=== PATIENT | male | born 1955 | race Caucasian/White ===

== ENCOUNTER 2017-07-01 03:52 | Inpatient (IN) | payer MEDICARE, MEDICAID ==
[2017-07-01] VITALS (19 sets, daily range): BP systolic 71–139; BP diastolic 43–109
[~2017-07-01] VITALS: Ht 180.3 cm; Wt 79.4 kg
--- NOTE | 2017-07-01 04:01 | Emergency Room Report ---
History of Present Illness General Chief Complaint: Dyspnea/Respdistress Source: Medical Record, EMS Present Illness HPI This is a 62-year-old male who is a [facility] patient. He has a history of encephalopathy, muscle wasting and generalized weakness. He presents with chief agreement shortness of breath. Per [facility] note, his been complaint is shortness breath all day he refuse transport earlier but tonight was transported because symptom got much more severe. He was only 88% on 5 L at the [facility]. He was placed on a nonrebreather and brought here. History is limited in this patient because of his condition. He is very lethargic and not giving much of a history. There is no known fever or chills. No nausea no vomiting. No cough. Allergies: Coded Allergies: No Known Allergies (Unverified , 07/01/17) Patient History Past Medical History: see triage record, old chart reviewed Past Surgical History: other Pertinent Family History: none Social History: Denies: smoking Immunizations: other Reviewed Nursing Documentation: PMH: Agreed, PSxH: Agreed Review of Systems Eye: Denies: eye pain, blurred vision ENT: Denies: ear pain, nose congestion, throat swelling Respiratory: Reports: shortness of breath, Denies: cough Cardiovascular: Denies: chest pain, palpitations Gastrointestinal: Denies: abdominal pain, diarrhea, nausea, vomiting Musculoskeletal: Denies: back pain, joint pain Skin: Denies: rash Neurological: Denies: headache, numbness Endocrine: Denies: increased thirst, increased urine Hematologic/Lymphatic: Denies: easy bruising All Other Systems: negative except mentioned in HPI Physical Exam Vital Signs Date Time Temp Pulse Resp B/P (MAP) Pulse Ox O2 Delivery O2 Flow Rate FiO2 07/01/17 03:49 130 22 139/61 97 Non-Rebreather 15.0 vitals with low-grade fever and tachycardia Sp02 EP Interpretation: abnormal General Appearance: moderate distress, cachetic, Chronically Ill, Stupor Head: normocephalic, atraumatic Eyes: bilateral eye PERRL, bilateral eye EOMI ENT: hearing grossly normal, normal pharynx Neck: full range of motion, supple, no meningismus Respiratory: chest non-tender, respiratory distress, decreased breath sounds, accessory muscle use Cardiovascular #1: regular rate, rhythm, no murmur, tachycardia Gastrointestinal: normal bowel sounds, non tender, no mass, no organomegaly, no bruit, non-distended Musculoskeletal: back normal, normal range of motion Neurologic: grossly normal Psychiatric: depressed affect Skin: warm/dry Procedures Critical Care Time Critical Care Time Critical care is mandated in this patient who presented with respiratory failure from pneumonia. Patient require my urgent intervention to attenuate the risks of metabolic collapse which may lead to cardiovascular collapse and . Critical care time is 35 minutes excluding any reportable procedure. Critical care time included evaluation, multiple reevaluation, looking at old charts, interpreting laboratory and diagnostic data, discussing case with patient and family and consultants, and charting. Medical Decision Making Diagnostic Impression: Primary Impression: Acute respiratory failure with hypoxemia Additional Impressions: Sepsis Qualified Codes: A41.9 - Sepsis, unspecified organism Healthcare-associated pneumonia ARF (acute renal failure) Qualified Codes: N17.9 - Acute kidney failure, unspecified Metabolic acidosis UTI (urinary tract infection) Qualified Codes: N30.00 - Acute cystitis without hematuria Proteinuria Qualified Codes: R80.9 - Proteinuria, unspecified Anemia Qualified Codes: D64.9 - Anemia, unspecified Hyperkalemia ER Course This patient presents with respiratory distress secondary to pneumonia and severe metabolic acidosis. Rectal temperature was 100. He does have a consolidation in the right lower lobe. He is in acute renal failure in nature according to his acidosis. He received IV fluids and is urinating. Antibiotics given. Patient is more alert. Patient may also have CHF. Because of this bedbound status, he is also on the differential. Patient unable to get a CT scan because of his condition. dose of Lovenox given. I contacted Dr Garcia for admission Sepsis reevaluation Time: 5:18 AM Vital signs: Temperature 98, heart rate 125, respiratory rate 32, oxygenation 92 %, blood pressure 118/49 Mental status: More alert Cardiovascular: Tachycardia Lungs: Rhonchi Abdomen: Soft Extremity: No edema Skin: No mottling Laboratory Tests Test 07/01/17 03:54 07/01/17 04:00 Arterial Blood pH 7.174 (7.350-7.450) Arterial Blood Partial Pressure CO2 20.2 mmHg (35.0-45.0) *L Arterial Blood Partial Pressure O2 76.0 mmHg (75.0-100.0) Arterial Blood HCO3 7.3 mmol/L (22.0-26.0) L Arterial Blood Oxygen Saturation 92.0 % (92.0-98.0) Arterial Blood Base Excess -19.3 Ricardo Test Positive White Blood Count 10.1 K/UL (4.8-10.8) Red Blood Count 3.73 M/UL (4.70-6.10) L Hemoglobin 11.8 G/DL (14.2-18.0) L Hematocrit 36.5 % (42.0-52.0) L Mean Corpuscular Volume 98 FL (80-99) Mean Corpuscular Hemoglobin 31.7 PG (27.0-31.0) H Mean Corpuscular Hemoglobin Concent 32.3 G/DL (32.0-36.0) Red Cell Distribution Width 14.3 % (11.6-14.8) Platelet Count 186 K/UL (150-450) Mean Platelet Volume 6.3 FL (6.5-10.1) L Neutrophils (%) (Auto) % (45.0-75.0) Lymphocytes (%) (Auto) % (20.0-45.0) Monocytes (%) (Auto) % (1.0-10.0) Eosinophils (%) (Auto) % (0.0-3.0) Basophils (%) (Auto) % (0.0-2.0) Neutrophils % (Manual) Pending Lymphocytes % (Manual) Pending Platelet Estimate Pending Platelet Morphology Pending Prothrombin Time 10.9 SEC (9.30-11.50) Prothromb Time International Ratio 1.0 (0.9-1.1) Activated Partial Thromboplast Time 39 SEC (23-33) H Urine Color Pale yellow Urine Appearance Slightly cloudy Urine pH 5 (4.5-8.0) Urine Specific [place] 1.020 (1.005-1.035) Urine Protein 4+ (NEGATIVE) H Urine Glucose (UA) 2+ (NEGATIVE) H Urine Ketones 1+ (NEGATIVE) H Urine Occult Blood 2+ (NEGATIVE) H Urine Nitrite Negative (NEGATIVE) Urine Bilirubin Negative (NEGATIVE) Urine Urobilinogen Normal MG/DL (0.0-1.0) Urine Leukocyte Esterase Negative (NEGATIVE) Urine RBC 5-10 /HPF (0 - 0) H Urine WBC 2-4 /HPF (0 - 0) Urine Squamous Epithelial Cells Occasional /LPF Urine Amorphous Sediment Few /LPF (NONE) H Urine Bacteria Moderate /HPF (NONE) H Sodium Level 142 MMOL/L (136-145) Potassium Level 5.4 MMOL/L (3.5-5.1) H Chloride Level 107 MMOL/L (98-107) Carbon Dioxide Level 10 MMOL/L (21-32) L Anion Gap 25 mmol/L (5-15) H Blood Urea Nitrogen 118 mg/dL (7-18) H Creatinine 9.4 MG/DL (0.55-1.30) H Estimat Glomerular Filtration Rate 5.7 mL/min (>60) Glucose Level 209 MG/DL (74-106) H Lactic Acid Level 3.50 mmol/L (0.66-2.22) H Calcium Level 7.2 MG/DL (8.5-10.1) L Total Bilirubin 0.7 MG/DL (0.2-1.0) Aspartate Amino Transf (AST/SGOT) 25 U/L (15-37) Alanine Aminotransferase (ALT/SGPT) 23 U/L (12-78) Alkaline Phosphatase 62 U/L (46-116) Total Creatine Kinase 269 U/L (26-308) Creatine Kinase MB 2.6 NG/ML (0.0-3.6) Creatine Kinase MB Relative Index 0.9 Troponin I 0.016 ng/mL (0.000-0.056) Pro-B-Type Natriuretic Peptide 33558 pg/mL (0-125) H Total Protein 6.5 G/DL (6.4-8.2) Albumin 2.4 G/DL (3.4-5.0) L Globulin 4.1 g/dL Albumin/Globulin Ratio 0.6 (1.0-2.7) L Lab Results Impression labs show severe acidosis and renal failure EKG Diagnostic Results Rate: tachycardiac Rhythm: NSR ST Segments: other - baseline tremors Rhythm Strip Diag. Results Rhythm Strip Time: 04:01 EP Interpretation: yes Rate: 120 Rhythm: NSR, no PVC's, no ectopy Chest X-Ray Diagnostic Results Chest X-Ray Diagnostic Results : Chest X-Ray Ordered: Yes # of Views/Limited/Complete: 1 View Indication: Shortness of Breath EP Interpretation: Yes Interpretation: no pneumothorax, other - right lower lobe infiltrate versus edema Impression: Other - right lower lobe infiltrate versus edema Electronically Signed by: Carlos Manuel Estrada MD Last Vital Signs Date Time Temp Pulse Resp B/P (MAP) Pulse Ox O2 Delivery O2 Flow Rate FiO2 07/01/17 03:49 130 22 139/61 97 Non-Rebreather 15.0 Status: improved Disposition: ADMITTED INPATIENT Condition: Critical CARLOS MANUEL ESTRADA M.D. Jul 01, 2017 04:01
[2017-07-01] MEDS ORDERED: COSOPT EYE DROP10 M1 RIGHT EYE (04:16)
[2017-07-01] MEDS ORDERED: LOVAZA1 GM ORAL (04:16)
[2017-07-01] MEDS ORDERED: REGLAN10 MG ORAL (04:16)
[2017-07-01] MEDS ORDERED: ACETAMINOPHEN325 M1 ORAL (04:16)
[2017-07-01] MEDS ORDERED: BENADRYL25 MG ORAL (04:16)
[2017-07-01] MEDS ORDERED: ASCORBIC ACID500 MG ORAL (04:16)
[2017-07-01] MEDS ORDERED: LEVEMIR100 UNIT/1 SUBQ (04:16)
[2017-07-01] MEDS ORDERED: MIRTAZAPINE7.5 MG ORAL (04:16)
[2017-07-01] MEDS ORDERED: FERROUS SULFAT325 MG ORAL (04:16)
[2017-07-01] MEDS ORDERED: NORCO 5-325 TA1 EAC1 ORAL (04:16)
[2017-07-01] MEDS ORDERED: ASPIRIN81 MG ORAL (04:16)
[2017-07-01] MEDS ORDERED: NOVOLOG100 UNIT/3 SUBQ (04:16)
[2017-07-01] MEDS ORDERED: ATORVASTATIN CA10 MG ORAL (04:16)
[2017-07-01] MEDS ORDERED: BACLOFEN10 MG ORAL (04:16)
[2017-07-01] MEDS ORDERED: AZITHROMYCIN250 MG ORAL (04:16)
[2017-07-01] MEDS ORDERED: XALATAN2.5 ML RIGHT EYE (04:16)
[2017-07-01] MEDS ORDERED: BRIMONIDINE TART5 ML RIGHT EYE (04:16)
[2017-07-01] MEDS ORDERED: PROCRIT2000 UNIT/ SUBQ (04:16)
[2017-07-01] MEDS ORDERED: VITAMIN D1000 UNI1 ORAL (04:16)
[2017-07-01 04:18] LABS: HEMATOCRIT 36.5 % (42.0-52.0); HEMOGLOBIN 11.8 G/DL (14.2-18.0); MEAN CORPUSCULAR VOLUME 98 FL (80-99); PLATELET COUNT 186 K/UL (150-450); RED BLOOD COUNT 3.73 M/UL (4.70-6.10); RED CELL DISTRIBUTION WIDTH 14.3 % (11.6-14.8); WHITE BLOOD COUNT 10.1 K/UL (4.8-10.8)
[2017-07-01] MEDS ORDERED: Cefepime HCl 1 GM in D5W 55 ML IVPB ONE (04:30)
[2017-07-01] MEDS ORDERED: Cefepime 1gm vial ONE (04:32)
[2017-07-01 04:38] LABS: APPEARANCE,URINE SLIGHTLY CLOUDY; BILIRUBIN, URINE NEGATIVE (NEGATIVE); COLOR,URINE PALE YELLOW; GLUCOSE, URINE (UA) 2+ (NEGATIVE); KETONES,URINE 1+ (NEGATIVE); LEUKOCYTE ESTERASE ,URINE NEGATIVE (NEGATIVE); NITRITE,URINE NEGATIVE (NEGATIVE); PH,URINE 5 (4.5-8.0); PROTEIN,URINE 4+ (NEGATIVE); UROBILINOGEN,URINE NORMAL MG/DL (0.0-1.0)
[2017-07-01 04:51] LABS: ALANINE AMINOTRANSFERASE 23 U/L (12-78); ALBUMIN 2.4 G/DL (3.4-5.0); ALBUMIN/GLOBULIN RATIO 0.6 (1.0-2.7); ALKALINE PHOSPHATASE 62 U/L (46-116); ANION GAP 25 mmol/L (5-15); ASPARTATE AMINO TRANSFERASE 25 U/L (15-37); BILIRUBIN,TOTAL 0.7 MG/DL (0.2-1.0); BLOOD UREA NITROGEN 118 mg/dL (7-18); CALCIUM 7.2 MG/DL (8.5-10.1); CARBON DIOXIDE 10 MMOL/L (21-32); CHLORIDE 107 MMOL/L (98-107); CKMB 2.6 NG/ML (0.0-3.6); CREATINE KINASE 269 U/L (26-308); CREATININE 9.4 MG/DL (0.55-1.30); POTASSIUM 5.4 MMOL/L (3.5-5.1); SODIUM 142 MMOL/L (136-145)
[2017-07-01] MEDS ORDERED: Enoxaparin 60mg Inj SUBQ ONE (05:30)
[2017-07-01] MEDS ORDERED: Norco 5mg/325mg tab ORAL PRN (07:30)
[2017-07-01] MEDS ORDERED: Morphine Sulfate 2mg/ml Inj IVP PRN ×2 (07:30→15:30)
[2017-07-01] MEDS ORDERED: Promethazine/Codeine 5ml UD ORAL PRN ×2 (07:30→19:30)
[2017-07-01] MEDS ORDERED: Albuterol/Ipratropium 3ml neb HHN PRN ×2 (07:30→16:00)
[2017-07-01] MEDS ORDERED: LORazepam Inj 2mg/ml 1ml IV PRN ×3 (07:30→16:00)
[2017-07-01] MEDS ORDERED: Nitroglycerin Subl 0.4mg tab SL PRN ×2 (07:30→16:00)
[2017-07-01] MEDS ORDERED: Heparin 5000 units/ml inj SUBQ SCH (10:00)
[2017-07-01] MEDS ORDERED: Cosopt Opth Soln 10 mL Btl RIGHT EYE SCH (10:00)
[2017-07-01] MEDS ORDERED: Theophylline ER 100mg ORAL SCH (10:00)
--- NOTE | 2017-07-01 11:03 | Diagnostic Imaging Report ---
Indication: Reason For Exam: SOB Technique: One view of the chest Comparison: none Findings: Fairly extensive opacities are seen at both lung bases, with air bronchograms present at the right lung base. There is also evidence of pleural thickening versus fluid at the right lung base. The remainder of the lungs appear hyperinflated. Impression: Bilateral basilar opacities, likely reflect infiltrates. However, it could also be a chronic fibrotic component. Correlate with clinical findings Probable right pleural effusion Hyperinflation, suspect COPD
[2017-07-01] MEDS ORDERED: NovoLOG Insulin Flexpen SUBQ SCH (11:30)
[2017-07-01] MEDS ORDERED: Solu-MEDROL 125mg Inj IV SCH (12:00)
--- NOTE | 2017-07-01 15:09 | Consultation ---
History of Present Illness General Date patient seen: Jul 01, 2017 Chief Complaint: Dyspnea/Respdistress Reason for Consultation: shock Present Illness HPI 62-year-old male with hx of DM, depression, cachecia, [facility] resident muscle wasting and generalized weakness presented to ER by paramedics with CC of shortness of breath all day. Apparently he refused transport to hospital earlier but then he was transported because his symptoms got much more severe. He [facility] only 88% on 5 L at the [facility]. He was placed on a nonrebreather and brought to [facility]. He was initially was put on bipap and transferred to [facility]. His BP started to drop and he is being transferred to ICU for intubation and to start IV pressors. Allergies: Coded Allergies: No Known Allergies (Unverified , 07/01/17) Medication History Scheduled Ascorbic Acid* (Ascorbic Acid*), 500 MG ORAL TWICE A DAY, (Reported) Aspirin* (Aspirin*), 81 MG ORAL DAILY, (Reported) Atorvastatin Calcium* (Lipitor*), 10 MG ORAL BEDTIME, (Reported) Azithromycin* (Zithromax*), 250 MG ORAL DAILY, (Reported) Brimonidine Tartrate* (Alphagan*), 1 DROP RIGHT EYE FOUR TIMES A DAY, (Reported) Cholecalciferol (Vitamin D3)* (Vitamin D*), 1,000 UNIT ORAL DAILY, (Reported) Dorzolamide Hcl/Timolol Maleat (Cosopt Eye Drops), 1 DRP RIGHT EYE BID, ( Reported) Epoetin Kobe (Procrit), 2,000 UNIT SUBQ --, (Reported) Ferrous Sulfate* (Ferrous Sulfate*), 325 MG ORAL TWICE A DAY, (Reported) Insulin Detemir (Levemir), 10 SUBQ EVERY 12 HOURS, (Reported) Latanoprost* (Xalatan*), 1 DROP RIGHT EYE BEDTIME, (Reported) Mirtazapine* (Mirtazapine*), 7.5 MG ORAL BEDTIME, (Reported) [place]-3 Acid Ethyl Esters (Lovaza), 1 GM ORAL DAILY, (Reported) Scheduled PRN Acetaminophen* (Acetaminophen 325MG Tablet*), 650 MG ORAL Q4H PRN for TEMP>101, MILD PAIN, (Reported) Baclofen* (Baclofen*), 10 MG ORAL THREE TIMES A DAY PRN for For Pain, (Reported) Diphenhydramine Hcl* (Benadryl*), 25 MG ORAL THREE TIMES A DAY PRN for Itching, (Reported) Hydrocodone Bit/Acetaminophen 5-325* ([place] 5-325 Tablet*), 2 TAB ORAL EVERY 8 HOURS PRN for For Pain, (Reported) Metoclopramide Hcl* (Reglan*), 10 MG ORAL THREE TIMES A DAY PRN for Nausea & Vomiting, (Reported) Miscellaneous Medications Insulin Aspart* (Novolog*), 0 SUBQ, (Reported) Patient History Healthcare decision maker Resuscitation status Full Code Advanced Directive on File Past Medical/Surgical History Past Medical/Surgical History: (1) Depression (2) Cachexia Review of Systems All Other Systems: negative except mentioned in HPI Physical Exam General Appearance: cachetic Lines, tubes and drains: peripheral HEENT: normocephalic, atraumatic Neck: non-tender, normal alignment Respiratory/Chest: chest wall non-tender, rhonchi - left, rhonchi - right Cardiovascular/Chest: normal peripheral pulses, normal rate Abdomen: normal bowel sounds Genitourinary/Rectal: normal genital exam Extremities: normal range of motion Last 24 Hour Vital Signs Date Time Temp Pulse Resp B/P (MAP) Pulse Ox O2 Delivery O2 Flow Rate FiO2 07/01/17 12:40 97.1 111 26 93/52 99 Bi-pap 15.0 100 97.1 07/01/17 12:00 100 07/01/17 12:00 107 07/01/17 11:59 97.1 111 26 93/52 99 Bi-pap 100 97.1 07/01/17 10:43 97.1 112 27 85/52 100 Bi-pap 100 97.1 07/01/17 10:30 114 28 98 Full Face 100 07/01/17 10:24 114 28 96 Bi-pap 100 07/01/17 10:11 114 27 98 Bi-pap 100 07/01/17 09:22 115 26 98 Full Face 100 07/01/17 08:58 210.9 115 26 101/55 98 Bi-pap 100 210.9 07/01/17 08:46 97.1 07/01/17 08:16 99.4 07/01/17 07:10 92 26 97 Facial 100 07/01/17 06:00 99.4 121 28 98/55 96 Non-Rebreather 15.0 100 99.4 07/01/17 05:31 100 07/01/17 05:00 99.9 122 24 126/59 97 Non-Rebreather 15.0 99.9 07/01/17 04:00 118 26 Non-Rebreather 15.0 07/01/17 04:00 99.9 118 26 139/61 98 Non-Rebreather 15.0 99.9 07/01/17 03:49 99.5 130 22 139/61 97 Non-Rebreather 15.0 99.5 Intake and Output 06/30/17 07/01/17 19:00 07:00 Intake Total 205 ml Output Total 60 ml Balance 145 ml Intake IV Total 205 ml Output Urine Total 60 ml Laboratory Tests Test 07/01/17 03:54 07/01/17 04:00 07/01/17 05:18 07/01/17 14:30 Arterial Blood pH 7.174 (7.350-7.450) 7.620 (7.350-7.450) Arterial Blood Partial Pressure CO2 20.2 mmHg (35.0-45.0) *L 21.6 mmHg (35.0-45.0) *L Arterial Blood Partial Pressure O2 76.0 mmHg (75.0-100.0) 218.7 mmHg (75.0-100.0) H Arterial Blood HCO3 7.3 mmol/L (22.0-26.0) L 6.0 mmol/L (22.0-26.0) L Arterial Blood Oxygen Saturation 92.0 % (92.0-98.0) 98.8 % (92.0-98.0) H Arterial Blood Base Excess -19.3 -22.6 Ricardo Test Positive Positive White Blood Count 10.1 K/UL (4.8-10.8) Red Blood Count 3.73 M/UL (4.70-6.10) L Hemoglobin 11.8 G/DL (14.2-18.0) L Hematocrit 36.5 % (42.0-52.0) L Mean Corpuscular Volume 98 FL (80-99) Mean Corpuscular Hemoglobin 31.7 PG (27.0-31.0) H Mean Corpuscular Hemoglobin Concent 32.3 G/DL (32.0-36.0) Red Cell Distribution Width 14.3 % (11.6-14.8) Platelet Count 186 K/UL (150-450) Mean Platelet Volume 6.3 FL (6.5-10.1) L Neutrophils (%) (Auto) % (45.0-75.0) Lymphocytes (%) (Auto) % (20.0-45.0) Monocytes (%) (Auto) % (1.0-10.0) Eosinophils (%) (Auto) % (0.0-3.0) Basophils (%) (Auto) % (0.0-2.0) Differential Total Cells Counted 100 Neutrophils % (Manual) 71 % (45-75) Lymphocytes % (Manual) 4 % (20-45) L Monocytes % (Manual) 7 % (1-10) Eosinophils % (Manual) 0 % (0-3) Basophils % (Manual) 0 % (0-2) Band Neutrophils 18 % (0-8) H Platelet Estimate Adequate Platelet Morphology Normal Anisocytosis 1+ Prothrombin Time 10.9 SEC (9.30-11.50) Prothromb Time International Ratio 1.0 (0.9-1.1) Activated Partial Thromboplast Time 39 SEC (23-33) H Urine Color Pale yellow Urine Appearance Slightly cloudy Urine pH 5 (4.5-8.0) Urine Specific [place] 1.020 (1.005-1.035) Urine Protein 4+ (NEGATIVE) H Urine Glucose (UA) 2+ (NEGATIVE) H Urine Ketones 1+ (NEGATIVE) H Urine Occult Blood 2+ (NEGATIVE) H Urine Nitrite Negative (NEGATIVE) Urine Bilirubin Negative (NEGATIVE) Urine Urobilinogen Normal MG/DL (0.0-1.0) Urine Leukocyte Esterase Negative (NEGATIVE) Urine RBC 5-10 /HPF (0 - 0) H Urine WBC 2-4 /HPF (0 - 0) Urine Squamous Epithelial Cells Occasional /LPF Urine Amorphous Sediment Few /LPF (NONE) H Urine Bacteria Moderate /HPF (NONE) H Sodium Level 142 MMOL/L (136-145) Potassium Level 5.4 MMOL/L (3.5-5.1) H Chloride Level 107 MMOL/L (98-107) Carbon Dioxide Level 10 MMOL/L (21-32) L Anion Gap 25 mmol/L (5-15) H Blood Urea Nitrogen 118 mg/dL (7-18) H Creatinine 9.4 MG/DL (0.55-1.30) H Estimat Glomerular Filtration Rate 5.7 mL/min (>60) Glucose Level 209 MG/DL (74-106) H Lactic Acid Level 3.50 mmol/L (0.66-2.22) H 3.00 mmol/L (0.66-2.22) H Calcium Level 7.2 MG/DL (8.5-10.1) L Total Bilirubin 0.7 MG/DL (0.2-1.0) Aspartate Amino Transf (AST/SGOT) 25 U/L (15-37) Alanine Aminotransferase (ALT/SGPT) 23 U/L (12-78) Alkaline Phosphatase 62 U/L (46-116) Total Creatine Kinase 269 U/L (26-308) Creatine Kinase MB 2.6 NG/ML (0.0-3.6) Creatine Kinase MB Relative Index 0.9 Troponin I 0.016 ng/mL (0.000-0.056) Pro-B-Type Natriuretic Peptide 48779 pg/mL (0-125) H Total Protein 6.5 G/DL (6.4-8.2) Albumin 2.4 G/DL (3.4-5.0) L Globulin 4.1 g/dL Albumin/Globulin Ratio 0.6 (1.0-2.7) L Microbiology Date/Time Source Procedure Growth Status 07/01/17 04:00 Nasal Nares Influenza Types A,B Antigen (SRI) - Final Complete Height (Feet): 5 Height (Inches): 11.00 Weight (Pounds): 150 Medications Current Medications Medications (Trade) Dose Ordered Sig/Sameera Route PRN Reason Start Time Stop Time Status Last Admin Dose Admin Acetaminophen (Tylenol) 650 mg Q4H PRN ORAL fever (temp>100.5F) 07/01/17 07:30 07/31/17 07:29 Albuterol/ Ipratropium (Albuterol/ Ipratropium) 3 ml Q4H PRN HHN dyspnea 07/01/17 07:30 07/06/17 07:29 07/01/17 10:11 Clonidine HCl (Catapres Tab) 0.1 mg Q4H PRN ORAL sbp more than 160 07/01/17 07:30 07/31/17 07:29 Dextrose (Dextrose 50%) STAT PRN IV Hypoglycemia 07/01/17 07:30 07/31/17 07:29 Dorzolamide/ Timolol (Cosopt) 1 drop BID RIGHT EYE 07/01/17 10:00 07/31/17 09:59 07/01/17 11:02 Heparin Sodium (Porcine) (Heparin 5000 units/ml) 5,000 units EVERY 12 HOURS SUBQ 07/01/17 10:00 07/31/17 09:59 07/01/17 10:15 Insulin Aspart (NovoLOG) BEFORE MEALS AND HS SUBQ 07/01/17 11:30 07/31/17 11:29 07/01/17 13:44 Lorazepam (Ativan 2mg/ml 1ml) 0.5 mg Q4H PRN IV For Anxiety 07/01/17 07:30 07/08/17 07:29 07/01/17 10:16 Methylprednisolone Sodium Succinate (Solu-MEDROL) 60 mg EVERY 6 HOURS IV 07/01/17 12:00 07/31/17 11:59 07/01/17 12:23 Morphine Sulfate (Morphine Sulfate) 2 mg Q4H PRN IVP severe pain 7-10 07/01/17 07:30 07/08/17 07:29 07/01/17 08:16 Nitroglycerin (Ntg) 0.4 mg Q5M X 3 DOSES PRN SL Prn Chest Pain 07/01/17 07:30 07/31/17 07:29 Ondansetron HCl (Zofran) 4 mg Q6H PRN IVP Nausea & Vomiting 07/01/17 07:30 07/31/17 07:29 Promethazine HCl/ Codeine (Phenergan with Codeine) 5 ml Q6H PRN ORAL cough 07/01/17 07:30 07/31/17 07:29 Temazepam (Restoril) 15 mg HSPRN PRN ORAL Insomnia 07/01/17 07:30 07/08/17 07:29 Theophylline (Jame-Dur) 100 mg EVERY 12 HOURS ORAL 07/01/17 10:00 07/31/17 09:59 07/01/17 10:14 Assessment/Plan Problem List: (1) Acute respiratory failure with hypoxemia ICD Codes: J96.01 - Acute respiratory failure with hypoxia SNOMED: 285604872 (2) ATN (acute tubular necrosis) ICD Codes: N17.0 - Acute kidney failure with tubular necrosis SNOMED: 02676950 (3) Healthcare-associated pneumonia ICD Codes: J18.9 - Pneumonia, unspecified organism SNOMED: 506660242 (4) Hyperkalemia ICD Codes: E87.5 - Hyperkalemia SNOMED: 58980882 (5) Depression ICD Codes: F32.9 - Major depressive disorder, single episode, unspecified SNOMED: 35787115 (6) Cachexia ICD Codes: R64 - Cachexia SNOMED: 069558213 Respiratory: monitor respiratory rate, adjust FIO2, CXR Cardiac: continue to monitor HR/BP Infectious Disease: check cultures Gastrointestinal: hold feedings Endocrine: monitor blood sugar, check HgA1C, continue sliding scale insulin Hematologic: transfuse if hgb<8.5 Neurologic: keep patient comfortable Affect: PRN ativan Prophylaxis: Protonix Disposition: keep in ICU Notes Reviewed: cardio, renal Discussed with: nurses, consultants, manager of case management Radha Haney MD Jul 01, 2017 15:09
[2017-07-01] MEDS ORDERED: Heparin 2000 units/Ns 1000ml INJ PRN (15:15)
[2017-07-01] MEDS ORDERED: Morphine Sulfate 4mg/ml Inj IVP PRN (15:15)
[2017-07-01] MEDS ORDERED: Lidocaine 1% Plain 30 ml INJ ONE (15:45)
--- NOTE | 2017-07-01 15:57 | Emergency Room Report ---
History of Present Illness General Chief Complaint: Dyspnea/Respdistress Source: Medical Record Present Illness Allergies: Coded Allergies: No Known Allergies (Unverified , 07/01/17) Nursing Documentation-PMH Hx COPD: Yes Hx Diabetes: Yes Hx Gastrointestinal Problems: Yes - BPH ,CHRONIC KIDNEY DISEASE, GERD Hx Neurological Problems: No Physical Exam Vital Signs Date Time Temp Pulse Resp B/P (MAP) Pulse Ox O2 Delivery O2 Flow Rate FiO2 07/01/17 03:49 99.5 130 22 139/61 97 Non-Rebreather 15.0 99.5 07/01/17 05:31 100 Procedures Intubation Intubation : Consent: Emergent Time of Intubation: 15:55 Intubation Method: orotracheal Tube Size (cm): 8.0 Medications: Etomidate, Rocuronium Breath Sounds after Intubation: equal Intubation Complications: no complications Post Intubation Xray: Yes Attempts: One Patient Tolerated: Well Complications: None Medical Decision Making Diagnostic Impression: Primary Impression: Acute respiratory failure with hypoxemia Additional Impressions: ARF (acute renal failure) Qualified Codes: N17.9 - Acute kidney failure, unspecified Anemia Qualified Codes: D64.9 - Anemia, unspecified Healthcare-associated pneumonia Proteinuria Qualified Codes: R80.9 - Proteinuria, unspecified Sepsis Qualified Codes: A41.9 - Sepsis, unspecified organism UTI (urinary tract infection) Qualified Codes: N30.00 - Acute cystitis without hematuria Metabolic acidosis Hyperkalemia ER Course Patient needs an emergency PICC line placed, no family is available to consent for PICC line and patient is unable to sign for himself. Last Vital Signs Date Time Temp Pulse Resp B/P (MAP) Pulse Ox O2 Delivery O2 Flow Rate FiO2 07/01/17 15:27 115 16 100 07/01/17 12:40 97.1 93/52 99 Bi-pap 15.0 97.1 Status: unchanged Disposition: ADMITTED INPATIENT Condition: Critical Referrals: PATTI TINAJERO (PCP) Gabe Andrade Jul 01, 2017 15:56
[2017-07-01] MEDS ORDERED: Lidocaine 1% Plain 30 ml INJ PRN (16:00)
--- NOTE | 2017-07-01 16:29 | Consultation ---
Consult Note Consult Note This is a 62-year-old male who is a halfway patient. He has a history of encephalopathy, muscle wasting and generalized weakness. He presents with chief agreement shortness of breath. Per halfway note, his been complaint is shortness breath all day he refuse transport earlier but tonight was transported because symptom got much more severe. He was only 88% on 5 L at the halfway. He was placed on a nonrebreather and brought here. History is limited in this patient because of his condition. He is very lethargic and not giving much of a history. There is no known fever or chills. No nausea no vomiting. No cough. in icu intubate Assessment/Plan Acute renal failure- High K ? CKD Acute respiratory failure, Pneumonia Hypotension- Shock, Sepsis Cachexia Hydrate pressors pulm support JUSTIN Perea Jul 01, 2017 16:29
[2017-07-01] MEDS ORDERED: Sodium Polystyrene Sulfonate 15gm Powder NG ONE (17:00)
--- NOTE | 2017-07-01 17:08 | Diagnostic Imaging Report ---
Indications: Needs long-term IV access Technique: Procedure performed at bedside. Procedural timeout performed. Ultrasound confirms patent compressible right basilic vein. Total sterile technique, including sterile probe cover and sterile gel, sterile gloves, hand hygiene, hat, mask,, sterile gown, large sterile drape, and preparation with 2% chlorhexidine utilized. Local anesthesia with 1% lidocaine. Under real-time ultrasound guidance, puncture basilic vein using 21-gauge needle, passage 0.018 guidewire, exchange for 5 Brazilian peel-away sheath. 5 Brazilian Bard dual-lumen power PICC cut to 34 cm. It was inserted through the peel-away sheath. Peel-away sheath and guidewire removed. Catheter fixed to the skin. Both catheter ports aspirated and flushed. Patient tolerated procedure well, without immediate complication. Followup chest x-ray obtained, documents catheter tip position at the mid superior vena cava Impression: Successful bedside placement of right arm PICC under sonographic guidance, as described above.
--- NOTE | 2017-07-01 17:16 | Diagnostic Imaging Report ---
Indication: Shortness of breath Technique: One view of the chest Comparison: 11 hours earlier Findings: Interim endotracheal intubation, endotracheal tube tip in good position approximately 7 cm above the robyn. There are extensive bilateral basilar infiltrates again demonstrated, mostly stable but slightly increased in the left suprahilar region. There is probably bilateral pleural fluid as well. Heart size is upper limits of normal. Impression: Satisfactory endotracheal intubation Extensive bilateral infiltrates and pleural effusions, slightly increased on the left over 11 hours
--- NOTE | 2017-07-01 17:53 | Diagnostic Imaging Report ---
Indication: Acute renal failure Technique: Grayscale and duplex images of the kidneys, retroperitoneum, and bladder were obtained. Comparison: none Findings: Right kidney measures 9.1 cm in length. Left kidney measures 9.5 cm in length. Both kidneys demonstrate increased echogenicity. No hydronephrosis. No focal abnormality. Normal inferior vena cava. Bladder is nearly empty, contains a Eric catheter, and trace retained urine despite the Eric catheter. Impression: Bilateral echogenic kidneys, consistent with medical renal disease Negative prior process Nearly empty bladder containing a Eric catheter.
[2017-07-01] MEDS: Cosopt Opth Soln 10 mL Btl RIGHT EYE SCH (18:00)
[2017-07-01] MEDS: Solu-MEDROL 125mg Inj IV SCH ×2 (18:30→23:33)
[2017-07-01] MEDS: Pantoprazole Inj IVP SCH ×2 (18:30→21:23)
[2017-07-01] MEDS: NovoLOG Insulin Flexpen SUBQ SCH ×2 (18:33→21:27)
[2017-07-01] MEDS ORDERED: Dyna-Hex 2% Top Sol 2oz TOPIC SCH (20:00)
[2017-07-01] MEDS: Dyna-Hex 2% Top Sol 2oz TOPIC SCH (20:28)
[2017-07-01] MEDS: Theophylline ER 100mg ORAL SCH (21:23)
[2017-07-01] MEDS: Heparin 5000 units/ml inj SUBQ SCH (21:25)
[2017-07-01] MEDS ORDERED: Levophed 4mg/4mL Inj IV ONE (22:22)
[2017-07-02] VITALS (54 sets, daily range): BP systolic 69–165; BP diastolic 33–94
[2017-07-02 05:26] LABS: HEMOGLOBIN 9.7 G/DL (14.2-18.0); MEAN CORPUSCULAR VOLUME 100 FL (80-99); PLATELET COUNT 141 K/UL (150-450); RED CELL DISTRIBUTION WIDTH 14.3 % (11.6-14.8); WHITE BLOOD COUNT 21.5 K/UL (4.8-10.8)
[2017-07-02 05:46] LABS: PHOSPHORUS 8.3 MG/DL (2.5-4.9)
[2017-07-02] MEDS: Solu-MEDROL 125mg Inj IV SCH ×4 (06:05→23:39)
[2017-07-02] MEDS: NovoLOG Insulin Flexpen SUBQ SCH ×4 (06:07→21:05)
[2017-07-02 06:18] LABS: CREATINE KINASE 980 U/L (26-308); FERRITIN 1364 NG/ML (8-388); GAMMA GLUTAMYL TRANSPEPTIDASE 18 U/L (5-85)
[2017-07-02 06:31] LABS: % IRON SATURATION 15 % (15-50); IRON 12 ug/dL (50-175); TOTAL IRON BINDING CAPACITY 80 ug/dL (250-450)
[2017-07-02 07:05] LABS: ALANINE AMINOTRANSFERASE 26 U/L (12-78); ALBUMIN 2.2 G/DL (3.4-5.0); ALBUMIN/GLOBULIN RATIO 0.7 (1.0-2.7); ALKALINE PHOSPHATASE 48 U/L (46-116); ANION GAP 24 mmol/L (5-15); ASPARTATE AMINO TRANSFERASE 64 U/L (15-37); BILIRUBIN,TOTAL 0.7 MG/DL (0.2-1.0); BLOOD UREA NITROGEN 128 mg/dL (7-18); CHLORIDE 116 MMOL/L (98-107); CREATININE 9.2 MG/DL (0.55-1.30); SODIUM 147 MMOL/L (136-145)
[2017-07-02 07:06] LABS: CARBON DIOXIDE 7 MMOL/L (21-32); POTASSIUM 6.7 MMOL/L (3.5-5.1)
[2017-07-02] MEDS ORDERED: Sodium Bicarbonate 50ml Carp IV ONE (08:30)
[2017-07-02] MEDS: Heparin 5000 units/ml inj SUBQ SCH ×2 (08:50→20:57)
[2017-07-02] MEDS ORDERED: Pantoprazole Inj IV SCH ×2 (09:00)
[2017-07-02] MEDS: Pantoprazole Inj IVP SCH ×2 (09:10→20:55)
[2017-07-02] MEDS: Theophylline ER 100mg ORAL SCH (09:10)
[2017-07-02] MEDS: Cosopt Opth Soln 10 mL Btl RIGHT EYE SCH ×2 (09:11→17:27)
--- NOTE | 2017-07-02 10:24 | Diagnostic Imaging Report ---
Indication: Status post nasogastric tube placement Technique: Supine view of the upper abdomen Comparison: none Findings: There is a nasogastric tube in place, tip projected at the level of the gastric body, proximal port beyond the gastroesophageal junction. Extensive bilateral pulmonary parenchymal infiltrates are noted. Bilateral pleural effusions are also noted. Impression: Satisfactory nasogastric intubation Other findings as noted This agrees with the preliminary interpretation provided overnight by [facility] teleradiology service.
--- NOTE | 2017-07-02 10:31 | Pulmonolgy Critical Care Note ---
Critical Care - Asmt/Plan Problems: (1) Acute respiratory failure with hypoxemia (2) ATN (acute tubular necrosis) (3) Sepsis (4) Healthcare-associated pneumonia (5) Cachexia Respiratory: monitor respiratory rate, adjust FIO2, CXR Cardiac: continue to monitor HR/BP Renal: F/U I&O, keep IV fluid, other - change iv fluid to d5w and bicarbonate Endocrine: monitor blood sugar, start insulin drip, continue sliding scale insulin Hematologic: monitor H/H Neurologic: PRN Ativan, PRN Morphine, keep patient comfortable Affect: PRN ativan Prophylaxis: Heparin Disposition: keep in ICU Notes Reviewed: boiler tester, cardio, renal Discussed with: nurses, consultants, housing case manager, family member Critical Care - Objective Last 24 Hour Vital Signs Date Time Temp Pulse Resp B/P (MAP) Pulse Ox O2 Delivery O2 Flow Rate FiO2 07/02/17 08:58 118 25 100 07/02/17 08:00 100 07/02/17 08:00 114 07/02/17 07:00 103 24 112/45 Mechanical Ventilator 100 07/02/17 06:58 107 24 100 07/02/17 06:30 105 24 92/42 Mechanical Ventilator 100 07/02/17 06:00 103 24 93/37 100 Mechanical Ventilator 100 07/02/17 05:30 104 26 99/50 100 Mechanical Ventilator 100 07/02/17 05:28 10 26 100 07/02/17 05:00 105 26 106/33 100 Mechanical Ventilator 100 07/02/17 04:30 107 25 102/50 100 Mechanical Ventilator 100 07/02/17 04:10 105/48 07/02/17 04:00 98.2 109 25 105/48 100 Mechanical Ventilator 100 98.2 07/02/17 04:00 100 07/02/17 04:00 113 07/02/17 03:30 114 22 120/42 100 Mechanical Ventilator 100 07/02/17 03:29 109 28 100 07/02/17 03:00 115 19 130/60 100 Mechanical Ventilator 07/02/17 02:30 116 22 120/52 100 07/02/17 02:30 117 23 118/47 100 Mechanical Ventilator 100 07/02/17 02:00 117 23 120/47 100 Mechanical Ventilator 100 07/02/17 02:00 117 23 120/47 100 07/02/17 01:30 117 24 100 3/20/18 01:30 117 24 118/60 100 Mechanical Ventilator 100 20/18 01:04 110 29 100 20/18 01:00 118 22 126/54 100 20/18 01:00 118 22 126/54 100 Mechanical Ventilator 100 20/18 00:30 114 18 100 20/18 00:30 114 18 120/68 100 Mechanical Ventilator 100 20/18 00:00 98.0 114 19 128/66 99 Mechanical Ventilator 100 98.0 20/18 00:00 114 20/18 00:00 100 20/18 00:00 114 19 128/66 99 19/18 23:30 120 21 116/70 100 Mechanical Ventilator 100 07/01/18 23:15 111 24 100 07/01/18 23:00 115 21 118/61 100 Mechanical Ventilator 100 07/01/18 22:30 112 24 114/60 100 Mechanical Ventilator 100 07/01/18 22:27 71/43 07/01/18 22:00 107 24 71/43 100 Mechanical Ventilator 100 07/01/18 21:30 107 24 131/109 100 Mechanical Ventilator 100 07/01/18 21:17 114 26 100 19/18 21:00 113 24 121/75 100 Mechanical Ventilator 100 07/01/18 20:30 112 24 123/75 100 Mechanical Ventilator 100 07/01/18 20:00 98.3 110 24 133/57 100 Mechanical Ventilator 100 98.3 19/18 19:36 100 19/18 19:21 111 24 100 19/18 19:00 115 16 114/55 100 Mechanical Ventilator 100 07/01/18 18:00 98.2 119 17 134/46 100 Mechanical Ventilator 100 98.2 19/18 17:00 115 16 125/58 100 Mechanical Ventilator 100 19/18 16:52 108 16 100 19/18 16:45 77/51 19/18 16:00 111 19/18 16:00 100 19/18 16:00 111 16 88/51 100 Mechanical Ventilator 100 19/18 15:27 115 16 100 19/18 15:00 114 16 84/51 100 Mechanical Ventilator 100 19/18 13:28 103 20 98 Full Face 100 19/18 13:00 100 07/01/17 12:40 97.1 111 26 93/52 99 Bi-pap 15.0 100 97.1 07/01/17 12:00 100 07/01/17 12:00 107 07/01/17 11:59 97.1 111 26 93/52 99 Bi-pap 100 97.1 07/01/17 10:43 97.1 112 27 85/52 100 Bi-pap 100 97.1 07/01/17 10:30 114 28 98 Full Face 100 Status: obtunded Condition: critical HEENT: atraumatic Neck: full ROM Lungs: clear Heart: HR/BP stable, regular Extremities: edema Decubiti: location Micro: Microbiology Date/Time Source Procedure Growth Status 07/01/17 04:00 Nasal Nares MRSA Culture - Final Staphylococcus Aureus - Mrsa Complete 07/01/17 04:00 Nasal Nares Influenza Types A,B Antigen (SRI) - Final Complete Accucheck: 157 Critical Care - Subjective ROS Limited/Unobtainable: Yes ICU Day: 2 Intubation Day: 2 Condition: critical EKG Rhythm: Sinus Rhythm FI02: 100 Vent Support Breath Rate: 24 Vent Support Mode: AC Vent Tidal Volume: 700 Sputum Amount: Scant PEEP: 6.0 PIP: 20 Secretions: none, Fluids: NS 150 cc/hour Tube Feeding Amount: 30 I&O: Intake and Output 07/01/17 07/02/17 19:00 07:00 Intake Total 30 ml 2535.00 ml Output Total 75 ml 230 ml Balance -45 ml 2305.00 ml Intake Oral 0 ml Free Water 60 ml IV Total 2115.00 ml Tube Feeding 30 ml 360 ml Output Urine Total 75 ml 230 ml Stool Total 0 ml CXR: ET in good position, RLL atelectasis, infiltrate ET-Tube: 8.0 ET Position: 24 Labs: Laboratory Tests Test 07/01/17 14:30 07/01/17 16:55 07/02/17 04:20 07/02/17 04:25 Arterial Blood pH 7.620 (7.350-7.450) 6.997 (7.350-7.450) Arterial Blood Partial Pressure CO2 21.6 mmHg (35.0-45.0) *L 33.3 mmHg (35.0-45.0) L Arterial Blood Partial Pressure O2 218.7 mmHg (75.0-100.0) H 192.3 mmHg (75.0-100.0) H Arterial Blood HCO3 6.0 mmol/L (22.0-26.0) L 8.0 mmol/L (22.0-26.0) L Arterial Blood Oxygen Saturation 98.8 % (92.0-98.0) H 97.9 % (92.0-98.0) Arterial Blood Base Excess -22.6 -22.1 Ricardo Test Positive Positive Urine Eosinophils None seen White Blood Count 21.5 K/UL (4.8-10.8) #H Red Blood Count 3.00 M/UL (4.70-6.10) L Hemoglobin 9.7 G/DL (14.2-18.0) L Hematocrit 30.0 % (42.0-52.0) L Mean Corpuscular Volume 100 FL (80-99) H Mean Corpuscular Hemoglobin 32.3 PG (27.0-31.0) H Mean Corpuscular Hemoglobin Concent 32.4 G/DL (32.0-36.0) Red Cell Distribution Width 14.3 % (11.6-14.8) Platelet Count 141 K/UL (150-450) L Mean Platelet Volume 7.5 FL (6.5-10.1) Neutrophils (%) (Auto) % (45.0-75.0) Lymphocytes (%) (Auto) % (20.0-45.0) Monocytes (%) (Auto) % (1.0-10.0) Eosinophils (%) (Auto) % (0.0-3.0) Basophils (%) (Auto) % (0.0-2.0) Differential Total Cells Counted 100 Neutrophils % (Manual) 79 % (45-75) H Lymphocytes % (Manual) 1 % (20-45) L Monocytes % (Manual) 3 % (1-10) Eosinophils % (Manual) 0 % (0-3) Basophils % (Manual) 0 % (0-2) Band Neutrophils 17 % (0-8) H Platelet Estimate Adequate Platelet Morphology Normal Macrocytosis 1+ Sodium Level 147 MMOL/L (136-145) H Potassium Level 6.7 MMOL/L (3.5-5.1) *H Chloride Level 116 MMOL/L (98-107) H Carbon Dioxide Level 7 MMOL/L (21-32) *L Anion Gap 24 mmol/L (5-15) H Blood Urea Nitrogen 128 mg/dL (7-18) H Creatinine 9.2 MG/DL (0.55-1.30) H Estimat Glomerular Filtration Rate 5.9 mL/min (>60) Glucose Level 158 MG/DL (74-106) H Hemoglobin A1c 6.8 % (4.3-6.0) H Lactic Acid Level 2.20 mmol/L (0.66-2.22) Uric Acid 7.8 MG/DL (2.6-7.2) H Calcium Level 6.0 MG/DL (8.5-10.1) L Phosphorus Level 8.3 MG/DL (2.5-4.9) H Magnesium Level 1.3 MG/DL (1.8-2.4) L Iron Level 12 ug/dL (50-175) L Total Iron Binding Capacity 80 ug/dL (250-450) L Percent Iron Saturation 15 % (15-50) Unsaturated Iron Binding 68 ug/dL (112-346) L Ferritin 1364 NG/ML (8-388) H Total Bilirubin 0.7 MG/DL (0.2-1.0) Gamma Glutamyl Transpeptidase 18 U/L (5-85) Aspartate Amino Transf (AST/SGOT) 64 U/L (15-37) H Alanine Aminotransferase (ALT/SGPT) 26 U/L (12-78) Alkaline Phosphatase 48 U/L (46-116) Total Creatine Kinase 980 U/L (26-308) H Pro-B-Type Natriuretic Peptide 51598 pg/mL (0-125) H Total Protein 5.4 G/DL (6.4-8.2) L Albumin 2.2 G/DL (3.4-5.0) L Globulin 3.2 g/dL Albumin/Globulin Ratio 0.7 (1.0-2.7) L Vitamin B12 Level 1544 PG/ML (193-986) H Folate 13.6 NG/ML (8.6-58.9) Thyroid Stimulating Hormone (TSH) 0.807 uiU/mL (0.358-3.740) Test 07/02/17 04:30 07/02/17 08:50 Urine Random Sodium 43 mmol/L (20-110) Arterial Blood pH 7.019 (7.350-7.450) Arterial Blood Partial Pressure CO2 24.4 mmHg (35.0-45.0) *L Arterial Blood Partial Pressure O2 140.8 mmHg (75.0-100.0) H Arterial Blood HCO3 6.1 mmol/L (22.0-26.0) L Arterial Blood Oxygen Saturation 97.3 % (92.0-98.0) Arterial Blood Base Excess -23.2 Ricrado Test Positive Radha Haney MD Jul 02, 2017 10:31
--- NOTE | 2017-07-02 10:53 | Nephrology Progress Note ---
Assessment/Plan Problem List: (1) ARF (acute renal failure) (2) Acute respiratory failure with hypoxemia (3) Hyperkalemia (4) Cachexia Assessment Acute renal failure- High K ? CKD Acute respiratory failure, Pneumonia Hypotension- Shock, Sepsis Cachexia Plan HD dominik- ordered pressors pulm support benavides echo 55% EjFx costa Bilateral echogenic kidneys, consistent with medical renal disease discussed with RN in dept cxr Extensive bilateral infiltrates and pleural effusions, slightly increased on the left Subjective ROS Limited/Unobtainable: Yes Objective Objective Last 24 Hour Vital Signs Date Time Temp Pulse Resp B/P (MAP) Pulse Ox O2 Delivery O2 Flow Rate FiO2 07/02/17 08:58 118 25 100 07/02/17 08:00 100 07/02/17 08:00 114 07/02/17 07:00 103 24 112/45 Mechanical Ventilator 100 07/02/17 06:58 107 24 100 07/02/17 06:30 105 24 92/42 Mechanical Ventilator 100 07/02/17 06:00 103 24 93/37 100 Mechanical Ventilator 100 07/02/17 05:30 104 26 99/50 100 Mechanical Ventilator 100 07/02/17 05:28 10 26 100 07/02/17 05:00 105 26 106/33 100 Mechanical Ventilator 100 07/02/17 04:30 107 25 102/50 100 Mechanical Ventilator 100 07/02/17 04:10 105/48 07/02/17 04:00 98.2 109 25 105/48 100 Mechanical Ventilator 100 98.2 07/02/17 04:00 100 07/02/17 04:00 113 07/02/17 03:30 114 22 120/42 100 Mechanical Ventilator 100 07/02/17 03:29 109 28 100 07/02/17 03:00 115 19 130/60 100 Mechanical Ventilator 07/02/17 02:30 116 22 120/52 100 07/02/17 02:30 117 23 118/47 100 Mechanical Ventilator 100 07/02/17 02:00 117 23 120/47 100 Mechanical Ventilator 100 07/02/17 02:00 117 23 120/47 100 07/02/17 01:30 117 24 100 07/02/17 01:30 117 24 118/60 100 Mechanical Ventilator 100 07/02/17 01:04 110 29 100 07/02/17 01:00 118 22 126/54 100 3/20/18 01:00 118 22 126/54 100 Mechanical Ventilator 100 20/18 00:30 114 18 100 20/18 00:30 114 18 120/68 100 Mechanical Ventilator 100 20/18 00:00 98.0 114 19 128/66 99 Mechanical Ventilator 100 98.0 20/18 00:00 114 20/18 00:00 100 2018 00:00 114 19 128/66 99 19/18 23:30 120 21 116/70 100 Mechanical Ventilator 100 19/18 23:15 111 24 100 19/18 23:00 115 21 118/61 100 Mechanical Ventilator 100 07/01/18 22:30 112 24 114/60 100 Mechanical Ventilator 100 07/01/18 22:27 71/43 07/01/18 22:00 107 24 71/43 100 Mechanical Ventilator 100 07/01/18 21:30 107 24 131/109 100 Mechanical Ventilator 100 07/01/18 21:17 114 26 100 07/01/18 21:00 113 24 121/75 100 Mechanical Ventilator 100 07/01/18 20:30 112 24 123/75 100 Mechanical Ventilator 100 07/01/18 20:00 98.3 110 24 133/57 100 Mechanical Ventilator 100 98.3 19/18 19:36 100 07/01/18 19:21 111 24 100 07/01/18 19:00 115 16 114/55 100 Mechanical Ventilator 100 07/01/18 18:00 98.2 119 17 134/46 100 Mechanical Ventilator 100 98.2 07/01/18 17:00 115 16 125/58 100 Mechanical Ventilator 100 18 16:52 108 16 100 19/18 16:45 77/51 19/18 16:00 111 19/18 16:00 100 19/18 16:00 111 16 88/51 100 Mechanical Ventilator 100 07/01/18 15:27 115 16 100 07/01/18 15:00 114 16 84/51 100 Mechanical Ventilator 100 07/01/18 13:28 103 20 98 Full Face 100 18 13:00 100 19/18 12:40 97.1 111 26 93/52 99 Bi-pap 15.0 100 97.1 19/18 12:00 100 3/19/18 12:00 107 07/01/17 11:59 97.1 111 26 93/52 99 Bi-pap 100 97.1 Intake and Output 07/01/17 07/02/17 19:00 07:00 Intake Total 30 ml 2535.00 ml Output Total 75 ml 230 ml Balance -45 ml 2305.00 ml Intake Oral 0 ml Free Water 60 ml IV Total 2115.00 ml Tube Feeding 30 ml 360 ml Output Urine Total 75 ml 230 ml Stool Total 0 ml Laboratory Tests 07/01/17 14:30: Arterial Blood pH 7.620*H, Arterial Blood Partial Pressure CO2 21.6*L, Arterial Blood Partial Pressure O2 218.7H, Arterial Blood HCO3 6.0L, Arterial Blood Oxygen Saturation 98.8H, Arterial Blood Base Excess -22.6, Ricardo Test Positive 07/01/17 16:55: Arterial Blood pH 6.997*L, Arterial Blood Partial Pressure CO2 33.3L, Arterial Blood Partial Pressure O2 192.3H, Arterial Blood HCO3 8.0L, Arterial Blood Oxygen Saturation 97.9, Arterial Blood Base Excess -22.1, Ricardo Test Positive 07/02/17 04:20: Urine Eosinophils None seen 07/02/17 04:25: White Blood Count 21.5#H, Red Blood Count 3.00L, Hemoglobin 9.7L, Hematocrit 30.0L, Mean Corpuscular Volume 100H, Mean Corpuscular Hemoglobin 32.3H, Mean Corpuscular Hemoglobin Concent 32.4, Red Cell Distribution Width 14.3, Platelet Count 141L, Mean Platelet Volume 7.5, Neutrophils (%) (Auto) , Lymphocytes (%) ( Auto) , Monocytes (%) (Auto) , Eosinophils (%) (Auto) , Basophils (%) (Auto) , Differential Total Cells Counted 100, Neutrophils % (Manual) 79H, Lymphocytes % (Manual) 1L, Monocytes % (Manual) 3, Eosinophils % (Manual) 0, Basophils % ( Manual) 0, Band Neutrophils 17H, Platelet Estimate Adequate, Platelet Morphology Normal, Macrocytosis 1+, Sodium Level 147H, Potassium Level 6.7*H, Chloride Level 116H, Carbon Dioxide Level 7*L, Anion Gap 24H, Blood Urea Nitrogen 128H, Creatinine 9.2H, Estimat Glomerular Filtration Rate 5.9, Glucose Level 158H, Hemoglobin A1c 6.8H, Lactic Acid Level 2.20, Uric Acid 7.8H, Calcium Level 6.0L, Phosphorus Level 8.3H, Magnesium Level 1.3L, Iron Level 12L , Total Iron Binding Capacity 80L, Percent Iron Saturation 15, Unsaturated Iron Binding 68L, Ferritin 1364H, Total Bilirubin 0.7, Gamma Glutamyl Transpeptidase 18, Aspartate Amino Transf (AST/SGOT) 64H, Alanine Aminotransferase (ALT/SGPT) 26, Alkaline Phosphatase 48, Total Creatine Kinase 980H, Pro-B-Type Natriuretic Peptide 89454O, Total Protein 5.4L, Albumin 2.2L, Globulin 3.2, Albumin/ Globulin Ratio 0.7L, Vitamin B12 Level 1544H, Folate 13.6, Thyroid Stimulating Hormone (TSH) 0.807 07/02/17 04:30: Urine Random Sodium 43 07/02/17 08:50: Arterial Blood pH 7.019*L, Arterial Blood Partial Pressure CO2 24.4*L, Arterial Blood Partial Pressure O2 140.8H, Arterial Blood HCO3 6.1L, Arterial Blood Oxygen Saturation 97.3, Arterial Blood Base Excess -23.2, Ricardo Test Positive Height (Feet): 5 Height (Inches): 11.00 Weight (Pounds): 150 General Appearance: no apparent distress EENT: other - on vent Cardiovascular: tachycardia Respiratory/Chest: decreased breath sounds Abdomen: distended Genitourinary/Rectal: other - JUSTIN Roberto Jul 02, 2017 10:53
--- NOTE | 2017-07-02 11:28 | Diagnostic Imaging Report ---
Indication: Dyspnea Technique: One view of the chest Comparison: 07/01/2017 Findings: Stable satisfactory position of endotracheal tube. Interim placement of enteric tube. Bilateral basilar infiltrates and pleural effusions are unchanged. Interim placement of right arm PICC. The heart remains borderline enlarged Impression: Interim PICC placement. Otherwise no significant slubber frame changer one day
[2017-07-02] MEDS ORDERED: Heparin 2000 units/Ns 1000ml INJ ONE (11:30)
[2017-07-02] MEDS: Morphine Sulfate 2mg/ml Inj IVP PRN (11:39)
[2017-07-02] MEDS: Renvela 800mg Pkt NG SCH ×3 (12:00→23:39)
--- NOTE | 2017-07-02 12:36 | Diagnostic Imaging Report ---
Indication: Shortness of breath Technique: One view of the chest Comparison: 5 hours earlier Findings: Interim placement of a left subclavian temporary dialysis catheter, tip projecting at the level of the cavoatrial junction. No gross pneumothorax. Bilateral infiltrates and pleural effusions persist. Right arm PICC is again demonstrated. The heart size is normal Impression: Satisfactory position of left subclavian temporary dialysis catheter. No radiographically evident complication Other stable findings as described
--- NOTE | 2017-07-02 13:43 | Operative Note - PDOC ---
Operative Note Operative Note Date of Operation/Procedure: Jul 02, 2017 Pre-op Diagnosis: Sepsis, renal insufficiency requiring urgent dialysis Procedure: left subclavian central venous HD catheter insertion Post-op Diagnosis: same as pre-op Operative Findings: consistent w/pre-op dx studies Surgeon: Kwasi Anesthesia: local Specimen: none Complications: none Condition: stable Estimated Blood Loss: minimal Drains: none Implant(s) used?: Yes - left subclavian short term triple lumen HD catheter Indications for Procedure 62M with acute renal insufficiency requiring urgent dialysis. Patient seen, chart reviewed, procedure indicated and recommend dominik for urgent dialysis. Description of Procedure The patient was made comfortable at bedside. The left chest wall was prepped and draped in the normal sterile fashion. After landmarks were identified, approximately 5 cc of 1% lidocaine was injected into the skin and subcuticular tissues and the left subclavian projected insertion site. Screening Unit Registered Nurse needle was used to correctly cannulate the left subclavian vein. Venous blood return was noted in syringe. A guidewire was placed into finder needle and then the needle was subsequently removed and a #11 blade scalpel was used to patricia the skin. A dilator sheath was placed over the guidewire and subsequently removed. The triple lumen short term HD catheter was then placed over the guidewire and advanced without resistance. All ports aspirated and flushed. Good blood return was noted and all ports were flushed well. The catheter was then secured using # 0 silk suture. A sterile dressing was then applied. A stat portable chest x-ray was ordered to check line placement and satisfactory. The patient tolerated the procedure well and there were no complications. lines were flushed with heparin saline. Evan Villalpando Jul 02, 2017 13:43
[2017-07-02] MEDS: Metoprolol 5mg/5ml Inj IVP SCH ×2 (15:21→15:35)
--- NOTE | 2017-07-02 16:09 | History & Physical ---
History and Physical History & Physicial Dictated for Int Med-dr Garcia no. [id number]. ICU WESLEY CHAMPAGNE Jul 02, 2017 16:09
[2017-07-02] MEDS ORDERED: Piperacillin/Tazobactam 3.375 GM in NS 110 ML IVPB SCH (16:15)
--- NOTE | 2017-07-02 16:46 | Cardiac Electrophysiology PN ---
Subjective Subjective Cardiology consult dictated [id number] Objective Last 24 Hour Vital Signs Date Time Temp Pulse Resp B/P (MAP) Pulse Ox O2 Delivery O2 Flow Rate FiO2 07/02/17 16:00 148 07/02/17 16:00 146 22 96/67 100 Mechanical Ventilator 100 07/02/17 15:35 158 103/66 07/02/17 15:30 142 21 94/66 100 Mechanical Ventilator 100 07/02/17 15:21 186 138/77 07/02/17 15:17 180 26 100 07/02/17 15:00 173 23 138/77 100 Mechanical Ventilator 100 07/02/17 14:00 115 21 116/55 100 Mechanical Ventilator 100 07/02/17 14:00 100 07/02/17 13:30 Endotracheal Tube 100 07/02/17 13:30 98.4 115 42 109/54 Endotracheal Tube 100 98.4 07/02/17 13:30 106 22 102/44 100 Mechanical Ventilator 100 07/02/17 13:21 108 26 70 07/02/17 13:00 108 25 105/55 100 Mechanical Ventilator 100 07/02/17 13:00 100 07/02/17 12:30 109 25 109/46 100 Mechanical Ventilator 100 07/02/17 12:00 98.8 109 24 106/50 100 Mechanical Ventilator 100 98.8 07/02/17 12:00 100 07/02/17 12:00 110 07/02/17 11:48 110 25 80 07/02/17 11:30 110 25 103/45 100 Mechanical Ventilator 100 07/02/17 11:00 115 22 130/60 100 Mechanical Ventilator 100 07/02/17 11:00 100 07/02/17 10:00 100 07/02/17 10:00 115 25 132/57 100 Mechanical Ventilator 100 07/02/17 09:30 115 22 133/57 100 Mechanical Ventilator 100 07/02/17 09:00 117 23 126/66 100 Mechanical Ventilator 100 07/02/17 09:00 100 07/02/17 08:58 118 25 100 07/02/17 08:30 118 25 116/43 100 Mechanical Ventilator 100 07/02/17 08:00 120 26 118/56 100 Mechanical Ventilator 100 07/02/17 08:00 100 07/02/17 08:00 114 07/02/17 07:30 98.6 114 20 130/50 100 Mechanical Ventilator 100 98.6 3/20/18 07:00 103 24 112/45 Mechanical Ventilator 100 18 06:58 107 24 100 07/02/18 06:30 105 24 92/42 Mechanical Ventilator 100 18 06:00 103 24 93/37 100 Mechanical Ventilator 100 07/02/17 05:30 104 26 99/50 100 Mechanical Ventilator 100 18 05:28 10 26 100 07/02/17 05:00 105 26 106/33 100 Mechanical Ventilator 100 07/02/17 04:30 107 25 102/50 100 Mechanical Ventilator 100 07/02/17 04:10 105/48 07/02/17 04:00 98.2 109 25 105/48 100 Mechanical Ventilator 100 98.2 07/02/17 04:00 100 07/02/17 04:00 113 07/02/17 03:30 114 22 120/42 100 Mechanical Ventilator 100 07/02/17 03:29 109 28 100 07/02/17 03:00 115 19 130/60 100 Mechanical Ventilator 07/02/17 02:30 116 22 120/52 100 07/02/17 02:30 117 23 118/47 100 Mechanical Ventilator 100 07/02/17 02:00 117 23 120/47 100 Mechanical Ventilator 100 07/02/17 02:00 117 23 120/47 100 07/02/17 01:30 117 24 100 07/02/17 01:30 117 24 118/60 100 Mechanical Ventilator 100 07/02/17 01:04 110 29 100 07/02/ 01:00 118 22 126/54 100 18 01:00 118 22 126/54 100 Mechanical Ventilator 100 07/02/17 00:30 114 18 100 07/02/18 00:30 114 18 120/68 100 Mechanical Ventilator 100 07/02/17 00:00 98.0 114 19 128/66 99 Mechanical Ventilator 100 98.0 20/18 00:00 114 20/18 00:00 100 07/02/17 00:00 114 19 128/66 99 07/01/18 23:30 120 21 116/70 100 Mechanical Ventilator 100 07/01/18 23:15 111 24 100 07/01/18 23:00 115 21 118/61 100 Mechanical Ventilator 100 07/01/17 22:30 112 24 114/60 100 Mechanical Ventilator 100 07/01/17 22:27 71/43 07/01/17 22:00 107 24 71/43 100 Mechanical Ventilator 100 07/01/17 21:30 107 24 131/109 100 Mechanical Ventilator 100 07/01/17 21:17 114 26 100 07/01/17 21:00 113 24 121/75 100 Mechanical Ventilator 100 07/01/17 20:30 112 24 123/75 100 Mechanical Ventilator 100 07/01/17 20:00 98.3 110 24 133/57 100 Mechanical Ventilator 100 98.3 07/01/17 19:36 100 07/01/17 19:21 111 24 100 07/01/17 19:00 115 16 114/55 100 Mechanical Ventilator 100 07/01/17 18:00 98.2 119 17 134/46 100 Mechanical Ventilator 100 98.2 07/01/17 17:00 115 16 125/58 100 Mechanical Ventilator 100 07/01/17 16:52 108 16 100 Intake and Output 07/01/17 07/02/17 19:00 07:00 Intake Total 30 ml 2535.00 ml Output Total 75 ml 230 ml Balance -45 ml 2305.00 ml Intake Oral 0 ml Free Water 60 ml IV Total 2115.00 ml Tube Feeding 30 ml 360 ml Output Urine Total 75 ml 230 ml Stool Total 0 ml Laboratory Tests Test 07/01/17 16:55 07/02/17 04:20 07/02/17 04:25 07/02/17 04:30 Arterial Blood pH 6.997 (7.350-7.450) Arterial Blood Partial Pressure CO2 33.3 mmHg (35.0-45.0) L Arterial Blood Partial Pressure O2 192.3 mmHg (75.0-100.0) H Arterial Blood HCO3 8.0 mmol/L (22.0-26.0) L Arterial Blood Oxygen Saturation 97.9 % (92.0-98.0) Arterial Blood Base Excess -22.1 Ricardo Test Positive Urine Eosinophils None seen White Blood Count 21.5 K/UL (4.8-10.8) #H Red Blood Count 3.00 M/UL (4.70-6.10) L Hemoglobin 9.7 G/DL (14.2-18.0) L Hematocrit 30.0 % (42.0-52.0) L Mean Corpuscular Volume 100 FL (80-99) H Mean Corpuscular Hemoglobin 32.3 PG (27.0-31.0) H Mean Corpuscular Hemoglobin Concent 32.4 G/DL (32.0-36.0) Red Cell Distribution Width 14.3 % (11.6-14.8) Platelet Count 141 K/UL (150-450) L Mean Platelet Volume 7.5 FL (6.5-10.1) Neutrophils (%) (Auto) % (45.0-75.0) Lymphocytes (%) (Auto) % (20.0-45.0) Monocytes (%) (Auto) % (1.0-10.0) Eosinophils (%) (Auto) % (0.0-3.0) Basophils (%) (Auto) % (0.0-2.0) Differential Total Cells Counted 100 Neutrophils % (Manual) 79 % (45-75) H Lymphocytes % (Manual) 1 % (20-45) L Monocytes % (Manual) 3 % (1-10) Eosinophils % (Manual) 0 % (0-3) Basophils % (Manual) 0 % (0-2) Band Neutrophils 17 % (0-8) H Platelet Estimate Adequate Platelet Morphology Normal Macrocytosis 1+ Sodium Level 147 MMOL/L (136-145) H Potassium Level 6.7 MMOL/L (3.5-5.1) *H Chloride Level 116 MMOL/L (98-107) H Carbon Dioxide Level 7 MMOL/L (21-32) *L Anion Gap 24 mmol/L (5-15) H Blood Urea Nitrogen 128 mg/dL (7-18) H Creatinine 9.2 MG/DL (0.55-1.30) H Estimat Glomerular Filtration Rate 5.9 mL/min (>60) Glucose Level 158 MG/DL (74-106) H Hemoglobin A1c 6.8 % (4.3-6.0) H Lactic Acid Level 2.20 mmol/L (0.66-2.22) Uric Acid 7.8 MG/DL (2.6-7.2) H Calcium Level 6.0 MG/DL (8.5-10.1) L Phosphorus Level 8.3 MG/DL (2.5-4.9) H Magnesium Level 1.3 MG/DL (1.8-2.4) L Iron Level 12 ug/dL (50-175) L Total Iron Binding Capacity 80 ug/dL (250-450) L Percent Iron Saturation 15 % (15-50) Unsaturated Iron Binding 68 ug/dL (112-346) L Ferritin 1364 NG/ML (8-388) H Total Bilirubin 0.7 MG/DL (0.2-1.0) Gamma Glutamyl Transpeptidase 18 U/L (5-85) Aspartate Amino Transf (AST/SGOT) 64 U/L (15-37) H Alanine Aminotransferase (ALT/SGPT) 26 U/L (12-78) Alkaline Phosphatase 48 U/L (46-116) Total Creatine Kinase 980 U/L (26-308) H Pro-B-Type Natriuretic Peptide 77775 pg/mL (0-125) H Total Protein 5.4 G/DL (6.4-8.2) L Albumin 2.2 G/DL (3.4-5.0) L Globulin 3.2 g/dL Albumin/Globulin Ratio 0.7 (1.0-2.7) L Vitamin B12 Level 1544 PG/ML (193-986) H Folate 13.6 NG/ML (8.6-58.9) Thyroid Stimulating Hormone (TSH) 0.807 uiU/mL (0.358-3.740) Urine Random Sodium 43 mmol/L (20-110) Test 07/02/17 08:50 07/02/17 12:55 Arterial Blood pH 7.019 (7.350-7.450) Arterial Blood Partial Pressure CO2 24.4 mmHg (35.0-45.0) *L Arterial Blood Partial Pressure O2 140.8 mmHg (75.0-100.0) H Arterial Blood HCO3 6.1 mmol/L (22.0-26.0) L Arterial Blood Oxygen Saturation 97.3 % (92.0-98.0) Arterial Blood Base Excess -23.2 Ricardo Test Positive Lactic Acid Level 1.60 mmol/L (0.66-2.22) Microbiology Date/Time Source Procedure Growth Status 07/01/17 04:00 Nasal Nares MRSA Culture - Final Staphylococcus Aureus - Mrsa Complete 07/01/17 04:00 Nasal Nares Influenza Types A,B Antigen (SRI) - Final Complete 07/01/17 04:00 Urine,Clean Catch Urine Culture - Preliminary NO GROWTH Resulted TATY BRADY Jul 02, 2017 16:46
--- NOTE | 2017-07-02 16:59 | Consultation ---
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 Initially admitted to [facility] and placed on Bipap but he required to be intubated and transferred to ICU. Also was hypotensive and started on pressors. Found to have FRANCESCO, hyperkalemia and required urgent HD. No fever/chills,. n/v, cough Allergies: Coded Allergies: No Known Allergies (Unverified , 07/01/17) Medication History Scheduled Ascorbic Acid* (Ascorbic Acid*), 500 MG ORAL TWICE A DAY, (Reported) Aspirin* (Aspirin*), 81 MG ORAL DAILY, (Reported) Atorvastatin Calcium* (Lipitor*), 10 MG ORAL BEDTIME, (Reported) Azithromycin* (Zithromax*), 250 MG ORAL DAILY, (Reported) Brimonidine Tartrate* (Alphagan*), 1 DROP RIGHT EYE FOUR TIMES A DAY, (Reported) Cholecalciferol (Vitamin D3)* (Vitamin D*), 1,000 UNIT ORAL DAILY, (Reported) Dorzolamide Hcl/Timolol Maleat (Cosopt Eye Drops), 1 DRP RIGHT EYE BID, ( Reported) Epoetin Kobe (Procrit), 2,000 UNIT SUBQ --, (Reported) Ferrous Sulfate* (Ferrous Sulfate*), 325 MG ORAL TWICE A DAY, (Reported) Insulin Detemir (Levemir), 10 SUBQ EVERY 12 HOURS, (Reported) Latanoprost* (Xalatan*), 1 DROP RIGHT EYE BEDTIME, (Reported) Mirtazapine* (Mirtazapine*), 7.5 MG ORAL BEDTIME, (Reported) Van-3 Acid Ethyl Esters (Lovaza), 1 GM ORAL DAILY, (Reported) Scheduled PRN Acetaminophen* (Acetaminophen 325MG Tablet*), 650 MG ORAL Q4H PRN for TEMP>101, MILD PAIN, (Reported) Baclofen* (Baclofen*), 10 MG ORAL THREE TIMES A DAY PRN for For Pain, (Reported) Diphenhydramine Hcl* (Benadryl*), 25 MG ORAL THREE TIMES A DAY PRN for Itching, (Reported) Hydrocodone Bit/Acetaminophen 5-325* ([place] 5-325 Tablet*), 2 TAB ORAL EVERY 8 HOURS PRN for For Pain, (Reported) Metoclopramide Hcl* (Reglan*), 10 MG ORAL THREE TIMES A DAY PRN for Nausea & Vomiting, (Reported) Miscellaneous Medications Insulin Aspart* (Novolog*), 0 SUBQ, (Reported) Patient History Healthcare decision maker Resuscitation status Full Code Advanced Directive on File Patient History Narrative PMhx; as above Shx: unable to obtain Fhx: non contibutory Review of Systems ROS Narrative unable to obtain Physical Exam Physical Exam Narrative General Appearance: cachetic Lines, tubes and drains: peripheral HEENT: normocephalic, atraumatic Neck: non-tender, normal alignment Respiratory/Chest: chest wall non-tender, rhonchi - left, rhonchi - right Cardiovascular/Chest: normal peripheral pulses, normal rate Abdomen: normal bowel sounds Genitourinary/Rectal: normal genital exam Extremities: normal range of motion Last 24 Hour Vital Signs Date Time Temp Pulse Resp B/P (MAP) Pulse Ox O2 Delivery O2 Flow Rate FiO2 07/02/17 16:30 140 20 130/86 100 Mechanical Ventilator 100 07/02/17 16:00 148 07/02/17 16:00 146 22 96/67 100 Mechanical Ventilator 100 07/02/17 15:35 158 103/66 07/02/17 15:30 142 21 94/66 100 Mechanical Ventilator 100 07/02/17 15:21 186 138/77 07/02/17 15:17 180 26 100 07/02/17 15:00 173 23 138/77 100 Mechanical Ventilator 100 07/02/17 14:00 115 21 116/55 100 Mechanical Ventilator 100 07/02/17 14:00 100 07/02/17 13:30 Endotracheal Tube 100 07/02/17 13:30 98.4 115 42 109/54 Endotracheal Tube 100 98.4 07/02/17 13:30 106 22 102/44 100 Mechanical Ventilator 100 07/02/17 13:21 108 26 70 07/02/17 13:00 108 25 105/55 100 Mechanical Ventilator 100 07/02/17 13:00 100 3/20/18 12:30 109 25 109/46 100 Mechanical Ventilator 100 320/18 12:00 98.8 109 24 106/50 100 Mechanical Ventilator 100 98.8 3/20/18 12:00 100 3/20/18 12:00 110 3/20/18 11:48 110 25 80 3/20/18 11:30 110 25 103/45 100 Mechanical Ventilator 100 20/18 11:00 115 22 130/60 100 Mechanical Ventilator 100 320/18 11:00 100 3/20/18 10:00 100 3/20/18 10:00 115 25 132/57 100 Mechanical Ventilator 100 20/18 09:30 115 22 133/57 100 Mechanical Ventilator 100 20/18 09:00 117 23 126/66 100 Mechanical Ventilator 100 20/18 09:00 100 20/18 08:58 118 25 100 320/18 08:30 118 25 116/43 100 Mechanical Ventilator 100 18 08:00 120 26 118/56 100 Mechanical Ventilator 100 07/02/17 08:00 100 07/02/17 08:00 114 3/20/18 07:30 98.6 114 20 130/50 100 Mechanical Ventilator 100 98.6 20/18 07:00 103 24 112/45 Mechanical Ventilator 100 07/02/18 06:58 107 24 100 320/18 06:30 105 24 92/42 Mechanical Ventilator 100 07/02/18 06:00 103 24 93/37 100 Mechanical Ventilator 100 20/18 05:30 104 26 99/50 100 Mechanical Ventilator 100 07/02/18 05:28 10 26 100 3/18 05:00 105 26 106/33 100 Mechanical Ventilator 100 320/18 04:30 107 25 102/50 100 Mechanical Ventilator 100 20/18 04:10 105/48 320/18 04:00 98.2 109 25 105/48 100 Mechanical Ventilator 100 98.2 20/18 04:00 100 20/18 04:00 113 3/20/18 03:30 114 22 120/42 100 Mechanical Ventilator 100 20/18 03:29 109 28 100 320/18 03:00 115 19 130/60 100 Mechanical Ventilator 07/02/18 02:30 116 22 120/52 100 320/18 02:30 117 23 118/47 100 Mechanical Ventilator 100 07/02/17 02:00 117 23 120/47 100 Mechanical Ventilator 100 07/02/17 02:00 117 23 120/47 100 18 01:30 117 24 100 18 01:30 117 24 118/60 100 Mechanical Ventilator 100 07/02/17 01:04 110 29 100 07/02/17 01:00 118 22 126/54 100 07/02/17 01:00 118 22 126/54 100 Mechanical Ventilator 100 07/02/17 00:30 114 18 100 07/02/17 00:30 114 18 120/68 100 Mechanical Ventilator 100 07/02/17 00:00 98.0 114 19 128/66 99 Mechanical Ventilator 100 98.0 07/02/17 00:00 114 07/02/17 00:00 100 07/02/17 00:00 114 19 128/66 99 07/01/17 23:30 120 21 116/70 100 Mechanical Ventilator 100 18 23:15 111 24 100 18 23:00 115 21 118/61 100 Mechanical Ventilator 100 18 22:30 112 24 114/60 100 Mechanical Ventilator 100 18 22:27 71/43 07/01/18 22:00 107 24 71/43 100 Mechanical Ventilator 100 18 21:30 107 24 131/109 100 Mechanical Ventilator 100 18 21:17 114 26 100 07/01/18 21:00 113 24 121/75 100 Mechanical Ventilator 100 18 20:30 112 24 123/75 100 Mechanical Ventilator 100 18 20:00 98.3 110 24 133/57 100 Mechanical Ventilator 100 98.3 19/18 19:36 100 19/18 19:21 111 24 100 07/01/18 19:00 115 16 114/55 100 Mechanical Ventilator 100 07/01/18 18:00 98.2 119 17 134/46 100 Mechanical Ventilator 100 98.2 19/18 17:00 115 16 125/58 100 Mechanical Ventilator 100 18 16:52 108 16 100 07/01/18 16:45 77/51 Intake and Output 07/01/18 07/02/17 19:00 07:00 Intake Total 30 ml 2535.00 ml Output Total 75 ml 230 ml Balance -45 ml 2305.00 ml Intake Oral 0 ml Free Water 60 ml IV Total 2115.00 ml Tube Feeding 30 ml 360 ml Output Urine Total 75 ml 230 ml Stool Total 0 ml Laboratory Tests Test 07/01/17 16:55 07/02/17 04:20 07/02/17 04:25 07/02/17 04:30 Arterial Blood pH 6.997 (7.350-7.450) Arterial Blood Partial Pressure CO2 33.3 mmHg (35.0-45.0) L Arterial Blood Partial Pressure O2 192.3 mmHg (75.0-100.0) H Arterial Blood HCO3 8.0 mmol/L (22.0-26.0) L Arterial Blood Oxygen Saturation 97.9 % (92.0-98.0) Arterial Blood Base Excess -22.1 Ricardo Test Positive Urine Eosinophils None seen White Blood Count 21.5 K/UL (4.8-10.8) #H Red Blood Count 3.00 M/UL (4.70-6.10) L Hemoglobin 9.7 G/DL (14.2-18.0) L Hematocrit 30.0 % (42.0-52.0) L Mean Corpuscular Volume 100 FL (80-99) H Mean Corpuscular Hemoglobin 32.3 PG (27.0-31.0) H Mean Corpuscular Hemoglobin Concent 32.4 G/DL (32.0-36.0) Red Cell Distribution Width 14.3 % (11.6-14.8) Platelet Count 141 K/UL (150-450) L Mean Platelet Volume 7.5 FL (6.5-10.1) Neutrophils (%) (Auto) % (45.0-75.0) Lymphocytes (%) (Auto) % (20.0-45.0) Monocytes (%) (Auto) % (1.0-10.0) Eosinophils (%) (Auto) % (0.0-3.0) Basophils (%) (Auto) % (0.0-2.0) Differential Total Cells Counted 100 Neutrophils % (Manual) 79 % (45-75) H Lymphocytes % (Manual) 1 % (20-45) L Monocytes % (Manual) 3 % (1-10) Eosinophils % (Manual) 0 % (0-3) Basophils % (Manual) 0 % (0-2) Band Neutrophils 17 % (0-8) H Platelet Estimate Adequate Platelet Morphology Normal Macrocytosis 1+ Sodium Level 147 MMOL/L (136-145) H Potassium Level 6.7 MMOL/L (3.5-5.1) *H Chloride Level 116 MMOL/L (98-107) H Carbon Dioxide Level 7 MMOL/L (21-32) *L Anion Gap 24 mmol/L (5-15) H Blood Urea Nitrogen 128 mg/dL (7-18) H Creatinine 9.2 MG/DL (0.55-1.30) H Estimat Glomerular Filtration Rate 5.9 mL/min (>60) Glucose Level 158 MG/DL (74-106) H Hemoglobin A1c 6.8 % (4.3-6.0) H Lactic Acid Level 2.20 mmol/L (0.66-2.22) Uric Acid 7.8 MG/DL (2.6-7.2) H Calcium Level 6.0 MG/DL (8.5-10.1) L Phosphorus Level 8.3 MG/DL (2.5-4.9) H Magnesium Level 1.3 MG/DL (1.8-2.4) L Iron Level 12 ug/dL (50-175) L Total Iron Binding Capacity 80 ug/dL (250-450) L Percent Iron Saturation 15 % (15-50) Unsaturated Iron Binding 68 ug/dL (112-346) L Ferritin 1364 NG/ML (8-388) H Total Bilirubin 0.7 MG/DL (0.2-1.0) Gamma Glutamyl Transpeptidase 18 U/L (5-85) Aspartate Amino Transf (AST/SGOT) 64 U/L (15-37) H Alanine Aminotransferase (ALT/SGPT) 26 U/L (12-78) Alkaline Phosphatase 48 U/L (46-116) Total Creatine Kinase 980 U/L (26-308) H Pro-B-Type Natriuretic Peptide 68877 pg/mL (0-125) H Total Protein 5.4 G/DL (6.4-8.2) L Albumin 2.2 G/DL (3.4-5.0) L Globulin 3.2 g/dL Albumin/Globulin Ratio 0.7 (1.0-2.7) L Vitamin B12 Level 1544 PG/ML (193-986) H Folate 13.6 NG/ML (8.6-58.9) Thyroid Stimulating Hormone (TSH) 0.807 uiU/mL (0.358-3.740) Urine Random Sodium 43 mmol/L (20-110) Test 07/02/17 08:50 07/02/17 12:55 Arterial Blood pH 7.019 (7.350-7.450) Arterial Blood Partial Pressure CO2 24.4 mmHg (35.0-45.0) *L Arterial Blood Partial Pressure O2 140.8 mmHg (75.0-100.0) H Arterial Blood HCO3 6.1 mmol/L (22.0-26.0) L Arterial Blood Oxygen Saturation 97.3 % (92.0-98.0) Arterial Blood Base Excess -23.2 Ricardo Test Positive Lactic Acid Level 1.60 mmol/L (0.66-2.22) Height (Feet): 5 Height (Inches): 11.00 Weight (Pounds): 150 Medications Current Medications Medications (Trade) Dose Ordered Sig/Sameera Route PRN Reason Start Time Stop Time Status Last Admin Dose Admin Acetaminophen (Tylenol) 650 mg Q4H PRN ORAL fever (temp>100.5F) 07/01/17 16:00 07/31/17 15:59 Albuterol/ Ipratropium (Albuterol/ Ipratropium) 3 ml Q4H PRN HHN dyspnea 07/01/17 16:00 07/06/17 15:59 Chlorhexidine Gluconate (Sindy-Hex 2%) 1 applic DAILY@2000 TOPIC 07/01/17 20:00 07/31/17 19:59 07/01/17 20:28 Dextrose (Dextrose 50%) STAT PRN IV Hypoglycemia 07/01/17 16:00 07/31/17 15:59 Dorzolamide/ Timolol (Cosopt) 1 drop BID RIGHT EYE 07/01/17 18:00 07/31/17 09:59 07/02/17 09:11 Heparin Sodium (Porcine) (Heparin 5000 units/ml) 5,000 units EVERY 12 HOURS SUBQ 07/01/17 21:00 07/31/17 09:59 07/01/17 21:25 Heparin Sodium/ Sodium Chloride (Heparin 2000 units/Ns 1000ml premix) 2,000 unit ONCE PRN INJ PICC PLACEMENT 07/01/17 15:15 07/02/17 23:59 Insulin Aspart (NovoLOG) BEFORE MEALS AND HS SUBQ 07/01/17 17:00 07/31/17 16:59 07/02/17 14:18 Lidocaine HCl (Xylocaine 1% 30ml) 30 ml ONCE PRN INJ PICC PLACEMENT 07/01/17 16:00 07/02/17 23:59 Lorazepam (Ativan 2mg/ml 1ml) 2 mg Q4H PRN IV For Anxiety 07/01/17 16:00 07/08/17 15:59 Methylprednisolone Sodium Succinate (Solu-MEDROL) 60 mg EVERY 6 HOURS IV 07/01/17 18:00 07/31/17 17:59 07/02/17 12:00 Metoprolol Tartrate (Lopressor) 5 mg Q10MIN X 3 IVP 07/02/17 15:15 07/02/17 23:59 07/02/17 15:35 Morphine Sulfate (Morphine Sulfate) 2 mg Q4H PRN IVP Moderate Pain (Pain Scale 4-6) 07/01/17 16:00 07/08/17 15:59 07/02/17 11:39 Morphine Sulfate (Morphine Sulfate) 4 mg Q4H PRN IVP Severe Pain (Pain Scale 7-10) 07/01/17 16:00 07/08/17 15:59 Nitroglycerin (Ntg) 0.4 mg Q5M X 3 DOSES PRN SL Prn Chest Pain 07/01/17 16:00 07/31/17 15:59 Norepinephrine Bitartrate 4 mg/ Dextrose 250 ml @ 0 mls/hr Q24H IV 07/01/17 16:45 07/31/17 16:44 07/02/17 04:10 Ondansetron HCl (Zofran) 4 mg Q6H PRN IVP Nausea & Vomiting 07/01/17 16:00 07/31/17 15:59 Pantoprazole (Protonix) 40 mg EVERY 12 HOURS IVP 07/01/17 16:45 07/31/17 16:44 07/02/17 09:10 Piperacillin Sod/ Tazobactam Sod 3.375 gm/Sodium Chloride 110 ml @ 27.5 mls/hr EVERY 8 HOURS IVPB 3/20/18 16:15 07/07/17 16:14 UNV Promethazine HCl/ Codeine (Phenergan with Codeine) 5 ml Q6H PRN ORAL cough 07/01/17 19:30 07/31/17 07:29 Sevelamer Carbonate (Renvela) 800 mg Q6HR NG 07/02/17 12:00 08/01/17 11:59 07/02/17 12:00 Sodium Chloride 1,000 ml @ 75 mls/hr [id number] IV 07/02/17 12:00 08/01/17 11:59 07/02/17 11:40 Temazepam (Restoril) 15 mg HSPRN PRN ORAL Insomnia 07/01/17 21:00 07/08/17 20:59 Vancomycin HCl (Vanco rx to dose) 1 ea DAILY PRN MISC Per rx protocol 07/02/17 16:15 08/01/17 16:14 UNV Assessment/Plan Assessment/Plan Abx: Zosyn 07/02- IV Vancomycin 07/02 Cefepime x1 07/01 Levaquin x1 07/01 Assessment: Septic Shock- likely 2ry to PNA, r/o bacteremia -influenza sc neg -sp cx p -u/a no pyuria -Bcx p COPD exacerbation Afebrile Leukocytosis- multifactorial- reactive component, infection and steroids Acute renal failure Hyperkalemia Anion gap acidosis DM depression cachexia fpc resident muscle wasting/generalized weakness encephalopathy Plan: -Continue empiric IV Vancomycin and Zosyn pending cultures -if decompensation, switch Zosyn to Meropenem and given one time dose of Amikacin -f/u cx -Monitor CBC/BMP, temperatures -ETT/central line care -Aspiration precautions Thank you for this consultation. Will continue to follow along with you. Discussed with Page Morgan M.D. Jul 02, 2017 16:59
[2017-07-02] MEDS ORDERED: Digoxin 0.5mg/2ml Inj IVP ONE (17:00)
[2017-07-02] MEDS ORDERED: Vancomycin 1250mg/D5W 250ml IVPB ONE ×2 (18:00→21:00)
[2017-07-02] MEDS ORDERED: Piperacillin/Tazobactam 2.25 GM in NS 55 ML IV SCH (18:00)
[2017-07-02] MEDS: Dyna-Hex 2% Top Sol 2oz TOPIC SCH (20:36)
[2017-07-02] MEDS: Piperacillin/Tazobactam 2.25 GM in NS 55 ML IV SCH (20:50)
--- NOTE | 2017-07-02 21:00 | History and Physical Report ---
DATE OF ADMISSION: 07/01/2017 CHIEF COMPLAINT: The patient is a 62-year-old white male, who presents with a chief complaint of shortness of breath. HISTORY OF PRESENT ILLNESS: The patient is a resident of [facility]. The patient himself is intubated in the intensive care unit. The history and physical is taken from the patient's chart. According to staff at [facility], the patient began to experience shortness of breath yesterday, 07/01/2017. The patient's oxygen saturation was 80% on 5 liters of oxygen. The patient was transported to [place] emergency room. The patient was emergently intubated in the emergency room. The patient is admitted for respiratory failure to rule out pneumonia. PAST MEDICAL HISTORY: Significant for, 1. History of respiratory failure in the past. 2. Renal failure. 3. Iron deficiency anemia. 4. Hypercholesterolemia. 5. Glaucoma. 6. Gastroesophageal reflux disease. PAST SURGICAL HISTORY: Unknown. CURRENT MEDICATIONS: From [facility], 1. Tylenol 650 mg p.o. q.4 h p.r.n. 2. Vitamin C 500 mg p.o. twice daily. 3. Aspirin 81 mg p.o. daily. 4. Lipitor 10 mg p.o. at bedtime. 5. Baclofen 10 mg p.o. 3 times daily. 6. Alphagan 1 drop in the right eye 4 times daily. 7. Vitamin D 1000 units p.o. daily. 8. Cosopt eyedrops 1 drop in the right eye twice daily. 9. Epogen 2000 units subcutaneously every Saturday, Saturday, and Saturday. 10. Iron sulfate 325 mg p.o. twice daily. 11. Peshtigo 5/325 two tablets p.o. q.8 hours p.r.n. 12. NovoLog sliding scale. 13. Levemir 10 units subcutaneously twice daily. 14. Xalatan one drop in the right eye at bedtime. 15. Reglan 10 mg p.o. 3 times daily. 16. Mirtazapine 7.5 mg p.o. at bedtime. 17. Catlett-3 fatty acid. 18. Lovaza 1 g p.o. twice daily. ALLERGIES: No known drug allergies. SOCIAL HISTORY: The patient is a resident of [facility]. The patient denies tobacco or alcohol use. REVIEW OF SYSTEMS: Unable to assess secondary to the patient's mental status. PHYSICAL EXAMINATION: VITAL SIGNS: Temperature 98.8, respirations 24, pulse 109 to 110, and blood pressure 106/50. GENERALLY: The patient is a well-developed and well-nourished male, who is intubated and sedated. HEENT: Eyes, pupils equal and responsive to light and accommodation. Extraocular movements are intact. NECK: Supple without lymphadenopathy. CHEST: Lungs are clear to auscultation. Diffuse wheezes in bilateral bases with coarse upper airway sounds. Otherwise, clear to auscultation without wheezes or rales. CARDIOVASCULAR: Tachycardic. Regular rhythm. S1 and S2 are normal without murmurs, rubs, or gallops. ABDOMEN: Soft, nontender, and nondistended. Positive bowel sounds. No evidence of hepatosplenomegaly. Currently, no rebound or guarding noted. EXTREMITIES: Negative for clubbing, cyanosis, or edema. RECTAL/GENITAL: Deferred. NEUROLOGICALLY: The patient is sedated and intubated. LABORATORY AND DIAGNOSTIC STUDIES: A chest x-ray revealed bilateral basilar opacities consistent with pneumonia. WBC 10.1, hemoglobin 9.8, hematocrit 36.5, and platelets 186,000. Sodium 142, potassium 5.4, chloride 107, CO2 10, BUN 118, creatinine 9.4, and glucose 209. BNP elevated at 33,817. ABGs, pH 7.174, pCO2 30.2, pO2 76.0, bicarb 7.3, oxygen saturation 92%, and base excess -19.3. ASSESSMENT: This is a 62-year-old white male. 1. Bibasilar pneumonia. 2. Congestive heart failure. 3. Shortness of breath. 4. Respiratory failure. 5. Renal failure. 6. Diabetes type 2. 7. Iron deficiency anemia. 8. Hypercholesteremia. 9. Glaucoma. 10. Gastroesophageal reflux disease. TREATMENT: 1. Bilateral basal pneumonia. The patient has been started empirically on antibiotics per Infectious Disease. 2. Diabetes type 2. Continue NovoLog sliding scale. 3. Renal failure. A Nephrology consultation has been obtained with Dr. Garza. We will follow recommendations of Nephrology. 4. Iron deficiency anemia. Continue iron sulfate as above. 5. Hypercholesterolemia. Continue Lipitor as above. 6. Glaucoma. Continue eye drops as above. 7. Gastroesophageal reflux disease. The patient is continued on Protonix. Huang Love M.D. DR: KYLIE JOB#: [id number] CC:
--- NOTE | 2017-07-02 22:15 | Consultation ---
DATE OF CONSULTATION: 07/02/2017 CARDIOLOGY CONSULTATION CONSULTING PHYSICIAN: Luke Charles M.D. REFERRING PHYSICIAN: Jonathan Garcia M.D. REASON FOR CONSULTATION: Atrial fibrillation with rapid ventricular response. HISTORY OF PRESENT ILLNESS: The patient is a 62-year-old gentleman who is a assisted patient with history of chronic encephalopathy and muscle wasting, who was brought to the emergency room for increasing shortness of breath. The patient initially was placed on non-rebreather and subsequently was intubated and was transferred to intensive care unit. The patient also had renal failure and was started on hemodialysis today. While he was on hemodialysis, the patient developed atrial fibrillation with rapid ventricular response, heart rate up to 190s. The patient already was on Levophed 8 mcg and Levophed was increased to 12 mcg and the patient received IV Cardizem to improve the heart rate. At the time of my evaluation, the heart rate has come down to 140s to 150s, but still in atrial fibrillation and still getting hemodialysis. PAST MEDICAL HISTORY: As mentioned above. FAMILY HISTORY: Noncontributory. SOCIAL HISTORY: retirement resident. Does not smoke or drink alcohol. REVIEW OF SYSTEMS: Cannot be obtained as the patient is intubated on the ventilator. PHYSICAL EXAMINATION: VITAL SIGNS: Blood pressure is 130/86 on 12 mcg of Levophed, pulse is 140, and respirations are 20. HEAD AND NECK: No JVD. He is orally intubated with NG tube. LUNGS: Coarse rhonchi. CARDIOVASCULAR: Irregular and tachycardic. S1 and S2 with no gallop or murmur. ABDOMEN: Soft. EXTREMITIES: No pitting edema. LABORATORY AND DIAGNOSTIC DATA: His echocardiogram showed ejection fraction of 55% with aortic valve sclerosis. Initial EKG showed sinus tachycardia at rate of 129 on 07/01/2017. His labs show white count of 21,000, hemoglobin 9.7, hematocrit of 30, and platelet count of 141. Sodium is 147, potassium was 6.7, and BUN of 120, creatinine 9.2, and glucose of 158. Lactic acid 3.5. Troponin is 0.016. BNP is 33,000. ASSESSMENT AND PLAN: 1. Atrial fibrillation with rapid ventricular response. I gave the patient a single dose of 0.5 mg IV digoxin. We will check a digoxin level in the morning. In view of the patient's hypotension, avoid giving the patient beta-tyrone or calcium channel tyrone. Combination of sepsis and hemodialysis probably precipitated atrial fibrillation. We will completely rule out myocardial infarction protocol as well and check a thyroid function test. 2. Elevated BNP of more than 33,000 due to volume overload. The patient is on hemodialysis. 3. Hyperkalemia due to renal failure. The patient getting hemodialysis. 4. Septic shock, on IV antibiotic per ID. 5. Anemia due to renal failure. Thank you very much, Dr. Garcia, for allowing me to participate in the care of this patient. Please do not hesitate to contact me for any questions regarding my evaluation. Luke Charles M.D. DR: CUCA JOB#: [id number] CC:
[2017-07-03] VITALS (36 sets, daily range): BP systolic 109–158; BP diastolic 67–114
[2017-07-03] MEDS: Piperacillin/Tazobactam 2.25 GM in NS 55 ML IV SCH ×3 (02:25→17:14)
[2017-07-03] MEDS: Renvela 800mg Pkt NG SCH ×4 (06:20→23:37)
[2017-07-03] MEDS: Solu-MEDROL 125mg Inj IV SCH (06:20)
[2017-07-03] MEDS: NovoLOG Insulin Flexpen SUBQ SCH ×4 (06:27→21:09)
[2017-07-03 07:47] LABS: HEMATOCRIT 23.2 % (42.0-52.0); HEMOGLOBIN 7.8 G/DL (14.2-18.0); MEAN CORPUSCULAR VOLUME 96 FL (80-99); PLATELET COUNT 88 K/UL (150-450); RED BLOOD COUNT 2.43 M/UL (4.70-6.10); RED CELL DISTRIBUTION WIDTH 13.6 % (11.6-14.8); WHITE BLOOD COUNT 16.2 K/UL (4.8-10.8)
[2017-07-03 08:02] LABS: ALANINE AMINOTRANSFERASE 25 U/L (12-78); ALBUMIN 1.7 G/DL (3.4-5.0); ALBUMIN/GLOBULIN RATIO 0.5 (1.0-2.7); ALKALINE PHOSPHATASE 87 U/L (46-116); ANION GAP 27 mmol/L (5-15); ASPARTATE AMINO TRANSFERASE 53 U/L (15-37); BLOOD UREA NITROGEN 82 mg/dL (7-18); CARBON DIOXIDE 17 MMOL/L (21-32); CHLORIDE 99 MMOL/L (98-107); CREATININE 6.2 MG/DL (0.55-1.30); PHOSPHORUS 7.1 MG/DL (2.5-4.9); SODIUM 143 MMOL/L (136-145)
[2017-07-03 08:13] LABS: ANION GAP 26 mmol/L (5-15); BLOOD UREA NITROGEN 88 mg/dL (7-18); CALCIUM 6.2 MG/DL (8.5-10.1); CARBON DIOXIDE 18 MMOL/L (21-32); CHLORIDE 99 MMOL/L (98-107); POTASSIUM 2.9 MMOL/L (3.5-5.1); SODIUM 143 MMOL/L (136-145)
[2017-07-03] MEDS: Cosopt Opth Soln 10 mL Btl RIGHT EYE SCH ×2 (08:24→17:14)
[2017-07-03] MEDS: Heparin 5000 units/ml inj SUBQ SCH ×2 (08:24→21:00)
[2017-07-03] MEDS: Pantoprazole Inj IVP SCH ×2 (08:24→21:05)
--- NOTE | 2017-07-03 10:57 | Pulmonolgy Critical Care Note ---
Critical Care - Asmt/Plan Problems: (1) Acute respiratory failure with hypoxemia (2) ATN (acute tubular necrosis) (3) Sepsis (4) Healthcare-associated pneumonia (5) Cachexia Assessment/Plan: dialyzed yesterday and going to be dialyzed today Respiratory: monitor respiratory rate - decrease rate to 18, adjust FIO2, CXR, ABG Cardiac: continue to monitor HR/BP Renal: F/U I&O, check electrolytes Infectious Disease: check cultures, continue antibiotics Gastrointestinal: continue feedings/current rate Endocrine: monitor blood sugar, check TSH Hematologic: monitor H/H Neurologic: PRN Ativan, PRN Morphine Prophylaxis: Protonix, Heparin Disposition: keep in ICU Notes Reviewed: housekeeper and laundry assistant Discussed with: nurses, consultants, case management directormarket research manager - Objective Last 24 Hour Vital Signs Date Time Temp Pulse Resp B/P (MAP) Pulse Ox O2 Delivery O2 Flow Rate FiO2 07/03/17 10:07 60 07/03/17 10:00 104 25 137/82 100 Mechanical Ventilator 70 07/03/17 09:25 105 24 70 07/03/17 09:00 98.9 107 24 131/80 99 Mechanical Ventilator 70 98.9 07/03/17 08:00 105 07/03/17 08:00 99.6 105 25 138/81 99 Mechanical Ventilator 70 99.6 07/03/17 07:29 114 24 70 07/03/17 07:00 110 32 124/68 100 Mechanical Ventilator 70 07/03/17 06:30 106 23 127/75 100 Mechanical Ventilator 70 07/03/17 06:00 106 23 109/67 100 Mechanical Ventilator 70 07/03/17 05:30 106 22 111/72 100 Mechanical Ventilator 70 07/03/17 05:00 107 23 111/69 99 Mechanical Ventilator 70 07/03/17 04:59 107 24 70 07/03/17 04:30 108 24 112/70 99 Mechanical Ventilator 70 07/03/17 04:00 70 07/03/17 04:00 110 07/03/17 04:00 98.3 110 24 130/76 99 Mechanical Ventilator 70 98.3 07/03/17 03:30 111 24 130/79 98 Mechanical Ventilator 70 07/03/17 03:16 112 24 70 07/03/17 03:00 114 24 138/82 99 Mechanical Ventilator 70 07/03/17 02:30 107 24 137/81 100 Mechanical Ventilator 70 3/18 02:00 156/88 3//18 02:00 106 24 117/71 100 Mechanical Ventilator 70 3/18 01:30 105 24 144/87 100 Mechanical Ventilator 70 07/03/18 01:00 107 24 154/95 100 Mechanical Ventilator 70 3/18 00:52 110 25 70 3/18 00:30 108 24 155/96 100 Mechanical Ventilator 70 07/03/18 00:17 100/70 3/18 00:00 106 07/03/18 00:00 80 3/18 00:00 98.6 109 24 158/90 100 Mechanical Ventilator 70 98.6 20/18 23:30 109 24 165/85 100 Mechanical Ventilator 80 07/02/18 23:00 105 24 154/86 100 Mechanical Ventilator 80 320/18 22:47 110 24 70 320/18 22:20 107 24 138/82 100 3/20/18 22:20 107 24 138/82 100 3/20/18 22:10 112 21 155/94 100 3/20/18 22:10 112 21 155/94 100 3/20/18 22:00 105 24 149/81 100 3/20/18 22:00 105 24 149/81 100 3/20/18 21:50 103 24 139/88 100 3/20/18 21:50 103 24 139/88 100 3/20/18 21:40 105 24 139/76 3/20/18 21:40 105 24 139/76 3/20/18 21:30 101 24 145/86 100 3/20/18 21:30 101 24 145/86 100 3/20/18 21:20 106 24 150/88 100 3/20/18 21:20 106 24 150/88 100 3/20/18 21:17 108 24 80 3/20/18 21:10 106 24 152/78 100 3/20/18 21:10 106 24 152/78 100 3/20/18 21:00 112 25 150/83 100 3/20/18 21:00 112 25 150/83 100 3/20/18 20:50 121 17 158/82 100 3/20/18 20:50 121 17 158/82 100 3/20/18 20:40 126 24 92/63 100 3/20/18 20:40 126 24 92/63 100 3/20/18 20:30 124 22 113/69 100 3/20/18 20:30 124 22 113/69 100 320/18 20:20 121 24 96/57 100 320/18 20:20 121 24 96/57 100 320/18 20:10 123 23 97/62 100 3/20/18 20:10 123 23 97/62 100 320/18 20:00 128 22 101/56 100 320/18 20:00 124 320/18 20:00 80 320/18 20:00 98.3 128 22 101/56 100 Mechanical Ventilator 98.3 128 20/18 19:04 116 30 90 20/18 18:30 115 20 98/56 94 Mechanical Ventilator 100 115 20/18 18:00 110 20 113/58 94 Mechanical Ventilator 100 111 20/18 17:30 126 20 115/70 94 Mechanical Ventilator 100 126 20/18 17:28 155 07/02/18 17:18 Mechanical Ventilator 100 18 17:17 143 30 100 20/18 17:17 98.0 126 40 69/45 Mechanical Ventilator 100 98.0 126 20/18 17:00 130 20 104/74 100 Mechanical Ventilator 100 2018 16:30 140 20 130/86 100 Mechanical Ventilator 100 20/18 16:00 148 20/18 16:00 146 22 96/67 100 Mechanical Ventilator 100 2018 15:35 158 103/66 20/18 15:30 142 21 94/66 100 Mechanical Ventilator 100 20/18 15:21 186 138/77 20/18 15:17 180 26 100 20/18 15:00 173 23 138/77 100 Mechanical Ventilator 100 20/18 14:00 115 21 116/55 100 Mechanical Ventilator 100 07/02/18 14:00 100 20/18 13:30 Endotracheal Tube 100 18 13:30 98.4 115 42 109/54 Endotracheal Tube 100 98.4 20/18 13:30 106 22 102/44 100 Mechanical Ventilator 100 20/18 13:21 108 26 70 20/18 13:00 108 25 105/55 100 Mechanical Ventilator 100 3/20/18 13:00 100 07/02/17 12:30 109 25 109/46 100 Mechanical Ventilator 100 07/02/17 12:00 98.8 109 24 106/50 100 Mechanical Ventilator 100 98.8 07/02/17 12:00 100 07/02/17 12:00 110 07/02/17 11:48 110 25 80 07/02/17 11:30 110 25 103/45 100 Mechanical Ventilator 100 07/02/17 11:00 115 22 130/60 100 Mechanical Ventilator 100 07/02/17 11:00 100 Status: sedated Condition: critical HEENT: atraumatic Neck: full ROM Heart: HR/BP unstable Abdomen: non-tender, active bowel sounds Extremities: no C/C/E, edema Decubiti: stage Micro: Microbiology Date/Time Source Procedure Growth Status 07/01/17 04:05 Blood Blood Culture - Preliminary NO GROWTH AFTER 24 HOURS Resulted 07/01/17 04:00 Blood Blood Culture - Preliminary NO GROWTH AFTER 24 HOURS Resulted 07/01/17 04:00 Nasal Nares MRSA Culture - Final Staphylococcus Aureus - Mrsa Complete 07/01/17 04:00 Nasal Nares Influenza Types A,B Antigen (SRI) - Final Complete 07/01/17 04:00 Urine,Clean Catch Urine Culture - Preliminary NO GROWTH Resulted 07/01/17 04:00 Rectum VRE Culture - Final NO VANCOMYCIN RESISTANT ENTEROCOCCUS ... Complete Accucheck: 444 Critical Care - Subjective ROS Limited/Unobtainable: Yes ICU Day: 3 Intubation Day: 3 Condition: critical EKG Rhythm: Sinus Rhythm FI02: 60 Vent Support Breath Rate: 24 Vent Support Mode: AC Vent Tidal Volume: 700 Sputum Amount: Scant PEEP: 6.0 PIP: 21 Tube Feeding Amount: 30 I&O: Intake and Output 07/02/17 07/03/17 19:00 07:00 Intake Total 520 ml 1223.75 ml Output Total 2145 ml 81 ml Balance -1625 ml 1142.75 ml Free Water 90 ml IV Total 160 ml 773.75 ml Tube Feeding 360 ml 360 ml Output Urine Total 145 ml 80 ml Stool Total 1 ml Hemodialysis UF 2000 ml # Bowel Movements 1 CXR: better aeration of RLL infiltrate ET-Tube: 8.0 ET Position: 24 Labs: Laboratory Tests Test 07/02/17 12:55 07/03/17 05:05 07/03/17 07:30 07/03/17 08:00 Lactic Acid Level 1.60 mmol/L (0.66-2.22) White Blood Count 16.2 K/UL (4.8-10.8) H Red Blood Count 2.43 M/UL (4.70-6.10) L Hemoglobin 7.8 G/DL (14.2-18.0) L Hematocrit 23.2 % (42.0-52.0) L Mean Corpuscular Volume 96 FL (80-99) Mean Corpuscular Hemoglobin 32.2 PG (27.0-31.0) H Mean Corpuscular Hemoglobin Concent 33.7 G/DL (32.0-36.0) Red Cell Distribution Width 13.6 % (11.6-14.8) Platelet Count 88 K/UL (150-450) L Mean Platelet Volume 7.4 FL (6.5-10.1) Neutrophils (%) (Auto) % (45.0-75.0) Lymphocytes (%) (Auto) % (20.0-45.0) Monocytes (%) (Auto) % (1.0-10.0) Eosinophils (%) (Auto) % (0.0-3.0) Basophils (%) (Auto) % (0.0-2.0) Differential Total Cells Counted 100 Neutrophils % (Manual) 82 % (45-75) H Lymphocytes % (Manual) 3 % (20-45) L Monocytes % (Manual) 2 % (1-10) Eosinophils % (Manual) 0 % (0-3) Basophils % (Manual) 0 % (0-2) Band Neutrophils 13 % (0-8) H Platelet Estimate Decreased L Platelet Morphology Normal Hypochromasia 1+ Schistocytes Occasional Sodium Level 143 MMOL/L (136-145) 143 MMOL/L (136-145) Potassium Level 3.0 MMOL/L (3.5-5.1) #L 2.9 MMOL/L (3.5-5.1) L Chloride Level 99 MMOL/L (98-107) 99 MMOL/L (98-107) Carbon Dioxide Level 17 MMOL/L (21-32) L 18 MMOL/L (21-32) L Anion Gap 27 mmol/L (5-15) H 26 mmol/L (5-15) H Blood Urea Nitrogen 82 mg/dL (7-18) H 88 mg/dL (7-18) H Creatinine 6.2 MG/DL (0.55-1.30) H 6.0 MG/DL (0.55-1.30) H Estimat Glomerular Filtration Rate 9.3 mL/min (>60) 9.6 mL/min (>60) Glucose Level 396 MG/DL (74-106) #H 417 MG/DL (74-106) H Calcium Level 6.0 MG/DL (8.5-10.1) L 6.2 MG/DL (8.5-10.1) L Phosphorus Level 7.1 MG/DL (2.5-4.9) H Magnesium Level 1.7 MG/DL (1.8-2.4) L Total Bilirubin 1.0 MG/DL (0.2-1.0) Aspartate Amino Transf (AST/SGOT) 53 U/L (15-37) H Alanine Aminotransferase (ALT/SGPT) 25 U/L (12-78) Alkaline Phosphatase 87 U/L (46-116) Troponin I 3.369 ng/mL (0.000-0.056) Total Protein 4.8 G/DL (6.4-8.2) L Albumin 1.7 G/DL (3.4-5.0) L Globulin 3.1 g/dL Albumin/Globulin Ratio 0.5 (1.0-2.7) L Thyroid Stimulating Hormone (TSH) 0.572 uiU/mL (0.358-3.740) Random Vancomycin Level 18.4 ug/mL Digoxin Level 0.8 NG/ML (0.5-2.0) Urine Eosinophils None seen Pro-B-Type Natriuretic Peptide > 54337 pg/mL (0-125) H Free Thyroxine 0.94 NG/DL (0.76-1.46) Test 07/03/17 09:40 Arterial Blood pH 7.480 (7.350-7.450) Arterial Blood Partial Pressure CO2 22.3 mmHg (35.0-45.0) *L Arterial Blood Partial Pressure O2 245.2 mmHg (75.0-100.0) H Arterial Blood HCO3 16.4 mmol/L (22.0-26.0) L Arterial Blood Oxygen Saturation 99.1 % (92.0-98.0) H Arterial Blood Base Excess -6.0 Ricardo Test Positive Radha Haney MD Jul 03, 2017 10:57
--- NOTE | 2017-07-03 11:27 | Nephrology Progress Note ---
Assessment/Plan Problem List: (1) ARF (acute renal failure) (2) Acute respiratory failure with hypoxemia (3) Hyperkalemia (4) Cachexia Assessment Acute renal failure- High K ? CKD Acute respiratory failure, Pneumonia Hypotension- Shock, Sepsis Cachexia Plan Need transfusion- unable to consent HD again today pressors pulm support benavides echo 55% EjFx costa Bilateral echogenic kidneys, consistent with medical renal disease discussed with RN in dept cxr Extensive bilateral infiltrates and pleural effusions, slightly increased on the left Subjective ROS Limited/Unobtainable: Yes Objective Objective Last 24 Hour Vital Signs Date Time Temp Pulse Resp B/P (MAP) Pulse Ox O2 Delivery O2 Flow Rate FiO2 07/03/17 11:00 105 24 147/89 99 Mechanical Ventilator 70 07/03/17 10:07 60 07/03/17 10:00 104 25 137/82 100 Mechanical Ventilator 70 07/03/17 09:25 105 24 70 07/03/17 09:00 98.9 107 24 131/80 99 Mechanical Ventilator 70 98.9 07/03/17 08:00 105 07/03/17 08:00 99.6 105 25 138/81 99 Mechanical Ventilator 70 99.6 07/03/17 07:29 114 24 70 07/03/17 07:00 110 32 124/68 100 Mechanical Ventilator 70 07/03/17 06:30 106 23 127/75 100 Mechanical Ventilator 70 07/03/17 06:00 106 23 109/67 100 Mechanical Ventilator 70 07/03/17 05:30 106 22 111/72 100 Mechanical Ventilator 70 07/03/17 05:00 107 23 111/69 99 Mechanical Ventilator 70 07/03/17 04:59 107 24 70 07/03/17 04:30 108 24 112/70 99 Mechanical Ventilator 70 07/03/17 04:00 70 07/03/17 04:00 110 07/03/17 04:00 98.3 110 24 130/76 99 Mechanical Ventilator 70 98.3 07/03/17 03:30 111 24 130/79 98 Mechanical Ventilator 70 07/03/17 03:16 112 24 70 07/03/17 03:00 114 24 138/82 99 Mechanical Ventilator 70 07/03/17 02:30 107 24 137/81 100 Mechanical Ventilator 70 07/03/17 02:00 156/88 07/03/17 02:00 106 24 117/71 100 Mechanical Ventilator 70 3/18 01:30 105 24 144/87 100 Mechanical Ventilator 70 3/18 01:00 107 24 154/95 100 Mechanical Ventilator 70 3/18 00:52 110 25 70 3/18 00:30 108 24 155/96 100 Mechanical Ventilator 70 3/18 00:17 100/70 3/21/18 00:00 106 3//18 00:00 80 18 00:00 98.6 109 24 158/90 100 Mechanical Ventilator 70 98.6 320/18 23:30 109 24 165/85 100 Mechanical Ventilator 80 320/18 23:00 105 24 154/86 100 Mechanical Ventilator 80 320/18 22:47 110 24 70 320/18 22:20 107 24 138/82 100 3/20/18 22:20 107 24 138/82 100 3/20/18 22:10 112 21 155/94 100 3/20/18 22:10 112 21 155/94 100 3/20/18 22:00 105 24 149/81 100 3/20/18 22:00 105 24 149/81 100 3/20/18 21:50 103 24 139/88 100 3/20/18 21:50 103 24 139/88 100 3/20/18 21:40 105 24 139/76 3/20/18 21:40 105 24 139/76 3/20/18 21:30 101 24 145/86 100 3/20/18 21:30 101 24 145/86 100 3/20/18 21:20 106 24 150/88 100 3/20/18 21:20 106 24 150/88 100 3/20/18 21:17 108 24 80 3/20/18 21:10 106 24 152/78 100 3/20/18 21:10 106 24 152/78 100 3/20/18 21:00 112 25 150/83 100 3/20/18 21:00 112 25 150/83 100 3/20/18 20:50 121 17 158/82 100 3/20/18 20:50 121 17 158/82 100 3/20/18 20:40 126 24 92/63 100 3/20/18 20:40 126 24 92/63 100 3/20/18 20:30 124 22 113/69 100 3/20/18 20:30 124 22 113/69 100 3/20/18 20:20 121 24 96/57 100 3/20/18 20:20 121 24 96/57 100 320/18 20:10 123 23 97/62 100 3/20/18 20:10 123 23 97/62 100 3/20/18 20:00 128 22 101/56 100 320/18 20:00 124 320/18 20:00 80 320/18 20:00 98.3 128 22 101/56 100 Mechanical Ventilator 98.3 128 320/18 19:04 116 30 90 320/18 18:30 115 20 98/56 94 Mechanical Ventilator 100 115 20/18 18:00 110 20 113/58 94 Mechanical Ventilator 100 111 20/18 17:30 126 20 115/70 94 Mechanical Ventilator 100 126 20/18 17:28 155 20/18 17:18 Mechanical Ventilator 100 20/18 17:17 143 30 100 20/18 17:17 98.0 126 40 69/45 Mechanical Ventilator 100 98.0 126 20/18 17:00 130 20 104/74 100 Mechanical Ventilator 100 20/18 16:30 140 20 130/86 100 Mechanical Ventilator 100 20/18 16:00 148 20/18 16:00 146 22 96/67 100 Mechanical Ventilator 100 20/18 15:35 158 103/66 320/18 15:30 142 21 94/66 100 Mechanical Ventilator 100 20/18 15:21 186 138/77 320/18 15:17 180 26 100 20/18 15:00 173 23 138/77 100 Mechanical Ventilator 100 20/18 14:00 115 21 116/55 100 Mechanical Ventilator 100 20/18 14:00 100 20/18 13:30 Endotracheal Tube 100 20/18 13:30 98.4 115 42 109/54 Endotracheal Tube 100 98.4 20/18 13:30 106 22 102/44 100 Mechanical Ventilator 100 20/18 13:21 108 26 70 3/20/18 13:00 108 25 105/55 100 Mechanical Ventilator 100 20/18 13:00 100 20/18 12:30 109 25 109/46 100 Mechanical Ventilator 100 3/20/18 12:00 98.8 109 24 106/50 100 Mechanical Ventilator 100 98.8 07/02/17 12:00 100 07/02/17 12:00 110 07/02/17 11:48 110 25 80 07/02/17 11:30 110 25 103/45 100 Mechanical Ventilator 100 Intake and Output 07/02/17 07/03/17 19:00 07:00 Intake Total 520 ml 1223.75 ml Output Total 2145 ml 81 ml Balance -1625 ml 1142.75 ml Free Water 90 ml IV Total 160 ml 773.75 ml Tube Feeding 360 ml 360 ml Output Urine Total 145 ml 80 ml Stool Total 1 ml Hemodialysis UF 2000 ml # Bowel Movements 1 Laboratory Tests 07/02/17 12:55: Lactic Acid Level 1.60 07/03/17 05:05: White Blood Count 16.2H, Red Blood Count 2.43L, Hemoglobin 7.8L, Hematocrit 23.2L, Mean Corpuscular Volume 96, Mean Corpuscular Hemoglobin 32.2H, Mean Corpuscular Hemoglobin Concent 33.7, Red Cell Distribution Width 13.6, Platelet Count 88L, Mean Platelet Volume 7.4, Neutrophils (%) (Auto) , Lymphocytes (%) ( Auto) , Monocytes (%) (Auto) , Eosinophils (%) (Auto) , Basophils (%) (Auto) , Differential Total Cells Counted 100, Neutrophils % (Manual) 82H, Lymphocytes % (Manual) 3L, Monocytes % (Manual) 2, Eosinophils % (Manual) 0, Basophils % ( Manual) 0, Band Neutrophils 13H, Platelet Estimate DecreasedL, Platelet Morphology Normal, Hypochromasia 1+, Schistocytes Occasional, Sodium Level 143, Potassium Level 3.0#L, Chloride Level 99, Carbon Dioxide Level 17L, Anion Gap 27H, Blood Urea Nitrogen 82H, Creatinine 6.2H, Estimat Glomerular Filtration Rate 9.3, Glucose Level 396#H, Calcium Level 6.0L, Phosphorus Level 7.1H, Magnesium Level 1.7L, Total Bilirubin 1.0, Aspartate Amino Transf (AST/SGOT) 53H , Alanine Aminotransferase (ALT/SGPT) 25, Alkaline Phosphatase 87, Troponin I 3.369H, Total Protein 4.8L, Albumin 1.7L, Globulin 3.1, Albumin/Globulin Ratio 0.5L, Thyroid Stimulating Hormone (TSH) 0.572, Random Vancomycin Level 18.4, Digoxin Level 0.8 07/03/17 07:30: Urine Eosinophils None seen 07/03/17 08:00: Sodium Level 143, Potassium Level 2.9L, Chloride Level 99, Carbon Dioxide Level 18L, Anion Gap 26H, Blood Urea Nitrogen 88H, Creatinine 6.0H, Estimat Glomerular Filtration Rate 9.6, Glucose Level 417H, Calcium Level 6.2L, Pro-B- Type Natriuretic Peptide > [id number], Free Thyroxine 0.94 07/03/17 09:40: Arterial Blood pH 7.480H, Arterial Blood Partial Pressure CO2 22.3*L, Arterial Blood Partial Pressure O2 245.2H, Arterial Blood HCO3 16.4L, Arterial Blood Oxygen Saturation 99.1H, Arterial Blood Base Excess -6.0, Ricardo Test Positive Height (Feet): 5 Height (Inches): 11.00 Weight (Pounds): 150 General Appearance: no apparent distress Cardiovascular: tachycardia Respiratory/Chest: decreased breath sounds Abdomen: distended JUSTIN HERNANDEZ Jul 03, 2017 11:27
--- NOTE | 2017-07-03 12:12 | Infectious Diseases Prog Note ---
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 muscle wasting/generalized weakness encephalopathy Plan: -Continue empiric IV Vancomycin and Zosyn #2 pending cultures (improving on current regimen) -07/01 SP Cefepime, Levaquin x1 -if decompensation, switch Zosyn to Meropenem and given one time dose of Amikacin -f/u cx -Monitor CBC/BMP, temperatures -ETT/central line care -Aspiration precautions Subjective Allergies: Coded Allergies: No Known Allergies (Unverified , 07/01/17) Subjective Tm 99.6 leukocytosis improving off pressors now Bcx NTD sp cx p Objective Vital Signs Last 24 Hour Vital Signs Date Time Temp Pulse Resp B/P (MAP) Pulse Ox O2 Delivery O2 Flow Rate FiO2 07/03/17 11:38 104 18 60 07/03/17 11:00 105 24 147/89 99 Mechanical Ventilator 70 07/03/17 10:07 60 07/03/17 10:00 104 25 137/82 100 Mechanical Ventilator 70 07/03/17 09:25 105 24 70 07/03/17 09:00 98.9 107 24 131/80 99 Mechanical Ventilator 70 98.9 07/03/17 08:00 105 07/03/17 08:00 99.6 105 25 138/81 99 Mechanical Ventilator 70 99.6 07/03/17 07:29 114 24 70 07/03/17 07:00 110 32 124/68 100 Mechanical Ventilator 70 07/03/17 06:30 106 23 127/75 100 Mechanical Ventilator 70 07/03/17 06:00 106 23 109/67 100 Mechanical Ventilator 70 07/03/17 05:30 106 22 111/72 100 Mechanical Ventilator 70 07/03/17 05:00 107 23 111/69 99 Mechanical Ventilator 70 07/03/17 04:59 107 24 70 07/03/17 04:30 108 24 112/70 99 Mechanical Ventilator 70 07/03/17 04:00 70 07/03/17 04:00 110 07/03/17 04:00 98.3 110 24 130/76 99 Mechanical Ventilator 70 98.3 07/03/17 03:30 111 24 130/79 98 Mechanical Ventilator 70 07/03/17 03:16 112 24 70 07/03/17 03:00 114 24 138/82 99 Mechanical Ventilator 70 07/03/17 02:30 107 24 137/81 100 Mechanical Ventilator 70 07/03/17 02:00 156/88 07/03/17 02:00 106 24 117/71 100 Mechanical Ventilator 70 07/03/17 01:30 105 24 144/87 100 Mechanical Ventilator 70 07/03/17 01:00 107 24 154/95 100 Mechanical Ventilator 70 07/03/17 00:52 110 25 70 07/03/17 00:30 108 24 155/96 100 Mechanical Ventilator 70 07/03/17 00:17 100/70 07/03/17 00:00 106 07/03/17 00:00 80 07/03/17 00:00 98.6 109 24 158/90 100 Mechanical Ventilator 70 98.6 07/02/17 23:30 109 24 165/85 100 Mechanical Ventilator 80 07/02/17 23:00 105 24 154/86 100 Mechanical Ventilator 80 07/02/17 22:47 110 24 70 18 22:20 107 24 138/82 100 18 22:20 107 24 138/82 100 18 22:10 112 21 155/94 100 2018 22:10 112 21 155/94 100 2018 22:00 105 24 149/81 100 320/18 22:00 105 24 149/81 100 20/18 21:50 103 24 139/88 100 20/18 21:50 103 24 139/88 100 320/18 21:40 105 24 139/76 320/18 21:40 105 24 139/76 20/18 21:30 101 24 145/86 100 20/18 21:30 101 24 145/86 100 20/18 21:20 106 24 150/88 100 20/18 21:20 106 24 150/88 100 3/20/18 21:17 108 24 80 3/20/18 21:10 106 24 152/78 100 3/20/18 21:10 106 24 152/78 100 3/20/18 21:00 112 25 150/83 100 3/20/18 21:00 112 25 150/83 100 3/20/18 20:50 121 17 158/82 100 3/20/18 20:50 121 17 158/82 100 3/20/18 20:40 126 24 92/63 100 3/20/18 20:40 126 24 92/63 100 3/20/18 20:30 124 22 113/69 100 3/20/18 20:30 124 22 113/69 100 3/20/18 20:20 121 24 96/57 100 3/20/18 20:20 121 24 96/57 100 3/20/18 20:10 123 23 97/62 100 3/20/18 20:10 123 23 97/62 100 3/20/18 20:00 128 22 101/56 100 320/18 20:00 124 3/20/18 20:00 80 3/20/18 20:00 98.3 128 22 101/56 100 Mechanical Ventilator 98.3 128 3/20/18 19:04 116 30 90 3/20/18 18:30 115 20 98/56 94 Mechanical Ventilator 100 115 320/18 18:00 110 20 113/58 94 Mechanical Ventilator 100 111 320/18 17:30 126 20 115/70 94 Mechanical Ventilator 100 126 3/20/18 17:28 155 3/20/18 17:18 Mechanical Ventilator 100 20/18 17:17 143 30 100 3/20/18 17:17 98.0 126 40 69/45 Mechanical Ventilator 100 98.0 126 3/20/18 17:00 130 20 104/74 100 Mechanical Ventilator 100 320/18 16:30 140 20 130/86 100 Mechanical Ventilator 100 20/18 16:00 148 3/20/18 16:00 146 22 96/67 100 Mechanical Ventilator 100 320/18 15:35 158 103/66 3/20/18 15:30 142 21 94/66 100 Mechanical Ventilator 100 20/18 15:21 186 138/77 320/18 15:17 180 26 100 320/18 15:00 173 23 138/77 100 Mechanical Ventilator 100 07/02/17 14:00 115 21 116/55 100 Mechanical Ventilator 100 07/02/17 14:00 100 07/02/17 13:30 Endotracheal Tube 100 07/02/17 13:30 98.4 115 42 109/54 Endotracheal Tube 100 98.4 07/02/17 13:30 106 22 102/44 100 Mechanical Ventilator 100 07/02/17 13:21 108 26 70 07/02/17 13:00 108 25 105/55 100 Mechanical Ventilator 100 07/02/17 13:00 100 07/02/17 12:30 109 25 109/46 100 Mechanical Ventilator 100 Height (Feet): 5 Height (Inches): 11.00 Weight (Pounds): 150 Objective General Appearance: cachetic Lines, tubes and drains: peripheral HEENT: normocephalic, atraumatic Neck: non-tender, normal alignment Respiratory/Chest: chest wall non-tender, rhonchi - left, rhonchi - right Cardiovascular/Chest: normal peripheral pulses, normal rate Abdomen: normal bowel sounds Genitourinary/Rectal: normal genital exam Extremities: normal range of motion Microbiology Date/Time Source Procedure Growth Status 07/01/17 04:05 Blood Blood Culture - Preliminary NO GROWTH AFTER 24 HOURS Resulted 07/01/17 04:00 Blood Blood Culture - Preliminary NO GROWTH AFTER 24 HOURS Resulted 07/01/17 04:00 Nasal Nares MRSA Culture - Final Staphylococcus Aureus - Mrsa Complete 07/01/17 04:00 Nasal Nares Influenza Types A,B Antigen (SRI) - Final Complete 07/01/17 04:00 Urine,Clean Catch Urine Culture - Preliminary NO GROWTH AFTER 24 HOURS Resulted 07/01/17 04:00 Rectum VRE Culture - Final NO VANCOMYCIN RESISTANT ENTEROCOCCUS ... Complete Laboratory Tests Test 07/02/17 12:55 07/03/17 05:05 07/03/17 07:30 07/03/17 08:00 Lactic Acid Level 1.60 mmol/L (0.66-2.22) White Blood Count 16.2 K/UL (4.8-10.8) H Red Blood Count 2.43 M/UL (4.70-6.10) L Hemoglobin 7.8 G/DL (14.2-18.0) L Hematocrit 23.2 % (42.0-52.0) L Mean Corpuscular Volume 96 FL (80-99) Mean Corpuscular Hemoglobin 32.2 PG (27.0-31.0) H Mean Corpuscular Hemoglobin Concent 33.7 G/DL (32.0-36.0) Red Cell Distribution Width 13.6 % (11.6-14.8) Platelet Count 88 K/UL (150-450) L Mean Platelet Volume 7.4 FL (6.5-10.1) Neutrophils (%) (Auto) % (45.0-75.0) Lymphocytes (%) (Auto) % (20.0-45.0) Monocytes (%) (Auto) % (1.0-10.0) Eosinophils (%) (Auto) % (0.0-3.0) Basophils (%) (Auto) % (0.0-2.0) Differential Total Cells Counted 100 Neutrophils % (Manual) 82 % (45-75) H Lymphocytes % (Manual) 3 % (20-45) L Monocytes % (Manual) 2 % (1-10) Eosinophils % (Manual) 0 % (0-3) Basophils % (Manual) 0 % (0-2) Band Neutrophils 13 % (0-8) H Platelet Estimate Decreased L Platelet Morphology Normal Hypochromasia 1+ Schistocytes Occasional Sodium Level 143 MMOL/L (136-145) 143 MMOL/L (136-145) Potassium Level 3.0 MMOL/L (3.5-5.1) #L 2.9 MMOL/L (3.5-5.1) L Chloride Level 99 MMOL/L (98-107) 99 MMOL/L (98-107) Carbon Dioxide Level 17 MMOL/L (21-32) L 18 MMOL/L (21-32) L Anion Gap 27 mmol/L (5-15) H 26 mmol/L (5-15) H Blood Urea Nitrogen 82 mg/dL (7-18) H 88 mg/dL (7-18) H Creatinine 6.2 MG/DL (0.55-1.30) H 6.0 MG/DL (0.55-1.30) H Estimat Glomerular Filtration Rate 9.3 mL/min (>60) 9.6 mL/min (>60) Glucose Level 396 MG/DL (74-106) #H 417 MG/DL (74-106) H Calcium Level 6.0 MG/DL (8.5-10.1) L 6.2 MG/DL (8.5-10.1) L Phosphorus Level 7.1 MG/DL (2.5-4.9) H Magnesium Level 1.7 MG/DL (1.8-2.4) L Total Bilirubin 1.0 MG/DL (0.2-1.0) Aspartate Amino Transf (AST/SGOT) 53 U/L (15-37) H Alanine Aminotransferase (ALT/SGPT) 25 U/L (12-78) Alkaline Phosphatase 87 U/L (46-116) Troponin I 3.369 ng/mL (0.000-0.056) Total Protein 4.8 G/DL (6.4-8.2) L Albumin 1.7 G/DL (3.4-5.0) L Globulin 3.1 g/dL Albumin/Globulin Ratio 0.5 (1.0-2.7) L Thyroid Stimulating Hormone (TSH) 0.572 uiU/mL (0.358-3.740) Random Vancomycin Level 18.4 ug/mL Digoxin Level 0.8 NG/ML (0.5-2.0) Urine Eosinophils None seen Pro-B-Type Natriuretic Peptide > 88653 pg/mL (0-125) H Free Thyroxine 0.94 NG/DL (0.76-1.46) Test 07/03/17 09:40 07/03/17 11:30 Arterial Blood pH 7.480 (7.350-7.450) Arterial Blood Partial Pressure CO2 22.3 mmHg (35.0-45.0) *L Arterial Blood Partial Pressure O2 245.2 mmHg (75.0-100.0) H Arterial Blood HCO3 16.4 mmol/L (22.0-26.0) L Arterial Blood Oxygen Saturation 99.1 % (92.0-98.0) H Arterial Blood Base Excess -6.0 Ricardo Test Positive Stool Occult Blood Pending Current Medications Medications (Trade) Dose Ordered Sig/Sameera Route PRN Reason Start Time Stop Time Status Last Admin Dose Admin Acetaminophen (Tylenol) 650 mg Q4H PRN ORAL fever (temp>100.5F) 07/01/17 16:00 07/31/17 15:59 Albuterol/ Ipratropium (Albuterol/ Ipratropium) 3 ml Q4H PRN HHN dyspnea 07/01/17 16:00 07/06/17 15:59 Chlorhexidine Gluconate (Sindy-Hex 2%) 1 applic DAILY@2000 TOPIC 07/01/17 20:00 07/31/17 19:59 07/02/17 20:36 Dextrose (Dextrose 50%) STAT PRN IV Hypoglycemia 07/01/17 16:00 07/31/17 15:59 Dextrose (Dextrose 50%) STAT PRN IV Hypoglycemia 07/03/17 11:45 08/02/17 11:44 UNV Dorzolamide/ Timolol (Cosopt) 1 drop BID RIGHT EYE 07/01/17 18:00 07/31/17 09:59 07/03/17 08:24 Epoetin Kobe (Procrit (for non ESRD use)) 10,000 units SAT-SAT-SAT SUBQ 07/03/17 21:00 08/02/17 20:59 Heparin Sodium (Porcine) (Heparin 5000 units/ml) 5,000 units EVERY 12 HOURS SUBQ 07/01/17 21:00 07/31/17 09:59 07/02/17 20:57 Insulin Aspart (NovoLOG) EVERY 4 HOURS SUBQ 07/03/17 17:00 08/02/17 16:59 UNV Lorazepam (Ativan 2mg/ml 1ml) 2 mg Q4H PRN IV For Anxiety 07/01/17 16:00 07/08/17 15:59 07/02/17 17:31 Methylprednisolone Sodium Succinate (Solu-MEDROL) 60 mg DAILY IV 07/04/17 09:00 07/31/17 17:59 Morphine Sulfate (Morphine Sulfate) 2 mg Q4H PRN IVP Moderate Pain (Pain Scale 4-6) 07/01/17 16:00 07/08/17 15:59 07/02/17 11:39 Morphine Sulfate (Morphine Sulfate) 4 mg Q4H PRN IVP Severe Pain (Pain Scale 7-10) 07/01/17 16:00 07/08/17 15:59 Nitroglycerin (Ntg) 0.4 mg Q5M X 3 DOSES PRN SL Prn Chest Pain 07/01/17 16:00 07/31/17 15:59 Norepinephrine Bitartrate 4 mg/ Dextrose 250 ml @ 0 mls/hr Q24H IV 07/01/17 16:45 07/31/17 16:44 07/03/17 00:17 Ondansetron HCl (Zofran) 4 mg Q6H PRN IVP Nausea & Vomiting 07/01/17 16:00 07/31/17 15:59 Pantoprazole (Protonix) 40 mg EVERY 12 HOURS IVP 07/01/17 16:45 07/31/17 16:44 07/03/17 08:24 Piperacillin Sod/ Tazobactam Sod 2.25 gm/Sodium Chloride 55 ml @ 110 mls/hr Q8HR@0200,1000,1800 IV 07/02/17 20:30 07/09/17 20:29 07/03/17 09:49 Promethazine HCl/ Codeine (Phenergan with Codeine) 5 ml Q6H PRN ORAL cough 07/01/17 19:30 07/31/17 07:29 Sevelamer Carbonate (Renvela) 1,600 mg Q6HR NG 07/03/17 12:00 08/02/17 11:59 07/03/17 11:35 Sodium Chloride 1,000 ml @ 50 mls/hr Q20H IV 07/03/17 12:00 08/02/17 11:59 07/03/17 11:34 Temazepam (Restoril) 15 mg HSPRN PRN ORAL Insomnia 07/01/17 21:00 07/08/17 20:59 Vancomycin HCl (Vanco rx to dose) 1 ea DAILYPRN PRN MISC Per rx protocol 07/02/17 16:15 08/01/17 16:14 Vancomycin HCl 1 gm/Dextrose 275 ml @ 183.708 mls/hr ONCE ONCE IVPB 07/03/17 20:00 07/03/17 21:29 Page West M.D. Jul 03, 2017 12:11
--- NOTE | 2017-07-03 12:17 | Internal Med Progress Note ---
Subjective Date of Service: Jul 03, 2017 Physician Name Wesley Champagne Attending Physician Jonathan Garcia MD Current Medications Medications (Trade) Dose Ordered Sig/Sameera Route PRN Reason Start Time Stop Time Status Last Admin Dose Admin Acetaminophen (Tylenol) 650 mg Q4H PRN ORAL fever (temp>100.5F) 07/01/17 16:00 07/31/17 15:59 Albuterol/ Ipratropium (Albuterol/ Ipratropium) 3 ml Q4H PRN HHN dyspnea 07/01/17 16:00 07/06/17 15:59 Chlorhexidine Gluconate (Sindy-Hex 2%) 1 applic DAILY@2000 TOPIC 07/01/17 20:00 07/31/17 19:59 07/02/17 20:36 Dextrose (Dextrose 50%) STAT PRN IV Hypoglycemia 07/01/17 16:00 07/31/17 15:59 Dextrose (Dextrose 50%) STAT PRN IV Hypoglycemia 07/03/17 11:45 08/02/17 11:44 UNV Dorzolamide/ Timolol (Cosopt) 1 drop BID RIGHT EYE 07/01/17 18:00 07/31/17 09:59 07/03/17 08:24 Epoetin Kobe (Procrit (for non ESRD use)) 10,000 units SAT-SAT-SAT SUBQ 07/03/17 21:00 08/02/17 20:59 Heparin Sodium (Porcine) (Heparin 5000 units/ml) 5,000 units EVERY 12 HOURS SUBQ 07/01/17 21:00 07/31/17 09:59 07/02/17 20:57 Insulin Aspart (NovoLOG) EVERY 4 HOURS SUBQ 07/03/17 17:00 08/02/17 16:59 UNV Lorazepam (Ativan 2mg/ml 1ml) 2 mg Q4H PRN IV For Anxiety 07/01/17 16:00 07/08/17 15:59 07/02/17 17:31 Methylprednisolone Sodium Succinate (Solu-MEDROL) 60 mg DAILY IV 07/04/17 09:00 07/31/17 17:59 Morphine Sulfate (Morphine Sulfate) 2 mg Q4H PRN IVP Moderate Pain (Pain Scale 4-6) 07/01/17 16:00 07/08/17 15:59 07/02/17 11:39 Morphine Sulfate (Morphine Sulfate) 4 mg Q4H PRN IVP Severe Pain (Pain Scale 7-10) 07/01/17 16:00 07/08/17 15:59 Nitroglycerin (Ntg) 0.4 mg Q5M X 3 DOSES PRN SL Prn Chest Pain 07/01/17 16:00 07/31/17 15:59 Norepinephrine Bitartrate 4 mg/ Dextrose 250 ml @ 0 mls/hr Q24H IV 07/01/17 16:45 07/31/17 16:44 07/03/17 00:17 Ondansetron HCl (Zofran) 4 mg Q6H PRN IVP Nausea & Vomiting 07/01/17 16:00 07/31/17 15:59 Pantoprazole (Protonix) 40 mg EVERY 12 HOURS IVP 07/01/17 16:45 07/31/17 16:44 07/03/17 08:24 Piperacillin Sod/ Tazobactam Sod 2.25 gm/Sodium Chloride 55 ml @ 110 mls/hr Q8HR@0200,1000,1800 IV 07/02/17 20:30 07/09/17 20:29 07/03/17 09:49 Promethazine HCl/ Codeine (Phenergan with Codeine) 5 ml Q6H PRN ORAL cough 07/01/17 19:30 07/31/17 07:29 Sevelamer Carbonate (Renvela) 1,600 mg Q6HR NG 07/03/17 12:00 08/02/17 11:59 07/03/17 11:35 Sodium Chloride 1,000 ml @ 50 mls/hr Q20H IV 07/03/17 12:00 08/02/17 11:59 07/03/17 11:34 Temazepam (Restoril) 15 mg HSPRN PRN ORAL Insomnia 07/01/17 21:00 07/08/17 20:59 Vancomycin HCl (Vanco rx to dose) 1 ea DAILYPRN PRN MISC Per rx protocol 07/02/17 16:15 08/01/17 16:14 Vancomycin HCl 1 gm/Dextrose 275 ml @ 183.708 mls/hr ONCE ONCE IVPB 07/03/17 20:00 07/03/17 21:29 Allergies: Coded Allergies: No Known Allergies (Unverified , 07/01/17) ROS Limited/Unobtainable: Yes Subjective 62 YO M admitted with respiratory failure now pneumona. Cover for Int Med-Dr Garcia. Intubated and sedated. ICU Objective Last Vital Signs Date Time Temp Pulse Resp B/P (MAP) Pulse Ox O2 Delivery O2 Flow Rate FiO2 07/03/17 11:38 104 18 60 07/03/17 11:00 147/89 99 Mechanical Ventilator 07/03/17 09:00 98.9 98.9 07/01/17 12:40 15.0 General Appearance: lethargic, thin EENT: PERRL/EOMI, normal ENT inspection Neck: non-tender, normal alignment, supple Cardiovascular: normal peripheral pulses, normal rate, regular rhythm, no gallop/murmur, no JVD Respiratory/Chest: chest wall non-tender, lungs clear, normal breath sounds, no respiratory distress, no accessory muscle use Abdomen: normal bowel sounds, non tender, soft, no organomegaly, no mass Extremities: normal range of motion, non-tender 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 Skin: normal pigmentation, warm/dry Laboratory Tests Test 07/02/17 12:55 07/03/17 05:05 07/03/17 07:30 07/03/17 08:00 Lactic Acid Level 1.60 mmol/L (0.66-2.22) White Blood Count 16.2 K/UL (4.8-10.8) H Red Blood Count 2.43 M/UL (4.70-6.10) L Hemoglobin 7.8 G/DL (14.2-18.0) L Hematocrit 23.2 % (42.0-52.0) L Mean Corpuscular Volume 96 FL (80-99) Mean Corpuscular Hemoglobin 32.2 PG (27.0-31.0) H Mean Corpuscular Hemoglobin Concent 33.7 G/DL (32.0-36.0) Red Cell Distribution Width 13.6 % (11.6-14.8) Platelet Count 88 K/UL (150-450) L Mean Platelet Volume 7.4 FL (6.5-10.1) Neutrophils (%) (Auto) % (45.0-75.0) Lymphocytes (%) (Auto) % (20.0-45.0) Monocytes (%) (Auto) % (1.0-10.0) Eosinophils (%) (Auto) % (0.0-3.0) Basophils (%) (Auto) % (0.0-2.0) Differential Total Cells Counted 100 Neutrophils % (Manual) 82 % (45-75) H Lymphocytes % (Manual) 3 % (20-45) L Monocytes % (Manual) 2 % (1-10) Eosinophils % (Manual) 0 % (0-3) Basophils % (Manual) 0 % (0-2) Band Neutrophils 13 % (0-8) H Platelet Estimate Decreased L Platelet Morphology Normal Hypochromasia 1+ Schistocytes Occasional Sodium Level 143 MMOL/L (136-145) 143 MMOL/L (136-145) Potassium Level 3.0 MMOL/L (3.5-5.1) #L 2.9 MMOL/L (3.5-5.1) L Chloride Level 99 MMOL/L (98-107) 99 MMOL/L (98-107) Carbon Dioxide Level 17 MMOL/L (21-32) L 18 MMOL/L (21-32) L Anion Gap 27 mmol/L (5-15) H 26 mmol/L (5-15) H Blood Urea Nitrogen 82 mg/dL (7-18) H 88 mg/dL (7-18) H Creatinine 6.2 MG/DL (0.55-1.30) H 6.0 MG/DL (0.55-1.30) H Estimat Glomerular Filtration Rate 9.3 mL/min (>60) 9.6 mL/min (>60) Glucose Level 396 MG/DL (74-106) #H 417 MG/DL (74-106) H Calcium Level 6.0 MG/DL (8.5-10.1) L 6.2 MG/DL (8.5-10.1) L Phosphorus Level 7.1 MG/DL (2.5-4.9) H Magnesium Level 1.7 MG/DL (1.8-2.4) L Total Bilirubin 1.0 MG/DL (0.2-1.0) Aspartate Amino Transf (AST/SGOT) 53 U/L (15-37) H Alanine Aminotransferase (ALT/SGPT) 25 U/L (12-78) Alkaline Phosphatase 87 U/L (46-116) Troponin I 3.369 ng/mL (0.000-0.056) Total Protein 4.8 G/DL (6.4-8.2) L Albumin 1.7 G/DL (3.4-5.0) L Globulin 3.1 g/dL Albumin/Globulin Ratio 0.5 (1.0-2.7) L Thyroid Stimulating Hormone (TSH) 0.572 uiU/mL (0.358-3.740) Random Vancomycin Level 18.4 ug/mL Digoxin Level 0.8 NG/ML (0.5-2.0) Urine Eosinophils None seen Pro-B-Type Natriuretic Peptide > 64861 pg/mL (0-125) H Free Thyroxine 0.94 NG/DL (0.76-1.46) Test 07/03/17 09:40 Arterial Blood pH 7.480 (7.350-7.450) Arterial Blood Partial Pressure CO2 22.3 mmHg (35.0-45.0) *L Arterial Blood Partial Pressure O2 245.2 mmHg (75.0-100.0) H Arterial Blood HCO3 16.4 mmol/L (22.0-26.0) L Arterial Blood Oxygen Saturation 99.1 % (92.0-98.0) H Arterial Blood Base Excess -6.0 Ricardo Test Positive Microbiology Date/Time Source Procedure Growth Status 07/01/17 04:05 Blood Blood Culture - Preliminary NO GROWTH AFTER 24 HOURS Resulted 07/01/17 04:00 Blood Blood Culture - Preliminary NO GROWTH AFTER 24 HOURS Resulted 07/01/17 04:00 Nasal Nares MRSA Culture - Final Staphylococcus Aureus - Mrsa Complete 07/01/17 04:00 Nasal Nares Influenza Types A,B Antigen (SRI) - Final Complete 07/01/17 04:00 Urine,Clean Catch Urine Culture - Preliminary NO GROWTH AFTER 24 HOURS Resulted 07/01/17 04:00 Rectum VRE Culture - Final NO VANCOMYCIN RESISTANT ENTEROCOCCUS ... Complete Intake and Output 07/02/17 07/03/17 19:00 07:00 Intake Total 520 ml 1223.75 ml Output Total 2145 ml 81 ml Balance -1625 ml 1142.75 ml Free Water 90 ml IV Total 160 ml 773.75 ml Tube Feeding 360 ml 360 ml Output Urine Total 145 ml 80 ml Stool Total 1 ml Hemodialysis UF 2000 ml # Bowel Movements 1 Assessment/Plan Problem List: (1) GERD (gastroesophageal reflux disease) (2) Hypercholesteremia (3) Diabetes mellitus type II, uncontrolled (4) CHF (congestive heart failure) Assessment & Plan: See cardiology note. (5) Acute respiratory failure with hypoxemia Assessment & Plan: Continue vent per pulmonary (6) ARF (acute renal failure) (7) Anemia Assessment & Plan: Worsening. Transfuse 1 unit packed red blood cells today (8) Healthcare-associated pneumonia Assessment & Plan: Continue zosyn and vanco-see ID note. (9) Atrial fibrillation with rapid ventricular response Assessment & Plan: S/P digoxin. See cardiology note. (10) Septic shock Assessment & Plan: continue levophed. Status: not improved WESLEY CHAMPAGNE Jul 03, 2017 12:17
--- NOTE | 2017-07-03 12:24 | Diagnostic Imaging Report ---
Indication: Dyspnea Technique: One view of the chest Comparison: 07/02/2017 Findings: Stable satisfactory positions of endotracheal and nasogastric tubes, left subclavian temporary dialysis catheter, right arm PICC. There is interim slight decrease in the density or consolidation of both lung bases, although considerable disease persists. There is suggestion of decreased pleural fluid on the right as well. Impression: Decreased but still persistent and extensive bilateral basilar infiltrates, over one day. Decreased right pleural fluid Stable tube and line positions as described
--- NOTE | 2017-07-03 17:35 | Cardiac Electrophysiology PN ---
Assessment/Plan Assessment/Plan 1. Atrial fibrillation with rapid ventricular response. Got 0.5 mg IV digoxin. Digoxin level 0.8. Avoid giving the patient beta-tyrone or calcium channel tyrone for hypotension. Combination of sepsis and hemodialysis probably precipitated atrial fibrillation. 2. NSTEMI troponin 3.36. Due to sepsis and fib with RVR 3. Elevated BNP of more than 33,000 due to volume overload. The patient is on hemodialysis. 4. Respiratory failure. On the vent 5. Septic shock, on IV antibiotic per ID.Off Levophed today 6. Anemia due to renal failure. 7. Hyperkalemia due to renal failure. The patient getting hemodialysis. FELY RN Subjective Subjective In ICU in vent. Off Levophed since this am. Objective Last 24 Hour Vital Signs Date Time Temp Pulse Resp B/P (MAP) Pulse Ox O2 Delivery O2 Flow Rate FiO2 07/03/17 17:01 107 22 60 07/03/17 17:00 112 24 143/94 100 Mechanical Ventilator 60 07/03/17 16:24 Mechanical Ventilator 60 07/03/17 16:22 98.8 109 24 131/90 Mechanical Ventilator 60 98.8 07/03/17 16:00 98.8 111 18 142/91 100 Mechanical Ventilator 60 98.8 07/03/17 16:00 60 07/03/17 16:00 115 07/03/17 15:00 115 21 143/108 100 Mechanical Ventilator 60 07/03/17 14:55 113 21 60 07/03/17 14:00 110 20 136/98 100 Mechanical Ventilator 60 07/03/17 13:08 102 22 60 07/03/17 13:00 98.2 100 24 138/91 Mechanical Ventilator 60 98.2 07/03/17 13:00 106 20 133/87 100 Mechanical Ventilator 60 07/03/17 13:00 Mechanical Ventilator 60.0 07/03/17 12:00 60 07/03/17 12:00 98.8 105 19 142/83 100 Mechanical Ventilator 60 98.8 07/03/17 12:00 104 07/03/17 11:38 104 18 60 07/03/17 11:00 105 24 147/89 99 Mechanical Ventilator 70 07/03/17 10:07 60 07/03/17 10:00 104 25 137/82 100 Mechanical Ventilator 70 07/03/17 09:25 105 24 70 07/03/17 09:00 98.9 107 24 131/80 99 Mechanical Ventilator 70 98.9 07/03/17 08:00 70 07/03/17 08:00 105 07/03/17 08:00 99.6 105 25 138/81 99 Mechanical Ventilator 70 99.6 07/03/17 07:29 114 24 70 07/03/17 07:00 110 32 124/68 100 Mechanical Ventilator 70 07/03/17 06:30 106 23 127/75 100 Mechanical Ventilator 70 07/03/17 06:00 106 23 109/67 100 Mechanical Ventilator 70 07/03/17 05:30 106 22 111/72 100 Mechanical Ventilator 70 07/03/17 05:00 107 23 111/69 99 Mechanical Ventilator 70 07/03/17 04:59 107 24 70 07/03/17 04:30 108 24 112/70 99 Mechanical Ventilator 70 07/03/17 04:00 70 07/03/17 04:00 110 07/03/17 04:00 98.3 110 24 130/76 99 Mechanical Ventilator 70 98.3 07/03/17 03:30 111 24 130/79 98 Mechanical Ventilator 70 07/03/17 03:16 112 24 70 07/03/17 03:00 114 24 138/82 99 Mechanical Ventilator 70 07/03/17 02:30 107 24 137/81 100 Mechanical Ventilator 70 07/03/17 02:00 156/88 07/03/17 02:00 106 24 117/71 100 Mechanical Ventilator 70 07/03/17 01:30 105 24 144/87 100 Mechanical Ventilator 70 07/03/17 01:00 107 24 154/95 100 Mechanical Ventilator 70 07/03/17 00:52 110 25 70 07/03/17 00:30 108 24 155/96 100 Mechanical Ventilator 70 07/03/17 00:17 100/70 07/03/17 00:00 106 07/03/17 00:00 80 07/03/17 00:00 98.6 109 24 158/90 100 Mechanical Ventilator 70 98.6 07/02/17 23:30 109 24 165/85 100 Mechanical Ventilator 80 07/02/17 23:00 105 24 154/86 100 Mechanical Ventilator 80 07/02/17 22:47 110 24 70 07/02/17 22:20 107 24 138/82 100 07/02/17 22:20 107 24 138/82 100 3/20/18 22:10 112 21 155/94 100 3/20/18 22:10 112 21 155/94 100 3/20/18 22:00 105 24 149/81 100 3/20/18 22:00 105 24 149/81 100 3/20/18 21:50 103 24 139/88 100 3/20/18 21:50 103 24 139/88 100 3/20/18 21:40 105 24 139/76 3/20/18 21:40 105 24 139/76 3/20/18 21:30 101 24 145/86 100 3/20/18 21:30 101 24 145/86 100 3/20/18 21:20 106 24 150/88 100 3/20/18 21:20 106 24 150/88 100 3/20/18 21:17 108 24 80 3/20/18 21:10 106 24 152/78 100 3/20/18 21:10 106 24 152/78 100 3/20/18 21:00 112 25 150/83 100 3/20/18 21:00 112 25 150/83 100 3/20/18 20:50 121 17 158/82 100 3/20/18 20:50 121 17 158/82 100 3/20/18 20:40 126 24 92/63 100 3/20/18 20:40 126 24 92/63 100 3/20/18 20:30 124 22 113/69 100 3/20/18 20:30 124 22 113/69 100 3/20/18 20:20 121 24 96/57 100 3/20/18 20:20 121 24 96/57 100 3/20/18 20:10 123 23 97/62 100 3/20/18 20:10 123 23 97/62 100 3/20/18 20:00 128 22 101/56 100 3/20/18 20:00 124 3/20/18 20:00 80 3/20/18 20:00 98.3 128 22 101/56 100 Mechanical Ventilator 98.3 128 3/20/18 19:04 116 30 90 3/20/18 18:30 115 20 98/56 94 Mechanical Ventilator 100 115 3/20/18 18:00 110 20 113/58 94 Mechanical Ventilator 100 111 320/18 17:30 126 20 115/70 94 Mechanical Ventilator 100 126 Intake and Output 3/20/18 3/21/18 19:00 07:00 Intake Total 520 ml 1223.75 ml Output Total 2145 ml 81 ml Balance -1625 ml 1142.75 ml Free Water 90 ml IV Total 160 ml 773.75 ml Tube Feeding 360 ml 360 ml Output Urine Total 145 ml 80 ml Stool Total 1 ml Hemodialysis UF 2000 ml # Bowel Movements 1 Laboratory Tests Test 07/03/17 05:05 07/03/17 07:30 07/03/17 08:00 07/03/17 09:40 White Blood Count 16.2 K/UL (4.8-10.8) H Red Blood Count 2.43 M/UL (4.70-6.10) L Hemoglobin 7.8 G/DL (14.2-18.0) L Hematocrit 23.2 % (42.0-52.0) L Mean Corpuscular Volume 96 FL (80-99) Mean Corpuscular Hemoglobin 32.2 PG (27.0-31.0) H Mean Corpuscular Hemoglobin Concent 33.7 G/DL (32.0-36.0) Red Cell Distribution Width 13.6 % (11.6-14.8) Platelet Count 88 K/UL (150-450) L Mean Platelet Volume 7.4 FL (6.5-10.1) Neutrophils (%) (Auto) % (45.0-75.0) Lymphocytes (%) (Auto) % (20.0-45.0) Monocytes (%) (Auto) % (1.0-10.0) Eosinophils (%) (Auto) % (0.0-3.0) Basophils (%) (Auto) % (0.0-2.0) Differential Total Cells Counted 100 Neutrophils % (Manual) 82 % (45-75) H Lymphocytes % (Manual) 3 % (20-45) L Monocytes % (Manual) 2 % (1-10) Eosinophils % (Manual) 0 % (0-3) Basophils % (Manual) 0 % (0-2) Band Neutrophils 13 % (0-8) H Platelet Estimate Decreased L Platelet Morphology Normal Hypochromasia 1+ Schistocytes Occasional Sodium Level 143 MMOL/L (136-145) 143 MMOL/L (136-145) Potassium Level 3.0 MMOL/L (3.5-5.1) #L 2.9 MMOL/L (3.5-5.1) L Chloride Level 99 MMOL/L (98-107) 99 MMOL/L (98-107) Carbon Dioxide Level 17 MMOL/L (21-32) L 18 MMOL/L (21-32) L Anion Gap 27 mmol/L (5-15) H 26 mmol/L (5-15) H Blood Urea Nitrogen 82 mg/dL (7-18) H 88 mg/dL (7-18) H Creatinine 6.2 MG/DL (0.55-1.30) H 6.0 MG/DL (0.55-1.30) H Estimat Glomerular Filtration Rate 9.3 mL/min (>60) 9.6 mL/min (>60) Glucose Level 396 MG/DL (74-106) #H 417 MG/DL (74-106) H Calcium Level 6.0 MG/DL (8.5-10.1) L 6.2 MG/DL (8.5-10.1) L Phosphorus Level 7.1 MG/DL (2.5-4.9) H Magnesium Level 1.7 MG/DL (1.8-2.4) L Total Bilirubin 1.0 MG/DL (0.2-1.0) Aspartate Amino Transf (AST/SGOT) 53 U/L (15-37) H Alanine Aminotransferase (ALT/SGPT) 25 U/L (12-78) Alkaline Phosphatase 87 U/L (46-116) Troponin I 3.369 ng/mL (0.000-0.056) Total Protein 4.8 G/DL (6.4-8.2) L Albumin 1.7 G/DL (3.4-5.0) L Globulin 3.1 g/dL Albumin/Globulin Ratio 0.5 (1.0-2.7) L Thyroid Stimulating Hormone (TSH) 0.572 uiU/mL (0.358-3.740) Random Vancomycin Level 18.4 ug/mL Digoxin Level 0.8 NG/ML (0.5-2.0) Urine Eosinophils None seen Pro-B-Type Natriuretic Peptide > 39929 pg/mL (0-125) H Free Thyroxine 0.94 NG/DL (0.76-1.46) Arterial Blood pH 7.480 (7.350-7.450) Arterial Blood Partial Pressure CO2 22.3 mmHg (35.0-45.0) *L Arterial Blood Partial Pressure O2 245.2 mmHg (75.0-100.0) H Arterial Blood HCO3 16.4 mmol/L (22.0-26.0) L Arterial Blood Oxygen Saturation 99.1 % (92.0-98.0) H Arterial Blood Base Excess -6.0 Ricardo Test Positive Test 07/03/17 11:30 Stool Occult Blood Positive (NEGATIVE) Microbiology Date/Time Source Procedure Growth Status 07/01/17 04:05 Blood Blood Culture - Preliminary NO GROWTH AFTER 24 HOURS Resulted 07/01/17 04:00 Blood Blood Culture - Preliminary NO GROWTH AFTER 24 HOURS Resulted 07/01/17 04:00 Nasal Nares MRSA Culture - Final Staphylococcus Aureus - Mrsa Complete 07/01/17 04:00 Nasal Nares Influenza Types A,B Antigen (SRI) - Final Complete 07/01/17 04:00 Urine,Clean Catch Urine Culture - Preliminary NO GROWTH AFTER 24 HOURS Resulted 07/01/17 04:00 Rectum VRE Culture - Final NO VANCOMYCIN RESISTANT ENTEROCOCCUS ... Complete Objective HEAD AND NECK: No JVD. He is orally intubated with NG tube. LUNGS: Coarse rhonchi. CARDIOVASCULAR: Irregular and tachycardic. S1 and S2 with no gallop or murmur. ABDOMEN: Soft. EXTREMITIES: No pitting edema. TATY BRADY Jul 03, 2017 17:35
[2017-07-03] MEDS: Dyna-Hex 2% Top Sol 2oz TOPIC SCH (19:55)
[2017-07-03] MEDS ORDERED: Vancomycin 1gm in D5W 275ml IVPB ONE (20:00)
--- NOTE | 2017-07-03 20:03 | Cardiology Report ---
APPROVED REPORT EXAM: Two-dimensional and M-mode echocardiogram with Doppler and color Doppler. INDICATION Congestive Heart Failure M-Mode DIMENSIONS IVSd1.3 (0.7-1.1cm)Left Atrium (MM)3.2 (1.6-4.0cm) LVDd5.1 (3.5-5.6cm)Aortic Root3.6 (2.0-3.7cm) PWd1.5 (0.7-1.1cm)Aortic Cusp Exc.2.4 (1.5-2.0cm) LVDs3.9 (2.5-4.0cm) PWs1.9 cm Technically difficult study due to pts position. Pt was on PAP. Left ventricular chamber underfilled. Normal systolic function and wall motion to extent visualized. Left ventricular ejection fraction estimated to be 55 %. Study quality precludes accurate assessment of regional wall motion. Mild left ventricular hypertrophy. No evidence of pericardial effusion. All other cardiac chamber sizes appear to be within normal limits. Focal aortic valve sclerosis with adequate cusp excursion. Thickened mitral valve leaflets with normal excursion. Mitral annulus and aortic root calcification. Pulmonic valve not well visualized. Normal tricuspid valve structure. IVC at normal size with physiologic collapse. A color flow and spectral Doppler study was performed and revealed: Mild to moderate mitral regurgitation. Mitral inflow indicate normal left ventricular diastolic function. Mild tricuspid regurgitation. Tricuspid systolic velocities suggests peak right ventricular systolic pressure of 42 mmHg, consistent with mild pulmonary hypertension.
--- NOTE | 2017-07-03 20:14 | Cardiology Report ---
APPROVED REPORT EKG Measurement Heart [id number] Sinus tachycardia Otherwise normal ECG
[2017-07-03] MEDS: Epogen (for non ESRD use) SUBQ SCH (21:05)
[2017-07-03] MEDS: Morphine Sulfate 2mg/ml Inj IVP PRN (22:11)
[2017-07-04] VITALS (26 sets, daily range): BP systolic 106–161; BP diastolic 72–110
[2017-07-04] MEDS: NovoLOG Insulin Flexpen SUBQ SCH ×6 (00:50→20:55)
[2017-07-04] MEDS: Piperacillin/Tazobactam 2.25 GM in NS 55 ML IV SCH ×3 (01:50→22:02)
[2017-07-04] MEDS: Renvela 800mg Pkt NG SCH ×4 (05:42→23:41)
[2017-07-04 05:43] LABS: HEMATOCRIT 25.6 % (42.0-52.0); HEMOGLOBIN 8.8 G/DL (14.2-18.0); MEAN CORPUSCULAR VOLUME 92 FL (80-99); PLATELET COUNT 59 K/UL (150-450); RED BLOOD COUNT 2.77 M/UL (4.70-6.10); RED CELL DISTRIBUTION WIDTH 14.5 % (11.6-14.8); WHITE BLOOD COUNT 15.3 K/UL (4.8-10.8)
[2017-07-04 05:51] LABS: ALANINE AMINOTRANSFERASE 26 U/L (12-78); ALBUMIN 1.6 G/DL (3.4-5.0); ALBUMIN/GLOBULIN RATIO 0.5 (1.0-2.7); ALKALINE PHOSPHATASE 92 U/L (46-116); ANION GAP 16 mmol/L (5-15); ASPARTATE AMINO TRANSFERASE 36 U/L (15-37); BILIRUBIN,TOTAL 0.8 MG/DL (0.2-1.0); BLOOD UREA NITROGEN 76 mg/dL (7-18); CALCIUM 6.4 MG/DL (8.5-10.1); CARBON DIOXIDE 27 MMOL/L (21-32); CHLORIDE 96 MMOL/L (98-107); CREATININE 5.2 MG/DL (0.55-1.30); PHOSPHORUS 5.9 MG/DL (2.5-4.9); SODIUM 139 MMOL/L (136-145)
[2017-07-04 06:02] LABS: POTASSIUM 2.7 MMOL/L (3.5-5.1)
[2017-07-04] MEDS: Solu-MEDROL 125mg Inj IV SCH (08:12)
[2017-07-04] MEDS: Pantoprazole Inj IVP SCH ×2 (08:12→21:50)
[2017-07-04] MEDS: Cosopt Opth Soln 10 mL Btl RIGHT EYE SCH ×2 (08:13→17:37)
[2017-07-04] MEDS: Heparin 5000 units/ml inj SUBQ SCH ×2 (08:13→21:00)
[2017-07-04] MEDS ORDERED: Zemuron 50mg/5ml Inj IV ONE (08:14)
--- NOTE | 2017-07-04 10:04 | Diagnostic Imaging Report ---
Indication: Dyspnea Technique: One view of the chest Comparison: 07/03/2017 Findings: Very high position of endotracheal tube, above the thoracic inlet stable position of nasogastric tube, PICC, temporary dialysis catheter. Interim slight improvement of infiltrates in the left lung base. Right basilar infiltrates are unchanged Impression: High position of endotracheal tube. Advancement recommended. This was discussed by phone with patient's nurse, Batsheva, at the time of interpretation Slightly improved left basilar infiltrate. Persistent extensive right basilar infiltrate, over one day
[2017-07-04] MEDS ORDERED: Potassium Chloride 40 MEQ in Sodium Chloride 500ML 550 ML IVPB ONE (11:00)
--- NOTE | 2017-07-04 11:24 | Nephrology Progress Note ---
Assessment/Plan Problem List: (1) ARF (acute renal failure) (2) Acute respiratory failure with hypoxemia (3) Hyperkalemia (4) Cachexia Assessment Acute renal failure- High K ? CKD Acute respiratory failure, Pneumonia Hypotension- Shock, Sepsis Cachexia Plan Need transfusion- unable to consent HD done 2 days in row 07/02-and 07/03 off pressors pulm support benavides echo 55% EjFx K supplement HD in am again costa Bilateral echogenic kidneys, consistent with medical renal disease discussed with RN in dept cxr Extensive bilateral infiltrates and pleural effusions, slightly increased on the left Subjective ROS Limited/Unobtainable: Yes Objective Objective Last 24 Hour Vital Signs Date Time Temp Pulse Resp B/P (MAP) Pulse Ox O2 Delivery O2 Flow Rate FiO2 07/04/17 11:00 87 18 106/72 97 Mechanical Ventilator 50 07/04/17 10:34 94 18 35 07/04/17 10:00 90 18 120/78 100 Mechanical Ventilator 50 07/04/17 09:00 88 18 128/86 100 Mechanical Ventilator 50 07/04/17 08:34 88 18 50 07/04/17 08:00 50 07/04/17 08:00 87 07/04/17 08:00 98.0 91 19 136/89 99 Mechanical Ventilator 50 98.0 07/04/17 07:15 96 18 50 07/04/17 07:00 95 19 136/89 100 Mechanical Ventilator 50 07/04/17 06:00 103 26 154/110 100 Mechanical Ventilator 50 07/04/17 05:25 104 22 50 07/04/17 05:00 95 18 139/94 100 Mechanical Ventilator 50 07/04/17 04:00 50 07/04/17 04:00 98.4 100 18 129/86 100 Mechanical Ventilator 50 98.4 07/04/17 03:00 101 07/04/17 03:00 101 19 152/105 100 Mechanical Ventilator 50 07/04/17 02:20 100 23 50 07/04/17 02:00 103 19 149/101 100 Mechanical Ventilator 50 07/04/17 01:02 102 22 50 07/04/17 01:00 103 18 161/103 100 Mechanical Ventilator 50 07/04/17 00:00 99.0 103 18 152/96 100 Mechanical Ventilator 50 99.0 07/04/17 00:00 50 07/03/17 23:30 107 18 155/114 100 Mechanical Ventilator 50 07/03/17 23:12 102 20 50 07/03/17 23:01 104 07/03/17 23:00 105 18 151/105 100 Mechanical Ventilator 50 07/03/17 22:15 110 19 148/100 100 Mechanical Ventilator 50 07/03/17 22:10 111 20 150/98 100 Mechanical Ventilator 50 07/03/17 22:00 108 20 148/100 100 Mechanical Ventilator 50 07/03/17 21:00 50 07/03/17 21:00 104 19 145/92 100 Mechanical Ventilator 50 07/03/17 20:56 105 20 50 07/03/17 20:30 105 20 139/94 100 Mechanical Ventilator 60 07/03/17 20:00 60 07/03/17 20:00 98.7 106 20 149/97 100 Mechanical Ventilator 60 98.7 07/03/17 19:10 113 22 60 07/03/17 19:06 110 07/03/17 19:00 108 20 146/97 100 Mechanical Ventilator 60 07/03/17 18:00 110 21 139/100 99 Mechanical Ventilator 60 07/03/17 17:01 107 22 60 07/03/17 17:00 112 24 143/94 100 Mechanical Ventilator 60 07/03/17 16:24 Mechanical Ventilator 60 07/03/17 16:22 98.8 109 24 131/90 Mechanical Ventilator 60 98.8 07/03/17 16:00 98.8 111 18 142/91 100 Mechanical Ventilator 60 98.8 07/03/17 16:00 60 07/03/17 16:00 115 07/03/17 15:00 115 21 143/108 100 Mechanical Ventilator 60 07/03/17 14:55 113 21 60 07/03/17 14:00 110 20 136/98 100 Mechanical Ventilator 60 07/03/17 13:08 102 22 60 07/03/17 13:00 98.2 100 24 138/91 Mechanical Ventilator 60 98.2 07/03/17 13:00 106 20 133/87 100 Mechanical Ventilator 60 07/03/17 13:00 Mechanical Ventilator 60.0 07/03/17 12:00 60 07/03/17 12:00 98.8 105 19 142/83 100 Mechanical Ventilator 60 98.8 07/03/17 12:00 104 07/03/17 11:38 104 18 60 Intake and Output 07/03/17 07/04/17 19:00 07:00 Intake Total 1010 ml 1475.000 ml Output Total 1045 ml 45 ml Balance -35 ml 1430.000 ml Free Water 30 ml IV Total 560 ml 785.000 ml Tube Feeding 360 ml 360 ml Blood Product 250 ml Other 60 ml 80 ml Output Urine Total 45 ml 45 ml Hemodialysis UF 1000 ml # Bowel Movements 4 4 Laboratory Tests 07/03/17 11:30: Stool Occult Blood Positive 07/04/17 04:40: White Blood Count 15.3H, Red Blood Count 2.77L, Hemoglobin 8.8L, Hematocrit 25.6L, Mean Corpuscular Volume 92, Mean Corpuscular Hemoglobin 31.8H, Mean Corpuscular Hemoglobin Concent 34.4, Red Cell Distribution Width 14.5, Platelet Count 59L, Mean Platelet Volume 8.4, Neutrophils (%) (Auto) , Lymphocytes (%) ( Auto) , Monocytes (%) (Auto) , Eosinophils (%) (Auto) , Basophils (%) (Auto) , Differential Total Cells Counted 100, Neutrophils % (Manual) 82H, Lymphocytes % (Manual) 4L, Monocytes % (Manual) 5, Eosinophils % (Manual) 0, Basophils % ( Manual) 0, Band Neutrophils 9H, Platelet Estimate DecreasedL, Platelet Morphology Normal, Hypochromasia 1+, Anisocytosis 1+, Sodium Level 139, Potassium Level 2.7*L, Chloride Level 96L, Carbon Dioxide Level 27, Anion Gap 16H, Blood Urea Nitrogen 76H, Creatinine 5.2H, Estimat Glomerular Filtration Rate 11.4, Glucose Level 319H, Uric Acid 5.6, Calcium Level 6.4L, Phosphorus Level 5.9H, Magnesium Level 1.7L, Total Bilirubin 0.8, Aspartate Amino Transf ( AST/SGOT) 36, Alanine Aminotransferase (ALT/SGPT) 26, Alkaline Phosphatase 92, Troponin I 1.283H, C-Reactive Protein, Quantitative 23.6H, Pro-B-Type Natriuretic Peptide > 06237V, Total Protein 4.9L, Albumin 1.6L, Globulin 3.3, Albumin/Globulin Ratio 0.5L 07/04/17 04:45: Urine Eosinophils None seen 07/04/17 08:40: Arterial Blood pH 7.514H, Arterial Blood Partial Pressure CO2 31.5L, Arterial Blood Partial Pressure O2 176.2H, Arterial Blood HCO3 24.8, Arterial Blood Oxygen Saturation 97.6, Arterial Blood Base Excess 2.6, Ricardo Test Positive Height (Feet): 5 Height (Inches): 11.00 Weight (Pounds): 138 General Appearance: no apparent distress EENT: other - intubated Abdomen: soft JUSTIN HERNANDEZ Jul 04, 2017 11:24
--- NOTE | 2017-07-04 11:56 | Pulmonolgy Critical Care Note ---
Critical Care - Asmt/Plan Problems: (1) Acute respiratory failure with hypoxemia (2) ATN (acute tubular necrosis) (3) Sepsis (4) Healthcare-associated pneumonia (5) Cachexia Respiratory: monitor respiratory rate, adjust FIO2, CXR Cardiac: continue to monitor HR/BP Renal: F/U I&O, keep IV fluid Infectious Disease: continue antibiotics Gastrointestinal: continue feedings/current rate Endocrine: monitor blood sugar, check HgA1C, continue sliding scale insulin Hematologic: monitor H/H, transfuse if hgb<8.5 Neurologic: PRN Ativan, keep patient comfortable Affect: PRN ativan Time Spent (Minutes): 30 Notes Reviewed: tea blender Discussed with: nurses, consultants, 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 - Objective Last 24 Hour Vital Signs Date Time Temp Pulse Resp B/P (MAP) Pulse Ox O2 Delivery O2 Flow Rate FiO2 07/04/17 11:00 87 18 106/72 97 Mechanical Ventilator 50 07/04/17 10:34 94 18 35 07/04/17 10:00 90 18 120/78 100 Mechanical Ventilator 50 07/04/17 09:00 88 18 128/86 100 Mechanical Ventilator 50 07/04/17 08:34 88 18 50 07/04/17 08:00 50 07/04/17 08:00 87 07/04/17 08:00 98.0 91 19 136/89 99 Mechanical Ventilator 50 98.0 07/04/17 07:15 96 18 50 07/04/17 07:00 95 19 136/89 100 Mechanical Ventilator 50 07/04/17 06:00 103 26 154/110 100 Mechanical Ventilator 50 07/04/17 05:25 104 22 50 07/04/17 05:00 95 18 139/94 100 Mechanical Ventilator 50 07/04/17 04:00 50 07/04/17 04:00 98.4 100 18 129/86 100 Mechanical Ventilator 50 98.4 07/04/17 03:00 101 07/04/17 03:00 101 19 152/105 100 Mechanical Ventilator 50 07/04/17 02:20 100 23 50 07/04/17 02:00 103 19 149/101 100 Mechanical Ventilator 50 07/04/17 01:02 102 22 50 07/04/17 01:00 103 18 161/103 100 Mechanical Ventilator 50 07/04/17 00:00 99.0 103 18 152/96 100 Mechanical Ventilator 50 99.0 07/04/17 00:00 50 07/03/17 23:30 107 18 155/114 100 Mechanical Ventilator 50 07/03/17 23:12 102 20 50 07/03/17 23:01 104 07/03/17 23:00 105 18 151/105 100 Mechanical Ventilator 50 07/03/17 22:15 110 19 148/100 100 Mechanical Ventilator 50 07/03/17 22:10 111 20 150/98 100 Mechanical Ventilator 50 07/03/17 22:00 108 20 148/100 100 Mechanical Ventilator 50 07/03/17 21:00 50 07/03/17 21:00 104 19 145/92 100 Mechanical Ventilator 50 07/03/17 20:56 105 20 50 07/03/17 20:30 105 20 139/94 100 Mechanical Ventilator 60 07/03/17 20:00 60 07/03/17 20:00 98.7 106 20 149/97 100 Mechanical Ventilator 60 98.7 07/03/17 19:10 113 22 60 07/03/17 19:06 110 07/03/17 19:00 108 20 146/97 100 Mechanical Ventilator 60 07/03/17 18:00 110 21 139/100 99 Mechanical Ventilator 60 07/03/17 17:01 107 22 60 07/03/17 17:00 112 24 143/94 100 Mechanical Ventilator 60 07/03/17 16:24 Mechanical Ventilator 60 07/03/17 16:22 98.8 109 24 131/90 Mechanical Ventilator 60 98.8 07/03/17 16:00 98.8 111 18 142/91 100 Mechanical Ventilator 60 98.8 07/03/17 16:00 60 07/03/17 16:00 115 07/03/17 15:00 115 21 143/108 100 Mechanical Ventilator 60 07/03/17 14:55 113 21 60 07/03/17 14:00 110 20 136/98 100 Mechanical Ventilator 60 07/03/17 13:08 102 22 60 07/03/17 13:00 98.2 100 24 138/91 Mechanical Ventilator 60 98.2 07/03/17 13:00 106 20 133/87 100 Mechanical Ventilator 60 07/03/17 13:00 Mechanical Ventilator 60.0 07/03/17 12:00 60 07/03/17 12:00 98.8 105 19 142/83 100 Mechanical Ventilator 60 98.8 07/03/17 12:00 104 Status: awake Condition: critical HEENT: atraumatic Lungs: clear Heart: HR/BP unstable Abdomen: non-tender Extremities: no C/C/E, edema Decubiti: location, stage Accucheck: 222 Critical Care - Subjective ROS Limited/Unobtainable: Yes ICU Day: 3 Intubation Day: 3 Condition: critical EKG Rhythm: Sinus Rhythm FI02: 50 Vent Support Breath Rate: 18 Vent Support Mode: AC Vent Tidal Volume: 700 Sputum Amount: Small PEEP: 6.0 PIP: 29 Tube Feeding Amount: 30 I&O: Intake and Output 07/03/17 07/04/17 19:00 07:00 Intake Total 1010 ml 1475.000 ml Output Total 1045 ml 45 ml Balance -35 ml 1430.000 ml Free Water 30 ml IV Total 560 ml 785.000 ml Tube Feeding 360 ml 360 ml Blood Product 250 ml Other 60 ml 80 ml Output Urine Total 45 ml 45 ml Hemodialysis UF 1000 ml # Bowel Movements 4 4 CXR: ET in good position dense RLL infiltrate unchanged ET-Tube: 8.0 ET Position: 28 Labs: Laboratory Tests Test 07/04/17 04:40 07/04/17 04:45 07/04/17 08:40 White Blood Count 15.3 K/UL (4.8-10.8) H Red Blood Count 2.77 M/UL (4.70-6.10) L Hemoglobin 8.8 G/DL (14.2-18.0) L Hematocrit 25.6 % (42.0-52.0) L Mean Corpuscular Volume 92 FL (80-99) Mean Corpuscular Hemoglobin 31.8 PG (27.0-31.0) H Mean Corpuscular Hemoglobin Concent 34.4 G/DL (32.0-36.0) Red Cell Distribution Width 14.5 % (11.6-14.8) Platelet Count 59 K/UL (150-450) L Mean Platelet Volume 8.4 FL (6.5-10.1) Neutrophils (%) (Auto) % (45.0-75.0) Lymphocytes (%) (Auto) % (20.0-45.0) Monocytes (%) (Auto) % (1.0-10.0) Eosinophils (%) (Auto) % (0.0-3.0) Basophils (%) (Auto) % (0.0-2.0) Differential Total Cells Counted 100 Neutrophils % (Manual) 82 % (45-75) H Lymphocytes % (Manual) 4 % (20-45) L Monocytes % (Manual) 5 % (1-10) Eosinophils % (Manual) 0 % (0-3) Basophils % (Manual) 0 % (0-2) Band Neutrophils 9 % (0-8) H Platelet Estimate Decreased L Platelet Morphology Normal Hypochromasia 1+ Anisocytosis 1+ Sodium Level 139 MMOL/L (136-145) Potassium Level 2.7 MMOL/L (3.5-5.1) *L Chloride Level 96 MMOL/L (98-107) L Carbon Dioxide Level 27 MMOL/L (21-32) Anion Gap 16 mmol/L (5-15) H Blood Urea Nitrogen 76 mg/dL (7-18) H Creatinine 5.2 MG/DL (0.55-1.30) H Estimat Glomerular Filtration Rate 11.4 mL/min (>60) Glucose Level 319 MG/DL (74-106) H Uric Acid 5.6 MG/DL (2.6-7.2) Calcium Level 6.4 MG/DL (8.5-10.1) L Phosphorus Level 5.9 MG/DL (2.5-4.9) H Magnesium Level 1.7 MG/DL (1.8-2.4) L Total Bilirubin 0.8 MG/DL (0.2-1.0) Aspartate Amino Transf (AST/SGOT) 36 U/L (15-37) Alanine Aminotransferase (ALT/SGPT) 26 U/L (12-78) Alkaline Phosphatase 92 U/L (46-116) Troponin I 1.283 ng/mL (0.000-0.056) C-Reactive Protein, Quantitative 23.6 mg/dL (0.00-0.90) H Pro-B-Type Natriuretic Peptide > 70051 pg/mL (0-125) H Total Protein 4.9 G/DL (6.4-8.2) L Albumin 1.6 G/DL (3.4-5.0) L Globulin 3.3 g/dL Albumin/Globulin Ratio 0.5 (1.0-2.7) L Urine Eosinophils None seen Arterial Blood pH 7.514 (7.350-7.450) Arterial Blood Partial Pressure CO2 31.5 mmHg (35.0-45.0) L Arterial Blood Partial Pressure O2 176.2 mmHg (75.0-100.0) H Arterial Blood HCO3 24.8 mmol/L (22.0-26.0) Arterial Blood Oxygen Saturation 97.6 % (92.0-98.0) Arterial Blood Base Excess 2.6 Ricardo Test Positive Radha Haney MD Jul 04, 2017 11:56
--- NOTE | 2017-07-04 12:04 | Diagnostic Imaging Report ---
Indication: Status post endotracheal tube readjustment Technique: One view of the chest Comparison: 2 hours earlier Findings: Interval advancement of endotracheal tube, tip position now satisfactory, approximately 7 cm above the robyn and 7 cm below the larynx. Bilateral right greater than left infiltrates are unchanged. Other tube and line positions are unchanged Impression: Improved and now satisfactory position of previously malpositioned endotracheal tube Nurse Batsheva in the ICU notified at the time of interpretation
--- NOTE | 2017-07-04 13:26 | Infectious Diseases Prog Note ---
Assessment/Plan Assessment/Plan Abx: Zosyn 07/02- IV Vancomycin 07/02 Cefepime x1 07/01 Levaquin x1 07/01 Assessment: Septic Shock- likely 2ry to PNA, r/o bacteremia -influenza sc neg -sp cx not collected; re-ordered 07/04 -u/a no pyuria; ucx N TD -Bcx NTD COPD exacerbation Afebrile Leukocytosis- multifactorial- reactive component, infection and steroids; improving Seizure episode 07/02 Acute renal failure, HD started 07/02 Hyperkalemia Anion gap acidosis DM depression cachexia custodial resident muscle wasting/generalized weakness encephalopathy Plan: -Continue empiric IV Vancomycin and Zosyn #3 pending cultures (improving on current regimen) -07/01 SP Cefepime, Levaquin x1 -if decompensation, switch Zosyn to Meropenem and given one time dose of Amikacin -sputum culture reordered -f/u cx -Monitor CBC/BMP, temperatures -ETT/central line care -Aspiration precautions Subjective Allergies: Coded Allergies: No Known Allergies (Unverified , 07/01/17) Subjective afebrile leukocytosis improving off pressors Bcx NTD sp cx seems it was not collected Fio2 down to 30% Objective Vital Signs Last 24 Hour Vital Signs Date Time Temp Pulse Resp B/P (MAP) Pulse Ox O2 Delivery O2 Flow Rate FiO2 07/04/17 13:00 90 16 122/75 98 Mechanical Ventilator 30 07/04/17 12:49 89 16 30 07/04/17 12:00 50 07/04/17 12:00 98.3 91 18 119/77 99 Mechanical Ventilator 30 98.3 07/04/17 12:00 87 07/04/17 11:00 87 18 106/72 97 Mechanical Ventilator 30 07/04/17 10:34 94 18 30 07/04/17 10:00 90 18 120/78 100 Mechanical Ventilator 50 07/04/17 09:00 88 18 128/86 100 Mechanical Ventilator 50 07/04/17 08:34 88 18 50 07/04/17 08:00 50 07/04/17 08:00 87 07/04/17 08:00 98.0 91 19 136/89 99 Mechanical Ventilator 50 98.0 07/04/17 07:15 96 18 50 07/04/17 07:00 95 19 136/89 100 Mechanical Ventilator 50 07/04/17 06:00 103 26 154/110 100 Mechanical Ventilator 50 07/04/17 05:25 104 22 50 07/04/17 05:00 95 18 139/94 100 Mechanical Ventilator 50 07/04/17 04:00 50 07/04/17 04:00 98.4 100 18 129/86 100 Mechanical Ventilator 50 98.4 07/04/17 03:00 101 07/04/17 03:00 101 19 152/105 100 Mechanical Ventilator 50 07/04/17 02:20 100 23 50 07/04/17 02:00 103 19 149/101 100 Mechanical Ventilator 50 07/04/17 01:02 102 22 50 07/04/17 01:00 103 18 161/103 100 Mechanical Ventilator 50 07/04/17 00:00 99.0 103 18 152/96 100 Mechanical Ventilator 50 99.0 07/04/17 00:00 50 07/03/17 23:30 107 18 155/114 100 Mechanical Ventilator 50 07/03/17 23:12 102 20 50 07/03/17 23:01 104 07/03/17 23:00 105 18 151/105 100 Mechanical Ventilator 50 07/03/17 22:15 110 19 148/100 100 Mechanical Ventilator 50 07/03/17 22:10 111 20 150/98 100 Mechanical Ventilator 50 07/03/17 22:00 108 20 148/100 100 Mechanical Ventilator 50 07/03/17 21:00 50 07/03/17 21:00 104 19 145/92 100 Mechanical Ventilator 50 07/03/17 20:56 105 20 50 07/03/17 20:30 105 20 139/94 100 Mechanical Ventilator 60 07/03/17 20:00 60 07/03/17 20:00 98.7 106 20 149/97 100 Mechanical Ventilator 60 98.7 07/03/17 19:10 113 22 60 07/03/17 19:06 110 07/03/17 19:00 108 20 146/97 100 Mechanical Ventilator 60 07/03/17 18:00 110 21 139/100 99 Mechanical Ventilator 60 07/03/17 17:01 107 22 60 07/03/17 17:00 112 24 143/94 100 Mechanical Ventilator 60 07/03/17 16:24 Mechanical Ventilator 60 07/03/17 16:22 98.8 109 24 131/90 Mechanical Ventilator 60 98.8 07/03/17 16:00 98.8 111 18 142/91 100 Mechanical Ventilator 60 98.8 07/03/17 16:00 60 07/03/17 16:00 115 07/03/17 15:00 115 21 143/108 100 Mechanical Ventilator 60 07/03/17 14:55 113 21 60 07/03/17 14:00 110 20 136/98 100 Mechanical Ventilator 60 Height (Feet): 5 Height (Inches): 11.00 Weight (Pounds): 138 Objective General Appearance: cachetic Lines, tubes and drains: peripheral HEENT: normocephalic, atraumatic Neck: non-tender, normal alignment Respiratory/Chest: chest wall non-tender, rhonchi - left, rhonchi - right Cardiovascular/Chest: normal peripheral pulses, normal rate Abdomen: normal bowel sounds Genitourinary/Rectal: normal genital exam Extremities: normal range of motion Laboratory Tests Test 07/04/17 04:40 07/04/17 04:45 07/04/17 08:40 White Blood Count 15.3 K/UL (4.8-10.8) H Red Blood Count 2.77 M/UL (4.70-6.10) L Hemoglobin 8.8 G/DL (14.2-18.0) L Hematocrit 25.6 % (42.0-52.0) L Mean Corpuscular Volume 92 FL (80-99) Mean Corpuscular Hemoglobin 31.8 PG (27.0-31.0) H Mean Corpuscular Hemoglobin Concent 34.4 G/DL (32.0-36.0) Red Cell Distribution Width 14.5 % (11.6-14.8) Platelet Count 59 K/UL (150-450) L Mean Platelet Volume 8.4 FL (6.5-10.1) Neutrophils (%) (Auto) % (45.0-75.0) Lymphocytes (%) (Auto) % (20.0-45.0) Monocytes (%) (Auto) % (1.0-10.0) Eosinophils (%) (Auto) % (0.0-3.0) Basophils (%) (Auto) % (0.0-2.0) Differential Total Cells Counted 100 Neutrophils % (Manual) 82 % (45-75) H Lymphocytes % (Manual) 4 % (20-45) L Monocytes % (Manual) 5 % (1-10) Eosinophils % (Manual) 0 % (0-3) Basophils % (Manual) 0 % (0-2) Band Neutrophils 9 % (0-8) H Platelet Estimate Decreased L Platelet Morphology Normal Hypochromasia 1+ Anisocytosis 1+ Sodium Level 139 MMOL/L (136-145) Potassium Level 2.7 MMOL/L (3.5-5.1) *L Chloride Level 96 MMOL/L (98-107) L Carbon Dioxide Level 27 MMOL/L (21-32) Anion Gap 16 mmol/L (5-15) H Blood Urea Nitrogen 76 mg/dL (7-18) H Creatinine 5.2 MG/DL (0.55-1.30) H Estimat Glomerular Filtration Rate 11.4 mL/min (>60) Glucose Level 319 MG/DL (74-106) H Uric Acid 5.6 MG/DL (2.6-7.2) Calcium Level 6.4 MG/DL (8.5-10.1) L Phosphorus Level 5.9 MG/DL (2.5-4.9) H Magnesium Level 1.7 MG/DL (1.8-2.4) L Total Bilirubin 0.8 MG/DL (0.2-1.0) Aspartate Amino Transf (AST/SGOT) 36 U/L (15-37) Alanine Aminotransferase (ALT/SGPT) 26 U/L (12-78) Alkaline Phosphatase 92 U/L (46-116) Troponin I 1.283 ng/mL (0.000-0.056) C-Reactive Protein, Quantitative 23.6 mg/dL (0.00-0.90) H Pro-B-Type Natriuretic Peptide > 92623 pg/mL (0-125) H Total Protein 4.9 G/DL (6.4-8.2) L Albumin 1.6 G/DL (3.4-5.0) L Globulin 3.3 g/dL Albumin/Globulin Ratio 0.5 (1.0-2.7) L Urine Eosinophils None seen Arterial Blood pH 7.514 (7.350-7.450) Arterial Blood Partial Pressure CO2 31.5 mmHg (35.0-45.0) L Arterial Blood Partial Pressure O2 176.2 mmHg (75.0-100.0) H Arterial Blood HCO3 24.8 mmol/L (22.0-26.0) Arterial Blood Oxygen Saturation 97.6 % (92.0-98.0) Arterial Blood Base Excess 2.6 Ricardo Test Positive Current Medications Medications (Trade) Dose Ordered Sig/Sameera Route PRN Reason Start Time Stop Time Status Last Admin Dose Admin Acetaminophen (Tylenol) 650 mg Q4H PRN ORAL fever (temp>100.5F) 07/01/17 16:00 07/31/17 15:59 Albuterol/ Ipratropium (Albuterol/ Ipratropium) 3 ml Q4H PRN HHN dyspnea 07/01/17 16:00 07/06/17 15:59 Chlorhexidine Gluconate (Sindy-Hex 2%) 1 applic DAILY@1999 TOPIC 07/01/17 20:00 07/31/17 19:59 07/03/17 19:55 Dextrose (Dextrose 50%) STAT PRN IV Hypoglycemia 07/03/17 11:45 08/02/17 11:44 Dorzolamide/ Timolol (Cosopt) 1 drop BID RIGHT EYE 07/01/17 18:00 07/31/17 09:59 07/04/17 08:13 Epoetin Kobe (Procrit (for non ESRD use)) 10,000 units SAT-SAT-SAT SUBQ 07/03/17 21:00 08/02/17 20:59 07/03/17 21:05 Heparin Sodium (Porcine) (Heparin 5000 units/ml) 5,000 units EVERY 12 HOURS SUBQ 07/01/17 21:00 07/31/17 09:59 07/02/17 20:57 Insulin Aspart (NovoLOG) EVERY 4 HOURS SUBQ 07/03/17 17:00 08/02/17 16:59 07/04/17 12:15 Lorazepam (Ativan 2mg/ml 1ml) 2 mg Q4H PRN IV For Anxiety 07/01/17 16:00 07/08/17 15:59 07/02/17 17:31 Methylprednisolone Sodium Succinate (Solu-MEDROL) 60 mg DAILY IV 07/04/17 09:00 07/31/17 17:59 07/04/17 08:12 Morphine Sulfate (Morphine Sulfate) 2 mg Q4H PRN IVP Moderate Pain (Pain Scale 4-6) 07/01/17 16:00 07/08/17 15:59 07/03/17 22:11 Morphine Sulfate (Morphine Sulfate) 4 mg Q4H PRN IVP Severe Pain (Pain Scale 7-10) 07/01/17 16:00 07/08/17 15:59 Nitroglycerin (Ntg) 0.4 mg Q5M X 3 DOSES PRN SL Prn Chest Pain 07/01/17 16:00 07/31/17 15:59 Norepinephrine Bitartrate 4 mg/ Dextrose 250 ml @ 0 mls/hr Q24H IV 07/01/17 16:45 07/31/17 16:44 07/03/17 00:17 Ondansetron HCl (Zofran) 4 mg Q6H PRN IVP Nausea & Vomiting 07/01/17 16:00 07/31/17 15:59 07/03/17 23:37 Pantoprazole (Protonix) 40 mg EVERY 12 HOURS IVP 07/01/17 16:45 07/31/17 16:44 07/04/17 08:12 Piperacillin Sod/ Tazobactam Sod 2.25 gm/Sodium Chloride 55 ml @ 110 mls/hr Q8HR@0200,1000,1800 IV 07/02/17 20:30 07/09/17 20:29 07/04/17 09:41 Potassium Chloride 40 meq/ Sodium Chloride 570 ml @ 142.5 mls/ hr ONCE ONCE IVPB 07/04/17 11:00 07/04/17 14:59 07/04/17 11:32 Promethazine HCl/ Codeine (Phenergan with Codeine) 5 ml Q6H PRN ORAL cough 07/01/17 19:30 07/31/17 07:29 Sevelamer Carbonate (Renvela) 1,600 mg Q6HR NG 07/03/17 12:00 08/02/17 11:59 07/04/17 12:11 Sodium Chloride 1,000 ml @ 50 mls/hr Q20H IV 07/03/17 12:00 08/02/17 11:59 07/04/17 08:20 Temazepam (Restoril) 15 mg HSPRN PRN ORAL Insomnia 07/01/17 21:00 07/08/17 20:59 Vancomycin HCl (Vanco rx to dose) 1 ea DAILYPRN PRN MISC Per rx protocol 07/02/17 16:15 08/01/17 16:14 Page West M.D. Jul 04, 2017 13:26
--- NOTE | 2017-07-04 15:49 | Cardiac Electrophysiology PN ---
Assessment/Plan Assessment/Plan 1. Atrial fibrillation with rapid ventricular response. Converted to SR. No further. Add Lopressor 25 mg NG bid. 2. NSTEMI troponin peak 3.36. Down to 1.28. Due to sepsis and fib with RVR. Add Betablocker 3. Elevated BNP of more than 33,000 due to volume overload. The patient is on hemodialysis. 4. Respiratory failure. On the vent 5. Septic shock, on IV antibiotic per ID.Off Levophed 6. Anemia due to renal failure. 7. Hyperkalemia due to renal failure. Now hypokalemic 8. ARF. getting his 3rd HD today DW RN Subjective Subjective In ICU in vent.No arrhythmias on tele. RN at bedside. Scheduled for his 3rd dialysis today.In SR Objective Last 24 Hour Vital Signs Date Time Temp Pulse Resp B/P (MAP) Pulse Ox O2 Delivery O2 Flow Rate FiO2 07/04/17 15:00 90 17 139/92 99 Mechanical Ventilator 30 07/04/17 14:58 89 21 30 07/04/17 14:00 88 19 127/84 99 Mechanical Ventilator 30 07/04/17 13:00 90 16 122/75 98 Mechanical Ventilator 30 07/04/17 12:49 89 16 30 07/04/17 12:00 50 07/04/17 12:00 98.3 91 18 119/77 99 Mechanical Ventilator 30 98.3 07/04/17 12:00 87 07/04/17 11:00 87 18 106/72 97 Mechanical Ventilator 30 07/04/17 10:34 94 18 30 07/04/17 10:00 90 18 120/78 100 Mechanical Ventilator 50 07/04/17 09:00 88 18 128/86 100 Mechanical Ventilator 50 07/04/17 08:34 88 18 50 07/04/17 08:00 50 07/04/17 08:00 87 07/04/17 08:00 98.0 91 19 136/89 99 Mechanical Ventilator 50 98.0 07/04/17 07:15 96 18 50 07/04/17 07:00 95 19 136/89 100 Mechanical Ventilator 50 07/04/17 06:00 103 26 154/110 100 Mechanical Ventilator 50 07/04/17 05:25 104 22 50 07/04/17 05:00 95 18 139/94 100 Mechanical Ventilator 50 07/04/17 04:00 50 07/04/17 04:00 98.4 100 18 129/86 100 Mechanical Ventilator 50 98.4 07/04/17 03:00 101 07/04/17 03:00 101 19 152/105 100 Mechanical Ventilator 50 07/04/17 02:20 100 23 50 07/04/17 02:00 103 19 149/101 100 Mechanical Ventilator 50 07/04/17 01:02 102 22 50 07/04/17 01:00 103 18 161/103 100 Mechanical Ventilator 50 07/04/17 00:00 99.0 103 18 152/96 100 Mechanical Ventilator 50 99.0 07/04/17 00:00 50 07/03/17 23:30 107 18 155/114 100 Mechanical Ventilator 50 07/03/17 23:12 102 20 50 07/03/17 23:01 104 07/03/17 23:00 105 18 151/105 100 Mechanical Ventilator 50 07/03/17 22:15 110 19 148/100 100 Mechanical Ventilator 50 07/03/17 22:10 111 20 150/98 100 Mechanical Ventilator 50 07/03/17 22:00 108 20 148/100 100 Mechanical Ventilator 50 07/03/17 21:00 50 07/03/17 21:00 104 19 145/92 100 Mechanical Ventilator 50 07/03/17 20:56 105 20 50 07/03/17 20:30 105 20 139/94 100 Mechanical Ventilator 60 07/03/17 20:00 60 07/03/17 20:00 98.7 106 20 149/97 100 Mechanical Ventilator 60 98.7 07/03/17 19:10 113 22 60 07/03/17 19:06 110 07/03/17 19:00 108 20 146/97 100 Mechanical Ventilator 60 07/03/17 18:00 110 21 139/100 99 Mechanical Ventilator 60 07/03/17 17:01 107 22 60 07/03/17 17:00 112 24 143/94 100 Mechanical Ventilator 60 07/03/17 16:24 Mechanical Ventilator 60 07/03/17 16:22 98.8 109 24 131/90 Mechanical Ventilator 60 98.8 07/03/17 16:00 98.8 111 18 142/91 100 Mechanical Ventilator 60 98.8 07/03/17 16:00 60 07/03/17 16:00 115 Intake and Output 07/03/17 07/04/17 19:00 07:00 Intake Total 1010 ml 1475.000 ml Output Total 1045 ml 45 ml Balance -35 ml 1430.000 ml Free Water 30 ml IV Total 560 ml 785.000 ml Tube Feeding 360 ml 360 ml Blood Product 250 ml Other 60 ml 80 ml Output Urine Total 45 ml 45 ml Hemodialysis UF 1000 ml # Bowel Movements 4 4 Laboratory Tests Test 07/04/17 04:40 07/04/17 04:45 07/04/17 08:40 White Blood Count 15.3 K/UL (4.8-10.8) H Red Blood Count 2.77 M/UL (4.70-6.10) L Hemoglobin 8.8 G/DL (14.2-18.0) L Hematocrit 25.6 % (42.0-52.0) L Mean Corpuscular Volume 92 FL (80-99) Mean Corpuscular Hemoglobin 31.8 PG (27.0-31.0) H Mean Corpuscular Hemoglobin Concent 34.4 G/DL (32.0-36.0) Red Cell Distribution Width 14.5 % (11.6-14.8) Platelet Count 59 K/UL (150-450) L Mean Platelet Volume 8.4 FL (6.5-10.1) Neutrophils (%) (Auto) % (45.0-75.0) Lymphocytes (%) (Auto) % (20.0-45.0) Monocytes (%) (Auto) % (1.0-10.0) Eosinophils (%) (Auto) % (0.0-3.0) Basophils (%) (Auto) % (0.0-2.0) Differential Total Cells Counted 100 Neutrophils % (Manual) 82 % (45-75) H Lymphocytes % (Manual) 4 % (20-45) L Monocytes % (Manual) 5 % (1-10) Eosinophils % (Manual) 0 % (0-3) Basophils % (Manual) 0 % (0-2) Band Neutrophils 9 % (0-8) H Platelet Estimate Decreased L Platelet Morphology Normal Hypochromasia 1+ Anisocytosis 1+ Sodium Level 139 MMOL/L (136-145) Potassium Level 2.7 MMOL/L (3.5-5.1) *L Chloride Level 96 MMOL/L (98-107) L Carbon Dioxide Level 27 MMOL/L (21-32) Anion Gap 16 mmol/L (5-15) H Blood Urea Nitrogen 76 mg/dL (7-18) H Creatinine 5.2 MG/DL (0.55-1.30) H Estimat Glomerular Filtration Rate 11.4 mL/min (>60) Glucose Level 319 MG/DL (74-106) H Uric Acid 5.6 MG/DL (2.6-7.2) Calcium Level 6.4 MG/DL (8.5-10.1) L Phosphorus Level 5.9 MG/DL (2.5-4.9) H Magnesium Level 1.7 MG/DL (1.8-2.4) L Total Bilirubin 0.8 MG/DL (0.2-1.0) Aspartate Amino Transf (AST/SGOT) 36 U/L (15-37) Alanine Aminotransferase (ALT/SGPT) 26 U/L (12-78) Alkaline Phosphatase 92 U/L (46-116) Troponin I 1.283 ng/mL (0.000-0.056) C-Reactive Protein, Quantitative 23.6 mg/dL (0.00-0.90) H Pro-B-Type Natriuretic Peptide > 91972 pg/mL (0-125) H Total Protein 4.9 G/DL (6.4-8.2) L Albumin 1.6 G/DL (3.4-5.0) L Globulin 3.3 g/dL Albumin/Globulin Ratio 0.5 (1.0-2.7) L Urine Eosinophils None seen Arterial Blood pH 7.514 (7.350-7.450) Arterial Blood Partial Pressure CO2 31.5 mmHg (35.0-45.0) L Arterial Blood Partial Pressure O2 176.2 mmHg (75.0-100.0) H Arterial Blood HCO3 24.8 mmol/L (22.0-26.0) Arterial Blood Oxygen Saturation 97.6 % (92.0-98.0) Arterial Blood Base Excess 2.6 Ricardo Test Positive Objective HEAD AND NECK: No JVD. He is orally intubated with NG tube. LUNGS: Coarse rhonchi. Jose left subclavian CARDIOVASCULAR: In SR. S1 and S2 with no gallop or murmur. ABDOMEN: Soft. EXTREMITIES: No pitting edema. Luke Charles MD Jul 04, 2017 15:49
--- NOTE | 2017-07-04 18:21 | Internal Med Progress Note ---
Subjective Physician Name Wesley Champagne Attending Physician Jonathan Garcia MD Current Medications Medications (Trade) Dose Ordered Sig/Sameera Route PRN Reason Start Time Stop Time Status Last Admin Dose Admin Acetaminophen (Tylenol) 650 mg Q4H PRN ORAL fever (temp>100.5F) 07/01/17 16:00 07/31/17 15:59 Albuterol/ Ipratropium (Albuterol/ Ipratropium) 3 ml Q4H PRN HHN dyspnea 07/01/17 16:00 07/06/17 15:59 Chlorhexidine Gluconate (Sindy-Hex 2%) 1 applic DAILY@1999 TOPIC 07/01/17 20:00 07/31/17 19:59 07/03/17 19:55 Dextrose (Dextrose 50%) STAT PRN IV Hypoglycemia 07/03/17 11:45 08/02/17 11:44 Dorzolamide/ Timolol (Cosopt) 1 drop BID RIGHT EYE 07/01/17 18:00 07/31/17 09:59 07/04/17 17:37 Epoetin Kobe (Procrit (for non ESRD use)) 10,000 units MON-WED-SAT SUBQ 07/03/17 21:00 08/02/17 20:59 07/03/17 21:05 Heparin Sodium (Porcine) (Heparin 5000 units/ml) 5,000 units EVERY 12 HOURS SUBQ 07/01/17 21:00 07/31/17 09:59 07/02/17 20:57 Insulin Aspart (NovoLOG) EVERY 4 HOURS SUBQ 07/03/17 17:00 08/02/17 16:59 07/04/17 17:35 Lorazepam (Ativan 2mg/ml 1ml) 2 mg Q4H PRN IV For Anxiety 07/01/17 16:00 07/08/17 15:59 07/02/17 17:31 Methylprednisolone Sodium Succinate (Solu-MEDROL) 60 mg DAILY IV 07/04/17 09:00 07/31/17 17:59 07/04/17 08:12 Metoprolol Tartrate (Lopressor) 25 mg Q12HR NG 07/04/17 21:00 08/03/17 20:59 Morphine Sulfate (Morphine Sulfate) 2 mg Q4H PRN IVP Moderate Pain (Pain Scale 4-6) 07/01/17 16:00 07/08/17 15:59 07/03/17 22:11 Morphine Sulfate (Morphine Sulfate) 4 mg Q4H PRN IVP Severe Pain (Pain Scale 7-10) 07/01/17 16:00 07/08/17 15:59 Nitroglycerin (Ntg) 0.4 mg Q5M X 3 DOSES PRN SL Prn Chest Pain 07/01/17 16:00 07/31/17 15:59 Norepinephrine Bitartrate 4 mg/ Dextrose 250 ml @ 0 mls/hr Q24H IV 07/01/17 16:45 07/31/17 16:44 07/03/17 00:17 Ondansetron HCl (Zofran) 4 mg Q6H PRN IVP Nausea & Vomiting 07/01/17 16:00 07/31/17 15:59 07/03/17 23:37 Pantoprazole (Protonix) 40 mg EVERY 12 HOURS IVP 07/01/17 16:45 07/31/17 16:44 07/04/17 08:12 Piperacillin Sod/ Tazobactam Sod 2.25 gm/Sodium Chloride 55 ml @ 110 mls/hr Q8HR@0200,1000,1800 IV 07/02/17 20:30 07/09/17 20:29 07/04/17 09:41 Promethazine HCl/ Codeine (Phenergan with Codeine) 5 ml Q6H PRN ORAL cough 07/01/17 19:30 07/31/17 07:29 Sevelamer Carbonate (Renvela) 1,600 mg Q6HR NG 07/03/17 12:00 08/02/17 11:59 07/04/17 17:33 Sodium Chloride 1,000 ml @ 50 mls/hr Q20H IV 07/03/17 12:00 08/02/17 11:59 07/04/17 08:20 Temazepam (Restoril) 15 mg HSPRN PRN ORAL Insomnia 07/01/17 21:00 07/08/17 20:59 Vancomycin HCl (Vanco rx to dose) 1 ea DAILYPRN PRN MISC Per rx protocol 07/02/17 16:15 08/01/17 16:14 Allergies: Coded Allergies: No Known Allergies (Unverified , 07/01/17) Subjective 62 YO M admitted with respiratory failure now pneumona. Cover for Int Med-Dr Garcia. Intubated and sedated. ICU Objective Last Vital Signs Date Time Temp Pulse Resp B/P (MAP) Pulse Ox O2 Delivery O2 Flow Rate FiO2 07/04/17 18:00 91 18 133/89 98 Mechanical Ventilator 30 07/04/17 16:00 98.3 98.3 07/03/17 13:00 60.0 Laboratory Tests Test 07/04/17 04:40 07/04/17 04:45 07/04/17 08:40 White Blood Count 15.3 K/UL (4.8-10.8) H Red Blood Count 2.77 M/UL (4.70-6.10) L Hemoglobin 8.8 G/DL (14.2-18.0) L Hematocrit 25.6 % (42.0-52.0) L Mean Corpuscular Volume 92 FL (80-99) Mean Corpuscular Hemoglobin 31.8 PG (27.0-31.0) H Mean Corpuscular Hemoglobin Concent 34.4 G/DL (32.0-36.0) Red Cell Distribution Width 14.5 % (11.6-14.8) Platelet Count 59 K/UL (150-450) L Mean Platelet Volume 8.4 FL (6.5-10.1) Neutrophils (%) (Auto) % (45.0-75.0) Lymphocytes (%) (Auto) % (20.0-45.0) Monocytes (%) (Auto) % (1.0-10.0) Eosinophils (%) (Auto) % (0.0-3.0) Basophils (%) (Auto) % (0.0-2.0) Differential Total Cells Counted 100 Neutrophils % (Manual) 82 % (45-75) H Lymphocytes % (Manual) 4 % (20-45) L Monocytes % (Manual) 5 % (1-10) Eosinophils % (Manual) 0 % (0-3) Basophils % (Manual) 0 % (0-2) Band Neutrophils 9 % (0-8) H Platelet Estimate Decreased L Platelet Morphology Normal Hypochromasia 1+ Anisocytosis 1+ Sodium Level 139 MMOL/L (136-145) Potassium Level 2.7 MMOL/L (3.5-5.1) *L Chloride Level 96 MMOL/L (98-107) L Carbon Dioxide Level 27 MMOL/L (21-32) Anion Gap 16 mmol/L (5-15) H Blood Urea Nitrogen 76 mg/dL (7-18) H Creatinine 5.2 MG/DL (0.55-1.30) H Estimat Glomerular Filtration Rate 11.4 mL/min (>60) Glucose Level 319 MG/DL (74-106) H Uric Acid 5.6 MG/DL (2.6-7.2) Calcium Level 6.4 MG/DL (8.5-10.1) L Phosphorus Level 5.9 MG/DL (2.5-4.9) H Magnesium Level 1.7 MG/DL (1.8-2.4) L Total Bilirubin 0.8 MG/DL (0.2-1.0) Aspartate Amino Transf (AST/SGOT) 36 U/L (15-37) Alanine Aminotransferase (ALT/SGPT) 26 U/L (12-78) Alkaline Phosphatase 92 U/L (46-116) Troponin I 1.283 ng/mL (0.000-0.056) C-Reactive Protein, Quantitative 23.6 mg/dL (0.00-0.90) H Pro-B-Type Natriuretic Peptide > 95567 pg/mL (0-125) H Total Protein 4.9 G/DL (6.4-8.2) L Albumin 1.6 G/DL (3.4-5.0) L Globulin 3.3 g/dL Albumin/Globulin Ratio 0.5 (1.0-2.7) L Urine Eosinophils None seen Arterial Blood pH 7.514 (7.350-7.450) Arterial Blood Partial Pressure CO2 31.5 mmHg (35.0-45.0) L Arterial Blood Partial Pressure O2 176.2 mmHg (75.0-100.0) H Arterial Blood HCO3 24.8 mmol/L (22.0-26.0) Arterial Blood Oxygen Saturation 97.6 % (92.0-98.0) Arterial Blood Base Excess 2.6 Ricardo Test Positive Intake and Output 07/03/17 07/04/17 19:00 07:00 Intake Total 1010 ml 1475.000 ml Output Total 1045 ml 45 ml Balance -35 ml 1430.000 ml Free Water 30 ml IV Total 560 ml 785.000 ml Tube Feeding 360 ml 360 ml Blood Product 250 ml Other 60 ml 80 ml Output Urine Total 45 ml 45 ml Hemodialysis UF 1000 ml # Bowel Movements 4 4 Objective General Appearance: lethargic, thin EENT: PERRL/EOMI, normal ENT inspection Neck: non-tender, normal alignment, supple Cardiovascular: normal peripheral pulses, normal rate, regular rhythm, no gallop/murmur, no JVD Respiratory/Chest: Mech vent; chest wall non-tender, lungs coarse breath sounds bilaterally, Wheezes bilaterally, respiratory distress, no accessory muscle use Abdomen: normal bowel sounds, non tender, soft, no organomegaly, no mass Extremities: normal range of motion, non-tender 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 (5) Acute respiratory failure with hypoxemia Assessment & Plan: Continue vent per pulmonary (6) ARF (acute renal failure) (7) Anemia Assessment & Plan: Worsening. Transfuse 1 unit packed red blood cells today (8) Healthcare-associated pneumonia Assessment & Plan: Continue zosyn and vanco-see ID note. (9) Atrial fibrillation with rapid ventricular response Assessment & Plan: S/P digoxin. See cardiology note. (10) Septic shock Assessment & Plan: continue levophed. Status: not improved WESLEY CHAMPAGNE Jul 04, 2017 18:21
[2017-07-04] MEDS: Morphine Sulfate 2mg/ml Inj IVP PRN ×2 (18:31→22:02)
--- NOTE | 2017-07-04 20:07 | Wound Care Consultation ---
Wound Assessment Wound Assessment #1: Wound Number: 1 Wound Present on Admission: Yes New Wound: No Status Change of Wound: No Wound Location Body Site Modif: mid Wound Location Body Site: other - Sacrococcygeal Wound Type: pressure ulcer Josesito Test: Does not Josesito Pressure Ulcer Stage: Unstageable Wound Thickness: Full Thickness Wound Length: 4.5 Wound Width: 5.5 Wound Depth: utd Percent of Wound Bed Yellow/Wh: 10 Percent of Wound Purple/Maroon: 90 Wound Drainage Description: Serosanguineous Wound Drainage Amount: Scant Wound Drainage Odor: None/Absent Tissue Surrounding Wound: Erythemic Wound General Appearance: Reddened - maroon, purple, Draining Wound Assessment #2: Wound Number: 2 Wound Present on Admission: Yes New Wound: No Status Change of Wound: No Wound Location Body Site Modif: right Wound Location Body Site: heel Wound Type: pressure ulcer Josesito Test: Does not Josesito Pressure Ulcer Stage: Deep Tissue Injury Wound Thickness: Full Thickness Wound Length: 6.0 Wound Width: 6.5 Wound Depth: utd Percent of Wound Purple/Maroon: 100 Wound Drainage Amount: None Wound Drainage Odor: None/Absent Tissue Surrounding Wound: Erythemic Wound General Appearance: Reddened - purple Wound Assessment #3: Wound Number: 3 Wound Present on Admission: Yes New Wound: No Status Change of Wound: No Wound Location Body Site Modif: left Wound Location Body Site: heel Wound Type: pressure ulcer Josesito Test: Does not Josesito Pressure Ulcer Stage: Deep Tissue Injury Wound Thickness: Full Thickness Wound Length: 2.5 Wound Width: 2.5 Wound Depth: utd Percent of Wound Purple/Maroon: 100 Wound Drainage Amount: None Wound Drainage Odor: None/Absent Tissue Surrounding Wound: Erythemic Wound General Appearance: Reddened - purple Wound Assessment #4: Wound Number: 4 Wound Present on Admission: Yes New Wound: No Status Change of Wound: No Wound Location Body Site Modif: right, plantar Wound Location Body Site: metatarsal head - 1st Wound Type: pressure ulcer Josesito Test: Does not Josesito Pressure Ulcer Stage: Deep Tissue Injury - SDTI Wound Thickness: Full Thickness Wound Length: 3.5 Wound Width: 3.5 Wound Depth: utd Percent of Wound Purple/Maroon: 100 Wound Drainage Amount: None Wound Drainage Odor: None/Absent Tissue Surrounding Wound: Erythemic Wound General Appearance: Reddened - purple Wound Assessment #5: Wound Number: 5 Wound Present on Admission: Yes New Wound: No Status Change of Wound: No Wound Location Body Site Modif: left, anterior Wound Location Body Site: toe - 1st Wound Type: pressure ulcer Josesito Test: Does not Josesito Pressure Ulcer Stage: Deep Tissue Injury Wound Thickness: Full Thickness Wound Length: 0.5 Wound Width: 0.5 Wound Depth: utd Percent of Wound Purple/Maroon: 100 Wound Drainage Amount: None Wound Drainage Odor: None/Absent Tissue Surrounding Wound: Erythemic Wound General Appearance: Reddened - purple/maroon Wound Assessment #6: Wound Number: 6 Wound Present on Admission: Yes New Wound: No Status Change of Wound: No Wound Location Body Site Modif: left, anterior Wound Location Body Site: toe - 2nd Wound Thickness: Full Thickness Wound Length: 0.2 Wound Width: 0.2 Wound Depth: utd Percent of Wound Purple/Maroon: 100 Wound Drainage Amount: None Wound Drainage Odor: None/Absent Tissue Surrounding Wound: Erythemic Wound General Appearance: Reddened - purple/maroon Wound Assessment #7: Wound Number: 7 Wound Present on Admission: Yes New Wound: No Status Change of Wound: No Wound Location Body Site Modif: right, plantar Wound Location Body Site: metatarsal head - 2nd, 3rd and 4th Wound Type: blister - intact with fluid filled Josesito Test: Does not Josesito Pressure Ulcer Stage: II Wound Length: 3.5 Wound Width: 4.0 Percent of Wound [place]/Red: 100 Wound Drainage Amount: None Wound Drainage Odor: None/Absent Tissue Surrounding Wound: Erythemic Wound Assessment #8: Wound Number: 8 Wound Present on Admission: Yes New Wound: No Status Change of Wound: No Wound Location Body Site Modif: left, plantar Wound Location Body Site: metatarsal head - 2nd, 3rd and 4th Wound Type: pressure ulcer Josesito Test: Does not Josesito Pressure Ulcer Stage: Deep Tissue Injury - SDTI Wound Thickness: Full Thickness Wound Length: 4.5 Wound Width: 5.0 Wound Depth: utd Percent of Wound Purple/Maroon: 100 Wound Drainage Amount: None Wound Drainage Odor: None/Absent Tissue Surrounding Wound: Erythemic Wound General Appearance: Reddened - Deep red Wound Comment #1 Sacrococcygeal unstageable pressure ulcer #2 Left heel DTI pressure ulcer #3 Right heel DTI pressure ulcer #4 Right plantar 2nd, 3rd and 4th metatarsal head intact fluid filled blister stage II pressure ulcer #5 Left plantar 2nd, 3rd and 4th metatarsal head SDTI pressure ulcer #6 Left anterior big toe DTI pressure ulcer #7 Left anterior 2nd toe DTI pressure ulcer #8 Right 1st metatarsal head SDTI pressure ulcer Recommendation -Local wound care per protocol -Keep clean and dry -Offload both heels -Heel protector on both heels -Low air loss mattress -Optimize nutrition -Turn and reposition -Assess and f/u accordingly for any changes TITO ALVAREZ RN Jul 04, 2017 20:07
[2017-07-04] MEDS: Dyna-Hex 2% Top Sol 2oz TOPIC SCH (20:52)
[2017-07-04] MEDS: Metoprolol 25mg tab NG SCH (21:49)
[2017-07-05] VITALS (24 sets, daily range): BP systolic 105–144; BP diastolic 65–92
[2017-07-05] MEDS: NovoLOG Insulin Flexpen SUBQ SCH ×6 (00:37→21:10)
[2017-07-05] MEDS: Piperacillin/Tazobactam 2.25 GM in NS 55 ML IV SCH ×3 (02:14→18:03)
[2017-07-05] MEDS: Morphine Sulfate 4mg/ml Inj IVP PRN ×2 (02:20→12:41)
[2017-07-05] MEDS: Renvela 800mg Pkt NG SCH ×4 (05:39→23:51)
[2017-07-05 05:45] LABS: HEMATOCRIT 26.1 % (42.0-52.0); HEMOGLOBIN 8.6 G/DL (14.2-18.0); MEAN CORPUSCULAR VOLUME 94 FL (80-99); PLATELET COUNT 47 K/UL (150-450); RED BLOOD COUNT 2.76 M/UL (4.70-6.10); RED CELL DISTRIBUTION WIDTH 15.2 % (11.6-14.8); WHITE BLOOD COUNT 12.6 K/UL (4.8-10.8)
[2017-07-05 05:54] LABS: ALANINE AMINOTRANSFERASE 15 U/L (12-78); ALBUMIN 1.5 G/DL (3.4-5.0); ALBUMIN/GLOBULIN RATIO 0.5 (1.0-2.7); ALKALINE PHOSPHATASE 79 U/L (46-116); ANION GAP 10 mmol/L (5-15); ASPARTATE AMINO TRANSFERASE 23 U/L (15-37); BILIRUBIN,TOTAL 0.9 MG/DL (0.2-1.0); BLOOD UREA NITROGEN 59 mg/dL (7-18); CALCIUM 6.5 MG/DL (8.5-10.1); CARBON DIOXIDE 33 MMOL/L (21-32); CHLORIDE 100 MMOL/L (98-107); POTASSIUM 3.2 MMOL/L (3.5-5.1); SODIUM 142 MMOL/L (136-145)
[2017-07-05] MEDS: Heparin 5000 units/ml inj SUBQ SCH ×2 (09:00→21:00)
[2017-07-05] MEDS ORDERED: Vancomycin 750mg/NS 250ml IVPB ONE (09:00)
[2017-07-05] MEDS: Metoprolol 25mg tab NG SCH ×2 (09:00→21:04)
[2017-07-05] MEDS: Pantoprazole Inj IVP SCH ×2 (09:22→21:03)
[2017-07-05] MEDS: Solu-MEDROL 125mg Inj IV SCH (09:23)
[2017-07-05] MEDS: Cosopt Opth Soln 10 mL Btl RIGHT EYE SCH ×2 (09:23→18:04)
[2017-07-05] MEDS ORDERED: Potassium Chloride 20 MEQ in NS 275 ML IVPB ONE (10:00)
--- NOTE | 2017-07-05 10:03 | Pulmonolgy Critical Care Note ---
Critical Care - Asmt/Plan Problems: (1) Acute respiratory failure with hypoxemia (2) ATN (acute tubular necrosis) (3) Sepsis (4) Healthcare-associated pneumonia (5) Cachexia Respiratory: monitor respiratory rate, adjust FIO2, CXR Cardiac: continue pressors, continue to monitor HR/BP Renal: F/U I&O Gastrointestinal: continue feedings/current rate Endocrine: monitor blood sugar, continue sliding scale insulin Hematologic: monitor H/H, transfuse if hgb<8.5 Neurologic: PRN Ativan, keep patient comfortable Affect: PRN ativan Prophylaxis: Protonix Disposition: keep in ICU Notes Reviewed: cardio, renal Discussed with: nurses, consultants, 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6 07/05/17 04:00 30 07/05/17 03:17 84 07/05/17 03:00 83 16 112/68 96 Mechanical Ventilator 30 07/05/17 02:57 82 16 30 07/05/17 02:00 81 16 120/71 95 Mechanical Ventilator 30 07/05/17 01:00 80 16 127/78 96 Mechanical Ventilator 30 07/05/17 00:54 80 16 30 07/05/17 00:00 98.2 80 16 125/83 96 Mechanical Ventilator 30 98.2 07/04/17 23:15 77 16 30 07/04/17 23:08 78 07/04/17 23:00 82 16 118/77 95 Mechanical Ventilator 30 07/04/17 22:00 87 16 130/81 96 Mechanical Ventilator 30 07/04/17 21:49 89 130/83 07/04/17 21:43 Mechanical Ventilator 30 07/04/17 21:41 98.6 89 20 142/91 Mechanical Ventilator 30 98.6 07/04/17 21:24 86 16 30 07/04/17 21:00 93 17 133/92 96 Mechanical Ventilator 30 07/04/17 20:00 98.5 94 16 133/90 97 Mechanical Ventilator 30 98.5 07/04/17 20:00 30 07/04/17 19:20 92 07/04/17 19:20 92 17 30 07/04/17 19:00 91 15 128/83 97 Mechanical Ventilator 30 07/04/17 18:30 Mechanical Ventilator 30 07/04/17 18:30 98.4 90 20 133/89 Mechanical Ventilator 30 98.4 07/04/17 18:00 91 18 133/89 98 Mechanical Ventilator 30 07/04/17 17:00 90 21 128/85 99 Mechanical Ventilator 30 07/04/17 16:55 89 21 30 07/04/17 16:00 98.3 87 16 124/84 99 Mechanical Ventilator 30 98.3 07/04/17 16:00 30 07/04/17 16:00 84 07/04/17 15:00 90 17 139/92 99 Mechanical Ventilator 30 07/04/17 14:58 89 21 30 07/04/17 14:00 88 19 127/84 99 Mechanical Ventilator 30 07/04/17 13:00 90 16 122/75 98 Mechanical Ventilator 30 07/04/17 12:49 89 16 30 07/04/17 12:00 30 07/04/17 12:00 98.3 91 18 119/77 99 Mechanical Ventilator 30 98.3 07/04/17 12:00 87 07/04/17 11:00 87 18 106/72 97 Mechanical Ventilator 30 07/04/17 10:34 94 18 30 Status: awake Condition: critical HEENT: atraumatic Lungs: chest wall tender Heart: HR/BP unstable, regular Abdomen: non-tender, feeding tube Extremities: edema Accucheck: 346 Critical Care - Subjective ROS Limited/Unobtainable: No ICU Day: 4 Condition: critical FI02: 30 Vent Support Breath Rate: 16 Vent Support Mode: AC Vent Tidal Volume: 650 Sputum Amount: Moderate PEEP: 6.0 PIP: 20 Tube Feeding Amount: 30 I&O: Intake and Output 07/04/17 07/05/17 19:00 07:00 Intake Total 1552.5 ml 1410 ml Output Total 35 ml 2031 ml Balance 1517.5 ml -621 ml Intake Oral 0 ml Free Water 60 ml 30 ml IV Total 1072.5 ml 710 ml Tube Feeding 360 ml 280 ml Blood Product 250 ml Other 60 ml 140 ml Output Urine Total 35 ml 30 ml Stool Total 1 ml Hemodialysis UF 2000 ml # Bowel Movements 1 CXR: RLL infilturate ET-Tube: 8.0 ET Position: 28 Labs: Laboratory Tests Test 07/05/17 03:45 07/05/17 07:55 White Blood Count 12.6 K/UL (4.8-10.8) H Red Blood Count 2.76 M/UL (4.70-6.10) L Hemoglobin 8.6 G/DL (14.2-18.0) L Hematocrit 26.1 % (42.0-52.0) L Mean Corpuscular Volume 94 FL (80-99) Mean Corpuscular Hemoglobin 31.0 PG (27.0-31.0) Mean Corpuscular Hemoglobin Concent 32.8 G/DL (32.0-36.0) Red Cell Distribution Width 15.2 % (11.6-14.8) H Platelet Count 47 K/UL (150-450) L Mean Platelet Volume 10.7 FL (6.5-10.1) H Neutrophils (%) (Auto) % (45.0-75.0) Lymphocytes (%) (Auto) % (20.0-45.0) Monocytes (%) (Auto) % (1.0-10.0) Eosinophils (%) (Auto) % (0.0-3.0) Basophils (%) (Auto) % (0.0-2.0) Differential Total Cells Counted 100 Neutrophils % (Manual) 90 % (45-75) H Lymphocytes % (Manual) 3 % (20-45) L Monocytes % (Manual) 2 % (1-10) Eosinophils % (Manual) 0 % (0-3) Basophils % (Manual) 0 % (0-2) Band Neutrophils 5 % (0-8) Platelet Estimate Decreased L Platelet Morphology Normal Macrocytosis 1+ Schistocytes 1+ Sodium Level 142 MMOL/L (136-145) Potassium Level 3.2 MMOL/L (3.5-5.1) L Chloride Level 100 MMOL/L (98-107) Carbon Dioxide Level 33 MMOL/L (21-32) H Anion Gap 10 mmol/L (5-15) Blood Urea Nitrogen 59 mg/dL (7-18) H Creatinine 4.0 MG/DL (0.55-1.30) H Estimat Glomerular Filtration Rate 15.4 mL/min (>60) Glucose Level 259 MG/DL (74-106) H Calcium Level 6.5 MG/DL (8.5-10.1) L Phosphorus Level 4.0 MG/DL (2.5-4.9) Magnesium Level 1.5 MG/DL (1.8-2.4) L Total Bilirubin 0.9 MG/DL (0.2-1.0) Aspartate Amino Transf (AST/SGOT) 23 U/L (15-37) Alanine Aminotransferase (ALT/SGPT) 15 U/L (12-78) Alkaline Phosphatase 79 U/L (46-116) Total Protein 4.6 G/DL (6.4-8.2) L Albumin 1.5 G/DL (3.4-5.0) L Globulin 3.1 g/dL Albumin/Globulin Ratio 0.5 (1.0-2.7) L Random Vancomycin Level 17.5 ug/mL Arterial Blood pH 7.510 (7.350-7.450) Arterial Blood Partial Pressure CO2 34.9 mmHg (35.0-45.0) L Arterial Blood Partial Pressure O2 92.4 mmHg (75.0-100.0) Arterial Blood HCO3 27.2 mmol/L (22.0-26.0) H Arterial Blood Oxygen Saturation 95.8 % (92.0-98.0) Arterial Blood Base Excess 4.1 Ricardo Test Positive Radha Haney MD Jul 05, 2017 10:03
--- NOTE | 2017-07-05 10:10 | Diagnostic Imaging Report ---
Indication: Shortness of breath Technique: One view of the chest Comparison: 07/04/2017 Findings: Bilateral basilar right greater than left consolidation appears slightly improved. Tube and line positions are stable. Impression: Slight improvement of still extensive bilateral basilar consolidation, over one day
--- NOTE | 2017-07-05 13:46 | Infectious Diseases Prog Note ---
Assessment/Plan Assessment/Plan Abx: Zosyn 07/02- IV Vancomycin 07/02 Cefepime x1 07/01 Levaquin x1 07/01 Assessment: Septic Shock- likely 2ry to PNA, r/o bacteremia -CXR 07/05: Slight improvement of still extensive bilateral basilar consolidation, over one day -influenza sc neg -sp cx not collected; re-ordered 07/04, pending -u/a no pyuria; ucx NTD -Bcx NTD COPD exacerbation Afebrile Leukocytosis- multifactorial- reactive component, infection and steroids; improving Seizure episode 07/02 Acute renal failure, HD started 07/02 Hyperkalemia Anion gap acidosis DM depression cachexia snf resident muscle wasting/generalized weakness encephalopathy Plan: -Continue empiric IV Vancomycin and Zosyn #4 pending sp culture (improving on current regimen) -07/01 SP Cefepime, Levaquin x1 -if decompensation, switch Zosyn to Meropenem and given one time dose of Amikacin -f/u cx -Monitor CBC/BMP, temperatures -ETT/central line care -Aspiration precautions Subjective Allergies: Coded Allergies: No Known Allergies (Unverified , 07/01/17) Subjective afebrile leukocytosis improving off pressors Bcx NTD sp cx p Fio2 30% Objective Vital Signs Last 24 Hour Vital Signs Date Time Temp Pulse Resp B/P (MAP) Pulse Ox O2 Delivery O2 Flow Rate FiO2 07/05/17 13:12 70 16 30 07/05/17 13:00 70 16 127/82 98 Mechanical Ventilator 30 07/05/17 12:00 80 07/05/17 12:00 30 07/05/17 12:00 98.6 75 16 122/77 99 Mechanical Ventilator 30 98.6 07/05/17 11:22 77 16 30 07/05/17 11:00 77 16 108/66 98 Mechanical Ventilator 30 07/05/17 10:00 80 16 105/65 98 Mechanical Ventilator 30 07/05/17 09:03 80 16 30 07/05/17 09:00 81 16 106/66 98 Mechanical Ventilator 30 07/05/17 09:00 83 106/66 07/05/17 08:00 86 07/05/17 08:00 30 07/05/17 08:00 98.8 83 17 108/67 97 Mechanical Ventilator 30 98.8 07/05/17 07:00 88 17 126/79 98 Mechanical Ventilator 30 07/05/17 06:52 90 17 30 07/05/17 06:00 88 16 106/66 97 Mechanical Ventilator 30 07/05/17 05:12 89 17 30 07/05/17 05:00 89 17 118/71 97 Mechanical Ventilator 30 07/05/17 04:00 98.6 94 18 116/73 96 Mechanical Ventilator 30 98.6 07/05/17 04:00 30 07/05/17 03:17 84 07/05/17 03:00 83 16 112/68 96 Mechanical Ventilator 30 07/05/17 02:57 82 16 30 07/05/17 02:00 81 16 120/71 95 Mechanical Ventilator 30 07/05/17 01:00 80 16 127/78 96 Mechanical Ventilator 30 07/05/17 00:54 80 16 30 07/05/17 00:00 98.2 80 16 125/83 96 Mechanical Ventilator 30 98.2 07/04/17 23:15 77 16 30 07/04/17 23:08 78 07/04/17 23:00 82 16 118/77 95 Mechanical Ventilator 30 07/04/17 22:00 87 16 130/81 96 Mechanical Ventilator 30 07/04/17 21:49 89 130/83 07/04/17 21:43 Mechanical Ventilator 30 07/04/17 21:41 98.6 89 20 142/91 Mechanical Ventilator 30 98.6 07/04/17 21:24 86 16 30 07/04/17 21:00 93 17 133/92 96 Mechanical Ventilator 30 07/04/17 20:00 98.5 94 16 133/90 97 Mechanical Ventilator 30 98.5 07/04/17 20:00 30 18 19:20 92 18 19:20 92 17 30 07/04/17 19:00 91 15 128/83 97 Mechanical Ventilator 30 07/04/17 18:30 Mechanical Ventilator 30 07/04/17 18:30 98.4 90 20 133/89 Mechanical Ventilator 30 98.4 07/04/17 18:00 91 18 133/89 98 Mechanical Ventilator 30 07/04/17 17:00 90 21 128/85 99 Mechanical Ventilator 30 07/04/17 16:55 89 21 30 07/04/17 16:00 98.3 87 16 124/84 99 Mechanical Ventilator 30 98.3 07/04/17 16:00 30 07/04/17 16:00 84 07/04/17 15:00 90 17 139/92 99 Mechanical Ventilator 30 07/04/17 14:58 89 21 30 07/04/17 14:00 88 19 127/84 99 Mechanical Ventilator 30 Height (Feet): 5 Height (Inches): 11.00 Weight (Pounds): 134 Objective General Appearance: cachetic Lines, tubes and drains: peripheral HEENT: normocephalic, atraumatic Neck: non-tender, normal alignment Respiratory/Chest: chest wall non-tender, rhonchi - left, rhonchi - right Cardiovascular/Chest: normal peripheral pulses, normal rate Abdomen: normal bowel sounds Genitourinary/Rectal: normal genital exam Extremities: normal range of motion Laboratory Tests Test 07/05/17 03:45 07/05/17 07:55 White Blood Count 12.6 K/UL (4.8-10.8) H Red Blood Count 2.76 M/UL (4.70-6.10) L Hemoglobin 8.6 G/DL (14.2-18.0) L Hematocrit 26.1 % (42.0-52.0) L Mean Corpuscular Volume 94 FL (80-99) Mean Corpuscular Hemoglobin 31.0 PG (27.0-31.0) Mean Corpuscular Hemoglobin Concent 32.8 G/DL (32.0-36.0) Red Cell Distribution Width 15.2 % (11.6-14.8) H Platelet Count 47 K/UL (150-450) L Mean Platelet Volume 10.7 FL (6.5-10.1) H Neutrophils (%) (Auto) % (45.0-75.0) Lymphocytes (%) (Auto) % (20.0-45.0) Monocytes (%) (Auto) % (1.0-10.0) Eosinophils (%) (Auto) % (0.0-3.0) Basophils (%) (Auto) % (0.0-2.0) Differential Total Cells Counted 100 Neutrophils % (Manual) 90 % (45-75) H Lymphocytes % (Manual) 3 % (20-45) L Monocytes % (Manual) 2 % (1-10) Eosinophils % (Manual) 0 % (0-3) Basophils % (Manual) 0 % (0-2) Band Neutrophils 5 % (0-8) Platelet Estimate Decreased L Platelet Morphology Normal Macrocytosis 1+ Schistocytes 1+ Sodium Level 142 MMOL/L (136-145) Potassium Level 3.2 MMOL/L (3.5-5.1) L Chloride Level 100 MMOL/L (98-107) Carbon Dioxide Level 33 MMOL/L (21-32) H Anion Gap 10 mmol/L (5-15) Blood Urea Nitrogen 59 mg/dL (7-18) H Creatinine 4.0 MG/DL (0.55-1.30) H Estimat Glomerular Filtration Rate 15.4 mL/min (>60) Glucose Level 259 MG/DL (74-106) H Calcium Level 6.5 MG/DL (8.5-10.1) L Phosphorus Level 4.0 MG/DL (2.5-4.9) Magnesium Level 1.5 MG/DL (1.8-2.4) L Total Bilirubin 0.9 MG/DL (0.2-1.0) Aspartate Amino Transf (AST/SGOT) 23 U/L (15-37) Alanine Aminotransferase (ALT/SGPT) 15 U/L (12-78) Alkaline Phosphatase 79 U/L (46-116) Total Protein 4.6 G/DL (6.4-8.2) L Albumin 1.5 G/DL (3.4-5.0) L Globulin 3.1 g/dL Albumin/Globulin Ratio 0.5 (1.0-2.7) L Random Vancomycin Level 17.5 ug/mL HIV (1&2) Antibody Rapid Negative (NEGATIVE) Arterial Blood pH 7.510 (7.350-7.450) Arterial Blood Partial Pressure CO2 34.9 mmHg (35.0-45.0) L Arterial Blood Partial Pressure O2 92.4 mmHg (75.0-100.0) Arterial Blood HCO3 27.2 mmol/L (22.0-26.0) H Arterial Blood Oxygen Saturation 95.8 % (92.0-98.0) Arterial Blood Base Excess 4.1 Ricardo Test Positive Current Medications Medications (Trade) Dose Ordered Sig/Sameera Route PRN Reason Start Time Stop Time Status Last Admin Dose Admin Acetaminophen (Tylenol) 650 mg Q4H PRN ORAL fever (temp>100.5F) 07/01/17 16:00 07/31/17 15:59 Albuterol/ Ipratropium (Albuterol/ Ipratropium) 3 ml Q4H PRN HHN dyspnea 07/01/17 16:00 07/06/17 15:59 Chlorhexidine Gluconate (Sindy-Hex 2%) 1 applic DAILY@2000 TOPIC 07/01/17 20:00 07/31/17 19:59 07/04/17 20:52 Dextrose (Dextrose 50%) STAT PRN IV Hypoglycemia 07/03/17 11:45 08/02/17 11:44 Dorzolamide/ Timolol (Cosopt) 1 drop BID RIGHT EYE 07/01/17 18:00 07/31/17 09:59 07/05/17 09:23 Epoetin Kobe (Procrit (for non ESRD use)) 10,000 units SAT-WED-SAT SUBQ 07/03/17 21:00 08/02/17 20:59 07/03/17 21:05 Heparin Sodium (Porcine) (Heparin 5000 units/ml) 5,000 units EVERY 12 HOURS SUBQ 07/01/17 21:00 07/31/17 09:59 07/02/17 20:57 Insulin Aspart (NovoLOG) EVERY 4 HOURS SUBQ 07/03/17 17:00 08/02/17 16:59 07/05/17 12:43 Lorazepam (Ativan 2mg/ml 1ml) 2 mg Q4H PRN IV For Anxiety 07/01/17 16:00 07/08/17 15:59 07/02/17 17:31 Metoprolol Tartrate (Lopressor) 25 mg Q12HR NG 07/04/17 21:00 08/03/17 20:59 07/04/17 21:49 Morphine Sulfate (Morphine Sulfate) 2 mg Q4H PRN IVP Moderate Pain (Pain Scale 4-6) 07/01/17 16:00 07/08/17 15:59 07/04/17 22:02 Morphine Sulfate (Morphine Sulfate) 4 mg Q4H PRN IVP Severe Pain (Pain Scale 7-10) 07/01/17 16:00 07/08/17 15:59 07/05/17 12:41 Nitroglycerin (Ntg) 0.4 mg Q5M X 3 DOSES PRN SL Prn Chest Pain 07/01/17 16:00 07/31/17 15:59 Norepinephrine Bitartrate 4 mg/ Dextrose 250 ml @ 0 mls/hr Q24H IV 07/01/17 16:45 07/31/17 16:44 07/03/17 00:17 Ondansetron HCl (Zofran) 4 mg Q6H PRN IVP Nausea & Vomiting 07/01/17 16:00 07/31/17 15:59 07/03/17 23:37 Pantoprazole (Protonix) 40 mg EVERY 12 HOURS IVP 07/01/17 16:45 07/31/17 16:44 07/05/17 09:22 Piperacillin Sod/ Tazobactam Sod 2.25 gm/Sodium Chloride 55 ml @ 110 mls/hr Q8HR@0200,1000,1800 IV 07/05/17 02:00 07/12/17 01:59 07/05/17 09:23 Promethazine HCl/ Codeine (Phenergan with Codeine) 5 ml Q6H PRN ORAL cough 07/01/17 19:30 07/31/17 07:29 Sevelamer Carbonate (Renvela) 1,600 mg Q6HR NG 07/03/17 12:00 08/02/17 11:59 07/05/17 12:41 Sodium Chloride 1,000 ml @ 50 mls/hr Q20H IV 07/03/17 12:00 08/02/17 11:59 07/05/17 04:43 Temazepam (Restoril) 15 mg HSPRN PRN ORAL Insomnia 07/01/17 21:00 07/08/17 20:59 Vancomycin HCl (Vanco rx to dose) 1 ea DAILYPRN PRN MISC Per rx protocol 07/02/17 16:15 08/01/17 16:14 Page West M.D. Jul 05, 2017 13:46
--- NOTE | 2017-07-05 15:24 | Nephrology Progress Note ---
Assessment/Plan Problem List: (1) ARF (acute renal failure) (2) Acute respiratory failure with hypoxemia (3) Hyperkalemia (4) Cachexia Assessment Acute renal failure- High K ? CKD Acute respiratory failure, Pneumonia Hypotension- Shock, Sepsis Cachexia Plan Need transfusion- unable to consent Next HD 07/06 off pressors pulm support benavides echo 55% EjFx K supplement HD in am again costa Bilateral echogenic kidneys, consistent with medical renal disease discussed with RN in dept cxr Extensive bilateral infiltrates and pleural effusions, slightly increased on the left Subjective ROS Limited/Unobtainable: Yes Objective Objective Last 24 Hour Vital Signs Date Time Temp Pulse Resp B/P (MAP) Pulse Ox O2 Delivery O2 Flow Rate FiO2 07/05/17 15:09 67 16 30 07/05/17 14:30 125/82 07/05/17 14:00 77 16 125/80 99 Mechanical Ventilator 30 07/05/17 13:12 70 16 30 07/05/17 13:00 70 16 127/82 98 Mechanical Ventilator 30 07/05/17 12:00 80 07/05/17 12:00 30 07/05/17 12:00 98.6 75 16 122/77 99 Mechanical Ventilator 30 98.6 07/05/17 11:22 77 16 30 07/05/17 11:00 77 16 108/66 98 Mechanical Ventilator 30 07/05/17 10:00 80 16 105/65 98 Mechanical Ventilator 30 07/05/17 09:03 80 16 30 07/05/17 09:00 81 16 106/66 98 Mechanical Ventilator 30 07/05/17 09:00 83 106/66 07/05/17 08:00 86 07/05/17 08:00 30 07/05/17 08:00 98.8 83 17 108/67 97 Mechanical Ventilator 30 98.8 07/05/17 07:00 88 17 126/79 98 Mechanical Ventilator 30 07/05/17 06:52 90 17 30 07/05/17 06:00 88 16 106/66 97 Mechanical Ventilator 30 07/05/17 05:12 89 17 30 07/05/17 05:00 89 17 118/71 97 Mechanical Ventilator 30 07/05/17 04:00 98.6 94 18 116/73 96 Mechanical Ventilator 30 98.6 07/05/17 04:00 30 07/05/17 03:17 84 07/05/17 03:00 83 16 112/68 96 Mechanical Ventilator 30 07/05/17 02:57 82 16 30 07/05/17 02:00 81 16 120/71 95 Mechanical Ventilator 30 07/05/17 01:00 80 16 127/78 96 Mechanical Ventilator 30 07/05/17 00:54 80 16 30 07/05/17 00:00 98.2 80 16 125/83 96 Mechanical Ventilator 30 98.2 07/04/17 23:15 77 16 30 07/04/17 23:08 78 07/04/17 23:00 82 16 118/77 95 Mechanical Ventilator 30 07/04/17 22:00 87 16 130/81 96 Mechanical Ventilator 30 07/04/17 21:49 89 130/83 07/04/17 21:43 Mechanical Ventilator 30 07/04/17 21:41 98.6 89 20 142/91 Mechanical Ventilator 30 98.6 07/04/17 21:24 86 16 30 07/04/17 21:00 93 17 133/92 96 Mechanical Ventilator 30 07/04/17 20:00 98.5 94 16 133/90 97 Mechanical Ventilator 30 98.5 07/04/17 20:00 30 07/04/17 19:20 92 07/04/17 19:20 92 17 30 07/04/17 19:00 91 15 128/83 97 Mechanical Ventilator 30 07/04/17 18:30 Mechanical Ventilator 30 07/04/17 18:30 98.4 90 20 133/89 Mechanical Ventilator 30 98.4 07/04/17 18:00 91 18 133/89 98 Mechanical Ventilator 30 07/04/17 17:00 90 21 128/85 99 Mechanical Ventilator 30 07/04/17 16:55 89 21 30 07/04/17 16:00 98.3 87 16 124/84 99 Mechanical Ventilator 30 98.3 07/04/17 16:00 30 07/04/17 16:00 84 Intake and Output 07/04/17 07/05/17 19:00 07:00 Intake Total 1552.5 ml 1410 ml Output Total 35 ml 2031 ml Balance 1517.5 ml -621 ml Intake Oral 0 ml Free Water 60 ml 30 ml IV Total 1072.5 ml 710 ml Tube Feeding 360 ml 280 ml Blood Product 250 ml Other 60 ml 140 ml Output Urine Total 35 ml 30 ml Stool Total 1 ml Hemodialysis UF 2000 ml # Bowel Movements 1 Laboratory Tests 07/05/17 03:45: White Blood Count 12.6H, Red Blood Count 2.76L, Hemoglobin 8.6L, Hematocrit 26.1L, Mean Corpuscular Volume 94, Mean Corpuscular Hemoglobin 31.0, Mean Corpuscular Hemoglobin Concent 32.8, Red Cell Distribution Width 15.2H, Platelet Count 47L, Mean Platelet Volume 10.7H, Neutrophils (%) (Auto) , Lymphocytes (%) (Auto) , Monocytes (%) (Auto) , Eosinophils (%) (Auto) , Basophils (%) (Auto) , Differential Total Cells Counted 100, Neutrophils % ( Manual) 90H, Lymphocytes % (Manual) 3L, Monocytes % (Manual) 2, Eosinophils % ( Manual) 0, Basophils % (Manual) 0, Band Neutrophils 5, Platelet Estimate DecreasedL, Platelet Morphology Normal, Macrocytosis 1+, Schistocytes 1+, Sodium Level 142, Potassium Level 3.2L, Chloride Level 100, Carbon Dioxide Level 33H, Anion Gap 10, Blood Urea Nitrogen 59H, Creatinine 4.0H, Estimat Glomerular Filtration Rate 15.4, Glucose Level 259H, Calcium Level 6.5L, Phosphorus Level 4.0, Magnesium Level 1.5L, Total Bilirubin 0.9, Aspartate Amino Transf (AST/SGOT) 23, Alanine Aminotransferase (ALT/SGPT) 15, Alkaline Phosphatase 79, Total Protein 4.6L, Albumin 1.5L, Globulin 3.1, Albumin/ Globulin Ratio 0.5L, Random Vancomycin Level 17.5, HIV (1&2) Antibody Rapid Negative 07/05/17 07:55: Arterial Blood pH 7.510H, Arterial Blood Partial Pressure CO2 34.9L, Arterial Blood Partial Pressure O2 92.4, Arterial Blood HCO3 27.2H, Arterial Blood Oxygen Saturation 95.8, Arterial Blood Base Excess 4.1, Ricardo Test Positive Height (Feet): 5 Height (Inches): 11.00 Weight (Pounds): 134 General Appearance: no apparent distress Cardiovascular: normal rate Respiratory/Chest: decreased breath sounds Abdomen: distended JUSTIN HERNANDEZ Jul 05, 2017 15:24
--- NOTE | 2017-07-05 16:21 | Cardiac Electrophysiology PN ---
Assessment/Plan Assessment/Plan 1. Atrial fibrillation with rapid ventricular response. Converted to SR. No further. On Lopressor 25 mg NG bid. 2. NSTEMI troponin peak 3.36. Down to 1.28. Due to sepsis and fib with RVR. On Betablocker 3. Elevated BNP of more than 33,000 due to volume overload. Now on hemodialysis. 4. Respiratory failure. On the vent 5. Septic shock, on IV antibiotic per ID.Off Levophed 6. Anemia due to renal failure. 7. Hyperkalemia due to renal failure. Now hypokalemic 8. ARF. Had his 3rd HD yesterday DW RN Subjective Subjective In ICU orally intubated on vent.No arrhythmias on tele. RN at bedside. Had 3rd dialysis yesterday.In SR Objective Last 24 Hour Vital Signs Date Time Temp Pulse Resp B/P (MAP) Pulse Ox O2 Delivery O2 Flow Rate FiO2 07/05/17 16:00 88 07/05/17 16:00 30 07/05/17 15:09 67 16 30 07/05/17 14:30 125/82 07/05/17 14:00 77 16 125/80 99 Mechanical Ventilator 30 07/05/17 13:12 70 16 30 07/05/17 13:00 70 16 127/82 98 Mechanical Ventilator 30 07/05/17 12:00 80 07/05/17 12:00 30 07/05/17 12:00 98.6 75 16 122/77 99 Mechanical Ventilator 30 98.6 07/05/17 11:22 77 16 30 07/05/17 11:00 77 16 108/66 98 Mechanical Ventilator 30 07/05/17 10:00 80 16 105/65 98 Mechanical Ventilator 30 07/05/17 09:03 80 16 30 07/05/17 09:00 81 16 106/66 98 Mechanical Ventilator 30 07/05/17 09:00 83 106/66 07/05/17 08:00 86 07/05/17 08:00 30 07/05/17 08:00 98.8 83 17 108/67 97 Mechanical Ventilator 30 98.8 07/05/17 07:00 88 17 126/79 98 Mechanical Ventilator 30 07/05/17 06:52 90 17 30 07/05/17 06:00 88 16 106/66 97 Mechanical Ventilator 30 07/05/17 05:12 89 17 30 07/05/17 05:00 89 17 118/71 97 Mechanical Ventilator 30 07/05/17 04:00 98.6 94 18 116/73 96 Mechanical Ventilator 30 98.6 07/05/17 04:00 30 07/05/17 03:17 84 07/05/17 03:00 83 16 112/68 96 Mechanical Ventilator 30 07/05/17 02:57 82 16 30 07/05/17 02:00 81 16 120/71 95 Mechanical Ventilator 30 07/05/17 01:00 80 16 127/78 96 Mechanical Ventilator 30 07/05/17 00:54 80 16 30 07/05/17 00:00 98.2 80 16 125/83 96 Mechanical Ventilator 30 98.2 07/04/17 23:15 77 16 30 07/04/17 23:08 78 07/04/17 23:00 82 16 118/77 95 Mechanical Ventilator 30 07/04/17 22:00 87 16 130/81 96 Mechanical Ventilator 30 07/04/17 21:49 89 130/83 07/04/17 21:43 Mechanical Ventilator 30 07/04/17 21:41 98.6 89 20 142/91 Mechanical Ventilator 30 98.6 07/04/17 21:24 86 16 30 07/04/17 21:00 93 17 133/92 96 Mechanical Ventilator 30 07/04/17 20:00 98.5 94 16 133/90 97 Mechanical Ventilator 30 98.5 07/04/17 20:00 30 07/04/17 19:20 92 07/04/17 19:20 92 17 30 07/04/17 19:00 91 15 128/83 97 Mechanical Ventilator 30 07/04/17 18:30 Mechanical Ventilator 30 07/04/17 18:30 98.4 90 20 133/89 Mechanical Ventilator 30 98.4 07/04/17 18:00 91 18 133/89 98 Mechanical Ventilator 30 07/04/17 17:00 90 21 128/85 99 Mechanical Ventilator 30 07/04/17 16:55 89 21 30 Intake and Output 07/04/17 07/05/17 19:00 07:00 Intake Total 1552.5 ml 1410 ml Output Total 35 ml 2031 ml Balance 1517.5 ml -621 ml Intake Oral 0 ml Free Water 60 ml 30 ml IV Total 1072.5 ml 710 ml Tube Feeding 360 ml 280 ml Blood Product 250 ml Other 60 ml 140 ml Output Urine Total 35 ml 30 ml Stool Total 1 ml Hemodialysis UF 2000 ml # Bowel Movements 1 Laboratory Tests Test 07/05/17 03:45 07/05/17 04:35 07/05/17 07:55 White Blood Count 12.6 K/UL (4.8-10.8) H Red Blood Count 2.76 M/UL (4.70-6.10) L Hemoglobin 8.6 G/DL (14.2-18.0) L Hematocrit 26.1 % (42.0-52.0) L Mean Corpuscular Volume 94 FL (80-99) Mean Corpuscular Hemoglobin 31.0 PG (27.0-31.0) Mean Corpuscular Hemoglobin Concent 32.8 G/DL (32.0-36.0) Red Cell Distribution Width 15.2 % (11.6-14.8) H Platelet Count 47 K/UL (150-450) L Mean Platelet Volume 10.7 FL (6.5-10.1) H Neutrophils (%) (Auto) % (45.0-75.0) Lymphocytes (%) (Auto) % (20.0-45.0) Monocytes (%) (Auto) % (1.0-10.0) Eosinophils (%) (Auto) % (0.0-3.0) Basophils (%) (Auto) % (0.0-2.0) Differential Total Cells Counted 100 Neutrophils % (Manual) 90 % (45-75) H Lymphocytes % (Manual) 3 % (20-45) L Monocytes % (Manual) 2 % (1-10) Eosinophils % (Manual) 0 % (0-3) Basophils % (Manual) 0 % (0-2) Band Neutrophils 5 % (0-8) Platelet Estimate Decreased L Platelet Morphology Normal Macrocytosis 1+ Schistocytes 1+ Sodium Level 142 MMOL/L (136-145) Potassium Level 3.2 MMOL/L (3.5-5.1) L Chloride Level 100 MMOL/L (98-107) Carbon Dioxide Level 33 MMOL/L (21-32) H Anion Gap 10 mmol/L (5-15) Blood Urea Nitrogen 59 mg/dL (7-18) H Creatinine 4.0 MG/DL (0.55-1.30) H Estimat Glomerular Filtration Rate 15.4 mL/min (>60) Glucose Level 259 MG/DL (74-106) H Calcium Level 6.5 MG/DL (8.5-10.1) L Phosphorus Level 4.0 MG/DL (2.5-4.9) Magnesium Level 1.5 MG/DL (1.8-2.4) L Total Bilirubin 0.9 MG/DL (0.2-1.0) Aspartate Amino Transf (AST/SGOT) 23 U/L (15-37) Alanine Aminotransferase (ALT/SGPT) 15 U/L (12-78) Alkaline Phosphatase 79 U/L (46-116) Total Protein 4.6 G/DL (6.4-8.2) L Albumin 1.5 G/DL (3.4-5.0) L Globulin 3.1 g/dL Albumin/Globulin Ratio 0.5 (1.0-2.7) L Random Vancomycin Level 17.5 ug/mL HIV (1&2) Antibody Rapid Negative (NEGATIVE) C-Reactive Protein, Quantitative 14.4 mg/dL (0.00-0.90) H Arterial Blood pH 7.510 (7.350-7.450) Arterial Blood Partial Pressure CO2 34.9 mmHg (35.0-45.0) L Arterial Blood Partial Pressure O2 92.4 mmHg (75.0-100.0) Arterial Blood HCO3 27.2 mmol/L (22.0-26.0) H Arterial Blood Oxygen Saturation 95.8 % (92.0-98.0) Arterial Blood Base Excess 4.1 Ricardo Test Positive Objective HEAD AND NECK: No JVD. Orally intubated with NG tube. LUNGS: Coarse rhonchi. Jose left subclavian CARDIOVASCULAR: In SR. S1 and S2 with no gallop or murmur. ABDOMEN: Soft. EXTREMITIES: No pitting edema. Luke Charles MD Jul 05, 2017 16:21
--- NOTE | 2017-07-05 17:18 | Internal Med Progress Note ---
Subjective Date of Service: Jul 05, 2017 Physician Name Wesley Champagne Attending Physician Jonathan Garcia MD Current Medications Medications (Trade) Dose Ordered Sig/Sameera Route PRN Reason Start Time Stop Time Status Last Admin Dose Admin Acetaminophen (Tylenol) 650 mg Q4H PRN ORAL fever (temp>100.5F) 07/01/17 16:00 07/31/17 15:59 Albuterol/ Ipratropium (Albuterol/ Ipratropium) 3 ml Q4H PRN HHN dyspnea 07/01/17 16:00 07/06/17 15:59 Chlorhexidine Gluconate (Sindy-Hex 2%) 1 applic DAILY@2000 TOPIC 07/01/17 20:00 07/31/17 19:59 07/04/17 20:52 Dextrose (Dextrose 50%) STAT PRN IV Hypoglycemia 07/03/17 11:45 08/02/17 11:44 Dorzolamide/ Timolol (Cosopt) 1 drop BID RIGHT EYE 07/01/17 18:00 07/31/17 09:59 07/05/17 09:23 Epoetin Kobe (Procrit (for non ESRD use)) 10,000 units MON-WED-FRI SUBQ 07/03/17 21:00 08/02/17 20:59 07/03/17 21:05 Heparin Sodium (Porcine) (Heparin 5000 units/ml) 5,000 units EVERY 12 HOURS SUBQ 07/01/17 21:00 07/31/17 09:59 07/02/17 20:57 Insulin Aspart (NovoLOG) EVERY 4 HOURS SUBQ 07/03/17 17:00 08/02/17 16:59 07/05/17 12:43 Lorazepam (Ativan 2mg/ml 1ml) 2 mg Q4H PRN IV For Anxiety 07/01/17 16:00 07/08/17 15:59 07/02/17 17:31 Metoprolol Tartrate (Lopressor) 25 mg Q12HR NG 07/04/17 21:00 08/03/17 20:59 07/04/17 21:49 Morphine Sulfate (Morphine Sulfate) 2 mg Q4H PRN IVP Moderate Pain (Pain Scale 4-6) 07/01/17 16:00 07/08/17 15:59 07/04/17 22:02 Morphine Sulfate (Morphine Sulfate) 4 mg Q4H PRN IVP Severe Pain (Pain Scale 7-10) 07/01/17 16:00 07/08/17 15:59 07/05/17 12:41 Nitroglycerin (Ntg) 0.4 mg Q5M X 3 DOSES PRN SL Prn Chest Pain 07/01/17 16:00 07/31/17 15:59 Norepinephrine Bitartrate 4 mg/ Dextrose 250 ml @ 0 mls/hr Q24H IV 07/01/17 16:45 07/31/17 16:44 07/03/17 00:17 Ondansetron HCl (Zofran) 4 mg Q6H PRN IVP Nausea & Vomiting 07/01/17 16:00 07/31/17 15:59 07/03/17 23:37 Pantoprazole (Protonix) 40 mg EVERY 12 HOURS IVP 07/01/17 16:45 07/31/17 16:44 07/05/17 09:22 Piperacillin Sod/ Tazobactam Sod 2.25 gm/Sodium Chloride 55 ml @ 110 mls/hr Q8HR@0200,1000,1800 IV 07/05/17 02:00 07/12/17 01:59 07/05/17 09:23 Promethazine HCl/ Codeine (Phenergan with Codeine) 5 ml Q6H PRN ORAL cough 07/01/17 19:30 07/31/17 07:29 Sevelamer Carbonate (Renvela) 1,600 mg Q6HR NG 07/03/17 12:00 08/02/17 11:59 07/05/17 12:41 Sodium Chloride 1,000 ml @ 50 mls/hr Q20H IV 07/03/17 12:00 08/02/17 11:59 07/05/17 04:43 Temazepam (Restoril) 15 mg HSPRN PRN ORAL Insomnia 07/01/17 21:00 07/08/17 20:59 Vancomycin HCl (Vanco rx to dose) 1 ea DAILYPRN PRN MISC Per rx protocol 07/02/17 16:15 08/01/17 16:14 Allergies: Coded Allergies: No Known Allergies (Unverified , 07/01/17) ROS Limited/Unobtainable: Yes Subjective 62 YO M admitted with respiratory failure now pneumona. Cover for Int Med-Dr Garcia. Intubated and sedated. ICU Objective Last Vital Signs Date Time Temp Pulse Resp B/P (MAP) Pulse Ox O2 Delivery O2 Flow Rate FiO2 07/05/17 16:00 98.7 73 16 122/80 99 Mechanical Ventilator 30 98.7 07/03/17 13:00 60.0 Laboratory Tests Test 07/05/17 03:45 07/05/17 04:35 07/05/17 07:55 White Blood Count 12.6 K/UL (4.8-10.8) H Red Blood Count 2.76 M/UL (4.70-6.10) L Hemoglobin 8.6 G/DL (14.2-18.0) L Hematocrit 26.1 % (42.0-52.0) L Mean Corpuscular Volume 94 FL (80-99) Mean Corpuscular Hemoglobin 31.0 PG (27.0-31.0) Mean Corpuscular Hemoglobin Concent 32.8 G/DL (32.0-36.0) Red Cell Distribution Width 15.2 % (11.6-14.8) H Platelet Count 47 K/UL (150-450) L Mean Platelet Volume 10.7 FL (6.5-10.1) H Neutrophils (%) (Auto) % (45.0-75.0) Lymphocytes (%) (Auto) % (20.0-45.0) Monocytes (%) (Auto) % (1.0-10.0) Eosinophils (%) (Auto) % (0.0-3.0) Basophils (%) (Auto) % (0.0-2.0) Differential Total Cells Counted 100 Neutrophils % (Manual) 90 % (45-75) H Lymphocytes % (Manual) 3 % (20-45) L Monocytes % (Manual) 2 % (1-10) Eosinophils % (Manual) 0 % (0-3) Basophils % (Manual) 0 % (0-2) Band Neutrophils 5 % (0-8) Platelet Estimate Decreased L Platelet Morphology Normal Macrocytosis 1+ Schistocytes 1+ Sodium Level 142 MMOL/L (136-145) Potassium Level 3.2 MMOL/L (3.5-5.1) L Chloride Level 100 MMOL/L (98-107) Carbon Dioxide Level 33 MMOL/L (21-32) H Anion Gap 10 mmol/L (5-15) Blood Urea Nitrogen 59 mg/dL (7-18) H Creatinine 4.0 MG/DL (0.55-1.30) H Estimat Glomerular Filtration Rate 15.4 mL/min (>60) Glucose Level 259 MG/DL (74-106) H Calcium Level 6.5 MG/DL (8.5-10.1) L Phosphorus Level 4.0 MG/DL (2.5-4.9) Magnesium Level 1.5 MG/DL (1.8-2.4) L Total Bilirubin 0.9 MG/DL (0.2-1.0) Aspartate Amino Transf (AST/SGOT) 23 U/L (15-37) Alanine Aminotransferase (ALT/SGPT) 15 U/L (12-78) Alkaline Phosphatase 79 U/L (46-116) Total Protein 4.6 G/DL (6.4-8.2) L Albumin 1.5 G/DL (3.4-5.0) L Globulin 3.1 g/dL Albumin/Globulin Ratio 0.5 (1.0-2.7) L Random Vancomycin Level 17.5 ug/mL HIV (1&2) Antibody Rapid Negative (NEGATIVE) C-Reactive Protein, Quantitative 14.4 mg/dL (0.00-0.90) H Arterial Blood pH 7.510 (7.350-7.450) Arterial Blood Partial Pressure CO2 34.9 mmHg (35.0-45.0) L Arterial Blood Partial Pressure O2 92.4 mmHg (75.0-100.0) Arterial Blood HCO3 27.2 mmol/L (22.0-26.0) H Arterial Blood Oxygen Saturation 95.8 % (92.0-98.0) Arterial Blood Base Excess 4.1 Ricardo Test Positive Intake and Output 07/04/17 07/05/17 19:00 07:00 Intake Total 1552.5 ml 1410 ml Output Total 35 ml 2031 ml Balance 1517.5 ml -621 ml Intake Oral 0 ml Free Water 60 ml 30 ml IV Total 1072.5 ml 710 ml Tube Feeding 360 ml 280 ml Blood Product 250 ml Other 60 ml 140 ml Output Urine Total 35 ml 30 ml Stool Total 1 ml Hemodialysis UF 2000 ml # Bowel Movements 1 Objective General Appearance: lethargic, thin EENT: PERRL/EOMI, normal ENT inspection Neck: non-tender, normal alignment, supple Cardiovascular: normal peripheral pulses, normal rate, regular rhythm, no gallop/murmur, no JVD Respiratory/Chest: Mech vent; chest wall non-tender, lungs coarse breath sounds bilaterally, Wheezes bilaterally, respiratory distress, no accessory muscle use Abdomen: normal bowel sounds, non tender, soft, no organomegaly, no mass Extremities: normal range of motion, non-tender Neurologic: storm door maker II-XII grossly normal Skin: normal pigmentation, warm/dry Assessment/Plan Problem List: (1) GERD (gastroesophageal reflux disease) (2) Hypercholesteremia (3) Diabetes mellitus type II, uncontrolled (4) CHF (congestive heart failure) Assessment & Plan: See cardiology note. (5) Acute respiratory failure with hypoxemia Assessment & Plan: Continue vent per pulmonary (6) ARF (acute renal failure) Assessment & Plan: S/P hemodialysis 07/04/17. Next 07/06/17. See nephrology note. (7) Anemia Assessment & Plan: Worsening. Transfuse 1 unit packed red blood cells today (8) Healthcare-associated pneumonia Assessment & Plan: Continue zosyn and vanco-see ID note. (9) Atrial fibrillation with rapid ventricular response Assessment & Plan: S/P digoxin. See cardiology note. (10) Septic shock Assessment & Plan: continue levophed. Status: not improved WESLEY CHAMPAGNE Jul 05, 2017 17:18
--- NOTE | 2017-07-05 17:49 | Diagnostic Imaging Report ---
Clinical Indication: Shortness of breath Technique: Spiral acquisitions obtained through the chest. No IV contrast utilized, reason not stated. Multiplanar reconstructions generated. Total dose length product 1054.4 mGycm. CTDIvol(s) 24.46 mGy. Dose reduction achieved using automated exposure control Comparison: none Findings: There is extensive consolidation of most of the right lower lobe. Less extensive nodular and groundglass opacities are seen in the right middle lobe and to a slight extent in the inferior right upper lobe. Fairly extensive nodular and and patchy airspace opacities are seen throughout the left lower lobe. Similar opacities are seen in the left lower lobe, predominately inferiorly. There is a small right pleural effusion. There is trace left pleural fluid. No definite interstitial edema. The lung apices are equivocally slightly hyperinflated. There is an endotracheal tube and good position, tip projecting approximately 6 cm above the robyn. There is also a nasogastric tube in place, tip at the level of the gastric fundus body junction. The heart is upper limits of normal in size. A pericardial effusion. No mediastinal or hilar mass or adenopathy. There is a left subclavian temporary dialysis catheter and a right arm PICC in place. The included thyroid is unremarkable. No axillary or chest wall mass or adenopathy. The bones are unremarkable seventh for mild thoracal lumbar scoliotic deformity. The included upper abdomen demonstrates a small amount of ascites fluid. Impression: Bilateral patchy and nodular infiltrates, slightly greater on the right than on the left, as described. Nonspecific as regards etiology but most likely on the basis of pneumonia. Small right and trace left pleural effusions Tube and lines as described above and on prior radiographs Small amount of ascites fluid is noted The CT scanner at [facility] is accredited by the [employer] and the scans are performed using protocols designed to limit radiation exposure to as low as reasonably achievable to attain images of sufficient resolution adequate for diagnostic evaluation.
[2017-07-05] MEDS: Dyna-Hex 2% Top Sol 2oz TOPIC SCH (19:56)
[2017-07-05] MEDS: Epogen (for non ESRD use) SUBQ SCH (21:04)
[2017-07-06] VITALS (24 sets, daily range): BP systolic 109–154; BP diastolic 67–90
[2017-07-06] MEDS: NovoLOG Insulin Flexpen SUBQ SCH ×6 (00:34→21:04)
[2017-07-06] MEDS: Piperacillin/Tazobactam 2.25 GM in NS 55 ML IV SCH ×2 (01:37→10:26)
[2017-07-06] MEDS: Morphine Sulfate 4mg/ml Inj IVP PRN (03:10)
[2017-07-06 04:33] LABS: HEMATOCRIT 28.1 % (42.0-52.0); HEMOGLOBIN 9.4 G/DL (14.2-18.0); MEAN CORPUSCULAR VOLUME 95 FL (80-99); PLATELET COUNT 63 K/UL (150-450); RED BLOOD COUNT 2.96 M/UL (4.70-6.10); RED CELL DISTRIBUTION WIDTH 14.8 % (11.6-14.8); WHITE BLOOD COUNT 13.4 K/UL (4.8-10.8)
[2017-07-06 05:15] LABS: ALANINE AMINOTRANSFERASE 20 U/L (12-78); ALBUMIN 1.7 G/DL (3.4-5.0); ALBUMIN/GLOBULIN RATIO 0.5 (1.0-2.7); ALKALINE PHOSPHATASE 87 U/L (46-116); ANION GAP 14 mmol/L (5-15); ASPARTATE AMINO TRANSFERASE 15 U/L (15-37); BILIRUBIN,TOTAL 0.8 MG/DL (0.2-1.0); BLOOD UREA NITROGEN 98 mg/dL (7-18); CALCIUM 6.7 MG/DL (8.5-10.1); CARBON DIOXIDE 28 MMOL/L (21-32); CHLORIDE 101 MMOL/L (98-107); CREATININE 5.5 MG/DL (0.55-1.30); PHOSPHORUS 4.6 MG/DL (2.5-4.9); POTASSIUM 3.2 MMOL/L (3.5-5.1); SODIUM 143 MMOL/L (136-145)
[2017-07-06] MEDS: Renvela 800mg Pkt NG SCH ×3 (05:50→18:12)
--- NOTE | 2017-07-06 07:32 | Pulmonolgy Critical Care Note ---
Critical Care - Asmt/Plan Assessment/Plan: ASSESSMENT Acute hypoxemic RF requiring intubation Sepsis with shock HCAP UTI ARF on CKD, started on HD/ new start A fib with RVR NSTEMI COPD exacerbation DM anemia of chronic kidney disease lactic acidosis Cachexia with severe protein calorie malnutrition Mild pulmonary HTN mild to moderate MR Encephalopathy Sacrococcyx un-stageable pressure ulcer POA Multiple DTI POA PLAN OF CARE ICU Off pressors vent support pulmonary toilet daily CXR and ABG start weaning protocol as tolerated converted to SR cardio follows per cardio NSTEMI 2 to A fib with RVR and sepsis ECHO with EF 55% and RVSP of 42 c/w mild pulmonary HTN, as well as evidence of mild to moderate MR abx ID follows blood cx negative , urine cx negative, influenza screen negative sputum cx negative CT chest with bilateral patchy and nodular infiltrates R>L, most likely 2 to PNA HD catheter inserted by surgeon on 07/02 and patient was started on HD nephro follows monitor volumes, renal parameters, correct lytes as needed ,ccreat down to 5.5 Renal US with evidence of medical renal disease, no hydro monitor HH, transfuse to keep Hgb above 7 On EPO BS management with SS insulin nutritional support and dietary recs Wound care as per wound nurse recs case discussed and evaluated by supervising physician Critical Care - Objective Last 24 Hour Vital Signs Date Time Temp Pulse Resp B/P (MAP) Pulse Ox O2 Delivery O2 Flow Rate FiO2 07/06/17 07:00 73 16 130/77 98 Mechanical Ventilator 30 07/06/17 06:00 72 16 125/73 98 Mechanical Ventilator 30 07/06/17 05:14 75 16 30 07/06/17 05:00 76 16 119/70 97 Mechanical Ventilator 30 07/06/17 04:00 98.6 86 17 154/87 95 Mechanical Ventilator 30 98.6 07/06/17 04:00 30 07/06/17 03:53 80 07/06/17 03:30 89 16 30 07/06/17 03:00 92 16 153/80 94 Mechanical Ventilator 30 07/06/17 02:00 73 16 109/67 97 Mechanical Ventilator 30 07/06/17 01:25 73 16 30 07/06/17 01:00 73 16 123/74 98 Mechanical Ventilator 30 07/06/17 00:00 98.4 69 16 130/77 97 Mechanical Ventilator 30 98.4 07/06/17 00:00 30 07/05/17 23:36 68 07/05/17 23:00 69 16 130/79 98 Mechanical Ventilator 30 07/05/17 22:38 126 16 30 07/05/17 22:00 69 16 118/75 97 Mechanical Ventilator 30 07/05/17 21:39 72 16 30 07/05/17 21:04 68 124/77 07/05/17 21:00 70 16 123/74 97 Mechanical Ventilator 30 07/05/17 20:00 98.6 72 16 126/77 97 Mechanical Ventilator 30 98.6 07/05/17 20:00 30 07/05/17 19:53 72 07/05/17 19:22 74 17 30 07/05/17 19:00 76 17 140/92 99 Mechanical Ventilator 30 07/05/17 18:00 73 17 144/92 99 Mechanical Ventilator 30 07/05/17 17:18 73 19 30 07/05/17 17:00 77 17 125/86 99 Mechanical Ventilator 30 07/05/17 16:00 98.7 73 16 122/80 99 Mechanical Ventilator 30 98.7 07/05/17 16:00 88 07/05/17 16:00 30 07/05/17 15:09 67 16 30 07/05/17 15:00 73 17 126/82 99 Mechanical Ventilator 30 07/05/17 14:30 125/82 07/05/17 14:00 77 16 125/80 99 Mechanical Ventilator 30 07/05/17 13:12 70 16 30 07/05/17 13:00 70 16 127/82 98 Mechanical Ventilator 30 07/05/17 12:00 80 07/05/17 12:00 30 07/05/17 12:00 98.6 75 16 122/77 99 Mechanical Ventilator 30 98.6 07/05/17 11:22 77 16 30 07/05/17 11:00 77 16 108/66 98 Mechanical Ventilator 30 07/05/17 10:00 80 16 105/65 98 Mechanical Ventilator 30 07/05/17 09:03 80 16 30 07/05/17 09:00 81 16 106/66 98 Mechanical Ventilator 30 07/05/17 09:00 83 106/66 07/05/17 08:00 86 07/05/17 08:00 30 07/05/17 08:00 98.8 83 17 108/67 97 Mechanical Ventilator 30 98.8 Status: awake, other - on vent Condition: critical HEENT: atraumatic, normocephalic, other - OP with ET in place intact, OP tube Neck: other - L subclavian temporary HD catheter, intact Lungs: clear Heart: HR/BP stable, murmur systolic - R PICC intact , other Abdomen: active bowel sounds, other - Eric Extremities: no C/C/E Micro: Microbiology Date/Time Source Procedure Growth Status 07/04/17 15:20 Sputum Gram Stain - Final Resulted 07/04/17 15:20 Sputum Sputum Culture - Preliminary NORMAL UPPER RESPIRATORY SAL AT 24 ... Resulted Accucheck: 304 Critical Care - Subjective ROS Limited/Unobtainable: Yes Interval Events: persistent leukocytosis, afebrile awake, denies chest pain ABG stable on current settings IV Access: PICC - RUE intact EKG Rhythm: Sinus Rhythm FI02: 30 Vent Support Breath Rate: 16 Vent Support Mode: AC Vent Tidal Volume: 650 Sputum Amount: Scant PEEP: 6.0 PIP: 20 Fluids: NS at 50 Tube Feeding Amount: 30 I&O: Intake and Output 07/05/17 07/06/17 19:00 07:00 Intake Total 1070 ml 1125 ml Output Total 20 ml 55 ml Balance 1050 ml 1070 ml IV Total 710 ml 655 ml Tube Feeding 360 ml 360 ml Other 110 ml Output Urine Total 20 ml 55 ml CXR: 07/05 Bilateral patchy and nodular infiltrates, slightly greater on the right than on the left, as described. Nonspecific as regards etiology but most likely on the basis of pneumonia. Small right and trace left pleural effusions CT chest 07/05 Bilateral patchy and nodular infiltrates, slightly greater on the right than on the left, as described. Nonspecific as regards etiology but most likely on the basis of pneumonia. ET-Tube: 8.0 ET Position: 28 Rubio ([facility]Fel[facility] Nava NP Jul 06, 2017 07:32
[2017-07-06] MEDS: Heparin 5000 units/ml inj SUBQ SCH ×2 (09:00→21:02)
[2017-07-06] MEDS: Metoprolol 25mg tab NG SCH ×2 (09:19→21:01)
[2017-07-06] MEDS: Pantoprazole Inj IVP SCH ×2 (09:19→21:01)
[2017-07-06] MEDS: Cosopt Opth Soln 10 mL Btl RIGHT EYE SCH ×2 (09:20→18:12)
--- NOTE | 2017-07-06 09:48 | Cardiac Electrophysiology PN ---
Assessment/Plan Assessment/Plan 1. Atrial fibrillation with rapid ventricular response. Converted to SR. On Lopressor 25 mg NG bid. 2. NSTEMI troponin peak 3.36. Down to 1.28. Due to sepsis and fib with RVR. On Betablocker 3. Elevated BNP of more than 150,000 due to volume overload. Now on hemodialysis. 4. Respiratory failure. On the vent. Weaning? 5. Septic shock, on IV antibiotic per ID.Off Levophed 6. Anemia due to renal failure. 7. Hyperkalemia due to renal failure. Now hypokalemic 8. ARF. Now on HD DW RN Subjective Subjective In ICU orally intubated on vent only 30% Fio2.No arrhythmias on tele. RN at bedside. Objective Last 24 Hour Vital Signs Date Time Temp Pulse Resp B/P (MAP) Pulse Ox O2 Delivery O2 Flow Rate FiO2 07/06/17 09:19 77 127/75 07/06/17 09:00 77 16 127/75 97 Mechanical Ventilator 30 07/06/17 08:00 98.5 74 16 132/77 97 Mechanical Ventilator 30 98.5 07/06/17 08:00 71 07/06/17 08:00 30 07/06/17 07:00 73 16 130/77 98 Mechanical Ventilator 30 07/06/17 06:36 72 16 30 07/06/17 06:00 72 16 125/73 98 Mechanical Ventilator 30 07/06/17 05:14 75 16 30 07/06/17 05:00 76 16 119/70 97 Mechanical Ventilator 30 07/06/17 04:00 98.6 86 17 154/87 95 Mechanical Ventilator 30 98.6 07/06/17 04:00 30 07/06/17 03:53 80 07/06/17 03:30 89 16 30 07/06/17 03:00 92 16 153/80 94 Mechanical Ventilator 30 07/06/17 02:00 73 16 109/67 97 Mechanical Ventilator 30 07/06/17 01:25 73 16 30 07/06/17 01:00 73 16 123/74 98 Mechanical Ventilator 30 07/06/17 00:00 98.4 69 16 130/77 97 Mechanical Ventilator 30 98.4 07/06/17 00:00 30 07/05/17 23:36 68 07/05/17 23:00 69 16 130/79 98 Mechanical Ventilator 30 07/05/17 22:38 126 16 30 07/05/17 22:00 69 16 118/75 97 Mechanical Ventilator 30 07/05/17 21:39 72 16 30 07/05/17 21:04 68 124/77 07/05/17 21:00 70 16 123/74 97 Mechanical Ventilator 30 07/05/17 20:00 98.6 72 16 126/77 97 Mechanical Ventilator 30 98.6 07/05/17 20:00 30 07/05/17 19:53 72 07/05/17 19:22 74 17 30 07/05/17 19:00 76 17 140/92 99 Mechanical Ventilator 30 07/05/17 18:00 73 17 144/92 99 Mechanical Ventilator 30 07/05/17 17:18 73 19 30 07/05/17 17:00 77 17 125/86 99 Mechanical Ventilator 30 07/05/17 16:00 98.7 73 16 122/80 99 Mechanical Ventilator 30 98.7 07/05/17 16:00 88 07/05/17 16:00 30 07/05/17 15:09 67 16 30 07/05/17 15:00 73 17 126/82 99 Mechanical Ventilator 30 07/05/17 14:30 125/82 07/05/17 14:00 77 16 125/80 99 Mechanical Ventilator 30 07/05/17 13:12 70 16 30 07/05/17 13:00 70 16 127/82 98 Mechanical Ventilator 30 07/05/17 12:00 80 07/05/17 12:00 30 07/05/17 12:00 98.6 75 16 122/77 99 Mechanical Ventilator 30 98.6 07/05/17 11:22 77 16 30 07/05/17 11:00 77 16 108/66 98 Mechanical Ventilator 30 07/05/17 10:00 80 16 105/65 98 Mechanical Ventilator 30 Intake and Output 07/05/17 07/06/17 19:00 07:00 Intake Total 1070 ml 1125 ml Output Total 20 ml 55 ml Balance 1050 ml 1070 ml IV Total 710 ml 655 ml Tube Feeding 360 ml 360 ml Other 110 ml Output Urine Total 20 ml 55 ml Laboratory Tests Test 07/06/17 04:00 07/06/17 07:49 White Blood Count 13.4 K/UL (4.8-10.8) H Red Blood Count 2.96 M/UL (4.70-6.10) L Hemoglobin 9.4 G/DL (14.2-18.0) L Hematocrit 28.1 % (42.0-52.0) L Mean Corpuscular Volume 95 FL (80-99) Mean Corpuscular Hemoglobin 31.7 PG (27.0-31.0) H Mean Corpuscular Hemoglobin Concent 33.4 G/DL (32.0-36.0) Red Cell Distribution Width 14.8 % (11.6-14.8) Platelet Count 63 K/UL (150-450) L Mean Platelet Volume 10.4 FL (6.5-10.1) H Neutrophils (%) (Auto) % (45.0-75.0) Lymphocytes (%) (Auto) % (20.0-45.0) Monocytes (%) (Auto) % (1.0-10.0) Eosinophils (%) (Auto) % (0.0-3.0) Basophils (%) (Auto) % (0.0-2.0) Neutrophils % (Manual) Pending Lymphocytes % (Manual) Pending Platelet Estimate Pending Platelet Morphology Pending Sodium Level 143 MMOL/L (136-145) Potassium Level 3.2 MMOL/L (3.5-5.1) L Chloride Level 101 MMOL/L (98-107) Carbon Dioxide Level 28 MMOL/L (21-32) Anion Gap 14 mmol/L (5-15) Blood Urea Nitrogen 98 mg/dL (7-18) H Creatinine 5.5 MG/DL (0.55-1.30) H Estimat Glomerular Filtration Rate 10.7 mL/min (>60) Glucose Level 274 MG/DL (74-106) H Uric Acid 6.7 MG/DL (2.6-7.2) Calcium Level 6.7 MG/DL (8.5-10.1) L Phosphorus Level 4.6 MG/DL (2.5-4.9) Magnesium Level 2.2 MG/DL (1.8-2.4) Total Bilirubin 0.8 MG/DL (0.2-1.0) Aspartate Amino Transf (AST/SGOT) 15 U/L (15-37) Alanine Aminotransferase (ALT/SGPT) 20 U/L (12-78) Alkaline Phosphatase 87 U/L (46-116) Pro-B-Type Natriuretic Peptide 130505 pg/mL (0-125) H Total Protein 5.0 G/DL (6.4-8.2) L Albumin 1.7 G/DL (3.4-5.0) L Globulin 3.3 g/dL Albumin/Globulin Ratio 0.5 (1.0-2.7) L Arterial Blood pH 7.490 (7.350-7.450) Arterial Blood Partial Pressure CO2 30.2 mmHg (35.0-45.0) L Arterial Blood Partial Pressure O2 96.8 mmHg (75.0-100.0) Arterial Blood HCO3 22.9 mmol/L (22.0-26.0) Arterial Blood Oxygen Saturation 96.6 % (92.0-98.0) Arterial Blood Base Excess 0 Ricardo Test Positive Microbiology Date/Time Source Procedure Growth Status 07/04/17 15:20 Sputum Gram Stain - Final Resulted 07/04/17 15:20 Sputum Sputum Culture - Preliminary NORMAL UPPER RESPIRATORY SAL AT 24 ... Resulted Objective HEAD AND NECK: No JVD. Orally intubated with NG tube. LUNGS: Coarse rhonchi. Jose left subclavian CARDIOVASCULAR: In SR. S1 and S2 with no gallop or murmur. ABDOMEN: Soft. EXTREMITIES: No pitting edema. Luke Charles MD Jul 06, 2017 09:48
--- NOTE | 2017-07-06 09:52 | Diagnostic Imaging Report ---
Indication: Nasogastric tube placement Technique: XRAY Abdomen 1v Comparison: 07/01/2017 Findings: Nasogastric tube is within the stomach. Basilar airspace disease is noted, right greater than left. Bowel gas pattern is nonspecific. Degenerative changes of the spine are seen. Impression: Nasogastric tube within the gastric body.
--- NOTE | 2017-07-06 10:21 | Diagnostic Imaging Report ---
Indication: Dyspnea Technique: XRAY Chest 1v Comparison: 07/05/2017 Findings: Right PICC line, endotracheal tube and nasogastric tube are unchanged. Perihilar and basilar airspace opacities are again noted, right greater than left. Impression: No significant change from 07/05/2017.
--- NOTE | 2017-07-06 10:29 | Infectious Diseases Prog Note ---
Assessment/Plan Assessment/Plan Abx: Zosyn 07/02- IV Vancomycin 07/02 Cefepime x1 07/01 Levaquin x1 07/01 Assessment: Septic Shock, SP- likely 2ry to PNA, r/o bacteremia -CT chest 07/05: There is extensive consolidation of most of the right lower lobe. Less extensive nodular and groundglass opacities are seen in the right middle lobe and to a slight extent in the inferior right upper lobe. Fairly extensive nodular and and patchy airspace opacities are seen throughout the left lower lobe. Similar opacities are seen in the left lower lobe, predominately inferiorly. There is a small right pleural effusion. There is trace left pleural fluid. No definite interstitial edema. -CXR 07/05: Slight improvement of still extensive bilateral basilar consolidation, over one day -influenza sc neg -sp cx not collected; re-ordered 07/04: normal inna to date -u/a no pyuria; ucx NTD -Bcx NTD COPD exacerbation Afebrile Leukocytosis- multifactorial- reactive component, infection and steroids; improving Seizure episode 07/02 Acute renal failure, HD started 07/02 Hyperkalemia Anion gap acidosis DM depression cachexia correction resident muscle wasting/generalized weakness encephalopathy Plan: -D/c empiric IV Vancomycin #5 -Continue empiric Zosyn #5 pending sp culture (improving on current regimen) -07/01 SP Cefepime, Levaquin x1 -if decompensation, switch Zosyn to Meropenem and given one time dose of Amikacin -f/u cx -fungal serologies -Monitor CBC/BMP, temperatures -ETT/central line care -Aspiration precautions Subjective Allergies: Coded Allergies: No Known Allergies (Unverified , 07/01/17) Subjective afebrile leukocytosis overall improved off pressors Bcx NTD sp cx normal flroa to date Fio2 30% Objective Vital Signs Last 24 Hour Vital Signs Date Time Temp Pulse Resp B/P (MAP) Pulse Ox O2 Delivery O2 Flow Rate FiO2 07/06/17 10:00 74 16 146/87 97 Mechanical Ventilator 30 07/06/17 09:20 83 17 30 07/06/17 09:19 77 127/75 07/06/17 09:00 77 16 127/75 97 Mechanical Ventilator 30 07/06/17 08:00 98.5 74 16 132/77 97 Mechanical Ventilator 30 98.5 07/06/17 08:00 71 07/06/17 08:00 30 07/06/17 07:00 73 16 130/77 98 Mechanical Ventilator 30 07/06/17 06:36 72 16 30 07/06/17 06:00 72 16 125/73 98 Mechanical Ventilator 30 07/06/17 05:14 75 16 30 07/06/17 05:00 76 16 119/70 97 Mechanical Ventilator 30 07/06/17 04:00 98.6 86 17 154/87 95 Mechanical Ventilator 30 98.6 07/06/17 04:00 30 07/06/17 03:53 80 07/06/17 03:30 89 16 30 07/06/17 03:00 92 16 153/80 94 Mechanical Ventilator 30 07/06/17 02:00 73 16 109/67 97 Mechanical Ventilator 30 07/06/17 01:25 73 16 30 07/06/17 01:00 73 16 123/74 98 Mechanical Ventilator 30 07/06/17 00:00 98.4 69 16 130/77 97 Mechanical Ventilator 30 98.4 07/06/17 00:00 30 07/05/17 23:36 68 07/05/17 23:00 69 16 130/79 98 Mechanical Ventilator 30 07/05/17 22:38 126 16 30 07/05/17 22:00 69 16 118/75 97 Mechanical Ventilator 30 07/05/17 21:39 72 16 30 07/05/17 21:04 68 124/77 07/05/17 21:00 70 16 123/74 97 Mechanical Ventilator 30 07/05/17 20:00 98.6 72 16 126/77 97 Mechanical Ventilator 30 98.6 07/05/17 20:00 30 07/05/17 19:53 72 07/05/17 19:22 74 17 30 07/05/17 19:00 76 17 140/92 99 Mechanical Ventilator 30 07/05/17 18:00 73 17 144/92 99 Mechanical Ventilator 30 07/05/17 17:18 73 19 30 07/05/17 17:00 77 17 125/86 99 Mechanical Ventilator 30 07/05/17 16:00 98.7 73 16 122/80 99 Mechanical Ventilator 30 98.7 07/05/17 16:00 88 07/05/17 16:00 30 07/05/17 15:09 67 16 30 07/05/17 15:00 73 17 126/82 99 Mechanical Ventilator 30 07/05/17 14:30 125/82 07/05/17 14:00 77 16 125/80 99 Mechanical Ventilator 30 07/05/17 13:12 70 16 30 07/05/17 13:00 70 16 127/82 98 Mechanical Ventilator 30 07/05/17 12:00 80 07/05/17 12:00 30 07/05/17 12:00 98.6 75 16 122/77 99 Mechanical Ventilator 30 98.6 07/05/17 11:22 77 16 30 07/05/17 11:00 77 16 108/66 98 Mechanical Ventilator 30 Height (Feet): 5 Height (Inches): 11.00 Weight (Pounds): 139 Objective General Appearance: cachetic Lines, tubes and drains: peripheral HEENT: normocephalic, atraumatic Neck: non-tender, normal alignment Respiratory/Chest: chest wall non-tender, rhonchi - left, rhonchi - right Cardiovascular/Chest: normal peripheral pulses, normal rate Abdomen: normal bowel sounds Genitourinary/Rectal: normal genital exam Extremities: normal range of motion Microbiology Date/Time Source Procedure Growth Status 07/04/17 15:20 Sputum Gram Stain - Final Resulted 07/04/17 15:20 Sputum Sputum Culture - Preliminary NORMAL UPPER RESPIRATORY INNA AT 24 ... Resulted Laboratory Tests Test 07/06/17 04:00 07/06/17 07:49 White Blood Count 13.4 K/UL (4.8-10.8) H Red Blood Count 2.96 M/UL (4.70-6.10) L Hemoglobin 9.4 G/DL (14.2-18.0) L Hematocrit 28.1 % (42.0-52.0) L Mean Corpuscular Volume 95 FL (80-99) Mean Corpuscular Hemoglobin 31.7 PG (27.0-31.0) H Mean Corpuscular Hemoglobin Concent 33.4 G/DL (32.0-36.0) Red Cell Distribution Width 14.8 % (11.6-14.8) Platelet Count 63 K/UL (150-450) L Mean Platelet Volume 10.4 FL (6.5-10.1) H Neutrophils (%) (Auto) % (45.0-75.0) Lymphocytes (%) (Auto) % (20.0-45.0) Monocytes (%) (Auto) % (1.0-10.0) Eosinophils (%) (Auto) % (0.0-3.0) Basophils (%) (Auto) % (0.0-2.0) Neutrophils % (Manual) Pending Lymphocytes % (Manual) Pending Platelet Estimate Pending Platelet Morphology Pending Sodium Level 143 MMOL/L (136-145) Potassium Level 3.2 MMOL/L (3.5-5.1) L Chloride Level 101 MMOL/L (98-107) Carbon Dioxide Level 28 MMOL/L (21-32) Anion Gap 14 mmol/L (5-15) Blood Urea Nitrogen 98 mg/dL (7-18) H Creatinine 5.5 MG/DL (0.55-1.30) H Estimat Glomerular Filtration Rate 10.7 mL/min (>60) Glucose Level 274 MG/DL (74-106) H Uric Acid 6.7 MG/DL (2.6-7.2) Calcium Level 6.7 MG/DL (8.5-10.1) L Phosphorus Level 4.6 MG/DL (2.5-4.9) Magnesium Level 2.2 MG/DL (1.8-2.4) Total Bilirubin 0.8 MG/DL (0.2-1.0) Aspartate Amino Transf (AST/SGOT) 15 U/L (15-37) Alanine Aminotransferase (ALT/SGPT) 20 U/L (12-78) Alkaline Phosphatase 87 U/L (46-116) Pro-B-Type Natriuretic Peptide 078108 pg/mL (0-125) H Total Protein 5.0 G/DL (6.4-8.2) L Albumin 1.7 G/DL (3.4-5.0) L Globulin 3.3 g/dL Albumin/Globulin Ratio 0.5 (1.0-2.7) L Arterial Blood pH 7.490 (7.350-7.450) Arterial Blood Partial Pressure CO2 30.2 mmHg (35.0-45.0) L Arterial Blood Partial Pressure O2 96.8 mmHg (75.0-100.0) Arterial Blood HCO3 22.9 mmol/L (22.0-26.0) Arterial Blood Oxygen Saturation 96.6 % (92.0-98.0) Arterial Blood Base Excess 0 Ricardo Test Positive Current Medications Medications (Trade) Dose Ordered Sig/Sameera Route PRN Reason Start Time Stop Time Status Last Admin Dose Admin Acetaminophen (Tylenol) 650 mg Q4H PRN ORAL fever (temp>100.5F) 07/01/17 16:00 07/31/17 15:59 Albuterol/ Ipratropium (Albuterol/ Ipratropium) 3 ml Q4H PRN HHN dyspnea 07/06/17 10:30 07/11/17 10:29 Chlorhexidine Gluconate (Sindy-Hex 2%) 1 applic DAILY@2000 TOPIC 07/01/17 20:00 07/31/17 19:59 07/05/17 19:56 Dextrose (Dextrose 50%) STAT PRN IV Hypoglycemia 07/03/17 11:45 08/02/17 11:44 Dorzolamide/ Timolol (Cosopt) 1 drop BID RIGHT EYE 07/01/17 18:00 07/31/17 09:59 07/06/17 09:20 Epoetin Kobe (Procrit (for non ESRD use)) 10,000 units MON-WED-FRI SUBQ 07/03/17 21:00 08/02/17 20:59 07/05/17 21:04 Heparin Sodium (Porcine) (Heparin 5000 units/ml) 5,000 units EVERY 12 HOURS SUBQ 07/01/17 21:00 07/31/17 09:59 07/02/17 20:57 Insulin Aspart (NovoLOG) EVERY 4 HOURS SUBQ 07/03/17 17:00 08/02/17 16:59 07/06/17 09:32 Lorazepam (Ativan 2mg/ml 1ml) 2 mg Q4H PRN IV For Anxiety 07/06/17 10:30 07/13/17 10:29 Metoprolol Tartrate (Lopressor) 25 mg Q12HR NG 07/04/17 21:00 08/03/17 20:59 07/06/17 09:19 Morphine Sulfate (Morphine Sulfate) 2 mg Q4H PRN IVP Moderate Pain (Pain Scale 4-6) 07/06/17 10:30 07/13/17 10:29 Morphine Sulfate (Morphine Sulfate) 4 mg Q4H PRN IVP Severe Pain (Pain Scale 7-10) 07/06/17 10:30 07/13/17 10:29 Nitroglycerin (Ntg) 0.4 mg Q5M X 3 DOSES PRN SL Prn Chest Pain 07/01/17 16:00 07/31/17 15:59 Norepinephrine Bitartrate 4 mg/ Dextrose 250 ml @ 0 mls/hr Q24H IV 07/01/17 16:45 07/31/17 16:44 07/03/17 00:17 Ondansetron HCl (Zofran) 4 mg Q6H PRN IVP Nausea & Vomiting 07/01/17 16:00 07/31/17 15:59 07/03/17 23:37 Pantoprazole (Protonix) 40 mg EVERY 12 HOURS IVP 07/01/17 16:45 07/31/17 16:44 07/06/17 09:19 Piperacillin Sod/ Tazobactam Sod 2.25 gm/Sodium Chloride 55 ml @ 110 mls/hr Q8HR@0200,1000,1800 IV 07/05/17 02:00 07/12/17 01:59 07/06/17 01:37 Promethazine HCl/ Codeine (Phenergan with Codeine) 5 ml Q6H PRN ORAL cough 07/01/17 19:30 07/31/17 07:29 Sevelamer Carbonate (Renvela) 1,600 mg Q6HR NG 07/03/17 12:00 08/02/17 11:59 07/06/17 05:50 Sodium Chloride 1,000 ml @ 50 mls/hr Q20H IV 07/03/17 12:00 08/02/17 11:59 07/05/17 23:51 Temazepam (Restoril) 15 mg HSPRN PRN ORAL Insomnia 07/01/17 21:00 07/08/17 20:59 Vancomycin HCl (Vanco rx to dose) 1 ea DAILYPRN PRN MISC Per rx protocol 07/02/17 16:15 08/01/17 16:14 Page West M.D. Jul 06, 2017 10:29
[2017-07-06] MEDS ORDERED: LORazepam Inj 2mg/ml 1ml IV PRN (10:30)
[2017-07-06] MEDS ORDERED: Morphine Sulfate 4mg/ml Inj IVP PRN (10:30)
[2017-07-06] MEDS ORDERED: Albuterol/Ipratropium 3ml neb HHN PRN (10:30)
--- NOTE | 2017-07-06 13:28 | Nephrology Progress Note ---
Assessment/Plan Problem List: (1) ARF (acute renal failure) (2) Acute respiratory failure with hypoxemia (3) Hyperkalemia (4) Cachexia Assessment Acute renal failure- High K ? CKD Acute respiratory failure, Pneumonia Hypotension- Shock, Sepsis Cachexia Plan Need transfusion- unable to consent Next HD 07/06 today off pressors pulm support benavides echo 55% EjFx K supplement HD in am again costa Bilateral echogenic kidneys, consistent with medical renal disease discussed with RN in dept cxr Extensive bilateral infiltrates and pleural effusions, slightly increased on the left Subjective ROS Limited/Unobtainable: Yes Objective Objective Last 24 Hour Vital Signs Date Time Temp Pulse Resp B/P (MAP) Pulse Ox O2 Delivery O2 Flow Rate FiO2 07/06/17 12:00 72 07/06/17 11:20 30 07/06/17 11:00 73 17 136/84 98 Mechanical Ventilator 30 07/06/17 10:30 30 07/06/17 10:30 72 11 30 07/06/17 10:23 97 07/06/17 10:00 74 16 146/87 97 Mechanical Ventilator 30 07/06/17 09:20 83 17 30 07/06/17 09:19 77 127/75 07/06/17 09:00 77 16 127/75 97 Mechanical Ventilator 30 07/06/17 08:00 98.5 74 16 132/77 97 Mechanical Ventilator 30 98.5 07/06/17 08:00 71 07/06/17 08:00 30 07/06/17 07:00 73 16 130/77 98 Mechanical Ventilator 30 07/06/17 06:36 72 16 30 07/06/17 06:00 72 16 125/73 98 Mechanical Ventilator 30 07/06/17 05:14 75 16 30 07/06/17 05:00 76 16 119/70 97 Mechanical Ventilator 30 07/06/17 04:00 98.6 86 17 154/87 95 Mechanical Ventilator 30 98.6 07/06/17 04:00 30 07/06/17 03:53 80 07/06/17 03:30 89 16 30 07/06/17 03:00 92 16 153/80 94 Mechanical Ventilator 30 07/06/17 02:00 73 16 109/67 97 Mechanical Ventilator 30 07/06/17 01:25 73 16 30 07/06/17 01:00 73 16 123/74 98 Mechanical Ventilator 30 07/06/17 00:00 98.4 69 16 130/77 97 Mechanical Ventilator 30 98.4 07/06/17 00:00 30 07/05/17 23:36 68 07/05/17 23:00 69 16 130/79 98 Mechanical Ventilator 30 07/05/17 22:38 126 16 30 07/05/17 22:00 69 16 118/75 97 Mechanical Ventilator 30 07/05/17 21:39 72 16 30 07/05/17 21:04 68 124/77 07/05/17 21:00 70 16 123/74 97 Mechanical Ventilator 30 07/05/17 20:00 98.6 72 16 126/77 97 Mechanical Ventilator 30 98.6 07/05/17 20:00 30 07/05/17 19:53 72 07/05/17 19:22 74 17 30 07/05/17 19:00 76 17 140/92 99 Mechanical Ventilator 30 07/05/17 18:00 73 17 144/92 99 Mechanical Ventilator 30 07/05/17 17:18 73 19 30 07/05/17 17:00 77 17 125/86 99 Mechanical Ventilator 30 07/05/17 16:00 98.7 73 16 122/80 99 Mechanical Ventilator 30 98.7 07/05/17 16:00 88 07/05/17 16:00 30 07/05/17 15:09 67 16 30 07/05/17 15:00 73 17 126/82 99 Mechanical Ventilator 30 07/05/17 14:30 125/82 07/05/17 14:00 77 16 125/80 99 Mechanical Ventilator 30 Intake and Output 07/05/17 07/06/17 19:00 07:00 Intake Total 1070 ml 1125 ml Output Total 20 ml 55 ml Balance 1050 ml 1070 ml IV Total 710 ml 655 ml Tube Feeding 360 ml 360 ml Other 110 ml Output Urine Total 20 ml 55 ml Laboratory Tests 07/06/17 04:00: White Blood Count 13.4H, Red Blood Count 2.96L, Hemoglobin 9.4L, Hematocrit 28.1L, Mean Corpuscular Volume 95, Mean Corpuscular Hemoglobin 31.7H, Mean Corpuscular Hemoglobin Concent 33.4, Red Cell Distribution Width 14.8, Platelet Count 63L, Mean Platelet Volume 10.4H, Neutrophils (%) (Auto) , Lymphocytes (%) (Auto) , Monocytes (%) (Auto) , Eosinophils (%) (Auto) , Basophils (%) (Auto) , Differential Total Cells Counted 100, Neutrophils % (Manual) 90H, Lymphocytes % (Manual) 4L, Monocytes % (Manual) 4, Eosinophils % (Manual) 0, Basophils % ( Manual) 0, Band Neutrophils 2, Platelet Estimate DecreasedL, Platelet Morphology Normal, Hypochromasia Occasional, Sodium Level 143, Potassium Level 3.2L, Chloride Level 101, Carbon Dioxide Level 28, Anion Gap 14, Blood Urea Nitrogen 98H, Creatinine 5.5H, Estimat Glomerular Filtration Rate 10.7, Glucose Level 274H, Uric Acid 6.7, Calcium Level 6.7L, Phosphorus Level 4.6, Magnesium Level 2.2, Total Bilirubin 0.8, Aspartate Amino Transf (AST/SGOT) 15, Alanine Aminotransferase (ALT/SGPT) 20, Alkaline Phosphatase 87, Pro-B-Type Natriuretic Peptide 179316O, Total Protein 5.0L, Albumin 1.7L, Globulin 3.3, Albumin/ Globulin Ratio 0.5L 07/06/17 07:49: Arterial Blood pH 7.490H, Arterial Blood Partial Pressure CO2 30.2L, Arterial Blood Partial Pressure O2 96.8, Arterial Blood HCO3 22.9, Arterial Blood Oxygen Saturation 96.6, Arterial Blood Base Excess 0, Ricardo Test Positive 07/06/17 12:35: Arterial Blood pH 7.470H, Arterial Blood Partial Pressure CO2 32.6L, Arterial Blood Partial Pressure O2 100.6H, Arterial Blood HCO3 23.5, Arterial Blood Oxygen Saturation 96.5, Arterial Blood Base Excess 0.3, Ricardo Test Positive Height (Feet): 5 Height (Inches): 11.00 Weight (Pounds): 139 General Appearance: no apparent distress Respiratory/Chest: decreased breath sounds Abdomen: distended Objective no change JUSTIN HERNANDEZ Jul 06, 2017 13:28
[2017-07-06] MEDS: Morphine Sulfate 2mg/ml Inj IVP PRN (13:50)
--- NOTE | 2017-07-06 15:36 | Internal Med Progress Note ---
Subjective Date of Service: Jul 06, 2017 Physician Name Wesley Champagne Attending Physician Jonathan Garcia MD Current Medications Medications (Trade) Dose Ordered Sig/Sameera Route PRN Reason Start Time Stop Time Status Last Admin Dose Admin Acetaminophen (Tylenol) 650 mg Q4H PRN ORAL fever (temp>100.5F) 07/01/17 16:00 07/31/17 15:59 Albuterol/ Ipratropium (Albuterol/ Ipratropium) 3 ml Q4H PRN HHN dyspnea 07/06/17 10:30 07/11/17 10:29 Chlorhexidine Gluconate (Sindy-Hex 2%) 1 applic DAILY@2000 TOPIC 07/01/17 20:00 07/31/17 19:59 07/05/17 19:56 Dextrose (Dextrose 50%) STAT PRN IV Hypoglycemia 07/03/17 11:45 08/02/17 11:44 Dorzolamide/ Timolol (Cosopt) 1 drop BID RIGHT EYE 07/01/17 18:00 07/31/17 09:59 07/06/17 09:20 Epoetin Kobe (Procrit (for non ESRD use)) 10,000 units MON-WED-FRI SUBQ 07/03/17 21:00 08/02/17 20:59 07/05/17 21:04 Heparin Sodium (Porcine) (Heparin 5000 units/ml) 5,000 units EVERY 12 HOURS SUBQ 07/01/17 21:00 07/31/17 09:59 07/02/17 20:57 Insulin Aspart (NovoLOG) EVERY 4 HOURS SUBQ 07/03/17 17:00 08/02/17 16:59 07/06/17 13:42 Lorazepam (Ativan 2mg/ml 1ml) 2 mg Q4H PRN IV For Anxiety 07/06/17 10:30 07/13/17 10:29 Metoprolol Tartrate (Lopressor) 25 mg Q12HR NG 07/04/17 21:00 08/03/17 20:59 07/06/17 09:19 Morphine Sulfate (Morphine Sulfate) 2 mg Q4H PRN IVP Moderate Pain (Pain Scale 4-6) 07/06/17 10:30 07/13/17 10:29 07/06/17 13:50 Morphine Sulfate (Morphine Sulfate) 4 mg Q4H PRN IVP Severe Pain (Pain Scale 7-10) 07/06/17 10:30 07/13/17 10:29 Nitroglycerin (Ntg) 0.4 mg Q5M X 3 DOSES PRN SL Prn Chest Pain 07/01/17 16:00 07/31/17 15:59 Norepinephrine Bitartrate 4 mg/ Dextrose 250 ml @ 0 mls/hr Q24H IV 07/01/17 16:45 07/31/17 16:44 07/03/17 00:17 Ondansetron HCl (Zofran) 4 mg Q6H PRN IVP Nausea & Vomiting 07/01/17 16:00 07/31/17 15:59 07/03/17 23:37 Pantoprazole (Protonix) 40 mg EVERY 12 HOURS IVP 07/01/17 16:45 07/31/17 16:44 07/06/17 09:19 Piperacillin Sod/ Tazobactam Sod 2.25 gm/Sodium Chloride 110 ml @ 220 mls/hr Q8HR@0200,1000,1800 IV 07/06/17 18:00 07/13/17 17:59 Promethazine HCl/ Codeine (Phenergan with Codeine) 5 ml Q6H PRN ORAL cough 07/01/17 19:30 07/31/17 07:29 Sevelamer Carbonate (Renvela) 1,600 mg Q6HR NG 07/03/17 12:00 08/02/17 11:59 07/06/17 13:39 Sodium Chloride 1,000 ml @ 50 mls/hr Q20H IV 07/03/17 12:00 08/02/17 11:59 07/05/17 23:51 Temazepam (Restoril) 15 mg HSPRN PRN ORAL Insomnia 07/01/17 21:00 07/08/17 20:59 Vancomycin HCl (Vanco rx to dose) 1 ea DAILYPRN PRN MISC Per rx protocol 07/02/17 16:15 08/01/17 16:14 Allergies: Coded Allergies: No Known Allergies (Unverified , 07/01/17) ROS Limited/Unobtainable: Yes Subjective 62 YO M admitted with respiratory failure now pneumona. Cover for Int Med-Dr Garcia. Intubated and sedated. ICU Objective Last Vital Signs Date Time Temp Pulse Resp B/P (MAP) Pulse Ox O2 Delivery O2 Flow Rate FiO2 07/06/17 14:00 76 17 126/76 98 Mechanical Ventilator 30 07/06/17 12:00 98.4 98.4 07/03/17 13:00 60.0 Laboratory Tests Test 07/06/17 04:00 07/06/17 07:49 07/06/17 12:35 White Blood Count 13.4 K/UL (4.8-10.8) H Red Blood Count 2.96 M/UL (4.70-6.10) L Hemoglobin 9.4 G/DL (14.2-18.0) L Hematocrit 28.1 % (42.0-52.0) L Mean Corpuscular Volume 95 FL (80-99) Mean Corpuscular Hemoglobin 31.7 PG (27.0-31.0) H Mean Corpuscular Hemoglobin Concent 33.4 G/DL (32.0-36.0) Red Cell Distribution Width 14.8 % (11.6-14.8) Platelet Count 63 K/UL (150-450) L Mean Platelet Volume 10.4 FL (6.5-10.1) H Neutrophils (%) (Auto) % (45.0-75.0) Lymphocytes (%) (Auto) % (20.0-45.0) Monocytes (%) (Auto) % (1.0-10.0) Eosinophils (%) (Auto) % (0.0-3.0) Basophils (%) (Auto) % (0.0-2.0) Differential Total Cells Counted 100 Neutrophils % (Manual) 90 % (45-75) H Lymphocytes % (Manual) 4 % (20-45) L Monocytes % (Manual) 4 % (1-10) Eosinophils % (Manual) 0 % (0-3) Basophils % (Manual) 0 % (0-2) Band Neutrophils 2 % (0-8) Platelet Estimate Decreased L Platelet Morphology Normal Hypochromasia Occasional Sodium Level 143 MMOL/L (136-145) Potassium Level 3.2 MMOL/L (3.5-5.1) L Chloride Level 101 MMOL/L (98-107) Carbon Dioxide Level 28 MMOL/L (21-32) Anion Gap 14 mmol/L (5-15) Blood Urea Nitrogen 98 mg/dL (7-18) H Creatinine 5.5 MG/DL (0.55-1.30) H Estimat Glomerular Filtration Rate 10.7 mL/min (>60) Glucose Level 274 MG/DL (74-106) H Uric Acid 6.7 MG/DL (2.6-7.2) Calcium Level 6.7 MG/DL (8.5-10.1) L Phosphorus Level 4.6 MG/DL (2.5-4.9) Magnesium Level 2.2 MG/DL (1.8-2.4) Total Bilirubin 0.8 MG/DL (0.2-1.0) Aspartate Amino Transf (AST/SGOT) 15 U/L (15-37) Alanine Aminotransferase (ALT/SGPT) 20 U/L (12-78) Alkaline Phosphatase 87 U/L (46-116) Pro-B-Type Natriuretic Peptide 100424 pg/mL (0-125) H Total Protein 5.0 G/DL (6.4-8.2) L Albumin 1.7 G/DL (3.4-5.0) L Globulin 3.3 g/dL Albumin/Globulin Ratio 0.5 (1.0-2.7) L Arterial Blood pH 7.490 (7.350-7.450) 7.470 (7.350-7.450) Arterial Blood Partial Pressure CO2 30.2 mmHg (35.0-45.0) L 32.6 mmHg (35.0-45.0) L Arterial Blood Partial Pressure O2 96.8 mmHg (75.0-100.0) 100.6 mmHg (75.0-100.0) H Arterial Blood HCO3 22.9 mmol/L (22.0-26.0) 23.5 mmol/L (22.0-26.0) Arterial Blood Oxygen Saturation 96.6 % (92.0-98.0) 96.5 % (92.0-98.0) Arterial Blood Base Excess 0 0.3 Ricardo Test Positive Positive Microbiology Date/Time Source Procedure Growth Status 07/04/17 15:20 Sputum Gram Stain - Final Resulted 07/04/17 15:20 Sputum Sputum Culture - Preliminary NORMAL UPPER RESPIRATORY SAL AT 24 ... Resulted Intake and Output 07/05/17 07/06/17 19:00 07:00 Intake Total 1070 ml 1125 ml Output Total 20 ml 55 ml Balance 1050 ml 1070 ml IV Total 710 ml 655 ml Tube Feeding 360 ml 360 ml Other 110 ml Output Urine Total 20 ml 55 ml Objective General Appearance: lethargic, thin EENT: PERRL/EOMI, normal ENT inspection Neck: non-tender, normal alignment, supple Cardiovascular: normal peripheral pulses, normal rate, regular rhythm, no gallop/murmur, no JVD Respiratory/Chest: Mech vent; chest wall non-tender, lungs coarse breath sounds bilaterally, Wheezes bilaterally, respiratory distress, no accessory muscle use Abdomen: normal bowel sounds, non tender, soft, no organomegaly, no mass Extremities: normal range of motion, non-tender 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 (5) Acute respiratory failure with hypoxemia Assessment & Plan: Continue vent per pulmonary (6) ARF (acute renal failure) Assessment & Plan: S/P hemodialysis 07/04/17. Next 07/06/17. See nephrology note. (7) Anemia Assessment & Plan: Worsening. Transfuse 1 unit packed red blood cells today (8) Healthcare-associated pneumonia Assessment & Plan: Continue zosyn and vanco-see ID note. (9) Atrial fibrillation with rapid ventricular response Assessment & Plan: S/P digoxin. See cardiology note. (10) Septic shock Assessment & Plan: continue levophed. Status: not improved WESLEY CHAMPAGNE Jul 06, 2017 15:36
[2017-07-06] MEDS: Piperacillin/Tazobactam 2.25 GM in NS 110 ML IV SCH (18:12)
[2017-07-06] MEDS: Dyna-Hex 2% Top Sol 2oz TOPIC SCH (20:08)
[2017-07-07] VITALS (24 sets, daily range): BP systolic 130–159; BP diastolic 75–98
[2017-07-07] MEDS: Renvela 800mg Pkt NG SCH ×5 (00:08→22:11)
[2017-07-07] MEDS: NovoLOG Insulin Flexpen SUBQ SCH ×6 (00:53→22:08)
[2017-07-07] MEDS: Piperacillin/Tazobactam 2.25 GM in NS 110 ML IV SCH ×3 (03:43→17:13)
[2017-07-07 05:19] LABS: HEMATOCRIT 27.3 % (42.0-52.0); HEMOGLOBIN 9.2 G/DL (14.2-18.0); MEAN CORPUSCULAR VOLUME 95 FL (80-99); PLATELET COUNT 73 K/UL (150-450); RED BLOOD COUNT 2.88 M/UL (4.70-6.10); RED CELL DISTRIBUTION WIDTH 14.7 % (11.6-14.8)
[2017-07-07 05:43] LABS: ALANINE AMINOTRANSFERASE 16 U/L (12-78); ALBUMIN 1.5 G/DL (3.4-5.0); ALBUMIN/GLOBULIN RATIO 0.5 (1.0-2.7); ALKALINE PHOSPHATASE 75 U/L (46-116); ANION GAP 12 mmol/L (5-15); ASPARTATE AMINO TRANSFERASE 17 U/L (15-37); BILIRUBIN,TOTAL 0.8 MG/DL (0.2-1.0); BLOOD UREA NITROGEN 80 mg/dL (7-18); CALCIUM 6.8 MG/DL (8.5-10.1); CARBON DIOXIDE 27 MMOL/L (21-32); CHLORIDE 101 MMOL/L (98-107); CREATININE 4.8 MG/DL (0.55-1.30); POTASSIUM 2.9 MMOL/L (3.5-5.1); SODIUM 140 MMOL/L (136-145)
[2017-07-07 06:38] LABS: PHOSPHORUS 3.3 MG/DL (2.5-4.9)
--- NOTE | 2017-07-07 07:43 | Pulmonolgy Critical Care Note ---
Critical Care - Asmt/Plan Assessment/Plan: ASSESSMENT Acute hypoxemic RF requiring intubation s/p self-extubation 07/07 Sepsis with shock HCAP UTI ARF on CKD, started on HD/ new start A fib with RVR NSTEMI COPD exacerbation DM anemia of chronic kidney disease lactic acidosis Cachexia with severe protein calorie malnutrition Mild pulmonary HTN mild to moderate MR Encephalopathy Sacrococcyx un-stageable pressure ulcer POA Multiple DTI POA PLAN OF CARE ICU status Off pressors titrate O2 to keep pulse ox above 92% pulmonary toilet fup with CXR and ABG in am converted to SR cardio follows per cardio NSTEMI 2 to A fib with RVR and sepsis ECHO with EF 55% and RVSP of 42 c/w mild pulmonary HTN, as well as evidence of mild to moderate MR abx ID follows blood cx negative , urine cx negative, influenza screen negative sputum cx negative , repeated GNB CT chest with bilateral patchy and nodular infiltrates R>L, most likely 2 to PNA HD catheter inserted by surgeon on 07/02 and patient was started on HD nephro follows monitor volumes, renal parameters, correct lytes as needed ,creat down to 4.8 Renal US with evidence of medical renal disease, no hydro gentle IVF - per nephro monitor HH, transfuse to keep Hgb above 7 On EPO BS management with SS insulin nutritional support and dietary recs Wound care as per wound nurse recs swallow eval in am and then if pass start diet as per ST recs closely monitor resp status will keep in ICU till am if stable on VM will transfer to [facility] case discussed and evaluated by supervising physician Critical Care - Objective Last 24 Hour Vital Signs Date Time Temp Pulse Resp B/P (MAP) Pulse Ox O2 Delivery O2 Flow Rate FiO2 07/07/17 07:00 104 19 150/98 96 Mechanical Ventilator 30 07/07/17 06:49 89 21 35 07/07/17 06:00 83 16 133/75 97 Mechanical Ventilator 30 07/07/17 05:26 87 17 30 07/07/17 05:00 85 16 130/75 97 Mechanical Ventilator 30 07/07/17 04:00 30 07/07/17 04:00 98.9 78 16 140/82 97 Mechanical Ventilator 30 98.9 07/07/17 04:00 75 07/07/17 03:41 78 16 30 07/07/17 03:00 78 16 140/82 97 Mechanical Ventilator 30 07/07/17 02:00 75 16 149/88 97 Mechanical Ventilator 30 07/07/17 01:07 72 16 30 07/07/17 01:00 72 16 141/81 97 Mechanical Ventilator 30 07/07/17 00:00 30 07/07/17 00:00 99.3 78 16 145/85 94 Mechanical Ventilator 30 99.3 07/07/17 00:00 78 07/06/17 23:24 81 17 30 07/06/17 23:00 80 16 145/85 95 Mechanical Ventilator 30 07/06/17 22:00 77 16 140/85 95 Mechanical Ventilator 30 07/06/17 21:23 79 17 30 07/06/17 21:01 81 152/90 07/06/17 21:00 76 16 128/79 95 Mechanical Ventilator 30 07/06/17 20:00 77 07/06/17 20:00 30 07/06/17 20:00 98.6 83 17 147/89 96 Mechanical Ventilator 30 98.6 07/06/17 19:38 Mechanical Ventilator 60.0 30 07/06/17 19:28 86 17 30 07/06/17 19:00 87 16 140/90 98 Mechanical Ventilator 30 07/06/17 18:00 82 16 134/89 98 Mechanical Ventilator 30 07/06/17 17:15 73 16 30 07/06/17 17:00 74 16 115/74 97 Mechanical Ventilator 30 07/06/17 16:45 123/80 07/06/17 16:30 Mechanical Ventilator 60.0 30 07/06/17 16:00 71 07/06/17 16:00 98.3 67 16 123/80 98 Mechanical Ventilator 30 98.3 07/06/17 16:00 30 07/06/17 16:00 Mechanical Ventilator 60.0 30 07/06/17 15:03 72 16 30 07/06/17 15:00 72 16 120/74 97 Mechanical Ventilator 30 07/06/17 14:00 76 17 126/76 98 Mechanical Ventilator 30 07/06/17 13:00 73 16 131/79 98 Mechanical Ventilator 30 07/06/17 12:45 76 15 30 07/06/17 12:00 72 07/06/17 12:00 98.4 76 17 131/81 98 Mechanical Ventilator 30 98.4 07/06/17 11:20 30 07/06/17 11:00 73 17 136/84 98 Mechanical Ventilator 30 07/06/17 10:30 30 07/06/17 10:30 72 11 30 07/06/17 10:23 97 07/06/17 10:00 74 16 146/87 97 Mechanical Ventilator 30 07/06/17 09:20 83 17 30 07/06/17 09:19 77 127/75 07/06/17 09:00 77 16 127/75 97 Mechanical Ventilator 30 07/06/17 08:00 98.5 74 16 132/77 97 Mechanical Ventilator 30 98.5 07/06/17 08:00 71 07/06/17 08:00 30 Objective: Status: awake, Condition: critical HEENT: atraumatic, normocephalic, VM 55% on Neck: L subclavian temporary HD catheter, intact Lungs: clear Heart: HR/BP stable, R PICC intact , Abdomen: active bowel sounds, Eric Extremities: no C/C/E Micro: Microbiology Date/Time Source Procedure Growth Status 07/06/17 06:00 Sputum Gram Stain - Final Resulted 07/06/17 06:00 Sputum Culture - Preliminary Gram Negative Bacillus 1 Resulted 07/04/17 15:20 Sputum Gram Stain - Final Complete 07/04/17 15:20 Sputum Sputum Culture - Final NORMAL UPPER RESPIRATORY SAL PRESENT Complete Accucheck: 156 Critical Care - Subjective ROS Limited/Unobtainable: Yes Interval Events: leukocytosis trending down, afebrile self extubated this am along with OP tube removal initially on 100% NRM ABG stable no signs of resp distress downgraded to VM Condition: critical IV Access: PICC - RUE intact EKG Rhythm: Sinus Rhythm FI02: 55 Vent Support Mode: CPAP Fluids: NS at 50 I&O: Intake and Output 07/06/17 07/07/17 19:00 07:00 Intake Total 1210 ml 1380 ml Output Total 115 ml 1190 ml Balance 1095 ml 190 ml Free Water 80 ml IV Total 710 ml 820 ml Tube Feeding 420 ml 480 ml Other 80 ml Output Urine Total 115 ml 90 ml Hemodialysis UF 1100 ml CXR: 07/06 Right PICC line, endotracheal tube and nasogastric tube are unchanged. Perihilar and basilar airspace opacities are again noted, right greater than left. ET-Tube: 8.0 ET Position: 28 [place] ([facility]),Felisha AQUINO Jul 07, 2017 07:43
[2017-07-07] MEDS ORDERED: Vancomycin 750mg/NS 250ml IVPB ONE (08:00)
[2017-07-07] MEDS: Morphine Sulfate 2mg/ml Inj IVP PRN ×2 (08:14→19:01)
[2017-07-07] MEDS: Cosopt Opth Soln 10 mL Btl RIGHT EYE SCH ×2 (08:14→18:07)
[2017-07-07] MEDS: Pantoprazole Inj IVP SCH ×2 (08:29→21:51)
[2017-07-07] MEDS: Heparin 5000 units/ml inj SUBQ SCH ×2 (09:00→21:56)
[2017-07-07] MEDS ORDERED: Potassium Chloride 40 MEQ in Sodium Chloride 500ML 550 ML IVPB ONE (09:00)
[2017-07-07] MEDS: Metoprolol 25mg tab NG SCH ×2 (09:52→21:52)
--- NOTE | 2017-07-07 09:54 | Nephrology Progress Note ---
Assessment/Plan Problem List: (1) ARF (acute renal failure) (2) Acute respiratory failure with hypoxemia (3) Hyperkalemia (4) Cachexia Assessment Acute renal failure- on dialysis ? CKD Acute respiratory failure, Pneumonia Hypotension- Shock, Sepsis Cachexia Plan self extubated 07/07 last HD 07/06 watch renal parameters off pressors pulm support benavides echo 55% EjFx K supplement HD in am again costa Bilateral echogenic kidneys, consistent with medical renal disease discussed with RN in dept cxr Extensive bilateral infiltrates and pleural effusions, slightly increased on the left Subjective ROS Limited/Unobtainable: No Objective Objective Last 24 Hour Vital Signs Date Time Temp Pulse Resp B/P (MAP) Pulse Ox O2 Delivery O2 Flow Rate FiO2 07/07/17 09:15 96 Venturi Mask 14.0 55 07/07/17 07:25 100 Non-Rebreather 15.0 100 07/07/17 07:20 Non-Rebreather 15.0 100 07/07/17 07:20 Non-Rebreather 15.0 100 07/07/17 07:00 104 19 150/98 96 Mechanical Ventilator 30 07/07/17 06:49 89 21 35 07/07/17 06:00 83 16 133/75 97 Mechanical Ventilator 30 07/07/17 05:26 87 17 30 07/07/17 05:00 85 16 130/75 97 Mechanical Ventilator 30 07/07/17 04:00 30 07/07/17 04:00 98.9 78 16 140/82 97 Mechanical Ventilator 30 98.9 07/07/17 04:00 75 07/07/17 03:41 78 16 30 07/07/17 03:00 78 16 140/82 97 Mechanical Ventilator 30 07/07/17 02:00 75 16 149/88 97 Mechanical Ventilator 30 07/07/17 01:07 72 16 30 07/07/17 01:00 72 16 141/81 97 Mechanical Ventilator 30 07/07/17 00:00 30 07/07/17 00:00 99.3 78 16 145/85 94 Mechanical Ventilator 30 99.3 07/07/17 00:00 78 07/06/17 23:24 81 17 30 07/06/17 23:00 80 16 145/85 95 Mechanical Ventilator 30 07/06/17 22:00 77 16 140/85 95 Mechanical Ventilator 30 07/06/17 21:23 79 17 30 07/06/17 21:01 81 152/90 07/06/17 21:00 76 16 128/79 95 Mechanical Ventilator 30 07/06/17 20:00 77 07/06/17 20:00 30 07/06/17 20:00 98.6 83 17 147/89 96 Mechanical Ventilator 30 98.6 07/06/17 19:38 Mechanical Ventilator 60.0 30 07/06/17 19:28 86 17 30 07/06/17 19:00 87 16 140/90 98 Mechanical Ventilator 30 07/06/17 18:00 82 16 134/89 98 Mechanical Ventilator 30 07/06/17 17:15 73 16 30 07/06/17 17:00 74 16 115/74 97 Mechanical Ventilator 30 07/06/17 16:45 123/80 07/06/17 16:30 Mechanical Ventilator 60.0 30 07/06/17 16:00 71 07/06/17 16:00 98.3 67 16 123/80 98 Mechanical Ventilator 30 98.3 07/06/17 16:00 30 07/06/17 16:00 Mechanical Ventilator 60.0 30 07/06/17 15:03 72 16 30 07/06/17 15:00 72 16 120/74 97 Mechanical Ventilator 30 07/06/17 14:00 76 17 126/76 98 Mechanical Ventilator 30 07/06/17 13:00 73 16 131/79 98 Mechanical Ventilator 30 07/06/17 12:45 76 15 30 07/06/17 12:00 72 07/06/17 12:00 98.4 76 17 131/81 98 Mechanical Ventilator 30 98.4 07/06/17 11:20 30 07/06/17 11:00 73 17 136/84 98 Mechanical Ventilator 30 07/06/17 10:30 30 07/06/17 10:30 72 11 30 07/06/17 10:23 97 07/06/17 10:00 74 16 146/87 97 Mechanical Ventilator 30 Intake and Output 07/06/17 07/07/17 19:00 07:00 Intake Total 1210 ml 1380 ml Output Total 115 ml 1190 ml Balance 1095 ml 190 ml Free Water 80 ml IV Total 710 ml 820 ml Tube Feeding 420 ml 480 ml Other 80 ml Output Urine Total 115 ml 90 ml Hemodialysis UF 1100 ml Laboratory Tests 07/06/17 12:35: Arterial Blood pH 7.470H, Arterial Blood Partial Pressure CO2 32.6L, Arterial Blood Partial Pressure O2 100.6H, Arterial Blood HCO3 23.5, Arterial Blood Oxygen Saturation 96.5, Arterial Blood Base Excess 0.3, Ricardo Test Positive 07/07/17 05:00: White Blood Count 11.0H, Red Blood Count 2.88L, Hemoglobin 9.2L, Hematocrit 27.3L, Mean Corpuscular Volume 95, Mean Corpuscular Hemoglobin 31.8H, Mean Corpuscular Hemoglobin Concent 33.6, Red Cell Distribution Width 14.7, Platelet Count 73L, Mean Platelet Volume 9.0, Neutrophils (%) (Auto) , Lymphocytes (%) ( Auto) , Monocytes (%) (Auto) , Eosinophils (%) (Auto) , Basophils (%) (Auto) , Differential Total Cells Counted 100, Neutrophils % (Manual) 87H, Lymphocytes % (Manual) 8L, Monocytes % (Manual) 5, Eosinophils % (Manual) 0, Basophils % ( Manual) 0, Band Neutrophils 0, Platelet Estimate DecreasedL, Platelet Morphology Normal, Hypochromasia 1+, Anisocytosis 1+, Sodium Level 140, Potassium Level 2.9L, Chloride Level 101, Carbon Dioxide Level 27, Anion Gap 12 , Blood Urea Nitrogen 80H, Creatinine 4.8H, Estimat Glomerular Filtration Rate 12.5, Glucose Level 156#H, Uric Acid 4.8, Calcium Level 6.8L, Phosphorus Level 3.3, Magnesium Level 1.6L, Total Bilirubin 0.8, Aspartate Amino Transf (AST/SGOT ) 17, Alanine Aminotransferase (ALT/SGPT) 16, Alkaline Phosphatase 75, Pro-B- Type Natriuretic Peptide > 86391M, Total Protein 4.5L, Albumin 1.5L, Globulin 3.0, Albumin/Globulin Ratio 0.5L, Random Vancomycin Level 19.8, Coccidioides Antibody (Comp Fix) [Pending], Cryptococcus Antigen [Pending] 07/07/17 08:00: Arterial Blood pH 7.428, Arterial Blood Partial Pressure CO2 32.8L, Arterial Blood Partial Pressure O2 110.1H, Arterial Blood HCO3 20.8L, Arterial Blood Oxygen Saturation 97.5, Arterial Blood Base Excess -3.0, Ricardo Test Positive Height (Feet): 5 Height (Inches): 11.00 Weight (Pounds): 159 General Appearance: no apparent distress EENT: other - self extubated Respiratory/Chest: decreased breath sounds Abdomen: distended Objective no change JUSTIN HERNANDEZ Jul 07, 2017 09:54
--- NOTE | 2017-07-07 10:29 | Diagnostic Imaging Report ---
Indication: Shortness of breath Technique: XRAY Chest 1v Comparison: 07/06/2017 Findings: Right PICC line is present. Endotracheal and nasogastric tubes are longer seen. A left subclavian dialysis catheter is again noted. Cardiomediastinal silhouette is stable. Bibasilar airspace infiltrates are again seen, right greater than left. Impression: Interval extubation and nasogastric tube removal. Otherwise stable chest.
[2017-07-07] MEDS ORDERED: NS 275ml ONE ×2 (10:39→10:57)
[2017-07-07] MEDS ORDERED: Sterile Water Irrig 1000ml IRRIG ONE (10:57)
[2017-07-07] MEDS ORDERED: Tubing IV Secondary IV ONE (10:58)
--- NOTE | 2017-07-07 13:26 | Internal Med Progress Note ---
Subjective Date of Service: Jul 07, 2017 Physician Name Wesley Champagne Attending Physician Jonathan Garcia MD Current Medications Medications (Trade) Dose Ordered Sig/Sameera Route PRN Reason Start Time Stop Time Status Last Admin Dose Admin Acetaminophen (Tylenol) 650 mg Q4H PRN ORAL fever (temp>100.5F) 07/01/17 16:00 07/31/17 15:59 Albuterol/ Ipratropium (Albuterol/ Ipratropium) 3 ml Q4H PRN HHN dyspnea 07/06/17 10:30 07/11/17 10:29 Chlorhexidine Gluconate (Sindy-Hex 2%) 1 applic DAILY@2000 TOPIC 07/01/17 20:00 07/31/17 19:59 07/06/17 20:08 Dextrose (Dextrose 50%) STAT PRN IV Hypoglycemia 07/03/17 11:45 08/02/17 11:44 Dorzolamide/ Timolol (Cosopt) 1 drop BID RIGHT EYE 07/01/17 18:00 07/31/17 09:59 07/07/17 08:14 Epoetin Kobe (Procrit (for non ESRD use)) 10,000 units MON-WED-FRI SUBQ 07/03/17 21:00 08/02/17 20:59 07/05/17 21:04 Heparin Sodium (Porcine) (Heparin 5000 units/ml) 5,000 units EVERY 12 HOURS SUBQ 07/01/17 21:00 07/31/17 09:59 07/06/17 21:02 Insulin Aspart (NovoLOG) EVERY 4 HOURS SUBQ 07/03/17 17:00 08/02/17 16:59 07/07/17 12:58 Lorazepam (Ativan 2mg/ml 1ml) 2 mg Q4H PRN IV For Anxiety 07/06/17 10:30 07/13/17 10:29 Metoprolol Tartrate (Lopressor) 25 mg Q12HR NG 07/04/17 21:00 08/03/17 20:59 07/07/17 09:52 Morphine Sulfate (Morphine Sulfate) 2 mg Q4H PRN IVP Moderate Pain (Pain Scale 4-6) 07/06/17 10:30 07/13/17 10:29 07/07/17 08:14 Morphine Sulfate (Morphine Sulfate) 4 mg Q4H PRN IVP Severe Pain (Pain Scale 7-10) 07/06/17 10:30 07/13/17 10:29 Nitroglycerin (Ntg) 0.4 mg Q5M X 3 DOSES PRN SL Prn Chest Pain 07/01/17 16:00 07/31/17 15:59 Ondansetron HCl (Zofran) 4 mg Q6H PRN IVP Nausea & Vomiting 07/01/17 16:00 07/31/17 15:59 07/03/17 23:37 Pantoprazole (Protonix) 40 mg EVERY 12 HOURS IVP 07/01/17 16:45 07/31/17 16:44 07/07/17 08:29 Piperacillin Sod/ Tazobactam Sod 2.25 gm/Sodium Chloride 110 ml @ 220 mls/hr Q8HR@0200,1000,1800 IV 07/06/17 18:00 07/13/17 17:59 07/07/17 10:00 Promethazine HCl/ Codeine (Phenergan with Codeine) 5 ml Q6H PRN ORAL cough 07/01/17 19:30 07/31/17 07:29 Sevelamer Carbonate (Renvela) 1,600 mg Q6HR NG 07/03/17 12:00 08/02/17 11:59 07/07/17 12:55 Sodium Chloride 1,000 ml @ 50 mls/hr Q20H IV 07/03/17 12:00 08/02/17 11:59 07/06/17 20:08 Temazepam (Restoril) 15 mg HSPRN PRN ORAL Insomnia 07/07/17 10:15 07/14/17 10:15 Vancomycin HCl (Vanco rx to dose) 1 ea DAILYPRN PRN MISC Per rx protocol 07/02/17 16:15 08/01/17 16:14 Allergies: Coded Allergies: No Known Allergies (Unverified , 07/01/17) ROS Limited/Unobtainable: Yes Subjective 62 YO M admitted with respiratory failure now pneumona. Cover for Int Greg-Dr Garcia. Extubated earlier today; tolerating venturi mask. ICU Objective Last Vital Signs Date Time Temp Pulse Resp B/P (MAP) Pulse Ox O2 Delivery O2 Flow Rate FiO2 07/07/17 12:00 81 15 148/87 98 Venturi Mask 55 07/07/17 09:15 14.0 07/07/17 08:00 98.6 98.6 Laboratory Tests Test 07/07/17 05:00 07/07/17 08:00 White Blood Count 11.0 K/UL (4.8-10.8) H Red Blood Count 2.88 M/UL (4.70-6.10) L Hemoglobin 9.2 G/DL (14.2-18.0) L Hematocrit 27.3 % (42.0-52.0) L Mean Corpuscular Volume 95 FL (80-99) Mean Corpuscular Hemoglobin 31.8 PG (27.0-31.0) H Mean Corpuscular Hemoglobin Concent 33.6 G/DL (32.0-36.0) Red Cell Distribution Width 14.7 % (11.6-14.8) Platelet Count 73 K/UL (150-450) L Mean Platelet Volume 9.0 FL (6.5-10.1) Neutrophils (%) (Auto) % (45.0-75.0) Lymphocytes (%) (Auto) % (20.0-45.0) Monocytes (%) (Auto) % (1.0-10.0) Eosinophils (%) (Auto) % (0.0-3.0) Basophils (%) (Auto) % (0.0-2.0) Differential Total Cells Counted 100 Neutrophils % (Manual) 87 % (45-75) H Lymphocytes % (Manual) 8 % (20-45) L Monocytes % (Manual) 5 % (1-10) Eosinophils % (Manual) 0 % (0-3) Basophils % (Manual) 0 % (0-2) Band Neutrophils 0 % (0-8) Platelet Estimate Decreased L Platelet Morphology Normal Hypochromasia 1+ Anisocytosis 1+ Sodium Level 140 MMOL/L (136-145) Potassium Level 2.9 MMOL/L (3.5-5.1) L Chloride Level 101 MMOL/L (98-107) Carbon Dioxide Level 27 MMOL/L (21-32) Anion Gap 12 mmol/L (5-15) Blood Urea Nitrogen 80 mg/dL (7-18) H Creatinine 4.8 MG/DL (0.55-1.30) H Estimat Glomerular Filtration Rate 12.5 mL/min (>60) Glucose Level 156 MG/DL (74-106) #H Uric Acid 4.8 MG/DL (2.6-7.2) Calcium Level 6.8 MG/DL (8.5-10.1) L Phosphorus Level 3.3 MG/DL (2.5-4.9) Magnesium Level 1.6 MG/DL (1.8-2.4) L Total Bilirubin 0.8 MG/DL (0.2-1.0) Aspartate Amino Transf (AST/SGOT) 17 U/L (15-37) Alanine Aminotransferase (ALT/SGPT) 16 U/L (12-78) Alkaline Phosphatase 75 U/L (46-116) Pro-B-Type Natriuretic Peptide > 01634 pg/mL (0-125) H Total Protein 4.5 G/DL (6.4-8.2) L Albumin 1.5 G/DL (3.4-5.0) L Globulin 3.0 g/dL Albumin/Globulin Ratio 0.5 (1.0-2.7) L Random Vancomycin Level 19.8 ug/mL Coccidioides Antibody (Comp Fix) Pending Cryptococcus Antigen Pending Arterial Blood pH 7.428 (7.350-7.450) Arterial Blood Partial Pressure CO2 32.8 mmHg (35.0-45.0) L Arterial Blood Partial Pressure O2 110.1 mmHg (75.0-100.0) H Arterial Blood HCO3 20.8 mmol/L (22.0-26.0) L Arterial Blood Oxygen Saturation 97.5 % (92.0-98.0) Arterial Blood Base Excess -3.0 Ricardo Test Positive Microbiology Date/Time Source Procedure Growth Status 07/06/17 06:00 Sputum Gram Stain - Final Resulted 07/06/17 06:00 Sputum Culture - Preliminary Gram Negative Bacillus 1 Resulted 07/04/17 15:20 Sputum Gram Stain - Final Complete 07/04/17 15:20 Sputum Sputum Culture - Final NORMAL UPPER RESPIRATORY SAL PRESENT Complete Intake and Output 07/06/17 07/07/17 19:00 07:00 Intake Total 1210 ml 1380 ml Output Total 115 ml 1190 ml Balance 1095 ml 190 ml Free Water 80 ml IV Total 710 ml 820 ml Tube Feeding 420 ml 480 ml Other 80 ml Output Urine Total 115 ml 90 ml Hemodialysis UF 1100 ml Objective General Appearance: lethargic, thin EENT: PERRL/EOMI, normal ENT inspection Neck: non-tender, normal alignment, supple Cardiovascular: normal peripheral pulses, normal rate, regular rhythm, no gallop/murmur, no JVD Respiratory/Chest: Venturi mask; chest wall non-tender, lungs coarse breath sounds bilaterally, Wheezes bilaterally, respiratory distress, no accessory muscle use Abdomen: normal bowel sounds, non tender, soft, no organomegaly, no mass Extremities: normal range of motion, non-tender 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 (5) Acute respiratory failure with hypoxemia Assessment & Plan: Extubated 07/07/17-see pulmonary note (6) ARF (acute renal failure) Assessment & Plan: S/P hemodialysis 07/04/17. Next 07/06/17. See nephrology note. (7) Anemia Assessment & Plan: S/P Transfusion 1 unit packed red blood cells 07/03/17 (8) Healthcare-associated pneumonia Assessment & Plan: Continue zosyn and vanco-see ID note. (9) Atrial fibrillation with rapid ventricular response Assessment & Plan: S/P digoxin. See cardiology note. (10) Septic shock Assessment & Plan: continue levophed. Status: progressing WESLEY CHAMPAGNE Jul 07, 2017 13:26
[2017-07-07] MEDS: Dyna-Hex 2% Top Sol 2oz TOPIC SCH (21:50)
[2017-07-08] VITALS (14 sets, daily range): BP systolic 132–158; BP diastolic 48–88
[2017-07-08] MEDS: NovoLOG Insulin Flexpen SUBQ SCH ×6 (01:00→21:00)
[2017-07-08] MEDS: Piperacillin/Tazobactam 2.25 GM in NS 110 ML IV SCH ×2 (02:03→09:58)
[2017-07-08] MEDS: Renvela 800mg Pkt NG SCH ×4 (04:42→23:47)
[2017-07-08] MEDS: Morphine Sulfate 2mg/ml Inj IVP PRN ×3 (05:36→17:02)
[2017-07-08 05:55] LABS: HEMATOCRIT 29.1 % (42.0-52.0); HEMOGLOBIN 9.7 G/DL (14.2-18.0); MEAN CORPUSCULAR VOLUME 95 FL (80-99); PLATELET COUNT 89 K/UL (150-450); RED BLOOD COUNT 3.06 M/UL (4.70-6.10); RED CELL DISTRIBUTION WIDTH 14.8 % (11.6-14.8); WHITE BLOOD COUNT 12.9 K/UL (4.8-10.8)
[2017-07-08 06:17] LABS: ALANINE AMINOTRANSFERASE 12 U/L (12-78); ALBUMIN 1.5 G/DL (3.4-5.0); ALBUMIN/GLOBULIN RATIO 0.5 (1.0-2.7); ALKALINE PHOSPHATASE 71 U/L (46-116); ANION GAP 14 mmol/L (5-15); ASPARTATE AMINO TRANSFERASE 14 U/L (15-37); BILIRUBIN,TOTAL 0.8 MG/DL (0.2-1.0); BLOOD UREA NITROGEN 98 mg/dL (7-18); CALCIUM 6.6 MG/DL (8.5-10.1); CARBON DIOXIDE 25 MMOL/L (21-32); CHLORIDE 105 MMOL/L (98-107); CREATININE 6.1 MG/DL (0.55-1.30); PHOSPHORUS 5.1 MG/DL (2.5-4.9); POTASSIUM 3.4 MMOL/L (3.5-5.1); SODIUM 144 MMOL/L (136-145)
--- NOTE | 2017-07-08 07:42 | Pulmonolgy Critical Care Note ---
Critical Care - Asmt/Plan Problems: (1) Healthcare-associated pneumonia (2) Acute respiratory failure with hypoxemia (3) ARF (acute renal failure) (4) CHF (congestive heart failure) (5) Pneumonia (6) Diabetes mellitus type II, uncontrolled (7) Sepsis (8) Septic shock Respiratory: adjust FIO2 - Titrate down FiO2 to keep SaO2 > 90@, CXR, ABG, other - Add DUOnebs q6WA and CPT, frequent suctioning, optimize pulmonary hygiene/mobilize as tolerated Cardiac: continue to monitor HR/BP Renal: F/U I&O, check electrolytes, other - F/U renal recs Infectious Disease: continue antibiotics - per ID Gastrointestinal: other - [employer] eval, then advance diet Endocrine: monitor blood sugar Hematologic: monitor H/H Neurologic: keep patient comfortable Prophylaxis: Heparin - SQ held for low platelts, will continue to monitor, check duplex then place SCD's Time Spent (Minutes): 30 Notes Reviewed: ship 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, renal, ID Discussed with: nurses, consultants Critical Care - Objective Last 24 Hour Vital Signs Date Time Temp Pulse Resp B/P (MAP) Pulse Ox O2 Delivery O2 Flow Rate FiO2 07/08/17 07:00 83 18 149/85 97 Venturi Mask 55 07/08/17 06:10 98.8 07/08/17 06:00 84 14 158/48 97 Venturi Mask 55 07/08/17 05:00 75 12 132/81 97 Venturi Mask 55 07/08/17 04:00 76 12 135/84 98 Venturi Mask 55 07/08/17 04:00 76 07/08/17 03:00 75 12 132/81 97 Venturi Mask 55 07/08/17 02:00 74 14 141/86 97 Venturi Mask 55 07/08/17 01:00 73 13 157/73 98 Venturi Mask 55 07/08/17 00:00 73 07/08/17 00:00 73 13 139/81 98 Venturi Mask 55 07/07/17 23:00 73 13 139/80 99 Venturi Mask 55 07/07/17 22:41 97.7 07/07/17 22:41 97.7 07/07/17 22:00 83 17 149/81 99 Venturi Mask 55 07/07/17 21:52 77 143/81 07/07/17 21:00 76 17 143/81 99 Venturi Mask 55 07/07/17 20:00 97.9 74 17 132/75 98 Venturi Mask 55 97.9 07/07/17 20:00 97 Venturi Mask 14.0 55 07/07/17 20:00 74 07/07/17 20:00 Venturi Mask 14.0 55 07/07/17 19:00 75 17 132/75 95 Venturi Mask 55 07/07/17 18:00 78 17 144/77 96 Venturi Mask 55 07/07/17 17:00 77 17 137/77 96 Venturi Mask 55 07/07/17 16:00 76 07/07/17 16:00 99.1 76 16 143/76 99 Venturi Mask 55 99.1 07/07/17 15:00 76 15 144/81 96 Venturi Mask 55 07/07/17 14:00 81 15 155/79 98 Venturi Mask 55 07/07/17 13:00 98.8 79 15 135/80 97 Venturi Mask 55 98.8 07/07/17 12:00 81 15 148/87 98 Venturi Mask 55 07/07/17 12:00 81 07/07/17 11:00 83 18 141/79 98 Venturi Mask 55 07/07/17 10:09 55 07/07/17 10:00 83 18 159/89 98 Venturi Mask 55 07/07/17 09:52 84 135/80 07/07/17 09:15 96 Venturi Mask 14.0 55 07/07/17 09:00 91 18 135/80 98 Venturi Mask 55 07/07/17 08:00 98.6 99 19 152/82 96 Non-Rebreather 100 98.6 07/07/17 08:00 83 Status: awake Condition: improving HEENT: atraumatic, normocephalic Lungs: rhonchi Heart: HR/BP stable Abdomen: soft, non-tender, active bowel sounds Extremities: no C/C/E, other - RUE PICC, L SC alfredo Micro: Microbiology Date/Time Source Procedure Growth Status 07/06/17 06:00 Sputum Gram Stain - Final Resulted 07/06/17 06:00 Sputum Culture - Preliminary Gram Negative Bacillus 1 Resulted Accucheck: 87 Blood Sugars: BS controlled Critical Care - Subjective ROS Limited/Unobtainable: Yes ICU Day: 8 Intubation Day: N/A Interval Events: Self extubated Condition: improving IV Access: PICC EKG Rhythm: Sinus Rhythm FI02: 55 Vent Support Mode: CPAP Fluids: NS@50 I&O: Intake and Output 07/07/17 07/08/17 19:00 07:00 Intake Total 1923.334 ml 710 ml Output Total 135 ml 55 ml Balance 1788.334 ml 655 ml IV Total 1923.334 ml 710 ml Output Urine Total 135 ml 55 ml Subjective: + weak cough, having hard time mobilizing, no F/C, no SOB CXR: Extensive R > L LL consolidations ET-Tube: 8.0 ET Position: 28 Labs: Laboratory Tests Test 07/07/17 08:00 07/08/17 05:00 Arterial Blood pH 7.428 (7.350-7.450) Arterial Blood Partial Pressure CO2 32.8 mmHg (35.0-45.0) L Arterial Blood Partial Pressure O2 110.1 mmHg (75.0-100.0) H Arterial Blood HCO3 20.8 mmol/L (22.0-26.0) L Arterial Blood Oxygen Saturation 97.5 % (92.0-98.0) Arterial Blood Base Excess -3.0 Ricardo Test Positive White Blood Count 12.9 K/UL (4.8-10.8) H Red Blood Count 3.06 M/UL (4.70-6.10) L Hemoglobin 9.7 G/DL (14.2-18.0) L Hematocrit 29.1 % (42.0-52.0) L Mean Corpuscular Volume 95 FL (80-99) Mean Corpuscular Hemoglobin 31.7 PG (27.0-31.0) H Mean Corpuscular Hemoglobin Concent 33.4 G/DL (32.0-36.0) Red Cell Distribution Width 14.8 % (11.6-14.8) Platelet Count 89 K/UL (150-450) L Mean Platelet Volume 10.7 FL (6.5-10.1) H Neutrophils (%) (Auto) % (45.0-75.0) Lymphocytes (%) (Auto) % (20.0-45.0) Monocytes (%) (Auto) % (1.0-10.0) Eosinophils (%) (Auto) % (0.0-3.0) Basophils (%) (Auto) % (0.0-2.0) Neutrophils % (Manual) Pending Lymphocytes % (Manual) Pending Platelet Estimate Pending Platelet Morphology Pending Sodium Level 144 MMOL/L (136-145) Potassium Level 3.4 MMOL/L (3.5-5.1) L Chloride Level 105 MMOL/L (98-107) Carbon Dioxide Level 25 MMOL/L (21-32) Anion Gap 14 mmol/L (5-15) Blood Urea Nitrogen 98 mg/dL (7-18) H Creatinine 6.1 MG/DL (0.55-1.30) H Estimat Glomerular Filtration Rate 9.5 mL/min (>60) Glucose Level 64 MG/DL (74-106) L Uric Acid 5.9 MG/DL (2.6-7.2) Calcium Level 6.6 MG/DL (8.5-10.1) L Phosphorus Level 5.1 MG/DL (2.5-4.9) H Magnesium Level 2.5 MG/DL (1.8-2.4) H Total Bilirubin 0.8 MG/DL (0.2-1.0) Aspartate Amino Transf (AST/SGOT) 14 U/L (15-37) L Alanine Aminotransferase (ALT/SGPT) 12 U/L (12-78) Alkaline Phosphatase 71 U/L (46-116) C-Reactive Protein, Quantitative 14.8 mg/dL (0.00-0.90) H Pro-B-Type Natriuretic Peptide > 33194 pg/mL (0-125) H Total Protein 4.5 G/DL (6.4-8.2) L Albumin 1.5 G/DL (3.4-5.0) L Globulin 3.0 g/dL Albumin/Globulin Ratio 0.5 (1.0-2.7) L MITESH MENDOZA M.D. Jul 08, 2017 07:42
[2017-07-08] MEDS ORDERED: Acetylcysteine 20% Soln 4ml HHN SCH (09:00)
[2017-07-08] MEDS: Heparin 5000 units/ml inj SUBQ SCH (09:00)
[2017-07-08] MEDS: Pantoprazole Inj IVP SCH ×2 (09:58→23:44)
[2017-07-08] MEDS: Metoprolol 25mg tab NG SCH ×2 (09:59→21:00)
[2017-07-08] MEDS: Cosopt Opth Soln 10 mL Btl RIGHT EYE SCH ×2 (10:00→17:04)
--- NOTE | 2017-07-08 10:45 | Infectious Diseases Prog Note ---
Assessment/Plan Assessment/Plan Assessment: Septic Shock, SP- likely 2ry to PNA, r/o bacteremia -CT chest 07/05: There is extensive consolidation of most of the right lower lobe. Less extensive nodular and groundglass opacities are seen in the right middle lobe and to a slight extent in the inferior right upper lobe. Fairly extensive nodular and and patchy airspace opacities are seen throughout the left lower lobe. Similar opacities are seen in the left lower lobe, predominately inferiorly. There is a small right pleural effusion. There is trace left pleural fluid. No definite interstitial edema. -CXR 07/05: Slight improvement of still extensive bilateral basilar consolidation, over one day -influenza sc neg -sp cx not collected; re-ordered 07/04: GNB (id and sensin pendig) -u/a no pyuria; ucx NTD -Bcx NTD VDRF; extubated 07/07 COPD exacerbation Afebrile Leukocytosis- multifactorial- reactive component, infection and steroids; improving Seizure episode 07/02 Acute renal failure, HD started 07/02 Hyperkalemia Anion gap acidosis DM depression cachexia [facility]pc resident muscle wasting/generalized weakness encephalopathy Plan: -Continue empiric Zosyn #7/10-14 pending sp culture (improving on current regimen) -07/06 SP IV Vancomycin #5 -07/01 SP Cefepime, Levaquin x1 -if decompensation, switch Zosyn to Meropenem and given one time dose of Amikacin -f/u cx -fungal serologies -Monitor CBC/BMP, temperatures -Aspiration precautions Subjective Allergies: Coded Allergies: No Known Allergies (Unverified , 07/01/17) Subjective afebrile leukocytosis overall improved extubated yesterday Objective Vital Signs Last 24 Hour Vital Signs Date Time Temp Pulse Resp B/P (MAP) Pulse Ox O2 Delivery O2 Flow Rate FiO2 07/08/17 09:59 81 129/75 07/08/17 09:00 82 18 143/85 99 Venturi Mask 55 07/08/17 08:00 97.8 71 17 136/78 99 Venturi Mask 55 97.8 07/08/17 08:00 114 07/08/17 07:40 98 Venturi Mask 14.0 55 07/08/17 07:40 Venturi Mask 14.0 55 07/08/17 07:00 83 18 149/85 97 Venturi Mask 55 07/08/17 06:10 98.8 07/08/17 06:00 84 14 158/48 97 Venturi Mask 55 07/08/17 05:00 75 12 132/81 97 Venturi Mask 55 07/08/17 04:00 76 12 135/84 98 Venturi Mask 55 07/08/17 04:00 76 07/08/17 03:00 75 12 132/81 97 Venturi Mask 55 07/08/17 02:00 74 14 141/86 97 Venturi Mask 55 07/08/17 01:00 73 13 157/73 98 Venturi Mask 55 07/08/17 00:00 73 07/08/17 00:00 73 13 139/81 98 Venturi Mask 55 07/07/17 23:00 73 13 139/80 99 Venturi Mask 55 07/07/17 22:41 97.7 07/07/17 22:41 97.7 07/07/17 22:00 83 17 149/81 99 Venturi Mask 55 07/07/17 21:52 77 143/81 07/07/17 21:00 76 17 143/81 99 Venturi Mask 55 07/07/17 20:00 97.9 74 17 132/75 98 Venturi Mask 55 97.9 07/07/17 20:00 97 Venturi Mask 14.0 55 07/07/17 20:00 74 07/07/17 20:00 Venturi Mask 14.0 55 07/07/17 19:00 75 17 132/75 95 Venturi Mask 55 07/07/17 18:00 78 17 144/77 96 Venturi Mask 55 07/07/17 17:00 77 17 137/77 96 Venturi Mask 55 07/07/17 16:00 76 07/07/17 16:00 99.1 76 16 143/76 99 Venturi Mask 55 99.1 07/07/17 15:00 76 15 144/81 96 Venturi Mask 55 07/07/17 14:00 81 15 155/79 98 Venturi Mask 55 07/07/17 13:00 98.8 79 15 135/80 97 Venturi Mask 55 98.8 07/07/17 12:00 81 15 148/87 98 Venturi Mask 55 07/07/17 12:00 81 07/07/17 11:00 83 18 141/79 98 Venturi Mask 55 Height (Feet): 5 Height (Inches): 11.00 Weight (Pounds): 168 Objective General Appearance: cachetic Lines, tubes and drains: peripheral HEENT: normocephalic, atraumatic Neck: non-tender, normal alignment Respiratory/Chest: chest wall non-tender, rhonchi - left, rhonchi - right Cardiovascular/Chest: normal peripheral pulses, normal rate Abdomen: normal bowel sounds Genitourinary/Rectal: normal genital exam Extremities: normal range of motion Microbiology Date/Time Source Procedure Growth Status 07/06/17 06:00 Sputum Gram Stain - Final Resulted 07/06/17 06:00 Sputum Culture - Preliminary Gram Negative Bacillus 1 Resulted Laboratory Tests Test 07/08/17 05:00 07/08/17 09:15 White Blood Count 12.9 K/UL (4.8-10.8) H Red Blood Count 3.06 M/UL (4.70-6.10) L Hemoglobin 9.7 G/DL (14.2-18.0) L Hematocrit 29.1 % (42.0-52.0) L Mean Corpuscular Volume 95 FL (80-99) Mean Corpuscular Hemoglobin 31.7 PG (27.0-31.0) H Mean Corpuscular Hemoglobin Concent 33.4 G/DL (32.0-36.0) Red Cell Distribution Width 14.8 % (11.6-14.8) Platelet Count 89 K/UL (150-450) L Mean Platelet Volume 10.7 FL (6.5-10.1) H Neutrophils (%) (Auto) % (45.0-75.0) Lymphocytes (%) (Auto) % (20.0-45.0) Monocytes (%) (Auto) % (1.0-10.0) Eosinophils (%) (Auto) % (0.0-3.0) Basophils (%) (Auto) % (0.0-2.0) Differential Total Cells Counted 100 Neutrophils % (Manual) 91 % (45-75) H Lymphocytes % (Manual) 6 % (20-45) L Monocytes % (Manual) 1 % (1-10) Eosinophils % (Manual) 2 % (0-3) Basophils % (Manual) 0 % (0-2) Band Neutrophils 0 % (0-8) Platelet Estimate Decreased L Platelet Morphology Normal Polychromasia 1+ Anisocytosis 1+ Sodium Level 144 MMOL/L (136-145) Potassium Level 3.4 MMOL/L (3.5-5.1) L Chloride Level 105 MMOL/L (98-107) Carbon Dioxide Level 25 MMOL/L (21-32) Anion Gap 14 mmol/L (5-15) Blood Urea Nitrogen 98 mg/dL (7-18) H Creatinine 6.1 MG/DL (0.55-1.30) H Estimat Glomerular Filtration Rate 9.5 mL/min (>60) Glucose Level 64 MG/DL (74-106) L Uric Acid 5.9 MG/DL (2.6-7.2) Calcium Level 6.6 MG/DL (8.5-10.1) L Phosphorus Level 5.1 MG/DL (2.5-4.9) H Magnesium Level 2.5 MG/DL (1.8-2.4) H Total Bilirubin 0.8 MG/DL (0.2-1.0) Aspartate Amino Transf (AST/SGOT) 14 U/L (15-37) L Alanine Aminotransferase (ALT/SGPT) 12 U/L (12-78) Alkaline Phosphatase 71 U/L (46-116) C-Reactive Protein, Quantitative 14.8 mg/dL (0.00-0.90) H Pro-B-Type Natriuretic Peptide > 57283 pg/mL (0-125) H Total Protein 4.5 G/DL (6.4-8.2) L Albumin 1.5 G/DL (3.4-5.0) L Globulin 3.0 g/dL Albumin/Globulin Ratio 0.5 (1.0-2.7) L Arterial Blood pH 7.349 (7.350-7.450) Arterial Blood Partial Pressure CO2 34.7 mmHg (35.0-45.0) L Arterial Blood Partial Pressure O2 89.0 mmHg (75.0-100.0) Arterial Blood HCO3 18.7 mmol/L (22.0-26.0) L Arterial Blood Oxygen Saturation 95.7 % (92.0-98.0) Arterial Blood Base Excess -6.2 Ricardo Test Positive Current Medications Medications (Trade) Dose Ordered Sig/Sameera Route PRN Reason Start Time Stop Time Status Last Admin Dose Admin Acetaminophen (Tylenol) 650 mg Q4H PRN ORAL fever (temp>100.5F) 07/01/17 16:00 07/31/17 15:59 Acetylcysteine (Mucomyst) 200 mg BID HHN 07/08/17 09:00 08/07/17 08:59 Albuterol/ Ipratropium (Albuterol/ Ipratropium) 3 ml Q4H PRN HHN dyspnea 07/06/17 10:30 07/11/17 10:29 Albuterol/ Ipratropium (Albuterol/ Ipratropium) 3 ml Q6HRT HHN 07/08/17 13:00 07/13/17 12:59 Chlorhexidine Gluconate (Sindy-Hex 2%) 1 applic DAILY@2000 TOPIC 07/01/17 20:00 07/31/17 19:59 07/07/17 21:50 Dextrose (Dextrose 50%) STAT PRN IV Hypoglycemia 07/03/17 11:45 08/02/17 11:44 Dorzolamide/ Timolol (Cosopt) 1 drop BID RIGHT EYE 07/01/17 18:00 07/31/17 09:59 07/08/17 10:00 Epoetin Kobe (Procrit (for non ESRD use)) 10,000 units SAT-SAT-SAT SUBQ 07/03/17 21:00 08/02/17 20:59 07/05/17 21:04 Heparin Sodium (Porcine) (Heparin 5000 units/ml) 5,000 units EVERY 12 HOURS SUBQ 07/01/17 21:00 07/31/17 09:59 07/06/17 21:02 Insulin Aspart (NovoLOG) EVERY 4 HOURS SUBQ 07/03/17 17:00 08/02/17 16:59 07/08/17 10:05 Lorazepam (Ativan 2mg/ml 1ml) 2 mg Q4H PRN IV For Anxiety 07/06/17 10:30 07/13/17 10:29 Metoprolol Tartrate (Lopressor) 25 mg Q12HR NG 07/04/17 21:00 08/03/17 20:59 07/08/17 09:59 Morphine Sulfate (Morphine Sulfate) 2 mg Q4H PRN IVP Moderate Pain (Pain Scale 4-6) 07/06/17 10:30 07/13/17 10:29 07/08/17 10:22 Morphine Sulfate (Morphine Sulfate) 4 mg Q4H PRN IVP Severe Pain (Pain Scale 7-10) 07/06/17 10:30 07/13/17 10:29 07/07/17 22:41 Nitroglycerin (Ntg) 0.4 mg Q5M X 3 DOSES PRN SL Prn Chest Pain 07/01/17 16:00 07/31/17 15:59 Ondansetron HCl (Zofran) 4 mg Q6H PRN IVP Nausea & Vomiting 07/01/17 16:00 07/31/17 15:59 07/03/17 23:37 Pantoprazole (Protonix) 40 mg EVERY 12 HOURS IVP 07/01/17 16:45 07/31/17 16:44 07/08/17 09:58 Piperacillin Sod/ Tazobactam Sod 2.25 gm/Sodium Chloride 110 ml @ 220 mls/hr Q8HR@0200,1000,1800 IV 07/06/17 18:00 07/13/17 17:59 07/08/17 09:58 Promethazine HCl/ Codeine (Phenergan with Codeine) 5 ml Q6H PRN ORAL cough 07/01/17 19:30 07/31/17 07:29 Sevelamer Carbonate (Renvela) 1,600 mg Q6HR NG 07/03/17 12:00 08/02/17 11:59 07/07/17 22:11 Temazepam (Restoril) 15 mg HSPRN PRN ORAL Insomnia 07/07/17 10:15 07/14/17 10:15 Vancomycin HCl (Vanco rx to dose) 1 ea DAILYPRN PRN MISC Per rx protocol 07/02/17 16:15 08/01/17 16:14 Page West M.D. Jul 08, 2017 10:45
--- NOTE | 2017-07-08 10:47 | Diagnostic Imaging Report ---
Indication: Shortness of breath Technique: One view of the chest Comparison: 07/07/2017 Findings: There is increased pleural fluid bilaterally. Parenchymal infiltrates at both lung bases persist. Left subclavian temporary dialysis catheter, right arm PICC remain. The heart is enlarged.. Impression: New or increased bilateral pleural effusions, over one day Other stable findings as described
[2017-07-08] MEDS ORDERED: Nitroglycerin Subl 0.4mg tab SL PRN (11:45)
[2017-07-08] MEDS ORDERED: Albuterol/Ipratropium 3ml neb HHN SCH (13:00)
[2017-07-08] MEDS ORDERED: Albuterol/Ipratropium 3ml neb HHN PRN (13:14)
[2017-07-08] MEDS ORDERED: LORazepam Inj 2mg/ml 1ml IV PRN (13:16)
[2017-07-08] MEDS ORDERED: Morphine Sulfate 4mg/ml Inj IVP PRN (13:17)
[2017-07-08] MEDS ORDERED: Promethazine/Codeine 5ml UD ORAL PRN (13:30)
[2017-07-08] MEDS: Albuterol/Ipratropium 3ml neb HHN SCH ×2 (13:45→20:27)
--- NOTE | 2017-07-08 15:10 | Nephrology Progress Note ---
Assessment/Plan Problem List: (1) ARF (acute renal failure) (2) Acute respiratory failure with hypoxemia (3) Hyperkalemia (4) Cachexia Assessment Acute renal failure- on dialysis ? CKD Acute respiratory failure, Pneumonia Hypotension- Shock, Sepsis Cachexia Plan self extubated 07/07 last HD 07/06 next 07/09 watch renal parameters off pressors pulm support benavides echo 55% EjFx K supplement HD in am again costa Bilateral echogenic kidneys, consistent with medical renal disease discussed with RN in dept cxr Extensive bilateral infiltrates and pleural effusions, slightly increased on the left Subjective ROS Limited/Unobtainable: No Constitutional: Reports: malaise Objective Objective Last 24 Hour Vital Signs Date Time Temp Pulse Resp B/P (MAP) Pulse Ox O2 Delivery O2 Flow Rate FiO2 07/08/17 13:54 78 22 92 Venturi Mask 14.0 55 07/08/17 13:45 75 18 90 Venturi Mask 10.0 45 07/08/17 10:48 Venturi Mask 10.0 45 07/08/17 10:48 Venturi Mask 10.0 45 07/08/17 09:59 81 129/75 07/08/17 09:00 82 18 143/85 99 Venturi Mask 55 07/08/17 08:00 97.8 71 17 136/78 99 Venturi Mask 55 97.8 07/08/17 08:00 114 07/08/17 07:40 98 Venturi Mask 14.0 55 07/08/17 07:40 Venturi Mask 14.0 55 07/08/17 07:00 83 18 149/85 97 Venturi Mask 55 07/08/17 06:10 98.8 07/08/17 06:00 84 14 158/48 97 Venturi Mask 55 07/08/17 05:00 75 12 132/81 97 Venturi Mask 55 07/08/17 04:00 76 12 135/84 98 Venturi Mask 55 07/08/17 04:00 76 07/08/17 03:00 75 12 132/81 97 Venturi Mask 55 07/08/17 02:00 74 14 141/86 97 Venturi Mask 55 07/08/17 01:00 73 13 157/73 98 Venturi Mask 55 07/08/17 00:00 73 07/08/17 00:00 73 13 139/81 98 Venturi Mask 55 07/07/17 23:00 73 13 139/80 99 Venturi Mask 55 07/07/17 22:41 97.7 07/07/17 22:41 97.7 07/07/17 22:00 83 17 149/81 99 Venturi Mask 55 07/07/17 21:52 77 143/81 07/07/17 21:00 76 17 143/81 99 Venturi Mask 55 07/07/17 20:00 97.9 74 17 132/75 98 Venturi Mask 55 97.9 07/07/17 20:00 97 Venturi Mask 14.0 55 07/07/17 20:00 74 07/07/17 20:00 Venturi Mask 14.0 55 07/07/17 19:00 75 17 132/75 95 Venturi Mask 55 07/07/17 18:00 78 17 144/77 96 Venturi Mask 55 07/07/17 17:00 77 17 137/77 96 Venturi Mask 55 07/07/17 16:00 76 07/07/17 16:00 99.1 76 16 143/76 99 Venturi Mask 55 99.1 Intake and Output 07/07/17 07/08/17 19:00 07:00 Intake Total 1923.334 ml 710 ml Output Total 135 ml 55 ml Balance 1788.334 ml 655 ml IV Total 1923.334 ml 710 ml Output Urine Total 135 ml 55 ml Laboratory Tests 07/08/17 05:00: White Blood Count 12.9H, Red Blood Count 3.06L, Hemoglobin 9.7L, Hematocrit 29.1L, Mean Corpuscular Volume 95, Mean Corpuscular Hemoglobin 31.7H, Mean Corpuscular Hemoglobin Concent 33.4, Red Cell Distribution Width 14.8, Platelet Count 89L, Mean Platelet Volume 10.7H, Neutrophils (%) (Auto) , Lymphocytes (%) (Auto) , Monocytes (%) (Auto) , Eosinophils (%) (Auto) , Basophils (%) (Auto) , Differential Total Cells Counted 100, Neutrophils % (Manual) 91H, Lymphocytes % (Manual) 6L, Monocytes % (Manual) 1, Eosinophils % (Manual) 2, Basophils % ( Manual) 0, Band Neutrophils 0, Platelet Estimate DecreasedL, Platelet Morphology Normal, Polychromasia 1+, Anisocytosis 1+, Sodium Level 144, Potassium Level 3.4L, Chloride Level 105, Carbon Dioxide Level 25, Anion Gap 14 , Blood Urea Nitrogen 98H, Creatinine 6.1H, Estimat Glomerular Filtration Rate 9.5, Glucose Level 64L, Uric Acid 5.9, Calcium Level 6.6L, Phosphorus Level 5.1H , Magnesium Level 2.5H, Total Bilirubin 0.8, Aspartate Amino Transf (AST/SGOT) 14L, Alanine Aminotransferase (ALT/SGPT) 12, Alkaline Phosphatase 71, C- Reactive Protein, Quantitative 14.8H, Pro-B-Type Natriuretic Peptide > 10193A, Total Protein 4.5L, Albumin 1.5L, Globulin 3.0, Albumin/Globulin Ratio 0.5L 07/08/17 09:15: Arterial Blood pH 7.349L, Arterial Blood Partial Pressure CO2 34.7L, Arterial Blood Partial Pressure O2 89.0, Arterial Blood HCO3 18.7L, Arterial Blood Oxygen Saturation 95.7, Arterial Blood Base Excess -6.2, Ricardo Test Positive Height (Feet): 5 Height (Inches): 11.00 Weight (Pounds): 168 General Appearance: no apparent distress Cardiovascular: normal rate Respiratory/Chest: decreased breath sounds Abdomen: soft, distended Objective no change JUSTIN HERNANDEZ Jul 08, 2017 15:10
--- NOTE | 2017-07-08 16:56 | Cardiac Electrophysiology PN ---
Assessment/Plan Assessment/Plan 1. Atrial fibrillation with rapid ventricular response. Converted to SR. On Lopressor 25 mg po bid. 2. NSTEMI troponin peak 3.36. Down to 1.28. Due to sepsis and fib with RVR. On Betablocker 3. Elevated BNP of more than 150,000 due to volume overload. Better on hemodialysis. 4. S/P Respiratory failure. Extubated 5. S/P Septic shock, on IV antibiotic per ID. 6. Anemia due to renal failure. 7. Hyperkalemia due to renal failure. 8. ARF. Now on HD DW RN Subjective Subjective Extubated and transferred to SDU.No arrhythmias on tele. RN at bedside. Objective Last 24 Hour Vital Signs Date Time Temp Pulse Resp B/P (MAP) Pulse Ox O2 Delivery O2 Flow Rate FiO2 07/08/17 13:54 78 22 92 Venturi Mask 14.0 55 07/08/17 13:45 75 18 90 Venturi Mask 10.0 45 07/08/17 12:00 97.7 71 20 145/88 91 Venturi Mask 55 97.7 07/08/17 12:00 73 07/08/17 10:48 Venturi Mask 10.0 45 07/08/17 10:48 Venturi Mask 10.0 45 07/08/17 09:59 81 129/75 07/08/17 09:00 82 18 143/85 99 Venturi Mask 55 07/08/17 08:00 97.8 71 17 136/78 99 Venturi Mask 55 97.8 07/08/17 08:00 114 07/08/17 07:40 98 Venturi Mask 14.0 55 07/08/17 07:40 Venturi Mask 14.0 55 07/08/17 07:00 83 18 149/85 97 Venturi Mask 55 07/08/17 06:10 98.8 07/08/17 06:00 84 14 158/48 97 Venturi Mask 55 07/08/17 05:00 75 12 132/81 97 Venturi Mask 55 07/08/17 04:00 76 12 135/84 98 Venturi Mask 55 07/08/17 04:00 76 07/08/17 03:00 75 12 132/81 97 Venturi Mask 55 07/08/17 02:00 74 14 141/86 97 Venturi Mask 55 07/08/17 01:00 73 13 157/73 98 Venturi Mask 55 07/08/17 00:00 73 07/08/17 00:00 73 13 139/81 98 Venturi Mask 55 07/07/17 23:00 73 13 139/80 99 Venturi Mask 55 07/07/17 22:41 97.7 07/07/17 22:41 97.7 07/07/17 22:00 83 17 149/81 99 Venturi Mask 55 07/07/17 21:52 77 143/81 07/07/17 21:00 76 17 143/81 99 Venturi Mask 55 07/07/17 20:00 97.9 74 17 132/75 98 Venturi Mask 55 97.9 07/07/17 20:00 97 Venturi Mask 14.0 55 07/07/17 20:00 74 07/07/17 20:00 Venturi Mask 14.0 55 07/07/17 19:00 75 17 132/75 95 Venturi Mask 55 07/07/17 18:00 78 17 144/77 96 Venturi Mask 55 07/07/17 17:00 77 17 137/77 96 Venturi Mask 55 Intake and Output 07/07/17 07/08/17 19:00 07:00 Intake Total 1923.334 ml 710 ml Output Total 135 ml 55 ml Balance 1788.334 ml 655 ml IV Total 1923.334 ml 710 ml Output Urine Total 135 ml 55 ml Laboratory Tests Test 07/08/17 05:00 07/08/17 09:15 White Blood Count 12.9 K/UL (4.8-10.8) H Red Blood Count 3.06 M/UL (4.70-6.10) L Hemoglobin 9.7 G/DL (14.2-18.0) L Hematocrit 29.1 % (42.0-52.0) L Mean Corpuscular Volume 95 FL (80-99) Mean Corpuscular Hemoglobin 31.7 PG (27.0-31.0) H Mean Corpuscular Hemoglobin Concent 33.4 G/DL (32.0-36.0) Red Cell Distribution Width 14.8 % (11.6-14.8) Platelet Count 89 K/UL (150-450) L Mean Platelet Volume 10.7 FL (6.5-10.1) H Neutrophils (%) (Auto) % (45.0-75.0) Lymphocytes (%) (Auto) % (20.0-45.0) Monocytes (%) (Auto) % (1.0-10.0) Eosinophils (%) (Auto) % (0.0-3.0) Basophils (%) (Auto) % (0.0-2.0) Differential Total Cells Counted 100 Neutrophils % (Manual) 91 % (45-75) H Lymphocytes % (Manual) 6 % (20-45) L Monocytes % (Manual) 1 % (1-10) Eosinophils % (Manual) 2 % (0-3) Basophils % (Manual) 0 % (0-2) Band Neutrophils 0 % (0-8) Platelet Estimate Decreased L Platelet Morphology Normal Polychromasia 1+ Anisocytosis 1+ Sodium Level 144 MMOL/L (136-145) Potassium Level 3.4 MMOL/L (3.5-5.1) L Chloride Level 105 MMOL/L (98-107) Carbon Dioxide Level 25 MMOL/L (21-32) Anion Gap 14 mmol/L (5-15) Blood Urea Nitrogen 98 mg/dL (7-18) H Creatinine 6.1 MG/DL (0.55-1.30) H Estimat Glomerular Filtration Rate 9.5 mL/min (>60) Glucose Level 64 MG/DL (74-106) L Uric Acid 5.9 MG/DL (2.6-7.2) Calcium Level 6.6 MG/DL (8.5-10.1) L Phosphorus Level 5.1 MG/DL (2.5-4.9) H Magnesium Level 2.5 MG/DL (1.8-2.4) H Total Bilirubin 0.8 MG/DL (0.2-1.0) Aspartate Amino Transf (AST/SGOT) 14 U/L (15-37) L Alanine Aminotransferase (ALT/SGPT) 12 U/L (12-78) Alkaline Phosphatase 71 U/L (46-116) C-Reactive Protein, Quantitative 14.8 mg/dL (0.00-0.90) H Pro-B-Type Natriuretic Peptide > 51056 pg/mL (0-125) H Total Protein 4.5 G/DL (6.4-8.2) L Albumin 1.5 G/DL (3.4-5.0) L Globulin 3.0 g/dL Albumin/Globulin Ratio 0.5 (1.0-2.7) L Arterial Blood pH 7.349 (7.350-7.450) Arterial Blood Partial Pressure CO2 34.7 mmHg (35.0-45.0) L Arterial Blood Partial Pressure O2 89.0 mmHg (75.0-100.0) Arterial Blood HCO3 18.7 mmol/L (22.0-26.0) L Arterial Blood Oxygen Saturation 95.7 % (92.0-98.0) Arterial Blood Base Excess -6.2 Ricardo Test Positive Microbiology Date/Time Source Procedure Growth Status 07/06/17 06:00 Sputum Gram Stain - Final Resulted 07/06/17 06:00 Sputum Culture - Preliminary Gram Negative Bacillus 1 Resulted Objective HEAD AND NECK: No JVD. LUNGS: Coarse rhonchi. Jose left subclavian CARDIOVASCULAR: In SR. S1 and S2 with no gallop or murmur. ABDOMEN: Soft. EXTREMITIES: No pitting edema. Luke Charles MD Jul 08, 2017 16:56
--- NOTE | 2017-07-08 17:46 | Internal Med Progress Note ---
Subjective Date of Service: Jul 08, 2017 Physician Name Wesley Champagne Attending Physician Jonathan Garcia MD Current Medications Medications (Trade) Dose Ordered Sig/Sameera Route PRN Reason Start Time Stop Time Status Last Admin Dose Admin Acetaminophen (Tylenol) 650 mg Q4H PRN ORAL fever (temp>100.5F) 07/08/17 12:00 07/31/17 15:59 Acetylcysteine (Mucomyst) 200 mg BIDRT HHN 07/08/17 22:00 08/07/17 21:59 Albuterol/ Ipratropium (Albuterol/ Ipratropium) 3 ml Q4H PRN HHN dyspnea 07/08/17 13:14 07/11/17 13:13 Albuterol/ Ipratropium (Albuterol/ Ipratropium) 3 ml Q6HRT HHN 07/08/17 13:00 07/13/17 12:59 07/08/17 13:45 Chlorhexidine Gluconate (Sindy-Hex 2%) 1 applic DAILY@2000 TOPIC 07/08/17 20:00 07/31/17 19:59 Dextrose (Dextrose 50%) STAT PRN IV Hypoglycemia 07/08/17 11:45 08/02/17 11:44 Dorzolamide/ Timolol (Cosopt) 1 drop BID RIGHT EYE 07/08/17 18:00 07/31/17 09:59 07/08/17 17:04 Epoetin Kobe (Procrit (for non ESRD use)) 7,500 units SAT-WED-SAT SUBQ 07/08/17 21:00 08/07/17 20:59 Heparin Sodium (Porcine) (Heparin 5000 units/ml) 5,000 units EVERY 12 HOURS SUBQ 07/08/17 21:00 07/31/17 09:59 Future Hold Insulin Aspart (NovoLOG) EVERY 4 HOURS SUBQ 07/08/17 13:00 08/02/17 16:59 Lorazepam (Ativan 2mg/ml 1ml) 2 mg Q4H PRN IV For Anxiety 07/08/17 13:16 07/13/17 13:15 Metoprolol Tartrate (Lopressor) 25 mg Q12HR NG 07/08/17 21:00 08/03/17 20:59 Morphine Sulfate (Morphine Sulfate) 2 mg Q4H PRN IVP Moderate Pain (Pain Scale 4-6) 07/08/17 13:17 07/13/17 13:16 07/08/17 17:02 Morphine Sulfate (Morphine Sulfate) 4 mg Q4H PRN IVP Severe Pain (Pain Scale 7-10) 07/08/17 13:17 07/13/17 13:16 Nitroglycerin (Ntg) 0.4 mg Q5M X 3 DOSES PRN SL Prn Chest Pain 07/08/17 11:45 07/31/17 15:59 Ondansetron HCl (Zofran) 4 mg Q6H PRN IVP Nausea & Vomiting 07/08/17 13:17 07/31/17 13:16 Pantoprazole (Protonix) 40 mg EVERY 12 HOURS IVP 07/08/17 21:00 07/31/17 16:44 Piperacillin Sod/ Tazobactam Sod 2.25 gm/Sodium Chloride 110 ml @ 220 mls/hr Q8HR@0200,1000,1800 IV 07/08/17 18:00 07/13/17 17:59 07/08/17 17:04 Promethazine HCl/ Codeine (Phenergan with Codeine) 5 ml Q6H PRN ORAL cough 07/08/17 13:30 07/31/17 07:29 Sevelamer Carbonate (Renvela) 1,600 mg Q6HR NG 07/08/17 12:00 08/02/17 11:59 Temazepam (Restoril) 15 mg HSPRN PRN ORAL Insomnia 07/08/17 13:21 07/15/17 13:20 Vancomycin HCl (Vanco rx to dose) 1 ea DAILYPRN PRN MISC Per rx protocol 07/08/17 13:21 08/01/17 13:20 Allergies: Coded Allergies: No Known Allergies (Unverified , 07/01/17) ROS Limited/Unobtainable: Yes Subjective 62 YO M admitted with respiratory failure now pneumona. Cover for Int Greg-Dr Garcia. Extubated 07/07/16; tolerating venturi mask. ICU Objective Last Vital Signs Date Time Temp Pulse Resp B/P (MAP) Pulse Ox O2 Delivery O2 Flow Rate FiO2 07/08/17 16:00 97.6 69 20 137/76 94 Venturi Mask 45 97.6 07/08/17 13:54 14.0 Laboratory Tests Test 07/08/17 05:00 07/08/17 09:15 07/08/17 16:30 White Blood Count 12.9 K/UL (4.8-10.8) H Red Blood Count 3.06 M/UL (4.70-6.10) L Hemoglobin 9.7 G/DL (14.2-18.0) L Hematocrit 29.1 % (42.0-52.0) L Mean Corpuscular Volume 95 FL (80-99) Mean Corpuscular Hemoglobin 31.7 PG (27.0-31.0) H Mean Corpuscular Hemoglobin Concent 33.4 G/DL (32.0-36.0) Red Cell Distribution Width 14.8 % (11.6-14.8) Platelet Count 89 K/UL (150-450) L Mean Platelet Volume 10.7 FL (6.5-10.1) H Neutrophils (%) (Auto) % (45.0-75.0) Lymphocytes (%) (Auto) % (20.0-45.0) Monocytes (%) (Auto) % (1.0-10.0) Eosinophils (%) (Auto) % (0.0-3.0) Basophils (%) (Auto) % (0.0-2.0) Differential Total Cells Counted 100 Neutrophils % (Manual) 91 % (45-75) H Lymphocytes % (Manual) 6 % (20-45) L Monocytes % (Manual) 1 % (1-10) Eosinophils % (Manual) 2 % (0-3) Basophils % (Manual) 0 % (0-2) Band Neutrophils 0 % (0-8) Platelet Estimate Decreased L Platelet Morphology Normal Polychromasia 1+ Anisocytosis 1+ Sodium Level 144 MMOL/L (136-145) Potassium Level 3.4 MMOL/L (3.5-5.1) L Chloride Level 105 MMOL/L (98-107) Carbon Dioxide Level 25 MMOL/L (21-32) Anion Gap 14 mmol/L (5-15) Blood Urea Nitrogen 98 mg/dL (7-18) H Creatinine 6.1 MG/DL (0.55-1.30) H Estimat Glomerular Filtration Rate 9.5 mL/min (>60) Glucose Level 64 MG/DL (74-106) L Uric Acid 5.9 MG/DL (2.6-7.2) Calcium Level 6.6 MG/DL (8.5-10.1) L Phosphorus Level 5.1 MG/DL (2.5-4.9) H Magnesium Level 2.5 MG/DL (1.8-2.4) H Total Bilirubin 0.8 MG/DL (0.2-1.0) Aspartate Amino Transf (AST/SGOT) 14 U/L (15-37) L Alanine Aminotransferase (ALT/SGPT) 12 U/L (12-78) Alkaline Phosphatase 71 U/L (46-116) C-Reactive Protein, Quantitative 14.8 mg/dL (0.00-0.90) H Pro-B-Type Natriuretic Peptide > 88751 pg/mL (0-125) H Total Protein 4.5 G/DL (6.4-8.2) L Albumin 1.5 G/DL (3.4-5.0) L Globulin 3.0 g/dL Albumin/Globulin Ratio 0.5 (1.0-2.7) L Arterial Blood pH 7.349 (7.350-7.450) Arterial Blood Partial Pressure CO2 34.7 mmHg (35.0-45.0) L Arterial Blood Partial Pressure O2 89.0 mmHg (75.0-100.0) Arterial Blood HCO3 18.7 mmol/L (22.0-26.0) L Arterial Blood Oxygen Saturation 95.7 % (92.0-98.0) Arterial Blood Base Excess -6.2 Ricardo Test Positive Coccidioides Antibody (Comp Fix) Pending Microbiology Date/Time Source Procedure Growth Status 07/06/17 06:00 Sputum Gram Stain - Final Resulted 07/06/17 06:00 Sputum Culture - Preliminary Gram Negative Bacillus 1 Resulted Intake and Output 07/07/17 07/08/17 19:00 07:00 Intake Total 1923.334 ml 710 ml Output Total 135 ml 55 ml Balance 1788.334 ml 655 ml IV Total 1923.334 ml 710 ml Output Urine Total 135 ml 55 ml Objective General Appearance: lethargic, thin EENT: PERRL/EOMI, normal ENT inspection Neck: non-tender, normal alignment, supple Cardiovascular: normal peripheral pulses, normal rate, regular rhythm, no gallop/murmur, no JVD Respiratory/Chest: Venturi mask; chest wall non-tender, lungs coarse breath sounds bilaterally, Wheezes bilaterally, respiratory distress, no accessory muscle use Abdomen: normal bowel sounds, non tender, soft, no organomegaly, no mass Extremities: normal range of motion, non-tender Neurologic: inbound telemarketer II-XII grossly normal Skin: normal pigmentation, warm/dry Assessment/Plan Problem List: (1) GERD (gastroesophageal reflux disease) (2) Hypercholesteremia (3) Diabetes mellitus type II, uncontrolled (4) CHF (congestive heart failure) Assessment & Plan: See cardiology note. (5) Acute respiratory failure with hypoxemia Assessment & Plan: Extubated 07/07/17-see pulmonary note. Tolerating venturi mask (6) ARF (acute renal failure) Assessment & Plan: S/P hemodialysis 07/04/17. Next 07/06/17. See nephrology note. (7) Anemia Assessment & Plan: S/P Transfusion 1 unit packed red blood cells 07/03/17 (8) Healthcare-associated pneumonia Assessment & Plan: Continue zosyn and vanco-see ID note. (9) Atrial fibrillation with rapid ventricular response Assessment & Plan: S/P digoxin. See cardiology note. (10) Septic shock Assessment & Plan: continue levophed. Status: progressing CHAMPAGNEWESLEY Jul 08, 2017 17:46
[2017-07-08] MEDS ORDERED: Piperacillin/Tazobactam 2.25 GM in NS 110 ML IV SCH (18:00)
[2017-07-08] MEDS ORDERED: Epogen (for non ESRD use) SUBQ SCH (21:00)
[2017-07-08] MEDS: Acetylcysteine 20% Soln 4ml HHN SCH (22:00)
[2017-07-08] MEDS: Epogen (for non ESRD use) SUBQ SCH (23:43)
[2017-07-08] MEDS: Dyna-Hex 2% Top Sol 2oz TOPIC SCH (23:44)
[2017-07-09] VITALS (7 sets, daily range): BP systolic 96–137; BP diastolic 43–77
[2017-07-09] MEDS: Albuterol/Ipratropium 3ml neb HHN SCH ×4 (00:18→20:09)
[2017-07-09] MEDS: NovoLOG Insulin Flexpen SUBQ SCH ×6 (01:00→21:43)
[2017-07-09] MEDS: Renvela 800mg Pkt NG SCH (02:57)
[2017-07-09] MEDS: Piperacillin/Tazobactam 2.25 GM in D5W 110 ML IV SCH ×3 (03:09→18:00)
[2017-07-09 04:33] LABS: HEMOGLOBIN 9.8 G/DL (14.2-18.0); MEAN CORPUSCULAR VOLUME 99 FL (80-99); PLATELET COUNT 127 K/UL (150-450); RED BLOOD COUNT 3.04 M/UL (4.70-6.10); RED CELL DISTRIBUTION WIDTH 16.5 % (11.6-14.8); WHITE BLOOD COUNT 21.3 K/UL (4.8-10.8)
[2017-07-09 04:39] LABS: ANION GAP 25 mmol/L (5-15); BLOOD UREA NITROGEN 128 mg/dL (7-18); CALCIUM 6.8 MG/DL (8.5-10.1); CARBON DIOXIDE 16 MMOL/L (21-32); CHLORIDE 98 MMOL/L (98-107); CREATININE 7.6 MG/DL (0.55-1.30); POTASSIUM 4.7 MMOL/L (3.5-5.1); SODIUM 139 MMOL/L (136-145)
--- NOTE | 2017-07-09 07:31 | Pulmonology Progress Note ---
Assessment/Plan Assessment/Plan ASSESSMENT Acute hypoxemic RF requiring intubation s/p self-extubation 07/07 Sepsis with shock HCAP UTI ARF on CKD, started on HD/ new start A fib with RVR NSTEMI COPD exacerbation DM anemia of chronic kidney disease lactic acidosis Cachexia with severe protein calorie malnutrition Mild pulmonary HTN mild to moderate MR Encephalopathy dysphagia Sacrococcyx un-stageable pressure ulcer POA Multiple DTI POA PLAN OF CARE transferred to [facility] Off pressors, hemodynamically stable titrate O2 to keep pulse ox above 92% pulmonary toilet last CXR 07/08 increased bilateral pleural effusion fup with CXR in am VM up to 55% converted to SR cardio follows per cardio NSTEMI 2 to A fib with RVR and sepsis ECHO with EF 55% and RVSP of 42 c/w mild pulmonary HTN, as well as evidence of mild to moderate MR abx ID follows leuk with sharp trend up this am, afebrile ? aspirated, no diarrhea blood cx negative , urine cx negative, influenza screen negative sputum cx initially negative , repeated GNB CT chest with bilateral patchy and nodular infiltrates R>L, most likely 2 to PNA HD catheter inserted by surgeon on 07/02 and patient was started on HD nephro follows monitor volumes, renal parameters, correct lytes as needed Renal US with evidence of medical renal disease, no hydro gentle IVF - per nephro monitor HH, transfuse to keep Hgb above 7 On EPO BS management with SS insulin nutritional support and dietary recs Wound care as per wound nurse recs swallow eval 07/08 not passed, VSSE today NPO for now closely monitor resp status discussed with ST in lieu of resp distress and leucocytosis, will likely keep conservative treatment and after VSSE anticipate NGT feeding likely case discussed and evaluated by supervising physician Subjective Allergies: Coded Allergies: No Known Allergies (Unverified , 07/01/17) Subjective transferred to [facility] on VM leuk trending up, afebrile did not passed swallow eval 07/08 Objective Last 24 Hour Vital Signs Date Time Temp Pulse Resp B/P (MAP) Pulse Ox O2 Delivery O2 Flow Rate FiO2 07/09/17 04:00 79 07/09/17 04:00 79 20 131/72 99 Venturi Mask 45 07/09/17 00:26 79 18 97 Venturi Mask 14.0 55 07/09/17 00:18 78 18 95 Venturi Mask 14.0 55 07/09/17 00:00 78 07/09/17 00:00 97.7 79 20 106/57 98 Venturi Mask 45 97.7 07/08/17 23:18 Venturi Mask 07/08/17 21:00 72 134/76 07/08/17 21:00 Venturi Mask 07/08/17 20:31 Venturi Mask 14.0 55 07/08/17 20:30 95 Venturi Mask 14.0 55 07/08/17 20:29 72 18 95 Venturi Mask 14.0 55 07/08/17 20:20 72 20 95 Venturi Mask 14.0 55 07/08/17 20:00 72 07/08/17 20:00 97.2 72 24 134/76 99 Venturi Mask 45 97.2 07/08/17 16:00 97.6 69 20 137/76 94 Venturi Mask 45 97.6 07/08/17 16:00 72 07/08/17 13:54 78 22 92 Venturi Mask 14.0 55 07/08/17 13:45 75 18 90 Venturi Mask 10.0 45 07/08/17 12:00 97.7 71 20 145/88 91 Venturi Mask 55 97.7 07/08/17 12:00 73 07/08/17 10:48 Venturi Mask 10.0 45 07/08/17 10:48 Venturi Mask 10.0 45 07/08/17 09:59 81 129/75 07/08/17 09:00 82 18 143/85 99 Venturi Mask 55 07/08/17 08:00 97.8 71 17 136/78 99 Venturi Mask 55 97.8 07/08/17 08:00 114 07/08/17 07:40 98 Venturi Mask 14.0 55 07/08/17 07:40 Venturi Mask 14.0 55 Intake and Output 07/08/17 07/09/17 19:00 07:00 Intake Total 110 ml Output Total 295 ml Balance -295 ml 110 ml IV Total 110 ml Output Urine Total 295 ml Objective General: awake, responsive HEENT: atraumatic, normocephalic, VM 45% on Neck: L subclavian temporary HD catheter, intact Lungs: clear Heart: HR/BP stable, R PICC intact , Abdomen: active bowel sounds, Eric Extremities: no C/C/E Laboratory Tests 07/08/17 09:15: Arterial Blood pH 7.349L, Arterial Blood Partial Pressure CO2 34.7L, Arterial Blood Partial Pressure O2 89.0, Arterial Blood HCO3 18.7L, Arterial Blood Oxygen Saturation 95.7, Arterial Blood Base Excess -6.2, Ricardo Test Positive 07/08/17 16:30: Coccidioides Antibody (Comp Fix) [Pending] 07/09/17 04:15: White Blood Count 21.3#H, Red Blood Count 3.04L, Hemoglobin 9.8L, Hematocrit 30.0L, Mean Corpuscular Volume 99, Mean Corpuscular Hemoglobin 32.2H, Mean Corpuscular Hemoglobin Concent 32.5, Red Cell Distribution Width 16.5H, Platelet Count 127L, Mean Platelet Volume 9.0, Neutrophils (%) (Auto) , Lymphocytes (%) (Auto) , Monocytes (%) (Auto) , Eosinophils (%) (Auto) , Basophils (%) (Auto) , Neutrophils % (Manual) [Pending], Lymphocytes % (Manual) [Pending], Platelet Estimate [Pending], Platelet Morphology [Pending], Sodium Level 139, Potassium Level 4.7, Chloride Level 98, Carbon Dioxide Level 16L, Anion Gap 25H, Blood Urea Nitrogen 128H, Creatinine 7.6H, Estimat Glomerular Filtration Rate 7.3, Glucose Level 390#H, Calcium Level 6.8L, Random Vancomycin Level 21.5 Current Medications Medications (Trade) Dose Ordered Sig/Sameera Route PRN Reason Start Time Stop Time Status Last Admin Dose Admin Acetaminophen (Tylenol) 650 mg Q4H PRN ORAL fever (temp>100.5F) 07/08/17 12:00 07/31/17 15:59 Acetylcysteine (Mucomyst) 200 mg BIDRT HHN 07/08/17 22:00 08/07/17 21:59 Albuterol/ Ipratropium (Albuterol/ Ipratropium) 3 ml Q4H PRN HHN dyspnea 07/08/17 13:14 07/11/17 13:13 Albuterol/ Ipratropium (Albuterol/ Ipratropium) 3 ml Q6HRT HHN 07/08/17 13:00 07/13/17 12:59 3/27/18 00:18 Chlorhexidine Gluconate (Sindy-Hex 2%) 1 applic DAILY@2000 TOPIC 07/08/17 20:00 07/31/17 19:59 07/08/17 23:44 Dextrose (Dextrose 50%) STAT PRN IV Hypoglycemia 07/08/17 11:45 08/02/17 11:44 Dorzolamide/ Timolol (Cosopt) 1 drop BID RIGHT EYE 07/08/17 18:00 07/31/17 09:59 07/08/17 17:04 Epoetin Kobe (Procrit (for non ESRD use)) 7,500 units SAT-SAT-SAT SUBQ 07/08/17 21:00 08/07/17 20:59 07/08/17 23:43 Heparin Sodium (Porcine) (Heparin 5000 units/ml) 5,000 units EVERY 12 HOURS SUBQ 07/08/17 21:00 07/31/17 09:59 Future Hold Insulin Aspart (NovoLOG) EVERY 4 HOURS SUBQ 07/08/17 13:00 08/02/17 16:59 Lorazepam (Ativan 2mg/ml 1ml) 2 mg Q4H PRN IV For Anxiety 07/08/17 13:16 07/13/17 13:15 Metoprolol Tartrate (Lopressor) 25 mg Q12HR NG 07/08/17 21:00 08/03/17 20:59 Morphine Sulfate (Morphine Sulfate) 2 mg Q4H PRN IVP Moderate Pain (Pain Scale 4-6) 07/08/17 13:17 07/13/17 13:16 07/08/17 17:02 Morphine Sulfate (Morphine Sulfate) 4 mg Q4H PRN IVP Severe Pain (Pain Scale 7-10) 07/08/17 13:17 07/13/17 13:16 07/08/17 23:45 Nitroglycerin (Ntg) 0.4 mg Q5M X 3 DOSES PRN SL Prn Chest Pain 07/08/17 11:45 07/31/17 15:59 Ondansetron HCl (Zofran) 4 mg Q6H PRN IVP Nausea & Vomiting 07/08/17 13:17 07/31/17 13:16 Pantoprazole (Protonix) 40 mg EVERY 12 HOURS IVP 07/08/17 21:00 07/31/17 16:44 07/08/17 23:44 Piperacillin Sod/ Tazobactam Sod 2.25 gm/Dextrose 110 ml @ 220 mls/hr Q8HR@0200,1000,1800 IV 07/09/17 02:00 07/16/17 01:59 07/09/17 03:09 Promethazine HCl/ Codeine (Phenergan with Codeine) 5 ml Q6H PRN ORAL cough 07/08/17 13:30 07/31/17 07:29 Sevelamer Carbonate (Renvela) 1,600 mg Q6HR NG 07/08/17 12:00 08/02/17 11:59 Temazepam (Restoril) 15 mg HSPRN PRN ORAL Insomnia 07/08/17 13:21 07/15/17 13:20 Vancomycin HCl (Vanco rx to dose) 1 ea DAILYPRN PRN MISC Per rx protocol 07/08/17 13:21 08/01/17 13:20 Rubio (Travsharon)Felisha NP Jul 09, 2017 07:31
[2017-07-09] MEDS: Metoprolol 25mg tab NG SCH ×2 (09:00→21:00)
[2017-07-09] MEDS: Pantoprazole Inj IVP SCH ×2 (09:05→21:09)
[2017-07-09] MEDS: Morphine Sulfate 2mg/ml Inj IVP PRN (09:40)
[2017-07-09] MEDS: Acetylcysteine 20% Soln 4ml HHN SCH ×2 (10:01→20:09)
[2017-07-09] MEDS: Cosopt Opth Soln 10 mL Btl RIGHT EYE SCH ×2 (11:16→21:08)
--- NOTE | 2017-07-09 11:41 | Nephrology Progress Note ---
Assessment/Plan Problem List: (1) ARF (acute renal failure) (2) Acute respiratory failure with hypoxemia (3) Hyperkalemia (4) Cachexia Assessment Acute renal failure- on dialysis ? CKD Acute respiratory failure, Pneumonia Hypotension- Shock, Sepsis Cachexia Plan self extubated 07/07 last HD 07/06 next 07/09 watch renal parameters off pressors pulm support benavides echo 55% EjFx K supplement HD in am again costa Bilateral echogenic kidneys, consistent with medical renal disease discussed with RN in dept cxr Extensive bilateral infiltrates and pleural effusions, slightly increased on the left Subjective ROS Limited/Unobtainable: No Constitutional: Reports: malaise Objective Objective Last 24 Hour Vital Signs Date Time Temp Pulse Resp B/P (MAP) Pulse Ox O2 Delivery O2 Flow Rate FiO2 07/09/17 11:16 97.6 07/09/17 10:03 73 18 94 Venturi Mask 14.0 55 07/09/17 10:03 76 18 96 Venturi Mask 14.0 55 07/09/17 10:03 55 07/09/17 09:40 97.6 07/09/17 09:10 77 07/09/17 09:00 77 134/77 07/09/17 08:00 97.6 79 22 134/77 99 Venturi Mask 55 97.6 07/09/17 07:28 81 18 97 Venturi Mask 14.0 55 07/09/17 07:20 78 18 95 Venturi Mask 14.0 55 07/09/17 07:20 95 Venturi Mask 14.0 55 07/09/17 07:20 Venturi Mask 14.0 55 07/09/17 04:00 79 07/09/17 04:00 79 20 131/72 99 Venturi Mask 45 07/09/17 00:26 79 18 97 Venturi Mask 14.0 55 07/09/17 00:18 78 18 95 Venturi Mask 14.0 55 07/09/17 00:00 78 07/09/17 00:00 97.7 79 20 106/57 98 Venturi Mask 45 97.7 07/08/17 23:18 Venturi Mask 07/08/17 21:00 72 134/76 07/08/17 21:00 Venturi Mask 07/08/17 20:31 Venturi Mask 14.0 55 07/08/17 20:30 95 Venturi Mask 14.0 55 07/08/17 20:29 72 18 95 Venturi Mask 14.0 55 07/08/17 20:20 72 20 95 Venturi Mask 14.0 55 07/08/17 20:00 72 07/08/17 20:00 97.2 72 24 134/76 99 Venturi Mask 45 97.2 07/08/17 16:00 97.6 69 20 137/76 94 Venturi Mask 45 97.6 07/08/17 16:00 72 07/08/17 13:54 78 22 92 Venturi Mask 14.0 55 07/08/17 13:45 75 18 90 Venturi Mask 10.0 45 07/08/17 12:00 97.7 71 20 145/88 91 Venturi Mask 55 97.7 07/08/17 12:00 73 Intake and Output 07/08/17 07/09/17 19:00 07:00 Intake Total 110 ml Output Total 295 ml Balance -295 ml 110 ml IV Total 110 ml Output Urine Total 295 ml Laboratory Tests 07/08/17 16:30: Coccidioides Antibody (Comp Fix) [Pending] 07/09/17 04:15: White Blood Count 21.3#H, Red Blood Count 3.04L, Hemoglobin 9.8L, Hematocrit 30.0L, Mean Corpuscular Volume 99, Mean Corpuscular Hemoglobin 32.2H, Mean Corpuscular Hemoglobin Concent 32.5, Red Cell Distribution Width 16.5H, Platelet Count 127L, Mean Platelet Volume 9.0, Neutrophils (%) (Auto) , Lymphocytes (%) (Auto) , Monocytes (%) (Auto) , Eosinophils (%) (Auto) , Basophils (%) (Auto) , Differential Total Cells Counted 100, Neutrophils % ( Manual) 96H, Lymphocytes % (Manual) 2L, Monocytes % (Manual) 2, Eosinophils % ( Manual) 0, Basophils % (Manual) 0, Band Neutrophils 0, Platelet Estimate DecreasedL, Platelet Morphology Normal, Anisocytosis 1+, Macrocytosis 1+, Acanthocytes 1+, Sodium Level 139, Potassium Level 4.7, Chloride Level 98, Carbon Dioxide Level 16L, Anion Gap 25H, Blood Urea Nitrogen 128H, Creatinine 7.6H, Estimat Glomerular Filtration Rate 7.3, Glucose Level 390#H, Calcium Level 6.8L, Random Vancomycin Level 21.5 Height (Feet): 5 Height (Inches): 11.00 Weight (Pounds): 177 General Appearance: no apparent distress Respiratory/Chest: decreased breath sounds Abdomen: soft Objective no change JUSTIN HERNANDEZ 27, 2018 11:41
--- NOTE | 2017-07-09 12:18 | Infectious Diseases Prog Note ---
Assessment/Plan Assessment/Plan Assessment: Septic Shock, SP- likely 2ry to CRE PNA, -CXR 07/09: There is increased pleural fluid bilaterally. Parenchymal infiltrates at both lung bases persist -CT chest 07/05: There is extensive consolidation of most of the right lower lobe. Less extensive nodular and groundglass opacities are seen in the right middle lobe and to a slight extent in the inferior right upper lobe. Fairly extensive nodular and and patchy airspace opacities are seen throughout the left lower lobe. Similar opacities are seen in the left lower lobe, predominately inferiorly. There is a small right pleural effusion. There is trace left pleural fluid. No definite interstitial edema. -CXR 07/05: Slight improvement of still extensive bilateral basilar consolidation, over one day -influenza sc neg -sp cx not collected; re-ordered 07/04: CRE K.pna (S Colistin, Polmymixin B) -u/a no pyuria; ucx NTD -Bcx NTD VDRF; extubated 07/07 COPD exacerbation Afebrile Leukocytosis- multifactorial- reactive component, infection and steroids ( steroids dc 07/05); worsening- ?due to MDRO- r/o new infection, r/o cdiff Seizure episode 07/02 Acute renal failure, HD started 07/02 Hyperkalemia Anion gap acidosis DM depression cachexia [facility]pc resident muscle wasting/generalized weakness encephalopathy Plan: -Switch Zosyn #8 to IV Polymixin B (renally dose) and add INH Colistin for CRE PNA -d/c IV vanco #3 -07/06 SP IV Vancomycin #5 -07/01 SP Cefepime, Levaquin x1 -REpeat cultures, Cdiff. -f/u cx -f/u fungal serologies -Monitor CBC/BMP, temperatures -Aspiration precautions Subjective Allergies: Coded Allergies: No Known Allergies (Unverified , 07/01/17) Subjective afebrile on VM leukocytosis worsened Objective Vital Signs Last 24 Hour Vital Signs Date Time Temp Pulse Resp B/P (MAP) Pulse Ox O2 Delivery O2 Flow Rate FiO2 07/09/17 11:16 97.6 07/09/17 10:03 73 18 94 Venturi Mask 14.0 55 07/09/17 10:03 76 18 96 Venturi Mask 14.0 55 07/09/17 10:03 55 07/09/17 09:40 97.6 07/09/17 09:10 77 07/09/17 09:00 77 134/77 07/09/17 08:00 97.6 79 22 134/77 99 Venturi Mask 55 97.6 07/09/17 07:28 81 18 97 Venturi Mask 14.0 55 07/09/17 07:20 78 18 95 Venturi Mask 14.0 55 07/09/17 07:20 95 Venturi Mask 14.0 55 07/09/17 07:20 Venturi Mask 14.0 55 07/09/17 04:00 79 07/09/17 04:00 79 20 131/72 99 Venturi Mask 45 07/09/17 00:26 79 18 97 Venturi Mask 14.0 55 07/09/17 00:18 78 18 95 Venturi Mask 14.0 55 07/09/17 00:00 78 07/09/17 00:00 97.7 79 20 106/57 98 Venturi Mask 45 97.7 07/08/17 23:18 Venturi Mask 07/08/17 21:00 72 134/76 07/08/17 21:00 Venturi Mask 07/08/17 20:31 Venturi Mask 14.0 55 07/08/17 20:30 95 Venturi Mask 14.0 55 07/08/17 20:29 72 18 95 Venturi Mask 14.0 55 07/08/17 20:20 72 20 95 Venturi Mask 14.0 55 07/08/17 20:00 72 07/08/17 20:00 97.2 72 24 134/76 99 Venturi Mask 45 97.2 07/08/17 16:00 97.6 69 20 137/76 94 Venturi Mask 45 97.6 07/08/17 16:00 72 07/08/17 13:54 78 22 92 Venturi Mask 14.0 55 07/08/17 13:45 75 18 90 Venturi Mask 10.0 45 Height (Feet): 5 Height (Inches): 11.00 Weight (Pounds): 177 Objective General Appearance: cachetic Lines, tubes and drains: peripheral HEENT: normocephalic, atraumatic Neck: non-tender, normal alignment Respiratory/Chest: chest wall non-tender, rhonchi - left, rhonchi - right Cardiovascular/Chest: normal peripheral pulses, normal rate Abdomen: normal bowel sounds Genitourinary/Rectal: normal genital exam Extremities: normal range of motion Laboratory Tests Test 07/08/17 16:30 07/09/17 04:15 Coccidioides Antibody (Comp Fix) Pending White Blood Count 21.3 K/UL (4.8-10.8) #H Red Blood Count 3.04 M/UL (4.70-6.10) L Hemoglobin 9.8 G/DL (14.2-18.0) L Hematocrit 30.0 % (42.0-52.0) L Mean Corpuscular Volume 99 FL (80-99) Mean Corpuscular Hemoglobin 32.2 PG (27.0-31.0) H Mean Corpuscular Hemoglobin Concent 32.5 G/DL (32.0-36.0) Red Cell Distribution Width 16.5 % (11.6-14.8) H Platelet Count 127 K/UL (150-450) L Mean Platelet Volume 9.0 FL (6.5-10.1) Neutrophils (%) (Auto) % (45.0-75.0) Lymphocytes (%) (Auto) % (20.0-45.0) Monocytes (%) (Auto) % (1.0-10.0) Eosinophils (%) (Auto) % (0.0-3.0) Basophils (%) (Auto) % (0.0-2.0) Differential Total Cells Counted 100 Neutrophils % (Manual) 96 % (45-75) H Lymphocytes % (Manual) 2 % (20-45) L Monocytes % (Manual) 2 % (1-10) Eosinophils % (Manual) 0 % (0-3) Basophils % (Manual) 0 % (0-2) Band Neutrophils 0 % (0-8) Platelet Estimate Decreased L Platelet Morphology Normal Anisocytosis 1+ Macrocytosis 1+ Acanthocytes 1+ Sodium Level 139 MMOL/L (136-145) Potassium Level 4.7 MMOL/L (3.5-5.1) Chloride Level 98 MMOL/L (98-107) Carbon Dioxide Level 16 MMOL/L (21-32) L Anion Gap 25 mmol/L (5-15) H Blood Urea Nitrogen 128 mg/dL (7-18) H Creatinine 7.6 MG/DL (0.55-1.30) H Estimat Glomerular Filtration Rate 7.3 mL/min (>60) Glucose Level 390 MG/DL (74-106) #H Calcium Level 6.8 MG/DL (8.5-10.1) L Random Vancomycin Level 21.5 ug/mL Current Medications Medications (Trade) Dose Ordered Sig/Sameera Route PRN Reason Start Time Stop Time Status Last Admin Dose Admin Acetaminophen (Tylenol) 650 mg Q4H PRN ORAL fever (temp>100.5F) 07/08/17 12:00 07/31/17 15:59 Acetylcysteine (Mucomyst) 200 mg BIDRT N 07/08/17 22:00 08/07/17 21:59 07/09/17 10:01 Albuterol/ Ipratropium (Albuterol/ Ipratropium) 3 ml Q4H PRN HHN dyspnea 07/08/17 13:14 07/11/17 13:13 Albuterol/ Ipratropium (Albuterol/ Ipratropium) 3 ml Q6HRT N 07/08/17 13:00 07/13/17 12:59 07/09/17 07:28 Chlorhexidine Gluconate (Sindy-Hex 2%) 1 applic DAILY@2000 TOPIC 07/08/17 20:00 07/31/17 19:59 07/08/17 23:44 Dextrose (Dextrose 50%) STAT PRN IV Hypoglycemia 07/08/17 11:45 08/02/17 11:44 Dorzolamide/ Timolol (Cosopt) 1 drop BID RIGHT EYE 07/08/17 18:00 07/31/17 09:59 07/09/17 11:16 Epoetin Kobe (Procrit (for non ESRD use)) 7,500 units MON-WED-SAT SUBQ 07/08/17 21:00 08/07/17 20:59 07/08/17 23:43 Heparin Sodium (Porcine) (Heparin 5000 units/ml) 5,000 units EVERY 12 HOURS SUBQ 07/08/17 21:00 07/31/17 09:59 Future Hold Insulin Aspart (NovoLOG) EVERY 4 HOURS SUBQ 07/08/17 13:00 08/02/17 16:59 07/09/17 09:17 Lorazepam (Ativan 2mg/ml 1ml) 2 mg Q4H PRN IV For Anxiety 07/08/17 13:16 07/13/17 13:15 Metoprolol Tartrate (Lopressor) 25 mg Q12HR NG 07/08/17 21:00 08/03/17 20:59 Morphine Sulfate (Morphine Sulfate) 2 mg Q4H PRN IVP Moderate Pain (Pain Scale 4-6) 07/08/17 13:17 07/13/17 13:16 07/09/17 09:40 Morphine Sulfate (Morphine Sulfate) 4 mg Q4H PRN IVP Severe Pain (Pain Scale 7-10) 07/08/17 13:17 07/13/17 13:16 07/08/17 23:45 Nitroglycerin (Ntg) 0.4 mg Q5M X 3 DOSES PRN SL Prn Chest Pain 07/08/17 11:45 07/31/17 15:59 Ondansetron HCl (Zofran) 4 mg Q6H PRN IVP Nausea & Vomiting 07/08/17 13:17 07/31/17 13:16 Pantoprazole (Protonix) 40 mg EVERY 12 HOURS IVP 07/08/17 21:00 07/31/17 16:44 07/09/17 09:05 Piperacillin Sod/ Tazobactam Sod 2.25 gm/Dextrose 110 ml @ 220 mls/hr Q8HR@0200,1000,1800 IV 07/09/17 02:00 07/16/17 01:59 07/09/17 09:05 Promethazine HCl/ Codeine (Phenergan with Codeine) 5 ml Q6H PRN ORAL cough 07/08/17 13:30 07/31/17 07:29 Sevelamer Carbonate (Renvela) 1,600 mg Q6HR NG 07/08/17 12:00 08/02/17 11:59 Temazepam (Restoril) 15 mg HSPRN PRN ORAL Insomnia 07/08/17 13:21 07/15/17 13:20 Vancomycin HCl (Vanco rx to dose) 1 ea DAILYPRN PRN MISC Per rx protocol 07/08/17 13:21 08/01/17 13:20 Vancomycin/Sodium Chloride 250 ml @ 166.667 mls/hr ONCE ONCE IVPB 07/09/17 18:00 07/09/17 19:29 Page West M.D. Jul 09, 2017 12:18
[2017-07-09] MEDS ORDERED: POLYMYXIN B IV ONE ×2 (14:00)
[2017-07-09] MEDS ORDERED: D5W IV ONE (14:00)
[2017-07-09] MEDS ORDERED: [UNRECOGNIZED DRUG - OTHER] IV ONE ×2 (14:00)
[2017-07-09] MEDS ORDERED: POLYMYXIN B SULFATE IV ONE (14:00)
[2017-07-09] MEDS ORDERED: Polymyxin B Sulfate 500,000 units in D5W 550ml IV SCH (14:00)
[2017-07-09] MEDS ORDERED: NS 275ml ONE ×2 (15:30→15:40)
[2017-07-09] MEDS ORDERED: Tubing Blood Filter IV ONE (15:30)
[2017-07-09] MEDS ORDERED: Sterile Water Irrig 1000ml IRRIG ONE (15:30)
[2017-07-09] MEDS ORDERED: Tubing IV Secondary IV ONE ×3 (15:37→15:52)
--- NOTE | 2017-07-09 16:36 | Cardiac Electrophysiology PN ---
Assessment/Plan Assessment/Plan 1. Atrial fibrillation with rapid ventricular response.In SR. On Lopressor 25 mg po bid. 2. NSTEMI troponin peak 3.36. Down to 1.28. Due to sepsis and fib with RVR. On Betablocker 3. Elevated BNP of more than 150,000 due to volume overload. Better on hemodialysis. 4. S/P Respiratory failure. Extubated 5. S/P Septic shock, on IV antibiotic per ID. 6. Anemia due to renal failure. 7. Hyperkalemia due to renal failure. 8. ARF. Now on HD DW RN Subjective Subjective In SDU getting dialysis.No arrhythmias on tele. Objective Last 24 Hour Vital Signs Date Time Temp Pulse Resp B/P (MAP) Pulse Ox O2 Delivery O2 Flow Rate FiO2 07/09/17 13:27 82 19 96 Venturi Mask 14.0 55 07/09/17 13:18 74 18 94 Venturi Mask 14.0 55 07/09/17 12:00 77 07/09/17 12:00 97.5 81 21 137/69 98 Venturi Mask 55 97.5 07/09/17 11:16 97.6 07/09/17 10:03 73 18 94 Venturi Mask 14.0 55 07/09/17 10:03 76 18 96 Venturi Mask 14.0 55 07/09/17 10:03 55 07/09/17 09:40 97.6 07/09/17 09:10 77 07/09/17 09:00 77 134/77 07/09/17 08:00 97.6 79 22 134/77 99 Venturi Mask 55 97.6 07/09/17 07:28 81 18 97 Venturi Mask 14.0 55 07/09/17 07:20 78 18 95 Venturi Mask 14.0 55 07/09/17 07:20 95 Venturi Mask 14.0 55 07/09/17 07:20 Venturi Mask 14.0 55 07/09/17 04:00 79 07/09/17 04:00 79 20 131/72 99 Venturi Mask 45 07/09/17 00:26 79 18 97 Venturi Mask 14.0 55 07/09/17 00:18 78 18 95 Venturi Mask 14.0 55 07/09/17 00:00 78 07/09/17 00:00 97.7 79 20 106/57 98 Venturi Mask 45 97.7 07/08/17 23:18 Venturi Mask 07/08/17 21:00 72 134/76 07/08/17 21:00 Venturi Mask 07/08/17 20:31 Venturi Mask 14.0 55 07/08/17 20:30 95 Venturi Mask 14.0 55 07/08/17 20:29 72 18 95 Venturi Mask 14.0 55 07/08/17 20:20 72 20 95 Venturi Mask 14.0 55 07/08/17 20:00 72 07/08/17 20:00 97.2 72 24 134/76 99 Venturi Mask 45 97.2 Intake and Output 07/08/17 07/09/17 19:00 07:00 Intake Total 110 ml Output Total 295 ml Balance -295 ml 110 ml IV Total 110 ml Output Urine Total 295 ml Laboratory Tests Test 07/09/17 04:15 White Blood Count 21.3 K/UL (4.8-10.8) #H Red Blood Count 3.04 M/UL (4.70-6.10) L Hemoglobin 9.8 G/DL (14.2-18.0) L Hematocrit 30.0 % (42.0-52.0) L Mean Corpuscular Volume 99 FL (80-99) Mean Corpuscular Hemoglobin 32.2 PG (27.0-31.0) H Mean Corpuscular Hemoglobin Concent 32.5 G/DL (32.0-36.0) Red Cell Distribution Width 16.5 % (11.6-14.8) H Platelet Count 127 K/UL (150-450) L Mean Platelet Volume 9.0 FL (6.5-10.1) Neutrophils (%) (Auto) % (45.0-75.0) Lymphocytes (%) (Auto) % (20.0-45.0) Monocytes (%) (Auto) % (1.0-10.0) Eosinophils (%) (Auto) % (0.0-3.0) Basophils (%) (Auto) % (0.0-2.0) Differential Total Cells Counted 100 Neutrophils % (Manual) 96 % (45-75) H Lymphocytes % (Manual) 2 % (20-45) L Monocytes % (Manual) 2 % (1-10) Eosinophils % (Manual) 0 % (0-3) Basophils % (Manual) 0 % (0-2) Band Neutrophils 0 % (0-8) Platelet Estimate Decreased L Platelet Morphology Normal Anisocytosis 1+ Macrocytosis 1+ Acanthocytes 1+ Sodium Level 139 MMOL/L (136-145) Potassium Level 4.7 MMOL/L (3.5-5.1) Chloride Level 98 MMOL/L (98-107) Carbon Dioxide Level 16 MMOL/L (21-32) L Anion Gap 25 mmol/L (5-15) H Blood Urea Nitrogen 128 mg/dL (7-18) H Creatinine 7.6 MG/DL (0.55-1.30) H Estimat Glomerular Filtration Rate 7.3 mL/min (>60) Glucose Level 390 MG/DL (74-106) #H Calcium Level 6.8 MG/DL (8.5-10.1) L Random Vancomycin Level 21.5 ug/mL Objective HEAD AND NECK: No JVD. LUNGS: Coarse rhonchi. Jose left subclavian CARDIOVASCULAR: In SR. Nl S1 and S2 with no gallop or murmur. ABDOMEN: Soft. EXTREMITIES: No pitting edema. Luke Charles MD Jul 09, 2017 16:36
--- NOTE | 2017-07-09 17:18 | Internal Med Progress Note ---
Subjective Date of Service: Jul 09, 2017 Physician Name Wesley Champagne Attending Physician Jonathan Garcia MD Current Medications Medications (Trade) Dose Ordered Sig/Sameera Route PRN Reason Start Time Stop Time Status Last Admin Dose Admin Acetaminophen (Tylenol) 650 mg Q4H PRN ORAL fever (temp>100.5F) 07/08/17 12:00 07/31/17 15:59 Acetylcysteine (Mucomyst) 200 mg BIDRT HHN 07/08/17 22:00 08/07/17 21:59 07/09/17 10:01 Albuterol/ Ipratropium (Albuterol/ Ipratropium) 3 ml Q4H PRN HHN dyspnea 07/08/17 13:14 07/11/17 13:13 Albuterol/ Ipratropium (Albuterol/ Ipratropium) 3 ml Q6HRT HHN 07/08/17 13:00 07/13/17 12:59 07/09/17 13:20 Chlorhexidine Gluconate (Sindy-Hex 2%) 1 applic DAILY@2000 TOPIC 07/08/17 20:00 07/31/17 19:59 07/08/17 23:44 Colistimethate Sodium (Colistin *inhalation use only*) 150 mg Q12HRT@1000,2200 INH 07/09/17 22:00 07/16/17 21:59 Dextrose (Dextrose 50%) STAT PRN IV Hypoglycemia 07/08/17 11:45 08/02/17 11:44 Dorzolamide/ Timolol (Cosopt) 1 drop BID RIGHT EYE 07/08/17 18:00 07/31/17 09:59 07/09/17 11:16 Epoetin Kobe (Procrit (for non ESRD use)) 7,500 units MON-WED-FRI SUBQ 07/08/17 21:00 08/07/17 20:59 07/08/17 23:43 Heparin Sodium (Porcine) (Heparin 5000 units/ml) 5,000 units EVERY 12 HOURS SUBQ 07/08/17 21:00 07/31/17 09:59 Future Hold Insulin Aspart (NovoLOG) EVERY 4 HOURS SUBQ 07/08/17 13:00 08/02/17 16:59 07/09/17 13:15 Lorazepam (Ativan 2mg/ml 1ml) 2 mg Q4H PRN IV For Anxiety 07/08/17 13:16 07/13/17 13:15 Metoprolol Tartrate (Lopressor) 25 mg Q12HR NG 07/08/17 21:00 08/03/17 20:59 Morphine Sulfate (Morphine Sulfate) 2 mg Q4H PRN IVP Moderate Pain (Pain Scale 4-6) 07/08/17 13:17 07/13/17 13:16 07/09/17 09:40 Morphine Sulfate (Morphine Sulfate) 4 mg Q4H PRN IVP Severe Pain (Pain Scale 7-10) 07/08/17 13:17 07/13/17 13:16 07/08/17 23:45 Nitroglycerin (Ntg) 0.4 mg Q5M X 3 DOSES PRN SL Prn Chest Pain 07/08/17 11:45 07/31/17 15:59 Ondansetron HCl (Zofran) 4 mg Q6H PRN IVP Nausea & Vomiting 07/08/17 13:17 07/31/17 13:16 Pantoprazole (Protonix) 40 mg EVERY 12 HOURS IVP 07/08/17 21:00 07/31/17 16:44 07/09/17 09:05 Piperacillin Sod/ Tazobactam Sod 2.25 gm/Dextrose 110 ml @ 220 mls/hr Q8HR@0200,1000,1800 IV 07/09/17 02:00 07/16/17 01:59 07/09/17 09:05 Polymyxin B Sulfate 293648 units/Dextrose 550 ml @ 550 mls/hr Q12H IV 07/09/17 14:00 07/16/17 13:59 Promethazine HCl/ Codeine (Phenergan with Codeine) 5 ml Q6H PRN ORAL cough 07/08/17 13:30 07/31/17 07:29 Sevelamer Carbonate (Renvela) 1,600 mg Q6HR NG 07/08/17 12:00 08/02/17 11:59 Temazepam (Restoril) 15 mg HSPRN PRN ORAL Insomnia 07/08/17 13:21 07/15/17 13:20 Vancomycin HCl (Vanco rx to dose) 1 ea DAILYPRN PRN MISC Per rx protocol 07/08/17 13:21 08/01/17 13:20 Vancomycin/Sodium Chloride 250 ml @ 166.667 mls/hr ONCE ONCE IVPB 07/09/17 18:00 07/09/17 19:29 Allergies: Coded Allergies: No Known Allergies (Unverified , 07/01/17) ROS Limited/Unobtainable: Yes Subjective 62 YO M admitted with respiratory failure now pneumona. Cover for Int Greg-Dr Garcia. Extubated 07/07/16; tolerating venturi mask. ARIN Objective Last Vital Signs Date Time Temp Pulse Resp B/P (MAP) Pulse Ox O2 Delivery O2 Flow Rate FiO2 07/09/17 16:00 97.5 79 21 120/61 99 Venturi Mask 55 97.5 07/09/17 13:27 14.0 Laboratory Tests Test 07/09/17 04:15 White Blood Count 21.3 K/UL (4.8-10.8) #H Red Blood Count 3.04 M/UL (4.70-6.10) L Hemoglobin 9.8 G/DL (14.2-18.0) L Hematocrit 30.0 % (42.0-52.0) L Mean Corpuscular Volume 99 FL (80-99) Mean Corpuscular Hemoglobin 32.2 PG (27.0-31.0) H Mean Corpuscular Hemoglobin Concent 32.5 G/DL (32.0-36.0) Red Cell Distribution Width 16.5 % (11.6-14.8) H Platelet Count 127 K/UL (150-450) L Mean Platelet Volume 9.0 FL (6.5-10.1) Neutrophils (%) (Auto) % (45.0-75.0) Lymphocytes (%) (Auto) % (20.0-45.0) Monocytes (%) (Auto) % (1.0-10.0) Eosinophils (%) (Auto) % (0.0-3.0) Basophils (%) (Auto) % (0.0-2.0) Differential Total Cells Counted 100 Neutrophils % (Manual) 96 % (45-75) H Lymphocytes % (Manual) 2 % (20-45) L Monocytes % (Manual) 2 % (1-10) Eosinophils % (Manual) 0 % (0-3) Basophils % (Manual) 0 % (0-2) Band Neutrophils 0 % (0-8) Platelet Estimate Decreased L Platelet Morphology Normal Anisocytosis 1+ Macrocytosis 1+ Acanthocytes 1+ Sodium Level 139 MMOL/L (136-145) Potassium Level 4.7 MMOL/L (3.5-5.1) Chloride Level 98 MMOL/L (98-107) Carbon Dioxide Level 16 MMOL/L (21-32) L Anion Gap 25 mmol/L (5-15) H Blood Urea Nitrogen 128 mg/dL (7-18) H Creatinine 7.6 MG/DL (0.55-1.30) H Estimat Glomerular Filtration Rate 7.3 mL/min (>60) Glucose Level 390 MG/DL (74-106) #H Calcium Level 6.8 MG/DL (8.5-10.1) L Random Vancomycin Level 21.5 ug/mL Intake and Output 07/08/17 07/09/17 19:00 07:00 Intake Total 110 ml Output Total 295 ml Balance -295 ml 110 ml IV Total 110 ml Output Urine Total 295 ml Objective General Appearance: lethargic, thin EENT: PERRL/EOMI, normal ENT inspection Neck: non-tender, normal alignment, supple Cardiovascular: normal peripheral pulses, normal rate, regular rhythm, no gallop/murmur, no JVD Respiratory/Chest: Venturi mask; chest wall non-tender, lungs coarse breath sounds bilaterally, Wheezes bilaterally, respiratory distress, no accessory muscle use Abdomen: normal bowel sounds, non tender, soft, no organomegaly, no mass Extremities: normal range of motion, non-tender Neurologic: heading and priming operator II-XII grossly normal Skin: normal pigmentation, warm/dry Assessment/Plan Problem List: (1) GERD (gastroesophageal reflux disease) (2) Hypercholesteremia (3) Diabetes mellitus type II, uncontrolled (4) CHF (congestive heart failure) Assessment & Plan: See cardiology note. (5) Acute respiratory failure with hypoxemia Assessment & Plan: Extubated 07/07/17-see pulmonary note. Tolerating venturi mask (6) ARF (acute renal failure) Assessment & Plan: S/P hemodialysis 07/04/17. Next 07/06/17. See nephrology note. (7) Anemia Assessment & Plan: S/P Transfusion 1 unit packed red blood cells 07/03/17 (8) Healthcare-associated pneumonia Assessment & Plan: Continue zosyn and vanco-see ID note. (9) Atrial fibrillation with rapid ventricular response Assessment & Plan: S/P digoxin. See cardiology note. (10) Septic shock Assessment & Plan: continue levophed. (11) NSTEMI (non-ST elevated myocardial infarction) Assessment & Plan: Secondary to Afib with RVR. See cardiology note. (12) Pneumonia Assessment & Plan: bibasilar. Continue Inh colistin. ,Continue IV vanco, zosyn and polymixin B-see ID note. (13) Leukocytosis Assessment & Plan: Worsening. See ID note. Status: not improved WESLEY CHAMPAGNE Jul 09, 2017 17:18
[2017-07-09] MEDS ORDERED: Vancomycin 750mg/NS 250ml IVPB ONE (18:00)
[2017-07-09] MEDS: Polymyxin B Sulfate 500,000 units in D5W 550ml IV SCH (21:07)
[2017-07-09] MEDS: Dyna-Hex 2% Top Sol 2oz TOPIC SCH (21:08)
[2017-07-09] MEDS: Colistin for inhalation INH SCH (21:30)
[2017-07-10] VITALS: BP 106/52
[2017-07-10] MEDS: Piperacillin/Tazobactam 2.25 GM in D5W 110 ML IV SCH (01:49)
[2017-07-10] MEDS: Polymyxin B Sulfate 500,000 units in D5W 550ml IV SCH ×2 (01:49→15:22)
[2017-07-10] MEDS: NovoLOG Insulin Flexpen SUBQ SCH ×6 (01:54→22:05)
[2017-07-10] MEDS: Albuterol/Ipratropium 3ml neb HHN SCH ×4 (02:52→20:09)
[2017-07-10 04:00] VITALS: BP 110/57
[2017-07-10] MEDS: Morphine Sulfate 2mg/ml Inj IVP PRN ×2 (04:10→21:47)
[2017-07-10] MEDS: Renvela 800mg Pkt NG SCH ×6 (06:00→18:11)
[2017-07-10 06:10] LABS: HEMATOCRIT 28.4 % (42.0-52.0); HEMOGLOBIN 9.2 G/DL (14.2-18.0); MEAN CORPUSCULAR VOLUME 96 FL (80-99); PLATELET COUNT 151 K/UL (150-450); RED BLOOD COUNT 2.95 M/UL (4.70-6.10); RED CELL DISTRIBUTION WIDTH 16.5 % (11.6-14.8); WHITE BLOOD COUNT 17.5 K/UL (4.8-10.8)
[2017-07-10 07:25] LABS: ANION GAP 18 mmol/L (5-15); BLOOD UREA NITROGEN 82 mg/dL (7-18); CALCIUM 6.7 MG/DL (8.5-10.1); CARBON DIOXIDE 24 MMOL/L (21-32); CHLORIDE 99 MMOL/L (98-107); CREATININE 5.4 MG/DL (0.55-1.30); SODIUM 141 MMOL/L (136-145)
[2017-07-10 08:00] VITALS: BP 113/56
[2017-07-10] MEDS ORDERED: POLYMYXIN B SULFATE IV SCH (09:00)
[2017-07-10] MEDS ORDERED: D5W IV SCH (09:00)
--- NOTE | 2017-07-10 09:29 | Pulmonology Progress Note ---
Assessment/Plan Assessment/Plan ASSESSMENT Acute hypoxemic RF requiring intubation s/p self-extubation 07/07 Sepsis with shock HCAP UTI ARF on CKD, started on HD/ new start A fib with RVR NSTEMI COPD exacerbation DM anemia of chronic kidney disease lactic acidosis Cachexia with severe protein calorie malnutrition Mild pulmonary HTN mild to moderate MR Encephalopathy dysphagia Sacrococcyx un-stageable pressure ulcer POA Multiple DTI POA PLAN OF CARE transferred to [facility] Off pressors, hemodynamically stable titrate O2 to keep pulse ox above 92% pulmonary toilet last CXR 07/08 increased bilateral pleural effusion fup with CXR VM up to 55% converted to SR cardio follows per cardio NSTEMI 2 to A fib with RVR and sepsis ECHO with EF 55% and RVSP of 42 c/w mild pulmonary HTN, as well as evidence of mild to moderate MR abx ID follows leuk, afebrile ? aspirated, no diarrhea blood cx negative , urine cx negative, influenza screen negative sputum cx initially negative , repeated [facility] [place] CT chest with bilateral patchy and nodular infiltrates R>L, most likely 2 to PNA HD catheter inserted by surgeon on 07/02 and patient was started on HD nephro follows monitor volumes, renal parameters, correct lytes as needed Renal US with evidence of medical renal disease, no hydro gentle IVF - per nephro monitor HH, transfuse to keep Hgb above 7 On EPO BS management with SS insulin nutritional support and dietary recs Wound care as per wound nurse recs swallow eval 07/08 not passed, not ready for VSSE yet NPO for now insert NGT and start tube feeding with strict asp precautions discussed with ST in lieu of resp distress and leucocytosis, will likely keep conservative treatment and after VSSE anticipate NGT feeding likely case discussed and evaluated by supervising physician Subjective Allergies: Coded Allergies: No Known Allergies (Unverified , 07/01/17) Subjective in [facility] on VM leuk trending dowb, afebrile did not passed swallow eval 07/08 Objective Last 24 Hour Vital Signs Date Time Temp Pulse Resp B/P (MAP) Pulse Ox O2 Delivery O2 Flow Rate FiO2 07/10/17 08:00 97.6 93 21 113/56 93 Venturi Mask 97.6 07/10/17 07:10 87 22 95 Venturi Mask 14.0 55 07/10/17 07:01 Venturi Mask 14.0 55 07/10/17 07:01 85 20 92 Venturi Mask 14.0 55 07/10/17 07:01 92 Venturi Mask 14.0 55 07/10/17 04:00 97.8 82 20 110/57 95 Venturi Mask 97.8 07/10/17 04:00 84 07/10/17 03:00 87 19 97 Venturi Mask 14.0 55 07/10/17 02:52 82 18 95 Venturi Mask 14.0 55 07/10/17 00:00 98.4 82 20 106/52 Venturi Mask 98.4 07/10/17 00:00 81 07/09/17 21:43 79 18 96 Venturi Mask 14.0 55 07/09/17 21:33 75 18 94 Venturi Mask 14.0 55 07/09/17 21:33 55 07/09/17 21:00 90 107/43 07/09/17 20:30 89 19 96 Venturi Mask 14.0 55 07/09/17 20:10 89 18 93 Venturi Mask 14.0 55 07/09/17 20:09 94 Venturi Mask 14.0 55 07/09/17 20:09 Venturi Mask 14.0 55 07/09/17 20:00 77 07/09/17 20:00 97.7 90 24 107/43 Venturi Mask 97.7 07/09/17 19:20 Venturi Mask 15.0 07/09/17 19:18 97.8 90 12 96/48 Venturi Mask 97.8 07/09/17 16:00 Venturi Mask 15.0 07/09/17 16:00 78 07/09/17 16:00 97.5 79 21 120/61 99 Venturi Mask 55 97.5 07/09/17 16:00 97.4 79 12 120/61 Venturi Mask 15.0 97.4 07/09/17 13:27 82 19 96 Venturi Mask 14.0 55 07/09/17 13:18 74 18 94 Venturi Mask 14.0 55 07/09/17 12:00 77 07/09/17 12:00 97.5 81 21 137/69 98 Venturi Mask 55 97.5 07/09/17 11:16 97.6 07/09/17 10:03 73 18 94 Venturi Mask 14.0 55 07/09/17 10:03 76 18 96 Venturi Mask 14.0 55 07/09/17 10:03 55 07/09/17 09:40 97.6 Intake and Output 07/09/17 07/10/17 19:00 07:00 Intake Total 1210 ml Output Total 100 ml 635 ml Balance -100 ml 575 ml IV Total 1210 ml Output Urine Total 100 ml 0 ml Hemodialysis UF 635 ml Objective General: awake, responsive HEENT: atraumatic, normocephalic, VM 55% on Neck: L subclavian temporary HD catheter, intact Lungs: clear Heart: HR/BP stable, R PICC intact , Abdomen: active bowel sounds, Eric Extremities: no C/C/E Laboratory Tests 07/10/17 04:00: White Blood Count 17.5H, Red Blood Count 2.95L, Hemoglobin 9.2L, Hematocrit 28.4L, Mean Corpuscular Volume 96, Mean Corpuscular Hemoglobin 31.1H, Mean Corpuscular Hemoglobin Concent 32.4, Red Cell Distribution Width 16.5H, Platelet Count 151, Mean Platelet Volume 8.5, Neutrophils (%) (Auto) , Lymphocytes (%) (Auto) , Monocytes (%) (Auto) , Eosinophils (%) (Auto) , Basophils (%) (Auto) , Neutrophils % (Manual) [Pending], Lymphocytes % (Manual) [Pending], Platelet Estimate [Pending], Platelet Morphology [Pending], Sodium Level 141, Potassium Level 4.0, Chloride Level 99, Carbon Dioxide Level 24, Anion Gap 18H, Blood Urea Nitrogen 82H, Creatinine 5.4H, Estimat Glomerular Filtration Rate 10.9, Glucose Level 261#H, Calcium Level 6.7L Current Medications Medications (Trade) Dose Ordered Sig/Sameera Route PRN Reason Start Time Stop Time Status Last Admin Dose Admin Acetaminophen (Tylenol) 650 mg Q4H PRN ORAL fever (temp>100.5F) 07/08/17 12:00 07/31/17 15:59 Acetylcysteine (Mucomyst) 200 mg BIDRT HHN 07/08/17 22:00 08/07/17 21:59 07/09/17 20:09 Albuterol/ Ipratropium (Albuterol/ Ipratropium) 3 ml Q4H PRN HHN dyspnea 07/08/17 13:14 07/11/17 13:13 Albuterol/ Ipratropium (Albuterol/ Ipratropium) 3 ml Q6HRT HHN 07/08/17 13:00 07/13/17 12:59 07/10/17 07:01 Chlorhexidine Gluconate (Sindy-Hex 2%) 1 applic DAILY@2000 TOPIC 07/08/17 20:00 07/31/17 19:59 07/09/17 21:08 Colistimethate Sodium (Colistin *inhalation use only*) 150 mg Q12HRT@1000,2200 INH 07/09/17 22:00 07/16/17 21:59 07/09/17 21:30 Dextrose (Dextrose 50%) STAT PRN IV Hypoglycemia 07/08/17 11:45 08/02/17 11:44 Dorzolamide/ Timolol (Cosopt) 1 drop BID RIGHT EYE 07/08/17 18:00 07/31/17 09:59 07/09/17 21:08 Epoetin Kobe (Procrit (for non ESRD use)) 7,500 units SAT-SAT-SAT SUBQ 07/08/17 21:00 08/07/17 20:59 07/08/17 23:43 Heparin Sodium (Porcine) (Heparin 5000 units/ml) 5,000 units EVERY 12 HOURS SUBQ 07/08/17 21:00 07/31/17 09:59 Future Hold Insulin Aspart (NovoLOG) EVERY 4 HOURS SUBQ 07/08/17 13:00 08/02/17 16:59 07/10/17 06:37 Lorazepam (Ativan 2mg/ml 1ml) 2 mg Q4H PRN IV For Anxiety 07/08/17 13:16 07/13/17 13:15 Metoprolol Tartrate (Lopressor) 25 mg Q12HR NG 07/08/17 21:00 08/03/17 20:59 Morphine Sulfate (Morphine Sulfate) 2 mg Q4H PRN IVP Moderate Pain (Pain Scale 4-6) 07/08/17 13:17 07/13/17 13:16 07/10/17 04:10 Morphine Sulfate (Morphine Sulfate) 4 mg Q4H PRN IVP Severe Pain (Pain Scale 7-10) 07/08/17 13:17 07/13/17 13:16 07/08/17 23:45 Nitroglycerin (Ntg) 0.4 mg Q5M X 3 DOSES PRN SL Prn Chest Pain 07/08/17 11:45 07/31/17 15:59 Ondansetron HCl (Zofran) 4 mg Q6H PRN IVP Nausea & Vomiting 07/08/17 13:17 07/31/17 13:16 Pantoprazole (Protonix) 40 mg EVERY 12 HOURS IVP 07/08/17 21:00 07/31/17 16:44 07/09/17 21:09 Piperacillin Sod/ Tazobactam Sod 2.25 gm/Dextrose 110 ml @ 220 mls/hr Q8HR@0200,1000,1800 IV 07/09/17 02:00 07/16/17 01:59 07/10/17 01:49 Polymyxin B Sulfate 719356 units/Dextrose 550 ml @ 550 mls/hr Q12H IV 07/09/17 14:00 07/16/17 13:59 07/10/17 01:49 Promethazine HCl/ Codeine (Phenergan with Codeine) 5 ml Q6H PRN ORAL cough 07/08/17 13:30 07/31/17 07:29 Sevelamer Carbonate (Renvela) 1,600 mg Q6HR NG 07/08/17 12:00 08/02/17 11:59 Sodium Chloride 1,000 ml @ 30 mls/hr Q24H IV 07/10/17 09:00 08/09/17 08:59 Temazepam (Restoril) 15 mg HSPRN PRN ORAL Insomnia 07/08/17 13:21 07/15/17 13:20 Vancomycin HCl (Vanco rx to dose) 1 ea DAILYPRN PRN MISC Per rx protocol 07/08/17 13:21 08/01/17 13:20 Rubio (Travsharon)Felisha NP Jul 10, 2017 09:29
[2017-07-10] MEDS: Cosopt Opth Soln 10 mL Btl RIGHT EYE SCH ×2 (09:42→18:11)
[2017-07-10] MEDS: Pantoprazole Inj IVP SCH ×2 (09:49→21:44)
[2017-07-10] MEDS ORDERED: Albuterol/Ipratropium 3ml neb HHN PRN (10:00)
--- NOTE | 2017-07-10 10:25 | Nephrology Progress Note ---
Assessment/Plan Problem List: (1) ARF (acute renal failure) (2) Acute respiratory failure with hypoxemia (3) Hyperkalemia (4) Cachexia Assessment Acute renal failure- on dialysis ? CKD Acute respiratory failure, Pneumonia Hypotension- Shock, Sepsis Cachexia Plan self extubated 07/07 last HD 07/06 next 07/09 watch renal parameters off pressors pulm support benavides echo 55% EjFx K supplement HD in am again costa Bilateral echogenic kidneys, consistent with medical renal disease discussed with RN in dept cxr Extensive bilateral infiltrates and pleural effusions, slightly increased on the left Subjective ROS Limited/Unobtainable: No Objective Objective Last 24 Hour Vital Signs Date Time Temp Pulse Resp B/P (MAP) Pulse Ox O2 Delivery O2 Flow Rate FiO2 07/10/17 08:00 97.6 93 21 113/56 93 Venturi Mask 97.6 07/10/17 08:00 88 07/10/17 07:10 87 22 95 Venturi Mask 14.0 55 07/10/17 07:01 Venturi Mask 14.0 55 07/10/17 07:01 85 20 92 Venturi Mask 14.0 55 07/10/17 07:01 92 Venturi Mask 14.0 55 07/10/17 04:00 97.8 82 20 110/57 95 Venturi Mask 97.8 07/10/17 04:00 84 07/10/17 03:00 87 19 97 Venturi Mask 14.0 55 07/10/17 02:52 82 18 95 Venturi Mask 14.0 55 07/10/17 00:00 98.4 82 20 106/52 Venturi Mask 98.4 07/10/17 00:00 81 07/09/17 21:43 79 18 96 Venturi Mask 14.0 55 07/09/17 21:33 75 18 94 Venturi Mask 14.0 55 07/09/17 21:33 55 07/09/17 21:00 90 107/43 07/09/17 20:30 89 19 96 Venturi Mask 14.0 55 07/09/17 20:10 89 18 93 Venturi Mask 14.0 55 07/09/17 20:09 94 Venturi Mask 14.0 55 07/09/17 20:09 Venturi Mask 14.0 55 07/09/17 20:00 77 07/09/17 20:00 97.7 90 24 107/43 Venturi Mask 97.7 07/09/17 19:20 Venturi Mask 15.0 07/09/17 19:18 97.8 90 12 96/48 Venturi Mask 97.8 07/09/17 16:00 Venturi Mask 15.0 07/09/17 16:00 78 07/09/17 16:00 97.5 79 21 120/61 99 Venturi Mask 55 97.5 07/09/17 16:00 97.4 79 12 120/61 Venturi Mask 15.0 97.4 07/09/17 13:27 82 19 96 Venturi Mask 14.0 55 07/09/17 13:18 74 18 94 Venturi Mask 14.0 55 07/09/17 12:00 77 07/09/17 12:00 97.5 81 21 137/69 98 Venturi Mask 55 97.5 07/09/17 11:16 97.6 Intake and Output 07/09/17 07/10/17 19:00 07:00 Intake Total 1210 ml Output Total 100 ml 635 ml Balance -100 ml 575 ml IV Total 1210 ml Output Urine Total 100 ml 0 ml Hemodialysis UF 635 ml Laboratory Tests 07/10/17 04:00: White Blood Count 17.5H, Red Blood Count 2.95L, Hemoglobin 9.2L, Hematocrit 28.4L, Mean Corpuscular Volume 96, Mean Corpuscular Hemoglobin 31.1H, Mean Corpuscular Hemoglobin Concent 32.4, Red Cell Distribution Width 16.5H, Platelet Count 151, Mean Platelet Volume 8.5, Neutrophils (%) (Auto) , Lymphocytes (%) (Auto) , Monocytes (%) (Auto) , Eosinophils (%) (Auto) , Basophils (%) (Auto) , Differential Total Cells Counted 100, Neutrophils % ( Manual) 90H, Lymphocytes % (Manual) 4L, Monocytes % (Manual) 6, Eosinophils % ( Manual) 0, Basophils % (Manual) 0, Band Neutrophils 0, Platelet Estimate Adequate, Platelet Morphology Normal, Polychromasia 1+, Hypochromasia 1+, Anisocytosis 1+, Sodium Level 141, Potassium Level 4.0, Chloride Level 99, Carbon Dioxide Level 24, Anion Gap 18H, Blood Urea Nitrogen 82H, Creatinine 5.4H , Estimat Glomerular Filtration Rate 10.9, Glucose Level 261#H, Calcium Level 6.7L Height (Feet): 5 Height (Inches): 11.00 Weight (Pounds): 167 General Appearance: no apparent distress Objective no change JUSTIN HERNANDEZ Jul 10, 2017 10:25
[2017-07-10] MEDS: Colistin for inhalation INH SCH ×2 (10:46→22:36)
[2017-07-10] MEDS: Acetylcysteine 20% Soln 4ml HHN SCH ×2 (10:46→20:18)
--- NOTE | 2017-07-10 11:11 | Diagnostic Imaging Report ---
Indication: Shortness of breath Technique: One view of the chest Comparison: 07/08/2017 Findings: Left subclavian temporary dialysis catheter, right arm PICC remain. Bilateral basilar infiltrates appear slightly improved. Bilateral pleural effusion persists. The heart size is normal. Impression: Perhaps slightly improved but persistent bilateral basilar infiltrates, over 2 days Probably stable bilateral pleural effusions
[2017-07-10 12:00] VITALS: BP 127/54
--- NOTE | 2017-07-10 12:02 | Internal Med Progress Note ---
Subjective Date of Service: Jul 10, 2017 Physician Name ChampagneWesley Attending Physician Jonathan Garcia MD Current Medications Medications (Trade) Dose Ordered Sig/Sameera Route PRN Reason Start Time Stop Time Status Last Admin Dose Admin Acetaminophen (Tylenol) 650 mg Q4H PRN ORAL fever (temp>100.5F) 07/08/17 12:00 07/31/17 15:59 Acetylcysteine (Mucomyst) 200 mg BIDRT HHN 07/08/17 22:00 08/07/17 21:59 07/10/17 10:46 Albuterol/ Ipratropium (Albuterol/ Ipratropium) 3 ml Q4H PRN HHN dyspnea 07/10/17 10:00 07/13/17 09:59 07/10/17 10:46 Albuterol/ Ipratropium (Albuterol/ Ipratropium) 3 ml Q6HRT HHN 07/08/17 13:00 07/13/17 12:59 07/10/17 07:01 Chlorhexidine Gluconate (Sindy-Hex 2%) 1 applic DAILY@2000 TOPIC 07/08/17 20:00 07/31/17 19:59 07/09/17 21:08 Colistimethate Sodium (Colistin *inhalation use only*) 150 mg Q12HRT@1000,2200 INH 07/09/17 22:00 07/16/17 21:59 07/10/17 10:46 Dextrose (Dextrose 50%) STAT PRN IV Hypoglycemia 07/08/17 11:45 08/02/17 11:44 Dorzolamide/ Timolol (Cosopt) 1 drop BID RIGHT EYE 07/08/17 18:00 07/31/17 09:59 07/10/17 09:42 Epoetin Kobe (Procrit (for non ESRD use)) 7,500 units MON-WED-FRI SUBQ 07/08/17 21:00 08/07/17 20:59 07/08/17 23:43 Heparin Sodium (Porcine) (Heparin 5000 units/ml) 5,000 units EVERY 12 HOURS SUBQ 07/08/17 21:00 07/31/17 09:59 Future Hold Insulin Aspart (NovoLOG) EVERY 4 HOURS SUBQ 07/08/17 13:00 08/02/17 16:59 07/10/17 09:42 Lorazepam (Ativan 2mg/ml 1ml) 2 mg Q4H PRN IV For Anxiety 07/08/17 13:16 07/13/17 13:15 Metoprolol Tartrate (Lopressor) 25 mg Q12HR NG 07/08/17 21:00 08/03/17 20:59 Morphine Sulfate (Morphine Sulfate) 2 mg Q4H PRN IVP Moderate Pain (Pain Scale 4-6) 07/08/17 13:17 07/13/17 13:16 07/10/17 04:10 Morphine Sulfate (Morphine Sulfate) 4 mg Q4H PRN IVP Severe Pain (Pain Scale 7-10) 07/08/17 13:17 07/13/17 13:16 07/08/17 23:45 Nitroglycerin (Ntg) 0.4 mg Q5M X 3 DOSES PRN SL Prn Chest Pain 07/08/17 11:45 07/31/17 15:59 Ondansetron HCl (Zofran) 4 mg Q6H PRN IVP Nausea & Vomiting 07/08/17 13:17 07/31/17 13:16 Pantoprazole (Protonix) 40 mg EVERY 12 HOURS IVP 07/08/17 21:00 07/31/17 16:44 07/10/17 09:49 Piperacillin Sod/ Tazobactam Sod 2.25 gm/Dextrose 110 ml @ 220 mls/hr Q8HR@0200,1000,1800 IV 07/09/17 02:00 07/16/17 01:59 07/10/17 01:49 Polymyxin B Sulfate [id number] units/Dextrose 550 ml @ 550 mls/hr Q12H IV 07/09/17 14:00 07/16/17 13:59 07/10/17 01:49 Promethazine HCl/ Codeine (Phenergan with Codeine) 5 ml Q6H PRN ORAL cough 07/08/17 13:30 07/31/17 07:29 Sevelamer Carbonate (Renvela) 1,600 mg Q6HR NG 07/08/17 12:00 08/02/17 11:59 Sodium Chloride 1,000 ml @ 30 mls/hr Q24H IV 07/10/17 09:00 08/09/17 08:59 07/10/17 09:49 Temazepam (Restoril) 15 mg HSPRN PRN ORAL Insomnia 07/08/17 13:21 07/15/17 13:20 Vancomycin HCl (Vanco rx to dose) 1 ea DAILYPRN PRN MISC Per rx protocol 07/08/17 13:21 08/01/17 13:20 Allergies: Coded Allergies: No Known Allergies (Unverified , 07/01/17) ROS Limited/Unobtainable: No Constitutional: Reports: no symptoms HEENT: Reports: no symptoms Cardiovascular: Reports: no symptoms Respiratory: Reports: shortness of breath Gastrointestinal/Abdominal: Reports: no symptoms Genitourinary: Reports: no symptoms Neurologic/Psychiatric: Reports: no symptoms Subjective 62 YO M admitted with respiratory failure now pneumona. Cover for Int Greg-Dr Garcia. Extubated 07/07/16; tolerating venturi mask. ARIN Objective Last Vital Signs Date Time Temp Pulse Resp B/P (MAP) Pulse Ox O2 Delivery O2 Flow Rate FiO2 07/10/17 09:57 79 18 96 Venturi Mask 14.0 55 07/10/17 08:00 97.6 113/56 97.6 Laboratory Tests Test 07/10/17 04:00 White Blood Count 17.5 K/UL (4.8-10.8) H Red Blood Count 2.95 M/UL (4.70-6.10) L Hemoglobin 9.2 G/DL (14.2-18.0) L Hematocrit 28.4 % (42.0-52.0) L Mean Corpuscular Volume 96 FL (80-99) Mean Corpuscular Hemoglobin 31.1 PG (27.0-31.0) H Mean Corpuscular Hemoglobin Concent 32.4 G/DL (32.0-36.0) Red Cell Distribution Width 16.5 % (11.6-14.8) H Platelet Count 151 K/UL (150-450) Mean Platelet Volume 8.5 FL (6.5-10.1) Neutrophils (%) (Auto) % (45.0-75.0) Lymphocytes (%) (Auto) % (20.0-45.0) Monocytes (%) (Auto) % (1.0-10.0) Eosinophils (%) (Auto) % (0.0-3.0) Basophils (%) (Auto) % (0.0-2.0) Differential Total Cells Counted 100 Neutrophils % (Manual) 90 % (45-75) H Lymphocytes % (Manual) 4 % (20-45) L Monocytes % (Manual) 6 % (1-10) Eosinophils % (Manual) 0 % (0-3) Basophils % (Manual) 0 % (0-2) Band Neutrophils 0 % (0-8) Platelet Estimate Adequate Platelet Morphology Normal Polychromasia 1+ Hypochromasia 1+ Anisocytosis 1+ Sodium Level 141 MMOL/L (136-145) Potassium Level 4.0 MMOL/L (3.5-5.1) Chloride Level 99 MMOL/L (98-107) Carbon Dioxide Level 24 MMOL/L (21-32) Anion Gap 18 mmol/L (5-15) H Blood Urea Nitrogen 82 mg/dL (7-18) H Creatinine 5.4 MG/DL (0.55-1.30) H Estimat Glomerular Filtration Rate 10.9 mL/min (>60) Glucose Level 261 MG/DL (74-106) #H Calcium Level 6.7 MG/DL (8.5-10.1) L Intake and Output 07/09/17 07/10/17 19:00 07:00 Intake Total 1210 ml Output Total 100 ml 635 ml Balance -100 ml 575 ml IV Total 1210 ml Output Urine Total 100 ml 0 ml Hemodialysis UF 635 ml Objective General Appearance: lethargic, thin EENT: PERRL/EOMI, normal ENT inspection Neck: non-tender, normal alignment, supple Cardiovascular: normal peripheral pulses, normal rate, regular rhythm, no gallop/murmur, no JVD Respiratory/Chest: Venturi mask; chest wall non-tender, lungs coarse breath sounds bilaterally, Wheezes bilaterally, respiratory distress, no accessory muscle use Abdomen: normal bowel sounds, non tender, soft, no organomegaly, no mass Extremities: normal range of motion, non-tender Neurologic: hot worker II-XII grossly normal Skin: normal pigmentation, warm/dry Assessment/Plan Problem List: (1) GERD (gastroesophageal reflux disease) (2) Hypercholesteremia (3) Diabetes mellitus type II, uncontrolled (4) CHF (congestive heart failure) Assessment & Plan: See cardiology note. (5) Acute respiratory failure with hypoxemia Assessment & Plan: Extubated 07/07/17-see pulmonary note. Tolerating venturi mask (6) ARF (acute renal failure) Assessment & Plan: S/P hemodialysis 07/09/17. See nephrology note. (7) Anemia Assessment & Plan: S/P Transfusion 1 unit packed red blood cells 07/03/17 (8) Healthcare-associated pneumonia Assessment & Plan: Continue zosyn and vanco-see ID note. (9) Atrial fibrillation with rapid ventricular response Assessment & Plan: S/P digoxin. See cardiology note. (10) Septic shock Assessment & Plan: continue levophed. (11) NSTEMI (non-ST elevated myocardial infarction) Assessment & Plan: Secondary to Afib with RVR. See cardiology note. (12) Pneumonia Assessment & Plan: bibasilar. Continue Inh colistin. ,Continue IV vanco, zosyn and polymixin B-see ID note. (13) Leukocytosis Assessment & Plan: Worsening. See ID note. Status: not improved WESLEY CHAMPAGNE Jul 10, 2017 12:02
--- NOTE | 2017-07-10 12:39 | Infectious Diseases Prog Note ---
Assessment/Plan Assessment/Plan Assessment: Septic Shock, SP- likely 2ry to CRE PNA, -CXR 07/10: Perhaps slightly improved but persistent bilateral basilar infiltrates,over 2 days Probably stable bilateral pleural effusions -CXR 07/09: There is increased pleural fluid bilaterally. Parenchymal infiltrates at both lung bases persist -CT chest 07/05: There is extensive consolidation of most of the right lower lobe. Less extensive nodular and groundglass opacities are seen in the right middle lobe and to a slight extent in the inferior right upper lobe. Fairly extensive nodular and and patchy airspace opacities are seen throughout the left lower lobe. Similar opacities are seen in the left lower lobe, predominately inferiorly. There is a small right pleural effusion. There is trace left pleural fluid. No definite interstitial edema. -CXR 07/05: Slight improvement of still extensive bilateral basilar consolidation, over one day -influenza sc neg -sp cx not collected; re-ordered 07/04: CRE K.pna (S Colistin, Polmymixin B) -u/a no pyuria; ucx NTD -Bcx NTD VDRF; extubated 07/07 COPD exacerbation Afebrile Leukocytosis- multifactorial- reactive component, infection and steroids ( steroids dc 07/05); worsened, now improving- ?due to MDRO- r/o new infection, r/ o cdiff Seizure episode 07/02 Acute renal failure, HD started 07/02 Hyperkalemia Anion gap acidosis DM depression cachexia snf resident muscle wasting/generalized weakness encephalopathy Plan: -Continue IV Polymixin B (renally dose) #2/10-14 and INH Colistin #2/ for CRE PNA -07/09 SP IV vanco #3, Zosyn #8 -07/06 SP IV Vancomycin #5 -07/01 SP Cefepime, Levaquin x1 -f/u REpeat cultures, Cdiff. -f/u cx -f/u fungal serologies -Monitor CBC/BMP, temperatures -Aspiration precautions Subjective Allergies: Coded Allergies: No Known Allergies (Unverified , 07/01/17) Subjective afebrile on VM leukocytosis improving repeat cx p CXR improving Objective Vital Signs Last 24 Hour Vital Signs Date Time Temp Pulse Resp B/P (MAP) Pulse Ox O2 Delivery O2 Flow Rate FiO2 07/10/17 09:57 79 18 96 Venturi Mask 14.0 55 07/10/17 09:45 55 07/10/17 09:45 77 18 94 Venturi Mask 14.0 55 07/10/17 08:00 97.6 93 21 113/56 93 Venturi Mask 97.6 07/10/17 08:00 88 07/10/17 07:10 87 22 95 Venturi Mask 14.0 55 07/10/17 07:01 Venturi Mask 14.0 55 07/10/17 07:01 85 20 92 Venturi Mask 14.0 55 07/10/17 07:01 92 Venturi Mask 14.0 55 07/10/17 04:00 97.8 82 20 110/57 95 Venturi Mask 97.8 07/10/17 04:00 84 07/10/17 03:00 87 19 97 Venturi Mask 14.0 55 07/10/17 02:52 82 18 95 Venturi Mask 14.0 55 07/10/17 00:00 98.4 82 20 106/52 Venturi Mask 98.4 07/10/17 00:00 81 07/09/17 21:43 79 18 96 Venturi Mask 14.0 55 07/09/17 21:33 75 18 94 Venturi Mask 14.0 55 07/09/17 21:33 55 07/09/17 21:00 90 107/43 07/09/17 20:30 89 19 96 Venturi Mask 14.0 55 07/09/17 20:10 89 18 93 Venturi Mask 14.0 55 07/09/17 20:09 94 Venturi Mask 14.0 55 07/09/17 20:09 Venturi Mask 14.0 55 07/09/17 20:00 77 07/09/17 20:00 97.7 90 24 107/43 Venturi Mask 97.7 07/09/17 19:20 Venturi Mask 15.0 07/09/17 19:18 97.8 90 12 96/48 Venturi Mask 97.8 07/09/17 16:00 Venturi Mask 15.0 07/09/17 16:00 78 07/09/17 16:00 97.5 79 21 120/61 99 Venturi Mask 55 97.5 07/09/17 16:00 97.4 79 12 120/61 Venturi Mask 15.0 97.4 07/09/17 13:27 82 19 96 Venturi Mask 14.0 55 07/09/17 13:18 74 18 94 Venturi Mask 14.0 55 Height (Feet): 5 Height (Inches): 11.00 Weight (Pounds): 167 Objective General Appearance: cachetic Lines, tubes and drains: peripheral HEENT: normocephalic, atraumatic Neck: non-tender, normal alignment Respiratory/Chest: chest wall non-tender, rhonchi - left, rhonchi - right Cardiovascular/Chest: normal peripheral pulses, normal rate Abdomen: normal bowel sounds Genitourinary/Rectal: normal genital exam Extremities: normal range of motion Laboratory Tests Test 07/10/17 04:00 White Blood Count 17.5 K/UL (4.8-10.8) H Red Blood Count 2.95 M/UL (4.70-6.10) L Hemoglobin 9.2 G/DL (14.2-18.0) L Hematocrit 28.4 % (42.0-52.0) L Mean Corpuscular Volume 96 FL (80-99) Mean Corpuscular Hemoglobin 31.1 PG (27.0-31.0) H Mean Corpuscular Hemoglobin Concent 32.4 G/DL (32.0-36.0) Red Cell Distribution Width 16.5 % (11.6-14.8) H Platelet Count 151 K/UL (150-450) Mean Platelet Volume 8.5 FL (6.5-10.1) Neutrophils (%) (Auto) % (45.0-75.0) Lymphocytes (%) (Auto) % (20.0-45.0) Monocytes (%) (Auto) % (1.0-10.0) Eosinophils (%) (Auto) % (0.0-3.0) Basophils (%) (Auto) % (0.0-2.0) Differential Total Cells Counted 100 Neutrophils % (Manual) 90 % (45-75) H Lymphocytes % (Manual) 4 % (20-45) L Monocytes % (Manual) 6 % (1-10) Eosinophils % (Manual) 0 % (0-3) Basophils % (Manual) 0 % (0-2) Band Neutrophils 0 % (0-8) Platelet Estimate Adequate Platelet Morphology Normal Polychromasia 1+ Hypochromasia 1+ Anisocytosis 1+ Sodium Level 141 MMOL/L (136-145) Potassium Level 4.0 MMOL/L (3.5-5.1) Chloride Level 99 MMOL/L (98-107) Carbon Dioxide Level 24 MMOL/L (21-32) Anion Gap 18 mmol/L (5-15) H Blood Urea Nitrogen 82 mg/dL (7-18) H Creatinine 5.4 MG/DL (0.55-1.30) H Estimat Glomerular Filtration Rate 10.9 mL/min (>60) Glucose Level 261 MG/DL (74-106) #H Calcium Level 6.7 MG/DL (8.5-10.1) L Current Medications Medications (Trade) Dose Ordered Sig/Sameera Route PRN Reason Start Time Stop Time Status Last Admin Dose Admin Acetaminophen (Tylenol) 650 mg Q4H PRN ORAL fever (temp>100.5F) 07/08/17 12:00 07/31/17 15:59 Acetylcysteine (Mucomyst) 200 mg BIDRT HHN 07/08/17 22:00 08/07/17 21:59 07/10/17 10:46 Albuterol/ Ipratropium (Albuterol/ Ipratropium) 3 ml Q4H PRN HHN dyspnea 07/10/17 10:00 07/13/17 09:59 07/10/17 10:46 Albuterol/ Ipratropium (Albuterol/ Ipratropium) 3 ml Q6HRT N 07/08/17 13:00 07/13/17 12:59 07/10/17 07:01 Chlorhexidine Gluconate (Sindy-Hex 2%) 1 applic DAILY@2000 TOPIC 07/08/17 20:00 07/31/17 19:59 07/09/17 21:08 Colistimethate Sodium (Colistin *inhalation use only*) 150 mg Q12HRT@1000,2200 INH 07/09/17 22:00 07/16/17 21:59 07/10/17 10:46 Dextrose (Dextrose 50%) STAT PRN IV Hypoglycemia 07/08/17 11:45 08/02/17 11:44 Dorzolamide/ Timolol (Cosopt) 1 drop BID RIGHT EYE 07/08/17 18:00 07/31/17 09:59 07/10/17 09:42 Epoetin Kobe (Procrit (for non ESRD use)) 7,500 units SAT-SAT-SAT SUBQ 07/08/17 21:00 08/07/17 20:59 07/08/17 23:43 Heparin Sodium (Porcine) (Heparin 5000 units/ml) 5,000 units EVERY 12 HOURS SUBQ 07/08/17 21:00 07/31/17 09:59 Future Hold Insulin Aspart (NovoLOG) EVERY 4 HOURS SUBQ 07/08/17 13:00 08/02/17 16:59 07/10/17 09:42 Lorazepam (Ativan 2mg/ml 1ml) 2 mg Q4H PRN IV For Anxiety 07/08/17 13:16 07/13/17 13:15 Metoprolol Tartrate (Lopressor) 25 mg Q12HR NG 07/08/17 21:00 08/03/17 20:59 Morphine Sulfate (Morphine Sulfate) 2 mg Q4H PRN IVP Moderate Pain (Pain Scale 4-6) 07/08/17 13:17 07/13/17 13:16 07/10/17 04:10 Morphine Sulfate (Morphine Sulfate) 4 mg Q4H PRN IVP Severe Pain (Pain Scale 7-10) 07/08/17 13:17 07/13/17 13:16 07/08/17 23:45 Nitroglycerin (Ntg) 0.4 mg Q5M X 3 DOSES PRN SL Prn Chest Pain 07/08/17 11:45 07/31/17 15:59 Ondansetron HCl (Zofran) 4 mg Q6H PRN IVP Nausea & Vomiting 07/08/17 13:17 07/31/17 13:16 Pantoprazole (Protonix) 40 mg EVERY 12 HOURS IVP 07/08/17 21:00 07/31/17 16:44 07/10/17 09:49 Piperacillin Sod/ Tazobactam Sod 2.25 gm/Dextrose 110 ml @ 220 mls/hr Q8HR@0200,1000,1800 IV 07/09/17 02:00 07/16/17 01:59 07/10/17 01:49 Polymyxin B Sulfate 526144 units/Dextrose 550 ml @ 550 mls/hr Q12H IV 07/09/17 14:00 07/16/17 13:59 07/10/17 01:49 Promethazine HCl/ Codeine (Phenergan with Codeine) 5 ml Q6H PRN ORAL cough 07/08/17 13:30 07/31/17 07:29 Sevelamer Carbonate (Renvela) 1,600 mg Q6HR NG 07/08/17 12:00 08/02/17 11:59 Sodium Chloride 1,000 ml @ 30 mls/hr Q24H IV 07/10/17 09:00 08/09/17 08:59 07/10/17 09:49 Temazepam (Restoril) 15 mg HSPRN PRN ORAL Insomnia 07/08/17 13:21 07/15/17 13:20 Vancomycin HCl (Vanco rx to dose) 1 ea DAILYPRN PRN MISC Per rx protocol 07/08/17 13:21 08/01/17 13:20 Page West M.D. Jul 10, 2017 12:39
--- NOTE | 2017-07-10 13:04 | Diagnostic Imaging Report ---
Indication: Status post nasogastric tube placement Technique: Supine view of the upper abdomen Comparison: 07/05/2017, also chest radiograph of earlier today Findings: There is a nasogastric tube in place, not evident on earlier chest radiograph, tip coiled in the gastric fundus in good position. There is a paucity of bowel gas. There are bilateral pleural effusions and bilateral basilar pulmonary parenchymal disease Impression: Satisfactory nasogastric tube position Other findings as described
[2017-07-10] MEDS: Metoprolol 25mg tab NG SCH ×3 (15:01→22:01)
--- NOTE | 2017-07-10 15:26 | Cardiac Electrophysiology PN ---
Assessment/Plan Assessment/Plan 1. Atrial fibrillation with rapid ventricular response.In SR on Lopressor 25 mg po bid. 2. NSTEMI troponin peak 3.36. Down to 1.28. Due to sepsis and fib with RVR. On Betablocker 3. Elevated BNP of more than 150,000 due to volume overload. Better on hemodialysis. 4. S/P Respiratory failure. Extubated 5. S/P Septic shock, on IV antibiotic per ID. 6. Anemia due to renal failure. 7. Hyperkalemia due to renal failure. 8. ARF. Now on HD 9. Dysphagia. NG was placed in today 10. Biltaeral UE edema. No DVT by Dupplex today DW RN Subjective Subjective In SDU getting UE vascular ultrasound. Failed swallow eval and just underwent NG placement. RN at bedside. No arrhythmias on tele. Objective Last 24 Hour Vital Signs Date Time Temp Pulse Resp B/P (MAP) Pulse Ox O2 Delivery O2 Flow Rate FiO2 07/10/17 15:01 83 127/54 07/10/17 14:06 83 20 95 Venturi Mask 14.0 55 07/10/17 13:52 84 20 93 Venturi Mask 14.0 55 07/10/17 12:00 82 07/10/17 12:00 97.9 82 21 127/54 95 Venturi Mask 97.9 07/10/17 09:57 79 18 96 Venturi Mask 14.0 55 07/10/17 09:45 55 07/10/17 09:45 77 18 94 Venturi Mask 14.0 55 07/10/17 08:00 97.6 93 21 113/56 93 Venturi Mask 97.6 07/10/17 08:00 88 07/10/17 07:10 87 22 95 Venturi Mask 14.0 55 07/10/17 07:01 Venturi Mask 14.0 55 07/10/17 07:01 85 20 92 Venturi Mask 14.0 55 07/10/17 07:01 92 Venturi Mask 14.0 55 07/10/17 04:00 97.8 82 20 110/57 95 Venturi Mask 97.8 07/10/17 04:00 84 07/10/17 03:00 87 19 97 Venturi Mask 14.0 55 07/10/17 02:52 82 18 95 Venturi Mask 14.0 55 07/10/17 00:00 98.4 82 20 106/52 Venturi Mask 98.4 07/10/17 00:00 81 07/09/17 21:43 79 18 96 Venturi Mask 14.0 55 07/09/17 21:33 75 18 94 Venturi Mask 14.0 55 07/09/17 21:33 55 07/09/17 21:00 90 107/43 07/09/17 20:30 89 19 96 Venturi Mask 14.0 55 07/09/17 20:10 89 18 93 Venturi Mask 14.0 55 07/09/17 20:09 94 Venturi Mask 14.0 55 07/09/17 20:09 Venturi Mask 14.0 55 07/09/17 20:00 77 07/09/17 20:00 97.7 90 24 107/43 Venturi Mask 97.7 07/09/17 19:20 Venturi Mask 15.0 07/09/17 19:18 97.8 90 12 96/48 Venturi Mask 97.8 07/09/17 16:00 Venturi Mask 15.0 07/09/17 16:00 78 07/09/17 16:00 97.5 79 21 120/61 99 Venturi Mask 55 97.5 07/09/17 16:00 97.4 79 12 120/61 Venturi Mask 15.0 97.4 Intake and Output 07/09/17 07/10/17 19:00 07:00 Intake Total 1210 ml Output Total 100 ml 635 ml Balance -100 ml 575 ml IV Total 1210 ml Output Urine Total 100 ml 0 ml Hemodialysis UF 635 ml Laboratory Tests Test 07/10/17 04:00 White Blood Count 17.5 K/UL (4.8-10.8) H Red Blood Count 2.95 M/UL (4.70-6.10) L Hemoglobin 9.2 G/DL (14.2-18.0) L Hematocrit 28.4 % (42.0-52.0) L Mean Corpuscular Volume 96 FL (80-99) Mean Corpuscular Hemoglobin 31.1 PG (27.0-31.0) H Mean Corpuscular Hemoglobin Concent 32.4 G/DL (32.0-36.0) Red Cell Distribution Width 16.5 % (11.6-14.8) H Platelet Count 151 K/UL (150-450) Mean Platelet Volume 8.5 FL (6.5-10.1) Neutrophils (%) (Auto) % (45.0-75.0) Lymphocytes (%) (Auto) % (20.0-45.0) Monocytes (%) (Auto) % (1.0-10.0) Eosinophils (%) (Auto) % (0.0-3.0) Basophils (%) (Auto) % (0.0-2.0) Differential Total Cells Counted 100 Neutrophils % (Manual) 90 % (45-75) H Lymphocytes % (Manual) 4 % (20-45) L Monocytes % (Manual) 6 % (1-10) Eosinophils % (Manual) 0 % (0-3) Basophils % (Manual) 0 % (0-2) Band Neutrophils 0 % (0-8) Platelet Estimate Adequate Platelet Morphology Normal Polychromasia 1+ Hypochromasia 1+ Anisocytosis 1+ Sodium Level 141 MMOL/L (136-145) Potassium Level 4.0 MMOL/L (3.5-5.1) Chloride Level 99 MMOL/L (98-107) Carbon Dioxide Level 24 MMOL/L (21-32) Anion Gap 18 mmol/L (5-15) H Blood Urea Nitrogen 82 mg/dL (7-18) H Creatinine 5.4 MG/DL (0.55-1.30) H Estimat Glomerular Filtration Rate 10.9 mL/min (>60) Glucose Level 261 MG/DL (74-106) #H Calcium Level 6.7 MG/DL (8.5-10.1) L Objective HEAD AND NECK: No JVD. NG tube is in LUNGS: Coarse rhonchi. Jose left subclavian CARDIOVASCULAR: In SR. Nl S1 and S2 with no gallop or murmur. ABDOMEN: Soft. EXTREMITIES: No pitting edema.Right arm PICC line Luke Charles MD Jul 10, 2017 15:26
[2017-07-10 16:00] VITALS: BP 120/56
[2017-07-10 20:00] VITALS: BP 122/61
[2017-07-10] MEDS: Dyna-Hex 2% Top Sol 2oz TOPIC SCH (21:44)
[2017-07-10] MEDS: Epogen (for non ESRD use) SUBQ SCH (21:45)
[2017-07-10] MEDS: Heparin 5000 units/ml inj SUBQ SCH (22:04)
[2017-07-11] MEDS: Albuterol/Ipratropium 3ml neb HHN SCH ×2 (01:23→08:48)
[2017-07-11] MEDS: Morphine Sulfate 2mg/ml Inj IVP PRN (01:49)
[2017-07-11] MEDS: Polymyxin B Sulfate 500,000 units in D5W 550ml IV SCH ×2 (01:49→16:24)
[2017-07-11] MEDS: NovoLOG Insulin Flexpen SUBQ SCH ×5 (02:00→17:17)
[2017-07-11 04:00] VITALS: BP 135/66
[2017-07-11 05:04] LABS: HEMATOCRIT 25.3 % (42.0-52.0); HEMOGLOBIN 8.2 G/DL (14.2-18.0); MEAN CORPUSCULAR VOLUME 96 FL (80-99); PLATELET COUNT 151 K/UL (150-450); RED BLOOD COUNT 2.63 M/UL (4.70-6.10); RED CELL DISTRIBUTION WIDTH 16.5 % (11.6-14.8); WHITE BLOOD COUNT 12.7 K/UL (4.8-10.8)
[2017-07-11 05:11] LABS: ALANINE AMINOTRANSFERASE 10 U/L (12-78); ALBUMIN 1.4 G/DL (3.4-5.0); ALBUMIN/GLOBULIN RATIO 0.5 (1.0-2.7); ALKALINE PHOSPHATASE 67 U/L (46-116); ANION GAP 13 mmol/L (5-15); ASPARTATE AMINO TRANSFERASE 14 U/L (15-37); BILIRUBIN,TOTAL 0.7 MG/DL (0.2-1.0); BLOOD UREA NITROGEN 90 mg/dL (7-18); CALCIUM 7.1 MG/DL (8.5-10.1); CARBON DIOXIDE 27 MMOL/L (21-32); CHLORIDE 98 MMOL/L (98-107); CREATININE 6.4 MG/DL (0.55-1.30); POTASSIUM 3.5 MMOL/L (3.5-5.1); SODIUM 138 MMOL/L (136-145)
[2017-07-11 05:18] LABS: PHOSPHORUS 7.9 MG/DL (2.5-4.9)
[2017-07-11] MEDS: Renvela 800mg Pkt NG SCH ×2 (06:36)
[2017-07-11 07:51] VITALS: BP 156/68
[2017-07-11] MEDS: Acetylcysteine 20% Soln 4ml HHN SCH (08:48)
--- NOTE | 2017-07-11 09:30 | Nephrology Progress Note ---
Assessment/Plan Problem List: (1) ARF (acute renal failure) (2) Acute respiratory failure with hypoxemia (3) Hyperkalemia (4) Cachexia Assessment Acute renal failure- on dialysis ? CKD Acute respiratory failure, Pneumonia Hypotension- Shock, Sepsis Cachexia Plan self extubated 07/07 HD 07/11 watch renal parameters off pressors pulm support benavides echo 55% EjFx K supplement HD in am again costa Bilateral echogenic kidneys, consistent with medical renal disease discussed with RN in dept cxr Extensive bilateral infiltrates and pleural effusions, slightly increased on the left Subjective ROS Limited/Unobtainable: No Objective Objective Last 24 Hour Vital Signs Date Time Temp Pulse Resp B/P (MAP) Pulse Ox O2 Delivery O2 Flow Rate FiO2 07/11/17 09:01 89 18 99 Venturi Mask 14.0 55 07/11/17 08:59 91 18 98 Venturi Mask 14.0 55 07/11/17 08:50 89 18 99 Venturi Mask 14.0 55 07/11/17 08:48 91 18 98 Venturi Mask 14.0 55 07/11/17 08:00 87 07/11/17 07:51 97.9 95 22 156/68 97 Venturi Mask 97.9 07/11/17 07:11 99 Venturi Mask 14.0 55 07/11/17 07:11 Venturi Mask 14.0 55 07/11/17 04:00 97.7 84 20 135/66 97 Venturi Mask 97.7 07/11/17 03:31 83 07/11/17 01:38 88 20 98 Venturi Mask 14.0 55 07/11/17 01:23 83 18 96 Venturi Mask 14.0 55 07/10/17 22:49 82 18 97 Venturi Mask 14.0 55 07/10/17 22:36 84 20 93 Venturi Mask 14.0 55 07/10/17 20:27 81 20 97 Venturi Mask 14.0 55 07/10/17 20:18 78 20 97 Venturi Mask 14.0 55 07/10/17 20:17 79 20 97 Venturi Mask 14.0 55 07/10/17 20:09 94 Venturi Mask 14.0 55 07/10/17 20:09 81 20 94 Venturi Mask 14.0 55 07/10/17 20:09 Venturi Mask 14.0 55 07/10/17 20:00 77 3/28/18 20:00 96.8 79 19 122/61 93 Venturi Mask 96.8 07/10/17 16:00 78 07/10/17 16:00 97.5 71 21 120/56 94 Venturi Mask 97.5 07/10/17 15:01 83 127/54 07/10/17 14:06 83 20 95 Venturi Mask 14.0 55 07/10/17 13:52 84 20 93 Venturi Mask 14.0 55 07/10/17 12:00 82 07/10/17 12:00 97.9 82 21 127/54 95 Venturi Mask 97.9 07/10/17 09:57 79 18 96 Venturi Mask 14.0 55 07/10/17 09:45 55 07/10/17 09:45 77 18 94 Venturi Mask 14.0 55 Intake and Output 07/10/17 07/11/17 19:00 07:00 Intake Total 960 ml Output Total 75 ml Balance 885 ml Free Water 200 ml IV Total 760 ml Output Urine Total 75 ml Laboratory Tests 07/11/17 04:00: White Blood Count 12.7H, Red Blood Count 2.63L, Hemoglobin 8.2L, Hematocrit 25.3L, Mean Corpuscular Volume 96, Mean Corpuscular Hemoglobin 31.0, Mean Corpuscular Hemoglobin Concent 32.2, Red Cell Distribution Width 16.5H, Platelet Count 151, Mean Platelet Volume 9.3, Neutrophils (%) (Auto) , Lymphocytes (%) (Auto) , Monocytes (%) (Auto) , Eosinophils (%) (Auto) , Basophils (%) (Auto) , Sodium Level 138, Potassium Level 3.5, Chloride Level 98 , Carbon Dioxide Level 27, Anion Gap 13, Blood Urea Nitrogen 90H, Creatinine 6.4H, Estimat Glomerular Filtration Rate 8.9, Glucose Level 218H, Uric Acid 6.8 , Calcium Level 7.1L, Phosphorus Level 7.9H, Magnesium Level 2.0, Total Bilirubin 0.7, Aspartate Amino Transf (AST/SGOT) 14L, Alanine Aminotransferase ( ALT/SGPT) 10L, Alkaline Phosphatase 67, C-Reactive Protein, Quantitative 13.1H, Pro-B-Type Natriuretic Peptide 08899E, Total Protein 4.4L, Albumin 1.4L, Globulin 3.0, Albumin/Globulin Ratio 0.5L Height (Feet): 5 Height (Inches): 11.00 Weight (Pounds): 175 Objective no change JUSTIN HERNANDEZ Jul 11, 2017 09:30
[2017-07-11] MEDS: Metoprolol 25mg tab NG SCH (09:33)
[2017-07-11] MEDS: Pantoprazole Inj IVP SCH (09:33)
[2017-07-11] MEDS: Colistin for inhalation INH SCH (09:39)
[2017-07-11] MEDS: Cosopt Opth Soln 10 mL Btl RIGHT EYE SCH ×2 (09:43→17:18)
[2017-07-11] MEDS: Heparin 5000 units/ml inj SUBQ SCH (09:49)
[2017-07-11] MEDS ORDERED: [UNRECOGNIZED DRUG - CODE] IJ (10:18)
[2017-07-11] MEDS ORDERED: RENVELA0.8 GM NG (10:18)
[2017-07-11] MEDS ORDERED: HEPARIN SO5000 UNIT2 SUBQ (10:18)
[2017-07-11] MEDS ORDERED: LOPRESSOR25 M1 NG (10:18)
[2017-07-11] MEDS ORDERED: DUONEB 0.5-3(2.53 ML HHN (10:18)
[2017-07-11] MEDS ORDERED: RESTORIL15 MG ORAL (10:18)
[2017-07-11] MEDS ORDERED: COLISTIN150 MG INH (10:18)
[2017-07-11] MEDS ORDERED: PROCRIT20000 UNI2 SUBQ (10:18)
--- NOTE | 2017-07-11 10:21 | Pulmonology Progress Note ---
Assessment/Plan Assessment/Plan ASSESSMENT Acute hypoxemic RF requiring intubation s/p self-extubation 07/07 Sepsis with shock HCAP UTI ARF on CKD, started on HD/ new start A fib with RVR NSTEMI COPD exacerbation DM anemia of chronic kidney disease lactic acidosis Cachexia with severe protein calorie malnutrition Mild pulmonary HTN mild to moderate MR Encephalopathy dysphagia Sacrococcyx un-stageable pressure ulcer POA Multiple DTI POA PLAN OF CARE ARIN Off pressors, hemodynamically stable titrate O2 to keep pulse ox above 92% pulmonary toilet last CXR 07/08 increased bilateral pleural effusion fup with CXR 07/10 - stable eva pl effusions VM 55%, titrate to keep pulse ox above 9% converted to SR cardio follows per cardio NSTEMI 2 to A fib with RVR and sepsis ECHO with EF 55% and RVSP of 42 c/w mild pulmonary HTN, as well as evidence of mild to moderate MR abx ID follows leuk, afebrile ? aspirated, no diarrhea blood cx negative , urine cx negative, influenza screen negative sputum cx initially negative , repeated [facility] CT chest with bilateral patchy and nodular infiltrates R>L, most likely 2 to PNA HD catheter inserted by surgeon on 07/02 and patient was started on HD nephro follows monitor volumes, renal parameters, correct lytes as needed Renal US with evidence of medical renal disease, no hydro gentle IVF - per nephro monitor HH, transfuse to keep Hgb above 7 On EPO BS management with SS insulin nutritional support and dietary recs Wound care as per wound nurse recs swallow eval 07/08 not passed, not ready for VSSE yet NPO for now NGT reinserted, abd X ray confirmed palcement start tube feeding with Nephro with strict asp precautions discussed with ST in lieu of resp distress and leucocytosis, will likely keep conservative treatment and after VSSE anticipate NGT feeding likely pending discharge to [place] case discussed and evaluated by supervising physician Subjective Allergies: Coded Allergies: No Known Allergies (Unverified , 07/01/17) Subjective in ARIN on VM leuk trending down, afebrile did not passed swallow eval 07/08 NG tube inserted,patient removed Objective Last 24 Hour Vital Signs Date Time Temp Pulse Resp B/P (MAP) Pulse Ox O2 Delivery O2 Flow Rate FiO2 07/11/17 09:55 55 07/11/17 09:55 93 20 98 Venturi Mask 14.0 55 07/11/17 09:55 93 20 98 Venturi Mask 14.0 55 07/11/17 09:40 93 20 98 Venturi Mask 14.0 55 07/11/17 09:33 89 156/68 07/11/17 09:01 89 18 99 Venturi Mask 14.0 55 07/11/17 08:59 91 18 98 Venturi Mask 14.0 55 07/11/17 08:50 89 18 99 Venturi Mask 14.0 55 07/11/17 08:48 91 18 98 Venturi Mask 14.0 55 07/11/17 08:00 87 07/11/17 07:51 97.9 95 22 156/68 97 Venturi Mask 97.9 07/11/17 07:11 99 Venturi Mask 14.0 55 07/11/17 07:11 Venturi Mask 14.0 55 07/11/17 04:00 97.7 84 20 135/66 97 Venturi Mask 97.7 07/11/17 03:31 83 07/11/17 01:38 88 20 98 Venturi Mask 14.0 55 07/11/17 01:23 83 18 96 Venturi Mask 14.0 55 07/10/17 22:49 82 18 97 Venturi Mask 14.0 55 07/10/17 22:36 84 20 93 Venturi Mask 14.0 55 07/10/17 20:27 81 20 97 Venturi Mask 14.0 55 07/10/17 20:18 78 20 97 Venturi Mask 14.0 55 07/10/17 20:17 79 20 97 Venturi Mask 14.0 55 07/10/17 20:09 94 Venturi Mask 14.0 55 07/10/17 20:09 81 20 94 Venturi Mask 14.0 55 07/10/17 20:09 Venturi Mask 14.0 55 07/10/17 20:00 77 07/10/17 20:00 96.8 79 19 122/61 93 Venturi Mask 96.8 07/10/17 16:00 78 07/10/17 16:00 97.5 71 21 120/56 94 Venturi Mask 97.5 07/10/17 15:01 83 127/54 07/10/17 14:06 83 20 95 Venturi Mask 14.0 55 07/10/17 13:52 84 20 93 Venturi Mask 14.0 55 07/10/17 12:00 82 07/10/17 12:00 97.9 82 21 127/54 95 Venturi Mask 97.9 Intake and Output 07/10/17 07/11/17 19:00 07:00 Intake Total 960 ml Output Total 75 ml Balance 885 ml Free Water 200 ml IV Total 760 ml Output Urine Total 75 ml Objective General: awake, responsive HEENT: atraumatic, normocephalic, VM 55% on, NGT Neck: L subclavian temporary HD catheter, intact Lungs: clear Heart: HR/BP stable, R PICC intact , Abdomen: active bowel sounds, Eric Extremities: no C/C/E Microbiology Date/Time Source Procedure Growth Status 07/09/17 15:30 Blood Blood Culture - Preliminary NO GROWTH AFTER 24 HOURS Resulted Laboratory Tests 07/11/17 04:00: White Blood Count 12.7H, Red Blood Count 2.63L, Hemoglobin 8.2L, Hematocrit 25.3L, Mean Corpuscular Volume 96, Mean Corpuscular Hemoglobin 31.0, Mean Corpuscular Hemoglobin Concent 32.2, Red Cell Distribution Width 16.5H, Platelet Count 151, Mean Platelet Volume 9.3, Neutrophils (%) (Auto) , Lymphocytes (%) (Auto) , Monocytes (%) (Auto) , Eosinophils (%) (Auto) , Basophils (%) (Auto) , Sodium Level 138, Potassium Level 3.5, Chloride Level 98 , Carbon Dioxide Level 27, Anion Gap 13, Blood Urea Nitrogen 90H, Creatinine 6.4H, Estimat Glomerular Filtration Rate 8.9, Glucose Level 218H, Uric Acid 6.8 , Calcium Level 7.1L, Phosphorus Level 7.9H, Magnesium Level 2.0, Total Bilirubin 0.7, Aspartate Amino Transf (AST/SGOT) 14L, Alanine Aminotransferase ( ALT/SGPT) 10L, Alkaline Phosphatase 67, C-Reactive Protein, Quantitative 13.1H, Pro-B-Type Natriuretic Peptide 27362Q, Total Protein 4.4L, Albumin 1.4L, Globulin 3.0, Albumin/Globulin Ratio 0.5L Current Medications Medications (Trade) Dose Ordered Sig/Sameera Route PRN Reason Start Time Stop Time Status Last Admin Dose Admin Acetaminophen (Tylenol) 650 mg Q4H PRN ORAL fever (temp>100.5F) 07/08/17 12:00 07/31/17 15:59 Acetylcysteine (Mucomyst) 200 mg BIDRT HHN 07/08/17 22:00 08/07/17 21:59 07/11/17 08:48 Albuterol/ Ipratropium (Albuterol/ Ipratropium) 3 ml Q4H PRN HHN dyspnea 07/10/17 10:00 07/13/17 09:59 07/10/17 10:46 Albuterol/ Ipratropium (Albuterol/ Ipratropium) 3 ml Q6HRT HHN 07/08/17 13:00 07/13/17 12:59 07/11/17 08:48 Chlorhexidine Gluconate (Sindy-Hex 2%) 1 applic DAILY@2000 TOPIC 07/08/17 20:00 07/31/17 19:59 07/10/17 21:44 Colistimethate Sodium (Colistin *inhalation use only*) 150 mg Q12HRT@1000,2200 INH 07/09/17 22:00 07/16/17 21:59 07/11/17 09:39 Dextrose (Dextrose 50%) STAT PRN IV Hypoglycemia 07/08/17 11:45 08/02/17 11:44 Dorzolamide/ Timolol (Cosopt) 1 drop BID RIGHT EYE 07/08/17 18:00 07/31/17 09:59 07/11/17 09:43 Epoetin Kobe (Procrit (for non ESRD use)) 7,500 units SAT-SAT-SAT SUBQ 07/08/17 21:00 08/07/17 20:59 07/10/17 21:45 Heparin Sodium (Porcine) (Heparin 5000 units/ml) 5,000 units EVERY 12 HOURS SUBQ 07/08/17 21:00 07/31/17 09:59 Future hold 07/11/17 09:49 Insulin Aspart (NovoLOG) EVERY 4 HOURS SUBQ 07/08/17 13:00 08/02/17 16:59 07/11/17 06:42 Lorazepam (Ativan 2mg/ml 1ml) 2 mg Q4H PRN IV For Anxiety 07/08/17 13:16 07/13/17 13:15 Metoprolol Tartrate (Lopressor) 25 mg Q12HR NG 07/08/17 21:00 08/03/17 20:59 07/11/17 09:33 Morphine Sulfate (Morphine Sulfate) 2 mg Q4H PRN IVP Moderate Pain (Pain Scale 4-6) 07/08/17 13:17 07/13/17 13:16 07/11/17 01:49 Morphine Sulfate (Morphine Sulfate) 4 mg Q4H PRN IVP Severe Pain (Pain Scale 7-10) 07/08/17 13:17 07/13/17 13:16 07/08/17 23:45 Nitroglycerin (Ntg) 0.4 mg Q5M X 3 DOSES PRN SL Prn Chest Pain 07/08/17 11:45 07/31/17 15:59 Ondansetron HCl (Zofran) 4 mg Q6H PRN IVP Nausea & Vomiting 07/08/17 13:17 07/31/17 13:16 Pantoprazole (Protonix) 40 mg EVERY 12 HOURS IVP 07/08/17 21:00 07/31/17 16:44 07/11/17 09:33 Polymyxin B Sulfate [id number] units/Dextrose 550 ml @ 550 mls/hr Q12H IV 07/09/17 14:00 07/16/17 13:59 07/11/17 01:49 Promethazine HCl/ Codeine (Phenergan with Codeine) 5 ml Q6H PRN ORAL cough 07/08/17 13:30 07/31/17 07:29 Sevelamer Carbonate (Renvela) 2,400 mg Q6HR NG 07/11/17 12:00 08/02/17 11:59 Sodium Chloride 1,000 ml @ 30 mls/hr Q24H IV 07/10/17 09:00 08/09/17 08:59 07/11/17 09:00 Temazepam (Restoril) 15 mg HSPRN PRN ORAL Insomnia 07/08/17 13:21 07/15/17 13:20 Felisha Bergeron NP ([facility]) Jul 11, 2017 10:21
[2017-07-11] MEDS ORDERED: Morphine Sulfate 4mg/ml Inj IVP PRN ×2 (11:00→14:00)
[2017-07-11] MEDS ORDERED: Albuterol/Ipratropium 3ml neb HHN PRN (11:00)
[2017-07-11] MEDS ORDERED: LORazepam Inj 2mg/ml 1ml IV PRN (11:00)
--- NOTE | 2017-07-11 11:25 | Diagnostic Imaging Report ---
. Indication: Post nasogastric tube placement Technique: One view of the chest Comparison: 07/10/2017 Findings: There is a nasogastric tube in place, tip projecting at the level of the gastric fundus, proximal port probably just beyond the gastroesophageal junction. Bilateral basilar infiltrates and pleural fluid persists. Lines remain in stable position Impression: Satisfactory nasogastric intubation. Otherwise stable over one day
[2017-07-11 12:00] VITALS: BP 137/82
[2017-07-11] MEDS: Renvela 2400 mg pkt NG SCH ×2 (12:34→17:25)
[2017-07-11 13:00] VITALS: BP 170/83
[2017-07-11] MEDS ORDERED: Albuterol/Ipratropium 3ml neb HHN SCH (13:00)
--- NOTE | 2017-07-11 15:28 | Cardiac Electrophysiology PN ---
Assessment/Plan Assessment/Plan 1. Atrial fibrillation with rapid ventricular response.In SR on Lopressor 25 mg NG bid. 2. NSTEMI troponin peak 3.36. Down to 1.28. Due to sepsis and fib with RVR. On Lopressor 3. Elevated BNP of more than 150,000 due to volume overload. Better on hemodialysis. 4. S/P Respiratory failure. Extubated 5. S/P Septic shock, on IV antibiotic per ID. 6. Anemia due to renal failure. 7. Hyperkalemia due to renal failure. 8. ARF. Now on HD 9. Dysphagia. NG was placed in 10. Biltaeral UE edema. No DVT by Duplex DW RN Subjective Subjective In SDU getting HD. DC planning to [place] after HD. RN at bedside. No arrhythmias on tele. Objective Last 24 Hour Vital Signs Date Time Temp Pulse Resp B/P (MAP) Pulse Ox O2 Delivery O2 Flow Rate FiO2 07/11/17 13:47 88 18 98 Venturi Mask 14.0 55 07/11/17 13:37 89 18 98 Venturi Mask 14.0 55 07/11/17 13:00 97.7 81 16 170/83 Venturi Mask 15.0 97.7 07/11/17 13:00 Venturi Mask 15.0 07/11/17 12:00 81 07/11/17 12:00 97.8 81 20 137/82 98 Venturi Mask 97.8 07/11/17 09:55 55 07/11/17 09:55 93 20 98 Venturi Mask 14.0 55 07/11/17 09:40 93 20 98 Venturi Mask 14.0 55 07/11/17 09:33 89 156/68 07/11/17 09:01 89 18 99 Venturi Mask 14.0 55 07/11/17 08:59 91 18 98 Venturi Mask 14.0 55 07/11/17 08:50 89 18 99 Venturi Mask 14.0 55 07/11/17 08:48 91 18 98 Venturi Mask 14.0 55 07/11/17 08:00 87 07/11/17 07:51 97.9 95 22 156/68 97 Venturi Mask 97.9 07/11/17 07:11 99 Venturi Mask 14.0 55 07/11/17 07:11 Venturi Mask 14.0 55 07/11/17 04:00 97.7 84 20 135/66 97 Venturi Mask 97.7 07/11/17 03:31 83 07/11/17 01:38 88 20 98 Venturi Mask 14.0 55 07/11/17 01:23 83 18 96 Venturi Mask 14.0 55 07/10/17 22:49 82 18 97 Venturi Mask 14.0 55 07/10/17 22:36 84 20 93 Venturi Mask 14.0 55 07/10/17 20:27 81 20 97 Venturi Mask 14.0 55 07/10/17 20:18 78 20 97 Venturi Mask 14.0 55 07/10/17 20:17 79 20 97 Venturi Mask 14.0 55 07/10/17 20:09 94 Venturi Mask 14.0 55 07/10/17 20:09 81 20 94 Venturi Mask 14.0 55 07/10/17 20:09 Venturi Mask 14.0 55 07/10/17 20:00 77 07/10/17 20:00 96.8 79 19 122/61 93 Venturi Mask 96.8 07/10/17 16:00 78 07/10/17 16:00 97.5 71 21 120/56 94 Venturi Mask 97.5 Intake and Output 07/10/17 07/11/17 19:00 07:00 Intake Total 960 ml Output Total 75 ml Balance 885 ml Free Water 200 ml IV Total 760 ml Output Urine Total 75 ml Laboratory Tests Test 07/11/17 04:00 White Blood Count 12.7 K/UL (4.8-10.8) H Red Blood Count 2.63 M/UL (4.70-6.10) L Hemoglobin 8.2 G/DL (14.2-18.0) L Hematocrit 25.3 % (42.0-52.0) L Mean Corpuscular Volume 96 FL (80-99) Mean Corpuscular Hemoglobin 31.0 PG (27.0-31.0) Mean Corpuscular Hemoglobin Concent 32.2 G/DL (32.0-36.0) Red Cell Distribution Width 16.5 % (11.6-14.8) H Platelet Count 151 K/UL (150-450) Mean Platelet Volume 9.3 FL (6.5-10.1) Neutrophils (%) (Auto) % (45.0-75.0) Lymphocytes (%) (Auto) % (20.0-45.0) Monocytes (%) (Auto) % (1.0-10.0) Eosinophils (%) (Auto) % (0.0-3.0) Basophils (%) (Auto) % (0.0-2.0) Sodium Level 138 MMOL/L (136-145) Potassium Level 3.5 MMOL/L (3.5-5.1) Chloride Level 98 MMOL/L (98-107) Carbon Dioxide Level 27 MMOL/L (21-32) Anion Gap 13 mmol/L (5-15) Blood Urea Nitrogen 90 mg/dL (7-18) H Creatinine 6.4 MG/DL (0.55-1.30) H Estimat Glomerular Filtration Rate 8.9 mL/min (>60) Glucose Level 218 MG/DL (74-106) H Uric Acid 6.8 MG/DL (2.6-7.2) Calcium Level 7.1 MG/DL (8.5-10.1) L Phosphorus Level 7.9 MG/DL (2.5-4.9) H Magnesium Level 2.0 MG/DL (1.8-2.4) Total Bilirubin 0.7 MG/DL (0.2-1.0) Aspartate Amino Transf (AST/SGOT) 14 U/L (15-37) L Alanine Aminotransferase (ALT/SGPT) 10 U/L (12-78) L Alkaline Phosphatase 67 U/L (46-116) C-Reactive Protein, Quantitative 13.1 mg/dL (0.00-0.90) H Pro-B-Type Natriuretic Peptide 96000 pg/mL (0-125) H Total Protein 4.4 G/DL (6.4-8.2) L Albumin 1.4 G/DL (3.4-5.0) L Globulin 3.0 g/dL Albumin/Globulin Ratio 0.5 (1.0-2.7) L Microbiology Date/Time Source Procedure Growth Status 07/09/17 15:30 Blood Blood Culture - Preliminary NO GROWTH AFTER 24 HOURS Resulted Objective HEAD AND NECK: No JVD. NG tube is in LUNGS: Coarse rhonchi. Jose left subclavian CARDIOVASCULAR: In SR. Nl S1 and S2 with no gallop or murmur. ABDOMEN: Soft. EXTREMITIES: No pitting edema. Right arm PICC line Luke Charles MD Jul 11, 2017 15:28
--- NOTE | 2017-07-11 15:40 | Infectious Diseases Prog Note ---
Assessment/Plan Assessment/Plan Assessment: Septic Shock, SP- likely 2ry to CRE PNA, -CXR 07/10: Perhaps slightly improved but persistent bilateral basilar infiltrates,over 2 days Probably stable bilateral pleural effusions -CXR 07/09: There is increased pleural fluid bilaterally. Parenchymal infiltrates at both lung bases persist -CT chest 07/05: There is extensive consolidation of most of the right lower lobe. Less extensive nodular and groundglass opacities are seen in the right middle lobe and to a slight extent in the inferior right upper lobe. Fairly extensive nodular and and patchy airspace opacities are seen throughout the left lower lobe. Similar opacities are seen in the left lower lobe, predominately inferiorly. There is a small right pleural effusion. There is trace left pleural fluid. No definite interstitial edema. -CXR 07/05: Slight improvement of still extensive bilateral basilar consolidation, over one day -influenza sc neg -sp cx not collected; re-ordered 07/04: CRE K.pna (S Colistin, Polmymixin B) -u/a no pyuria; ucx Neg -Bcx Neg VDRF; extubated 07/07 COPD exacerbation Afebrile Leukocytosis- multifactorial- reactive component, infection and steroids ( steroids dc 07/05); worsened, now improving- ?due to MDRO- r/o new infection, r/ o cdiff Seizure episode 07/02 Acute renal failure, HD started 07/02 Hyperkalemia Anion gap acidosis DM depression cachexia retirement resident muscle wasting/generalized weakness encephalopathy Plan: -Continue IV Polymixin B (renally dose) #06/22-14 and INH Colistin #06/26 for CRE PNA -07/09 SP IV vanco #3, Zosyn #8 -07/06 SP IV Vancomycin #5 -07/01 SP Cefepime, Levaquin x1 -f/u REpeat cultures, Cdiff. -f/u cx -f/u fungal serologies -Monitor CBC/BMP, temperatures -Aspiration precautions Subjective Allergies: Coded Allergies: No Known Allergies (Unverified , 07/01/17) Subjective afebrile remains on VM leukocytosis improving Objective Vital Signs Last 24 Hour Vital Signs Date Time Temp Pulse Resp B/P (MAP) Pulse Ox O2 Delivery O2 Flow Rate FiO2 07/11/17 13:47 88 18 98 Venturi Mask 14.0 55 07/11/17 13:37 89 18 98 Venturi Mask 14.0 55 07/11/17 13:00 97.7 81 16 170/83 Venturi Mask 15.0 97.7 07/11/17 13:00 Venturi Mask 15.0 07/11/17 12:00 81 07/11/17 12:00 97.8 81 20 137/82 98 Venturi Mask 97.8 07/11/17 09:55 55 07/11/17 09:55 93 20 98 Venturi Mask 14.0 55 07/11/17 09:40 93 20 98 Venturi Mask 14.0 55 07/11/17 09:33 89 156/68 07/11/17 09:01 89 18 99 Venturi Mask 14.0 55 07/11/17 08:59 91 18 98 Venturi Mask 14.0 55 07/11/17 08:50 89 18 99 Venturi Mask 14.0 55 07/11/17 08:48 91 18 98 Venturi Mask 14.0 55 07/11/17 08:00 87 07/11/17 07:51 97.9 95 22 156/68 97 Venturi Mask 97.9 07/11/17 07:11 99 Venturi Mask 14.0 55 07/11/17 07:11 Venturi Mask 14.0 55 07/11/17 04:00 97.7 84 20 135/66 97 Venturi Mask 97.7 07/11/17 03:31 83 07/11/17 01:38 88 20 98 Venturi Mask 14.0 55 07/11/17 01:23 83 18 96 Venturi Mask 14.0 55 07/10/17 22:49 82 18 97 Venturi Mask 14.0 55 07/10/17 22:36 84 20 93 Venturi Mask 14.0 55 07/10/17 20:27 81 20 97 Venturi Mask 14.0 55 07/10/17 20:18 78 20 97 Venturi Mask 14.0 55 07/10/17 20:17 79 20 97 Venturi Mask 14.0 55 07/10/17 20:09 94 Venturi Mask 14.0 55 07/10/17 20:09 81 20 94 Venturi Mask 14.0 55 07/10/17 20:09 Venturi Mask 14.0 55 07/10/17 20:00 77 07/10/17 20:00 96.8 79 19 122/61 93 Venturi Mask 96.8 07/10/17 16:00 78 07/10/17 16:00 97.5 71 21 120/56 94 Venturi Mask 97.5 Height (Feet): 5 Height (Inches): 11.00 Weight (Pounds): 175 Objective General Appearance: cachetic Lines, tubes and drains: peripheral HEENT: normocephalic, atraumatic Neck: non-tender, normal alignment Respiratory/Chest: chest wall non-tender, rhonchi - left, rhonchi - right Cardiovascular/Chest: normal peripheral pulses, normal rate Abdomen: normal bowel sounds Genitourinary/Rectal: normal genital exam Extremities: normal range of motion Microbiology Date/Time Source Procedure Growth Status 07/09/17 15:30 Blood Blood Culture - Preliminary NO GROWTH AFTER 24 HOURS Resulted Laboratory Tests Test 07/11/17 04:00 White Blood Count 12.7 K/UL (4.8-10.8) H Red Blood Count 2.63 M/UL (4.70-6.10) L Hemoglobin 8.2 G/DL (14.2-18.0) L Hematocrit 25.3 % (42.0-52.0) L Mean Corpuscular Volume 96 FL (80-99) Mean Corpuscular Hemoglobin 31.0 PG (27.0-31.0) Mean Corpuscular Hemoglobin Concent 32.2 G/DL (32.0-36.0) Red Cell Distribution Width 16.5 % (11.6-14.8) H Platelet Count 151 K/UL (150-450) Mean Platelet Volume 9.3 FL (6.5-10.1) Neutrophils (%) (Auto) % (45.0-75.0) Lymphocytes (%) (Auto) % (20.0-45.0) Monocytes (%) (Auto) % (1.0-10.0) Eosinophils (%) (Auto) % (0.0-3.0) Basophils (%) (Auto) % (0.0-2.0) Sodium Level 138 MMOL/L (136-145) Potassium Level 3.5 MMOL/L (3.5-5.1) Chloride Level 98 MMOL/L (98-107) Carbon Dioxide Level 27 MMOL/L (21-32) Anion Gap 13 mmol/L (5-15) Blood Urea Nitrogen 90 mg/dL (7-18) H Creatinine 6.4 MG/DL (0.55-1.30) H Estimat Glomerular Filtration Rate 8.9 mL/min (>60) Glucose Level 218 MG/DL (74-106) H Uric Acid 6.8 MG/DL (2.6-7.2) Calcium Level 7.1 MG/DL (8.5-10.1) L Phosphorus Level 7.9 MG/DL (2.5-4.9) H Magnesium Level 2.0 MG/DL (1.8-2.4) Total Bilirubin 0.7 MG/DL (0.2-1.0) Aspartate Amino Transf (AST/SGOT) 14 U/L (15-37) L Alanine Aminotransferase (ALT/SGPT) 10 U/L (12-78) L Alkaline Phosphatase 67 U/L (46-116) C-Reactive Protein, Quantitative 13.1 mg/dL (0.00-0.90) H Pro-B-Type Natriuretic Peptide 05221 pg/mL (0-125) H Total Protein 4.4 G/DL (6.4-8.2) L Albumin 1.4 G/DL (3.4-5.0) L Globulin 3.0 g/dL Albumin/Globulin Ratio 0.5 (1.0-2.7) L Current Medications Medications (Trade) Dose Ordered Sig/Sameera Route PRN Reason Start Time Stop Time Status Last Admin Dose Admin Acetaminophen (Tylenol) 650 mg Q4H PRN ORAL fever (temp>100.5F) 07/08/17 12:00 07/31/17 15:59 Acetylcysteine (Mucomyst) 200 mg BIDRT N 07/08/17 22:00 08/07/17 21:59 07/11/17 08:48 Albuterol/ Ipratropium (Albuterol/ Ipratropium) 3 ml Q4H PRN HHN dyspnea 07/11/17 11:00 07/14/17 10:59 Albuterol/ Ipratropium (Albuterol/ Ipratropium) 3 ml Q6HRT N 07/11/17 13:00 07/16/17 12:59 07/11/17 13:37 Chlorhexidine Gluconate (Sindy-Hex 2%) 1 applic DAILY@2000 TOPIC 07/08/17 20:00 07/31/17 19:59 07/10/17 21:44 Colistimethate Sodium (Colistin *inhalation use only*) 150 mg Q12HRT@1000,2200 INH 07/09/17 22:00 07/16/17 21:59 07/11/17 09:39 Dextrose (Dextrose 50%) STAT PRN IV Hypoglycemia 07/08/17 11:45 08/02/17 11:44 Dorzolamide/ Timolol (Cosopt) 1 drop BID RIGHT EYE 07/08/17 18:00 07/31/17 09:59 07/11/17 09:43 Epoetin Kobe (Procrit (for non ESRD use)) 7,500 units SAT-SAT-SAT SUBQ 07/08/17 21:00 08/07/17 20:59 07/10/17 21:45 Heparin Sodium (Porcine) (Heparin 5000 units/ml) 5,000 units EVERY 12 HOURS SUBQ 07/08/17 21:00 07/31/17 09:59 Future hold 07/11/17 09:49 Insulin Aspart (NovoLOG) EVERY 4 HOURS SUBQ 07/08/17 13:00 08/02/17 16:59 07/11/17 13:49 Lorazepam (Ativan 2mg/ml 1ml) 2 mg Q4H PRN IV For Anxiety 07/11/17 11:00 07/16/17 10:59 Metoprolol Tartrate (Lopressor) 25 mg Q12HR NG 07/08/17 21:00 08/03/17 20:59 07/11/17 09:33 Morphine Sulfate (Morphine Sulfate) 2 mg Q4H PRN IVP Moderate Pain (Pain Scale 4-6) 07/11/17 11:00 07/16/17 10:59 Morphine Sulfate (Morphine Sulfate) 4 mg Q4H PRN IVP Severe Pain (Pain Scale 7-10) 07/11/17 14:00 07/16/17 13:59 Nitroglycerin (Ntg) 0.4 mg Q5M X 3 DOSES PRN SL Prn Chest Pain 07/08/17 11:45 07/31/17 15:59 Ondansetron HCl (Zofran) 4 mg Q6H PRN IVP Nausea & Vomiting 07/08/17 13:17 07/31/17 13:16 Pantoprazole (Protonix) 40 mg EVERY 12 HOURS IVP 07/08/17 21:00 07/31/17 16:44 07/11/17 09:33 Polymyxin B Sulfate 138030 units/Dextrose 550 ml @ 550 mls/hr Q12H IV 07/09/17 14:00 07/16/17 13:59 07/11/17 01:49 Promethazine HCl/ Codeine (Phenergan with Codeine) 5 ml Q6H PRN ORAL cough 07/08/17 13:30 07/31/17 07:29 Sevelamer Carbonate (Renvela) 2,400 mg Q6HR NG 07/11/17 12:00 08/02/17 11:59 07/11/17 12:34 Sodium Chloride 1,000 ml @ 30 mls/hr Q24H IV 07/10/17 09:00 08/09/17 08:59 07/11/17 09:00 Temazepam (Restoril) 15 mg HSPRN PRN ORAL Insomnia 07/08/17 13:21 07/15/17 13:20 Page West M.D. Jul 11, 2017 15:40
[2017-07-11 16:00] VITALS: BP 100/58
[2017-07-11 16:39] VITALS: BP 100/58
--- NOTE | 2017-07-11 19:00 | Internal Med Progress Note ---
Subjective Physician Name Jonathan Garcia Attending Physician Jonathan Garcia MD Current Medications Medications (Trade) Dose Ordered Sig/Sameera Route PRN Reason Start Time Stop Time Status Last Admin Dose Admin Acetaminophen (Tylenol) 650 mg Q4H PRN ORAL fever (temp>100.5F) 07/08/17 12:00 07/31/17 15:59 07/11/17 17:25 Acetylcysteine (Mucomyst) 200 mg BIDRT HHN 07/08/17 22:00 08/07/17 21:59 07/11/17 08:48 Albuterol/ Ipratropium (Albuterol/ Ipratropium) 3 ml Q4H PRN HHN dyspnea 07/11/17 11:00 07/14/17 10:59 Albuterol/ Ipratropium (Albuterol/ Ipratropium) 3 ml Q6HRT N 07/11/17 13:00 07/16/17 12:59 07/11/17 13:37 Chlorhexidine Gluconate (Sindy-Hex 2%) 1 applic DAILY@2000 TOPIC 07/08/17 20:00 07/31/17 19:59 07/10/17 21:44 Colistimethate Sodium (Colistin *inhalation use only*) 150 mg Q12HRT@1000,2200 INH 07/09/17 22:00 07/16/17 21:59 07/11/17 09:39 Dextrose (Dextrose 50%) STAT PRN IV Hypoglycemia 07/08/17 11:45 08/02/17 11:44 Dorzolamide/ Timolol (Cosopt) 1 drop BID RIGHT EYE 07/08/17 18:00 07/31/17 09:59 07/11/17 17:18 Epoetin Kobe (Procrit (for non ESRD use)) 7,500 units MON-WED-FRI SUBQ 07/08/17 21:00 08/07/17 20:59 07/10/17 21:45 Heparin Sodium (Porcine) (Heparin 5000 units/ml) 5,000 units EVERY 12 HOURS SUBQ 07/08/17 21:00 07/31/17 09:59 Future hold 07/11/17 09:49 Insulin Aspart (NovoLOG) EVERY 4 HOURS SUBQ 07/08/17 13:00 08/02/17 16:59 07/11/17 17:17 Lorazepam (Ativan 2mg/ml 1ml) 2 mg Q4H PRN IV For Anxiety 07/11/17 11:00 07/16/17 10:59 Metoprolol Tartrate (Lopressor) 25 mg Q12HR NG 07/08/17 21:00 08/03/17 20:59 07/11/17 09:33 Morphine Sulfate (Morphine Sulfate) 2 mg Q4H PRN IVP Moderate Pain (Pain Scale 4-6) 07/11/17 11:00 07/16/17 10:59 Morphine Sulfate (Morphine Sulfate) 4 mg Q4H PRN IVP Severe Pain (Pain Scale 7-10) 07/11/17 14:00 07/16/17 13:59 Nitroglycerin (Ntg) 0.4 mg Q5M X 3 DOSES PRN SL Prn Chest Pain 07/08/17 11:45 07/31/17 15:59 Ondansetron HCl (Zofran) 4 mg Q6H PRN IVP Nausea & Vomiting 07/08/17 13:17 07/31/17 13:16 Pantoprazole (Protonix) 40 mg EVERY 12 HOURS IVP 07/08/17 21:00 07/31/17 16:44 07/11/17 09:33 Polymyxin B Sulfate 489656 units/Dextrose 550 ml @ 550 mls/hr Q12H IV 07/09/17 14:00 07/16/17 13:59 07/11/17 16:24 Promethazine HCl/ Codeine (Phenergan with Codeine) 5 ml Q6H PRN ORAL cough 07/08/17 13:30 07/31/17 07:29 Sevelamer Carbonate (Renvela) 2,400 mg Q6HR NG 07/11/17 12:00 08/02/17 11:59 07/11/17 17:25 Sodium Chloride 1,000 ml @ 30 mls/hr Q24H IV 07/10/17 09:00 08/09/17 08:59 07/11/17 09:00 Temazepam (Restoril) 15 mg HSPRN PRN ORAL Insomnia 07/08/17 13:21 07/15/17 13:20 Allergies: Coded Allergies: No Known Allergies (Unverified , 07/01/17) Subjective awake, responsive, weak, on Venti Mask O2 Objective Last Vital Signs Date Time Temp Pulse Resp B/P (MAP) Pulse Ox O2 Delivery O2 Flow Rate FiO2 07/11/17 17:25 97.9 07/11/17 16:40 Venturi Mask 15.0 07/11/17 16:39 102 16 100/58 07/11/17 16:00 97 07/11/17 13:47 55 Laboratory Tests Test 07/11/17 04:00 White Blood Count 12.7 K/UL (4.8-10.8) H Red Blood Count 2.63 M/UL (4.70-6.10) L Hemoglobin 8.2 G/DL (14.2-18.0) L Hematocrit 25.3 % (42.0-52.0) L Mean Corpuscular Volume 96 FL (80-99) Mean Corpuscular Hemoglobin 31.0 PG (27.0-31.0) Mean Corpuscular Hemoglobin Concent 32.2 G/DL (32.0-36.0) Red Cell Distribution Width 16.5 % (11.6-14.8) H Platelet Count 151 K/UL (150-450) Mean Platelet Volume 9.3 FL (6.5-10.1) Neutrophils (%) (Auto) % (45.0-75.0) Lymphocytes (%) (Auto) % (20.0-45.0) Monocytes (%) (Auto) % (1.0-10.0) Eosinophils (%) (Auto) % (0.0-3.0) Basophils (%) (Auto) % (0.0-2.0) Sodium Level 138 MMOL/L (136-145) Potassium Level 3.5 MMOL/L (3.5-5.1) Chloride Level 98 MMOL/L (98-107) Carbon Dioxide Level 27 MMOL/L (21-32) Anion Gap 13 mmol/L (5-15) Blood Urea Nitrogen 90 mg/dL (7-18) H Creatinine 6.4 MG/DL (0.55-1.30) H Estimat Glomerular Filtration Rate 8.9 mL/min (>60) Glucose Level 218 MG/DL (74-106) H Uric Acid 6.8 MG/DL (2.6-7.2) Calcium Level 7.1 MG/DL (8.5-10.1) L Phosphorus Level 7.9 MG/DL (2.5-4.9) H Magnesium Level 2.0 MG/DL (1.8-2.4) Total Bilirubin 0.7 MG/DL (0.2-1.0) Aspartate Amino Transf (AST/SGOT) 14 U/L (15-37) L Alanine Aminotransferase (ALT/SGPT) 10 U/L (12-78) L Alkaline Phosphatase 67 U/L (46-116) C-Reactive Protein, Quantitative 13.1 mg/dL (0.00-0.90) H Pro-B-Type Natriuretic Peptide 50171 pg/mL (0-125) H Total Protein 4.4 G/DL (6.4-8.2) L Albumin 1.4 G/DL (3.4-5.0) L Globulin 3.0 g/dL Albumin/Globulin Ratio 0.5 (1.0-2.7) L Microbiology Date/Time Source Procedure Growth Status 07/09/17 15:30 Blood Blood Culture - Preliminary NO GROWTH AFTER 24 HOURS Resulted Intake and Output 07/10/17 07/11/17 19:00 07:00 Intake Total 960 ml Output Total 75 ml Balance 885 ml Free Water 200 ml IV Total 760 ml Output Urine Total 75 ml Objective General: awake and responsive, on Venti Mask. HEENT: NCAT, sclera anicteric, PERRL, EOMI.NG Tube. Neck: Supple, no significant jugular venous distention, Lungs: fair inspiratory effort, decrease air on bases, no Wheeze, left chest wall dialysis cath. Heart: Regular rate and rhythm, normal S1/S2, no murmurs Abdomen: soft, nontender, nondistended. Normoactive bowel sounds. : Eric Cath Extremities: No Cyanosis , clubbing or edema. RUE Piccline. Neuro: Awake,, Able to move upper extremities, weakness of LE's. Skin: warm, no rashes Assessment/Plan Assessment/Plan Acute hypoxemic RF requiring intubation s/p self-extubation 07/07 Sepsis with shock HCAP UTI ARF on CKD, started on HD/ new start A fib with RVR NSTEMI COPD exacerbation DM anemia of chronic kidney disease lactic acidosis Cachexia with severe protein calorie malnutrition Mild pulmonary HTN mild to moderate MR Encephalopathy dysphagia Sacrococcyx un-stageable pressure ulcer POA Multiple DTI POA PLAN OF CARE in [facility] Off pressors, hemodynamically stable titrate O2 to keep pulse ox above 92% on Tube feeding @ 30 cc/hr Abx: Colistin, Polymyxin Monitor Labs and cultures Jonathan Garcia MD Jul 11, 2017 19:00
[2017-07-11] MEDS ORDERED: D5NS 1000ml IV ONE (19:01)
[2017-07-11] MEDS ORDERED: NS 275ml ONE (19:01)
[2017-07-11] MEDS ORDERED: Tubing IV Secondary IV ONE ×2 (19:01)
--- NOTE | 2017-07-12 08:51 | Diagnostic Imaging Report ---
APPROVED REPORT CPT Code: 63765 Present Symptoms Upper Extremity Edema: Bilateral Comments: Hx o LINE BILATERAL UPPER EXTREMITY: Imaging reveals patency of the internal jugular, subclavian, axillary and brachial veins. Doppler indicates normal spontaneous flow within these venous segments, bilaterally. SUPERFICIAL VENOUS SYSTEM: The right basilic vein ( proximal, distal upper arm and forearm) and left basilic vein are within normal limits. The right cephalic vein is also with in normal limits. The left cephalic vein and right mid segment of basilic vein were not well visualized due to PICC line bandages.
--- NOTE | 2017-07-12 08:53 | Diagnostic Imaging Report ---
APPROVED REPORT CPT Code: 35149 Present Symptoms Shortness of breath BILATERAL: Imaging reveals a patent deep venous system bilaterally. There is no evidence of thrombus within the femoral, popliteal or tibial segments. The greater saphenous veins are also within normal limits. Doppler indicates normal spontaneous flow within these segments.
--- NOTE | 2017-07-12 13:53 | Discharge Summary ---
Discharge Summary Discharge Summary Discharge Summary DATE OF ADMISSION: 07/01/2017 DATE OF DISCHARGE: 01/02/2018 CONSULTANTS: 1. Dr. Page West 2. Dr. Chao Garza 3. Dr. Luke Charles 4. Dr. Radha Haney 5. Dr. Evan Villalpando [facility] COURSE: Patient is a 62-year-old white male, who presented to ED with chief complaint of shortness of breath. Patient is a resident of [facility]. At the [facility] he began to have shortness of breath. O2 saturation was noted to be 80% on 5 L oxygen. He was then transported to the emergency room. On arrival to the ED, he was in severe respiratory distress , he was placed on BiPAP and was admitted to [facility]. He was febrile temperature was 100, he had chest x-ray that showed bilateral basilar opacities. He required to be intubated and was transferred to ICU, he was also hypotensive and was started on IV pressors. He had elevated creatinine of 9, potassium went up to 6.7, he required emergent dialysis. On 07/02/2017, a left subclavian central venous hemodialysis catheter was inserted by Dr. Villalpando. He had septic shock likely secondary to pneumonia, influenza screen was negative. He was given empiric IV vancomycin and Zosyn. He was started on hemodialyses and while on hemodialyses, develop rapid atrial fibrillation up to rate 190s. Levophed was increased to 12 g and was given Cardizem, and IV digoxin. Renal ultrasound showed bilateral echogenic kidneys, consistent with medical renal disease. He had an echocardiogram that showed ejection fraction of 55% mild to moderate mitral regurgitation, mild tricuspid regurgitation, mild pulmonary hypertension. Potasium improved post hemodialysis. He was eventually taken off IV pressors and heart rhythm eventually converted to sinus rhythm. He was then started on Lopressor 25 mg twice a day. Blood culture did not isolate any growth, urine culture with no growth. Chest CT showed extensive consolidation on the right lower lobe. Similar opacities seen in the left lower lobe predominantly inferior. He self extubated on 07/07/2017 and eventually underwent swallow evaluation, however patient not ready to undergo video swallow evaluation, he was continued on nothing by mouth. NGT was reinserted and was re-started on tube feeding. He had an elevated troponin that peaked at 3.36 troponin levels down trended. He had swelling on the bilateral upper arm, venous duplex was negative for DVT. Blood culture did not isolate any growth. Repeat sputum culture with KPC, he was given IV polymyxin B (renally dosed) and inhaled colistin. He was eventually transferred to [facility]. FINAL DIAGNOSES: 1. Acute hypoxemic respiratory failure requiring intubation 2. Status post self extubation 3. Sepsis with shock 4. Healthcare associated pneumonia 5. Acute renal failure with initiation of hemodialyses 6. Atrial fibrillation with RVR 7. Non-ST elevated IN 8. Acute COPD exacerbation 9. Diabetes mellitus 10. Anemia of chronic kidney disease 11. Lactic acidosis 12. Severe protein calorie malnutrition 13. Mild pulmonary hypertension 14. Mild to moderate mitral regurgitation 15. Encephalopathy 16. Dysphagia 17. Unstageable pressure ulcer on coccyx present on admission 18. Multiple deep tissue injuries present on admission DISPOSITION: Patient was transferred to [facility]. DISCHARGE MEDICATIONS: Refer to Discharge Medication List. I have been assigned to dictate discharge summary on this account, and I was not involved in the patient's management. Any Chi NP Jul 12, 2017 13:53
--- NOTE | 2017-07-13 18:22 | Cardiology Report ---
APPROVED REPORT EKG Measurement Heart [id number] NC [id number] Sinus tachycardia Otherwise normal ECG
== END 2017-07-11 19:02 | DRG 870 ==
LOC: EDBD 03:52 → EMR 03:59 → 2W 05:23 → EDBEDREQ 12:10 → ICU 15:39 → 2W 07-08 12:30
PROC: 0BH17EZ Insertion of Endotracheal Airway into Trachea, Via Natural or Artificial Opening (ICD-10-PCS; principal; 2017-07-01)
PROC: 02HV33Z Insertion of Infusion Device into Superior Vena Cava, Percutaneous Approach (ICD-10-PCS; principal; 2017-07-01)
PROC: 5A1955Z Respiratory Ventilation, Greater than 96 Consecutive Hours (ICD-10-PCS; principal; 2017-07-01)
PROC: B548ZZA Ultrasonography of Superior Vena Cava, Guidance (ICD-10-PCS; principal; 2017-07-01)
PROC: 05H633Z Insertion of Infusion Device into Left Subclavian Vein, Percutaneous Approach (ICD-10-PCS; 2017-07-02)
PROC: 5A1D70Z Performance of Urinary Filtration, Intermittent, Less than 6 Hours Per Day (ICD-10-PCS; 2017-07-02)
DX: A41.9 Sepsis, unspecified organism (principal); N17.0 Acute kidney failure with tubular necrosis; J96.01 Acute respiratory failure with hypoxia; J18.9 Pneumonia, unspecified organism; R65.21 Severe sepsis with septic shock; G93.40 Encephalopathy, unspecified; I21.4 Non-ST elevation (NSTEMI) myocardial infarction; E43 Unspecified severe protein-calorie malnutrition; R64 Cachexia; Z99.11 Dependence on respirator [ventilator] status; E87.5 Hyperkalemia; D50.9 Iron deficiency anemia, unspecified; E78.00 Pure hypercholesterolemia, unspecified; K21.9 Gastro-esophageal reflux disease without esophagitis; H40.9 Unspecified glaucoma; E11.9 Type 2 diabetes mellitus without complications; F32.9 Major depressive disorder, single episode, unspecified; I48.91 Unspecified atrial fibrillation; R13.10 Dysphagia, unspecified; R56.9 Unspecified convulsions; Z68.24 Body mass index [BMI] 24.0-24.9, adult; L89.150 Pressure ulcer of sacral region, unstageable; I34.0 Nonrheumatic mitral (valve) insufficiency; I27.20 Pulmonary hypertension, unspecified
CPT/HCPCS: 36415; 36569; 36600; 71045; 71250; 74018; 76770; 76937; 80048; 80053; 80162; 80202; 81003; 82270; 82550; 82553; 82607; 82728; 82746; 82803; 82962; 82977; 83036; 83540; 83550; 83605; 83735; 83880; 84100; 84300; 84439; 84443; 84484; 84550; 85007; 85025; 85610; 85730; 86140; 86635; 86703; 86710; 86850; 86900; 86901; 86920; 87040; 87070; 87081; 87086; 87181; 87205; 87449; 89050; 93005; 93306; 93970; 94002; 94003; 94640; 94660; 94760; 99285; J1815; J2405; J7620; J8499